=== PATIENT | male | born 1940 | race Caucasian/White ===

== ENCOUNTER → 2020-06-13 10:09 | Outpatient (BNVA) | payer MEDICARE, OTHER, SELFPAY | PROVIDERS: PCP Family Medicine; Visit Provider Internal Medicine Pulmonary Disease | DX: J44.9 Chronic obstructive pulmonary disease, unspecified (principal); J20.9 Acute bronchitis, unspecified; R06.00 Dyspnea, unspecified | CPT/HCPCS: 99212 ==

== ENCOUNTER 2020-08-10 08:52 | Outpatient (REF) | payer MEDICARE, OTHER, SELFPAY ==
[2020-08-10 10:12] LABS: MANUAL DIFF FLAG NO
[2020-08-10 10:20] LABS: Basophils Percent Auto 0.6 % (0-2); Eosinophils Absolute Auto 0.1 X10*3/uL (0.0-0.4); Eosinophils Percent Auto 1.7 % (0-4); Hematocrit 41.1 % (42-52); Hemoglobin 13.6 g/dl (14.0-18.0); Imm Gran Abs Auto 0.02 X10*3/uL (0.00-0.03); Imm Gran Pct Auto 0.3 % (0.0-0.4); Lymphocytes Percent Auto 14.4 % (20-40); Mean Corpuscular HGB Conc 33.1 g/dl (31.0-36.0); Mean Corpuscular Hemoglobin 29.9 pg (27.0-33.0); Mean Corpuscular Volume 90.3 fL (80-98); Mean Platelet Volume 9.5 fL (9.4-12.4); Monocytes Absolute Auto 0.9 X10*3/uL (0.1-1.2); Neutrophils Absolute Auto 5.1 X10*3/uL (2.0-8.3); Platelet Count 271 X10*3/uL (160-400); Red Blood Count 4.55 X10*6/uL (4.60-5.80); Red Cell Distribution Width 12.3 % (11.0-16.0); White Blood Count 7.2 X10*3/uL (4.8-10.8)
[2020-08-10 10:40] LABS: Alanine Aminotransferase 19 U/L (0-40); Anion Gap 10 (12-20); Blood Urea Nitrogen 19 mg/dL (9-16); Carbon Dioxide 30 mmol/L (22-29); Chloride 105 mmol/L (96-108); Estimated Glomerular Filt Rate > 60; Potassium 4.5 mmol/L (3.3-5.1); Sodium 140 mmol/L (135-145)
== END 2020-08-10 08:53 | disposition home or self-care (01) ==
LOC: HO.10HDL 08:52
PROVIDERS: Visit Provider Family Medicine
DX: I10 Essential (primary) hypertension (principal); R06.02 Shortness of breath; Z79.899 Other long term (current) drug therapy
CPT/HCPCS: 36415; 80051; 82550; 82565; 84460; 84520; 85025

== ENCOUNTER → 2020-08-16 10:12 | Outpatient (BNVA) | payer MEDICARE, OTHER, SELFPAY | PROVIDERS: PCP Family Medicine; Visit Provider Internal Medicine Pulmonary Disease | DX: J44.9 Chronic obstructive pulmonary disease, unspecified (principal); R06.00 Dyspnea, unspecified; F17.200 Nicotine dependence, unspecified, uncomplicated; Z71.6 Tobacco abuse counseling | CPT/HCPCS: 99212 ==

== ENCOUNTER → 2020-09-26 10:36 | Outpatient (BNVA) | payer MEDICARE, OTHER, SELFPAY | PROVIDERS: PCP Family Medicine; Visit Provider Internal Medicine Pulmonary Disease | DX: J44.9 Chronic obstructive pulmonary disease, unspecified (principal) | CPT/HCPCS: 99212 ==

== ENCOUNTER 2021-03-20 09:20 | Outpatient (REF) | payer MEDICARE, OTHER, SELFPAY ==
[2021-03-20 10:39] LABS: Alanine Aminotransferase 24 U/L (0-40); Anion Gap 13 (12-20); Blood Urea Nitrogen 15 mg/dL (9-16); Carbon Dioxide 26 mmol/L (22-29); Chloride 104 mmol/L (96-108); Estimated Glomerular Filt Rate > 60; Potassium 4.2 mmol/L (3.3-5.1); Sodium 139 mmol/L (135-145)
== END 2021-03-20 09:21 | disposition home or self-care (01) ==
LOC: HO.LAB 09:20
PROVIDERS: PCP Family Medicine; Visit Provider Family Medicine
DX: I10 Essential (primary) hypertension (principal); E78.00 Pure hypercholesterolemia, unspecified; Z79.899 Other long term (current) drug therapy
CPT/HCPCS: 36415; 80051; 82550; 82565; 84460; 84520

== ENCOUNTER → 2021-04-13 13:35 | Outpatient (BNVA) | payer MEDICARE, OTHER, SELFPAY | PROVIDERS: PCP Family Medicine; Visit Provider Internal Medicine Pulmonary Disease | DX: J44.9 Chronic obstructive pulmonary disease, unspecified (principal); J20.9 Acute bronchitis, unspecified | CPT/HCPCS: 99212 ==

== ENCOUNTER → 2021-08-09 11:34 | Outpatient (BNVA) | payer MEDICARE, OTHER, SELFPAY | PROVIDERS: PCP Family Medicine; Visit Provider Internal Medicine Pulmonary Disease | DX: J44.9 Chronic obstructive pulmonary disease, unspecified (principal); R06.00 Dyspnea, unspecified | CPT/HCPCS: 99212 ==

== ENCOUNTER → 2021-10-05 09:19 | Outpatient (REF) | payer MEDICARE, OTHER, SELFPAY ==
--- NOTE | 2021-10-05 09:22 | CA_ITS ---
Transthoracic Echocardiogram Patient (Last, First, Middle): Peter Grimes K Gender: Male Date of : 1940 Age: 81 Procedure Date: 10/05/2021 Procedure Type: Transthoracic Echocardiogram Location: OP Height: 167.64 cm Weight: 61.24 kg BSA: 1.69 m2 Heart Rate: bpm BP: 145 / 60 mmHg Sub Assembly Team Worker: VH/TO Referring MD: Jasper Hurley MD Manager Clinical: Neo Schulz MD Symptoms: R06.00 - Dyspnea, unspecified Study Quality: Fair ECG Rhythm: Sinus Conclusions: - 1. Low normal LV systolic function with pseudonormal filling pressure with suggestion of increased left ventricular end diastolic pressure 2. Normal cardiac valvular Doppler 3. Moderate pericardial effusion without signs of tamponade Findings Left Ventricle The visually estimated ejection fraction is between 50-55%. Spectral Doppler is indicative of a pseudonormal filling pattern. Elevated left ventricular end diastolic pressure. E/E prime ratio is between 8 and 15 consistent with indeterminate filling pressures. Right Ventricle Normal right ventricular cavity size and systolic function. Atria The left atrium is likely dilated. There is no evidence of interatrial shunt. The right atrium is normal in size. Aortic Valve There is mild calcification of the aortic valve. There is moderate thickening of the aortic valve. There is no aortic valve stenosis. There is no aortic valve regurgitation. Mitral Valve The mitral valve was not well visualized. There is no mitral valve regurgitation. There is no mitral valve stenosis. Pulmonic Valve The pulmonic valve was not well visualized. Tricuspid Valve The tricuspid valve was not well visualized. Tricuspid regurgitation envelope is inadequate for calculation of right ventricular systolic pressure. Normal right atrial pressure. Great Vessels All visible segments of the aorta are normal in size. The pulmonary artery was not well visualized. Venous The inferior vena cava is normal in size and collapses greater than 50% with inspiration. Pericardium/Pleural There is a moderate circumferential pericardial effusion. There are no definitive echocardiographic findings of tamponade physiology. Prior Study Comparison Changes noted compared to prior study dated: 07/17/2018. Moderate pericardial effusion is present Measurements 2D Linear Measurements IVSd: 0.98 0.6-0.9/0.6-1.0 cm LVIDd: 5.25 3.9-5.3/4.2-5.9 cm LVIDd Index: 3.11 2.4-3.2/2.2-3.1 cm/m2 LVIDs: 3.90 2.0-3.6 cm LVPWd: 0.81 0.7-1.1 cm LA Diam: 4.20 2.7-3.8/3.0-4.0 cm LAIDs Index: 2.49 1.5-2.3 cm/m2 LV Mass: 211.30 67-162/88-224 g LV Mass Index: 125.03 43-95/49-115 g/m2 LVOT Diam: 2.50 3.0+(-)1.3 cm 2D Systolic Function EF 4C: 55.10 >55% EF 2C: 52.20 >55% EF BiP: 52.30 >55% Mitral Valve MV Pk E: 1.04 MV PK A: 0.68 MV Decel Time: 207.00 E/A: 1.50 E'Lateral: 5.00 E'Medial: 5.55 E/E' Med: 18.70 E/E' Lat: 20.80 PHT: 61.00 MVA PHT: 3.61 Decel [place]: 5.03 Aortic Valve AoV Pk Efe: 1.22 AoV Mn Efe: 0.86 AoV VTI: 0.32 AoV Pk Grad: 6.00 Aov Mn Grad: 3.00 ABUNDIO Cont.VTI: 2.60 LVOT LVOT Pk Efe: 0.64 LVOT Mn Efe: 0.43 LVOT VTI: 0.17 LVOT Pk Grad: 2.00 LVOT Mn Grad: 1.00 LVOT Diam: 2.50 LVOT Area: 4.91 Diastolic Function MV Pk E: 1.04 MV Pk A: 0.68 E/A: 1.50 E'Medial: 5.55 E/E' Med: 18.70 E' Laterial: 5.00 E/E' Lat: 20.80 Right Ventricle TAPSE (mm): 19.10 TVS' Efe: 8.70 Tricuspid Valve RA Press: 3.00 Great Vessels Aorta Sinus of Valsalva: 3.74 2.0-3.5 cm Ao Asc: 3.10 2.1-3.4 cm Updated in Other Vendor System with Status of Final Neo Schulz MD electronically signed on 10/05/2021 3:13:26 PM with status of Final
== END ==
LOC: HO.CARD 09:19
PROVIDERS: PCP Family Medicine; Visit Provider Internal Medicine Pulmonary Disease
DX: R06.00 Dyspnea, unspecified (principal)
CPT/HCPCS: 93306

== ENCOUNTER → 2021-10-16 10:35 | Outpatient (BNVA) | payer MEDICARE, OTHER, SELFPAY | PROVIDERS: PCP Family Medicine; Visit Provider Internal Medicine Pulmonary Disease | DX: J44.9 Chronic obstructive pulmonary disease, unspecified (principal); R06.00 Dyspnea, unspecified | CPT/HCPCS: 99212 ==

== ENCOUNTER 2021-11-19 08:35 | Outpatient (REF) | payer MEDICARE, OTHER, SELFPAY ==
[2021-11-19 12:02] LABS: Alanine Aminotransferase 24 U/L (0-40); Anion Gap 12 (12-20); Aspartate Amino Transferase 22 U/L (5-37); Blood Urea Nitrogen 14 mg/dL (9-16); Carbon Dioxide 28 mmol/L (22-29); Chloride 103 mmol/L (96-108); Estimated Glomerular Filt Rate > 60; Potassium 4.7 mmol/L (3.3-5.1); Sodium 138 mmol/L (135-145)
== END 2021-11-19 08:36 | disposition home or self-care (01) ==
LOC: HO.HMGCLDS 08:35
PROVIDERS: PCP Family Medicine; Visit Provider Family Medicine
DX: I10 Essential (primary) hypertension (principal); Z79.899 Other long term (current) drug therapy
CPT/HCPCS: 36415; 80051; 82550; 82565; 84450; 84460; 84520

== ENCOUNTER → 2021-12-13 10:30 | Outpatient (BNVA) | payer MEDICARE, OTHER, SELFPAY | PROVIDERS: PCP Family Medicine; Visit Provider Internal Medicine Pulmonary Disease | DX: J44.9 Chronic obstructive pulmonary disease, unspecified (principal); R06.00 Dyspnea, unspecified; Z79.899 Other long term (current) drug therapy | CPT/HCPCS: 99212 ==

== ENCOUNTER 2022-01-10 13:24 | Outpatient (REF) | payer MEDICARE, OTHER, SELFPAY ==
--- NOTE | ~2022-01-10 | XR_ITS ---
EXAMINATION: XR CHEST 2 VIEWS CLINICAL INFORMATION: COPD, chest pain and cough. COMPARISON: Chest radiographs dated 06/26/2018; CTA chest dated 06/05/2018.. TECHNIQUE: Frontal and lateral views of the chest were obtained. FINDINGS: The heart, great vessels, pulmonary vasculature and mediastinum are normal. The lungs show no focal infiltrate, effusion or pneumothorax. A faint nipple shadow just to the anterior aspect of the right sixth rib, without corresponding finding on the lateral view. There is no acute osseous abnormality. There is mild thoracic spondylosis. XR/XR chest 2V IMPRESSION: No active cardiopulmonary disease.
--- NOTE | ~2022-01-10 | XR_ITS ---
EXAMINATION: XR RIBS, LEFT CLINICAL INFORMATION: Left chest pain, cough and COPD. COMPARISON: None TECHNIQUE: 3 views of the left ribs were obtained. FINDINGS: Lungs are clear. No consolidation, pneumothorax, or pleural effusion. The cardiomediastinal silhouette and pulmonary vasculature are normal. Osseous structures are unremarkable. Ribs are intact. No fractures are identified. XR/XR ribs LT 2V IMPRESSION: Unremarkable left rib examination.
== END 2022-01-10 13:25 | disposition home or self-care (01) ==
LOC: HO.XRAY 13:24
PROVIDERS: PCP Family Medicine; Visit Provider Family Medicine
DX: R07.89 Other chest pain (principal); J44.9 Chronic obstructive pulmonary disease, unspecified; R05.9 Cough, unspecified
CPT/HCPCS: 71046; 71100

== ENCOUNTER 2022-01-29 11:02 | Inpatient (IN) | payer MEDICARE, OTHER, SELFPAY ==
[2022-01-29] VITALS (9 sets, daily range): BP systolic 119–144; BP diastolic 51–89; PULSE 81–128; RESP 13–26; TEMP 36.7–37.2; O2SAT 95–97; BMI 21.4
--- NOTE | ~2022-01-29 | XR_ITS ---
EXAMINATION: XR CHEST CLINICAL INFORMATION: COPD exacerbation. COMPARISON: January 10, 2022. TECHNIQUE: Frontal view of the chest was obtained. FINDINGS: No significant abnormality is noted involving the heart, lungs, mediastinum, bony thorax or soft tissues. Mild degenerative changes of the shoulders. XR/XR chest 1V IMPRESSION: Unremarkable examination.
--- NOTE | 2022-01-29 11:13 | ECG_ITS ---
Test Reason : SOB Blood Pressure : / mmHG Vent. Rate : 092 BPM Atrial Rate : 000 BPM P-R Int : 000 ms QRS Dur : 120 ms QT Int : 374 ms P-R-T Axes : 000 -46 081 degrees QTc Int : 462 ms Atrial fibrillation Left axis deviation Incomplete left bundle branch block Abnormal ECG When compared with ECG of 07-JUN-2018 13:55, Atrial fibrillation has replaced Sinus rhythm Incomplete left bundle branch block is now Present Left axis deviation is now Present Referred By: Ambar Carrillo Electronically Signed By:LUIS KUMAR
--- NOTE | 2022-01-29 11:23 | ED.SOB ---
HPI - SOB/Dyspnea General Chief Complaint: Dyspnea Stated Complaint: Chest pain, diff breathing Time Seen by Provider: 01/29/22 11:05 Source: patient Mode of arrival: ambulatory Limitations: no limitations History of Present Illness HPI Narrative: Patient comes to the emergency room complaining of shortness of breath for 3 days. Patient states that he is known to have COPD. Patient uses inhalers at home, but over the last few days, they have not been working. Patient states that he feels a lot of pressure on both sides of the chest, no chest pain. Patient states that if he leans over to tie his shoes, the chest pressure increases. Patient states that he has been coughing more than usual. Patient is not oxygen dependent. Denies fever or chills Related Data Home Medications Medication Instructions Recorded Confirmed albuterol sulfate 90 mcg/actuation 2 puff inhalation QID 06/13/20 04/13/21 aerosol inhaler amlodipine 10 mg tablet 10 mg PO DAILY 06/13/20 01/29/22 apixaban 5 mg tablet (Eliquis) 5 mg PO BID 06/13/20 04/13/21 aspirin 81 mg tablet,delayed 81 mg PO DAILY 06/13/20 04/13/21 release atorvastatin 40 mg tablet 40 mg PO DAILY 06/13/20 01/29/22 clopidogrel 75 mg tablet (Plavix) 75 mg PO DAILY 06/13/20 01/29/22 finasteride 5 mg tablet 5 mg PO DAILY 06/13/20 01/29/22 nitroglycerin 0.4 mg sublingual 0.4 mg sublingual Q5M PRN 06/13/20 04/13/21 tablet quinapril 40 mg tablet 40 mg PO BID 06/13/20 01/29/22 tamsulosin 0.4 mg capsule (Flomax) 0.4 mg PO DAILY 06/13/20 01/29/22 budesonide-formoterol HFA 160 2 puff inhalation BID 01/29/22 01/29/22 mcg-4.5 mcg/actuation aerosol inhaler (Symbicort) isosorbide mononitrate 30 mg 1 tab PO QPM 01/29/22 01/29/22 tablet,extended release 24 hr metoprolol tartrate 50 mg tablet 1 tab PO TID 01/29/22 01/29/22 tramadol 50 mg tablet 1 tab PO Q12H PRN pain 01/29/22 01/29/22 Allergies Allergy/AdvReac Type Severity Reaction Status Date / Time No Known Allergies Allergy Verified 12/13/21 10:31 [No Known Allergies*] Review of Systems Review of Systems: Constitutional : No Weight loss, No Fever, No Chills, No Night Sweats, No Fatigue, No Malaise ENT/Mouth : No Hearing loss, No Ear Pain, No Nasal Congestion, No Sinus Pain, No Hoarseness, No sore throat, No Rhinorrhea, No Swallowing Difficulty Eyes: No Eye Pain, No Swelling, No Redness, No Foreign Body, No Discharge, No Vision Changes Cardiovascular : Complaining of chest pressure, No Chest Pain, no orthopnea, no lower extremity edema, no palpitations Respiratory : Increased cough, dyspnea at rest, worse with exertion Gastrointestinal : No Nausea, No Vomiting, No Diarrhea, No Constipation, No abdominal Pain, No Hematochezia, No Melena Genitourinary : no irregular bleeding, No Dysuria, No Urinary Frequency, No Hematuria, No Urinary Incontinence, No Urgency, No Flank Pain, No Urinary Flow Changes, No Hesitancy Musculoskeletal : No joint pain, No Myalgias, No Joint Swelling Skin : No Skin Lesions, No rash Neuro : No Weakness, No Numbness, No Paresthesias, No Loss of Consciousness, No Dizziness, No Headache Psych : No Anxiety/Panic, No Depression, No SI/HI/AH/VH, No Social Issues, Heme/Lymph: No Bruising, No Bleeding,No Lymphadenopathy Endocrine : No Polyuria, No Polydipsia, No Temperature Intolerance FOR[facility], LAT[facility] Past Medical History Medical History (Updated 01/29/22 @ 14:04 by Ambar Carrillo MD) CHF (congestive heart failure) COPD (chronic obstructive pulmonary disease) Coronary artery disease Pericardial effusion Surgical History (Updated 01/29/22 @ 11:25 by Ambar Carrillo MD) H/O heart artery stent Social History Social History (Updated 06/13/20 @ 10:12 by Myra Adams MA) Alcohol intake: current Patient Tobacco Use Status: Former Tobacco user Use of substances other than those prescribed or required for medical reasons: No Advance Directives: No Advance Directives Information Provided: No Physical Exam Vital Signs: Vital Signs: Last Vital Signs Temp 98.1 F 01/29/22 11:49 Pulse 87 01/29/22 12:51 Resp 20 01/29/22 12:51 BP 123/54 L 01/29/22 12:51 Pulse Ox 95 01/29/22 12:51 O2 Del Method 01/29/22 12:51 BMI result Body Mass Index 21.4 Const: Other: Appearance: Alert. Oriented X3. No acute distress. Eyes: Pupils equal, round and reactive to light. ENT: Pharynx normal. Neck: Normal inspection. Neck supple. No lymph nodes noted. No crepitus CVS: Normal heart rate and rhythm. Pulses normal. Normal S1 and S2 Respiratory: No respiratory distress. Decreased breath sounds bilaterally, minimal wheezing, tachypneic approximately respiratory rate of 30 Abdomen: Soft and nontender. No rigidity. No distention. Skin: Skin warm and dry. Normal skin color. Normal skin turgor. Extremities: No lower extremity edema. No Lacerations. No Rash Neuro: Oriented X 3. No motor deficit. No sensory deficit. Moving all extremities. No slurred speech. CN 2 through 12 grossly intact Psych: calm, cooperative, normal affect Course Course Course Narrative: Patient is receiving an hour long treatment, Solu-Medrol, magnesium, IV antibiotics. All of patient's labs and imaging are pending EKG shows new onset atrial fibrillation. His initial heart rate 110-140. Patient was given 10 mg of IV Cardizem, heart rate improved to 87, blood pressure 123/54. Patient's oxygen saturation drops to 87% with walking, patient becomes short of breath. Patient also has acute kidney injury, creatinine 1.52, previously 1.13. At this time, due to the shortness of breath, we will diurese the patient. No fluid will be given. Patient's troponin is bumped to 36.6, BNP 656 which is more elevated than usual, chest x-ray does not show any acute pulmonary edema. Patient will be admitted. I discussed the patient with Dr. Schulz, recommendations are to start Eliquis, stop aspirin, patient needs diuresis. Patient already received 20 mg of IV Lasix. I discussed the patient with Dr. Stock, patient being admitted MDM - SOB/Dyspnea Lab Data Result diagrams: 01/29/22 12:20 01/29/22 12:20 Labs: Lab Results 08/01/29/22 01/29/22 Range/Units 11:37 11:37 12:20 WBC 10.6 (4.8-10.8) X10*3/uL RBC 4.61 (4.60-5.80) X10*6/uL Hgb 13.6 L (14.0-18.0) g/dl Hct 41.1 L (42.0-52.0) % MCV 89.2 (80.0-98.0) fL MCH 29.5 (27.0-33.0) pg MCHC 33.1 (31.0-36.0) g/dl RDW 12.4 (11.0-16.0) % Plt Count 235 (160-400) X10*3/uL MPV 9.6 (9.4-12.4) fL Immature Gran % (Auto) 0.4 (0.0-0.4) % Neut % (Auto) 74.5 H (45-73) % Lymph % (Auto) 10.6 L (20-40) % [place] % (Auto) 14.3 H (2-11) % Eos % (Auto) 0.0 (0-4) % Baso % (Auto) 0.2 (0-2) % Lymph # (Auto) 1.1 L (1.2-4.9) X10*3/uL [place] # (Auto) 1.5 H (0.1-1.2) X10*3/uL Eos # (Auto) 0.0 (0.0-0.4) X10*3/uL Baso # (Auto) 0.0 (0.0-0.2) X10*3/uL Abs Immat Gran (auto) 0.04 H (0.00-0.03) X10*3/uL Absolute Neuts (auto) 7.9 (2.0-8.3) x10*3/uL Absolute Nucleated RBC 0.000 (0.0-0.012) X10*3/uL Nucleated RBC % (auto) 0.0 (0.0-0.2) /100WBC Smear Tech's Comments VERIFIED PT (10.0-13.1) SEC INR (0.9-1.1) Sodium (135-145) mmol/L Potassium (3.3-5.1) mmol/L Chloride (96-108) mmol/L Carbon Dioxide (22-29) mmol/L Anion Gap (12-20) BUN (9-16) mg/dL Creatinine (0.5-1.4) mg/dL Estim Creat Clear Calc Estimated GFR Random Glucose (60-115) mg/dL Lactic Acid 1.2 (0.5-2.0) mmol/L Calcium (8.4-10.2) mg/dL Total Bilirubin (0.0-1.0) mg/dL Direct Bilirubin (0.0-0.5) mg/dL AST (5-37) U/L ALT (0-40) U/L Alkaline Phosphatase (39-117) U/L Troponin I High Sens (<3.5-35.0) ng/L B-Natriuretic Peptide (<100) pg/mL Total Protein (6.5-8.0) g/dL Albumin (3.5-5.0) g/dL COVID-19 (CLAUDIA) Negative (Negative) COVID-19 Clin Com See Note 01/29/22 01/29/22 01/29/22 Range/Units 12:20 12:20 12:20 WBC (4.8-10.8) X10*3/uL RBC (4.60-5.80) X10*6/uL Hgb (14.0-18.0) g/dl Hct (42.0-52.0) % MCV (80.0-98.0) fL MCH (27.0-33.0) pg MCHC (31.0-36.0) g/dl RDW (11.0-16.0) % Plt Count (160-400) X10*3/uL MPV (9.4-12.4) fL Immature Gran % (Auto) (0.0-0.4) % Neut % (Auto) (45-73) % Lymph % (Auto) (20-40) % [place] % (Auto) (2-11) % Eos % (Auto) (0-4) % Baso % (Auto) (0-2) % Lymph # (Auto) (1.2-4.9) X10*3/uL [place] # (Auto) (0.1-1.2) X10*3/uL Eos # (Auto) (0.0-0.4) X10*3/uL Baso # (Auto) (0.0-0.2) X10*3/uL Abs Immat Gran (auto) (0.00-0.03) X10*3/uL Absolute Neuts (auto) (2.0-8.3) x10*3/uL Absolute Nucleated RBC (0.0-0.012) X10*3/uL Nucleated RBC % (auto) (0.0-0.2) /100WBC Smear Tech's Comments PT 11.9 (10.0-13.1) SEC INR 1.0 (0.9-1.1) Sodium 135 (135-145) mmol/L Potassium 4.2 (3.3-5.1) mmol/L Chloride 97 (96-108) mmol/L Carbon Dioxide 22 (22-29) mmol/L Anion Gap 20 (12-20) BUN 31 H D (9-16) mg/dL Creatinine 1.52 H (0.5-1.4) mg/dL Estim Creat Clear Calc 33.0 Estimated GFR 44 Random Glucose 141 H (60-115) mg/dL Lactic Acid (0.5-2.0) mmol/L Calcium 9.0 (8.4-10.2) mg/dL Total Bilirubin 0.9 (0.0-1.0) mg/dL Direct Bilirubin 0.5 (0.0-0.5) mg/dL AST 26 (5-37) U/L ALT 22 (0-40) U/L Alkaline Phosphatase 83 (39-117) U/L Troponin I High Sens 36.6 H (<3.5-35.0) ng/L B-Natriuretic Peptide 656 H (<100) pg/mL Total Protein 7.5 (6.5-8.0) g/dL Albumin 4.1 (3.5-5.0) g/dL COVID-19 (CLAUDIA) (Negative) COVID-19 Clin Com Critical Care Time Critical Care Time Critical Care Time: Yes Total Critical Care Time: 45 Attestation: I have personally provided critical care time. Time includes review of lab data, radiology results, discussion with consultants, and monitoring for potential decompensation. Intervention performed as documented. Discharge Plan Discharge Clinical Impression: Atrial fibrillation, new onset, Acute kidney injury, Acute dyspnea Patient Disposition: Admitted As Inpatient
[2022-01-29] MEDS: Albuterol Sulfate (0.083%) 2.5 MG/3 ML VIAL.NEB 10 MG INHALE (11:28)
[2022-01-29] MEDS: methylPREDNISolone Sod Succ 125 MG/2 ML VIAL IVPUSH (11:52)
[2022-01-29] MEDS: Magnesium Sulfate/H2O 2 GM/50 ML PIGGYBACK IV (11:54)
[2022-01-29 11:57] LABS: Lactic Acid 1.2 mmol/L (0.5-2.0)
[2022-01-29 12:12] LABS: COVID-19 Test Negative (Negative)
[2022-01-29] MEDS: dilTIAZem HCL 50 MG/10 ML VIAL 10 MG IVPUSH (12:32)
[2022-01-29 12:35] LABS: Basophils Percent Auto 0.2 % (0-2); Hematocrit 41.1 % (42.0-52.0); Hemoglobin 13.6 g/dl (14.0-18.0); Imm Gran Abs Auto 0.04 X10*3/uL (0.00-0.03); Imm Gran Pct Auto 0.4 % (0.0-0.4); Lymphocytes Absolute Auto 1.1 X10*3/uL (1.2-4.9); Lymphocytes Percent Auto 10.6 % (20-40); MANUAL DIFF FLAG SCAN; Mean Corpuscular HGB Conc 33.1 g/dl (31.0-36.0); Mean Corpuscular Hemoglobin 29.5 pg (27.0-33.0); Mean Corpuscular Volume 89.2 fL (80.0-98.0); Mean Platelet Volume 9.6 fL (9.4-12.4); Monocytes Absolute Auto 1.5 X10*3/uL (0.1-1.2); Monocytes Percent Auto 14.3 % (2-11); Neutrophils Absolute Auto 7.9 x10*3/uL (2.0-8.3); Neutrophils Percent Auto 74.5 % (45-73); Platelet Count 235 X10*3/uL (160-400); Red Blood Count 4.61 X10*6/uL (4.60-5.80); Red Cell Distribution Width 12.4 % (11.0-16.0); SCAN SMEAR FLAG 1; White Blood Count 10.6 X10*3/uL (4.8-10.8)
[2022-01-29] MEDS: 0.9 % Sodium Chloride 1,000 ML 999 ML IVCONT (12:36)
[2022-01-29 12:41] LABS: Prothrombin Time 11.9 SEC (10.0-13.1)
[2022-01-29 12:52] LABS: Alanine Aminotransferase 22 U/L (0-40); Albumin Level 4.1 g/dL (3.5-5.0); Alkaline Phosphatase 83 U/L (39-117); Anion Gap 20 (12-20); Aspartate Amino Transferase 26 U/L (5-37); Bilirubin Direct 0.5 mg/dL (0.0-0.5); Bilirubin Total 0.9 mg/dL (0.0-1.0); Blood Urea Nitrogen 31 mg/dL (9-16); Carbon Dioxide 22 mmol/L (22-29); Chloride 97 mmol/L (96-108); Estimated Glomerular Filt Rate 44; Glucose Random 141 mg/dL (60-115); Potassium 4.2 mmol/L (3.3-5.1); Sodium 135 mmol/L (135-145); Total Protein 7.5 g/dL (6.5-8.0)
[2022-01-29 12:53] LABS: SLIDE REVIEW VERIFIED
[2022-01-29 12:58] LABS: B Type Natriuretic Peptide 656 pg/mL (<100); Troponin-I High Sensitivity 36.6 ng/L (<3.5-35.0)
[2022-01-29] MEDS: levoFLOXacin/D5W 500 MG/100 ML PIGGYBACK 100 MG IV (13:23)
--- NOTE | 2022-01-29 13:55 | PC.NURSE ---
THIS PCT AMBULATES PATIENT AND MEASURES SPO2 PER MD VERBAL ORDER. PATIENT'S GAIT REGULAR AND STEADY, MAINTAINING OXYGEN SATURATION OF 94%. ONCE PATIENT TURNED AND SPOKE TO THIS PCT TO RETURN TO BED THEIR SPO2 STEADILY AND QUICKLY DROPPED DOWN TO 88%
[2022-01-29] MEDS: Apixaban 2.5 MG TABLET PO ×2 (14:34→21:30)
[2022-01-29] MEDS: Furosemide 20 MG/2 ML VIAL IVPUSH (14:34)
--- NOTE | 2022-01-29 14:38 | P.HPHOSP_ITS ---
History of Present Illness Date of Service: 01/29/22 Chief Complaint: Shortness of breath An 81 years old male with PMH of CAD post multiple stents, COPD, CHF, BPH who presents to the hospital complaining of dyspnea and palpitation for 3 days. The patient reports that his baseline is poor and he cannot walk much without feeling winded but since Friday he has been failing more shortness of breath, palpitation and weakness associated with chest heaviness. Denies any fever, chills, coughing, abdominal pain, nausea, vomiting, change in bowel habit or urinary symptoms. In the emergency he was found to be in new onset atrial fibrillation with rapid ventricular response. Noticed to have worsened kidney function and evidence of elevated BNP. Admitted for further evaluation and treatment. Review of Systems Review of Systems: No fever, chills but reports generalized weakness Having chest illness and palpitations Reporting dyspnea on exertion No abdominal pain, nausea or vomiting No urinary symptoms No any rash or wounds [facility] Medical History (Updated 01/29/22 @ 14:04 by Ambar Carrillo MD) CHF (congestive heart failure) COPD (chronic obstructive pulmonary disease) Coronary artery disease Pericardial effusion Surgical History (Updated 01/29/22 @ 11:25 by Ambar Carrillo MD) H/O heart artery stent Social History (Updated 06/13/20 @ 10:12 by Myra Adams MA) Alcohol intake: current Patient Tobacco Use Status: Former Tobacco user Use of substances other than those prescribed or required for medical reasons: No Advance Directives: No Advance Directives Information Provided: No Meds Allergies Allergy/AdvReac Type Severity Reaction Status Date / Time No Known Allergies Allergy Verified 12/13/21 10:31 [No Known Allergies*] Active Medications: Current Medications Levofloxacin (Levaquin) 500 mg in 100 mls @ 100 mls/hr IV Q24H MARTINEZ Last Infusion: 01/29/22 14:33 Dose: Infused Pharmacy Consult (Consult Rx Perform Med Rec) 1 each MISCELLANE ONCE PRN PRN Reason: Consult order Home Medications Medication Instructions Recorded Confirmed Last Taken Type amlodipine 10 mg tablet 10 mg PO DAILY 06/13/20 01/29/22 01/29/22 History aspirin 81 mg tablet,delayed 81 mg PO DAILY 06/13/20 01/29/22 01/29/22 History release atorvastatin 40 mg tablet 40 mg PO BEDTIME 06/13/20 01/29/22 01/28/22 History clopidogrel 75 mg tablet (Plavix) 75 mg PO DAILY 06/13/20 01/29/22 01/29/22 History finasteride 5 mg tablet 5 mg PO DAILY 06/13/20 01/29/22 01/29/22 History quinapril 40 mg tablet 40 mg PO BID 06/13/20 01/29/22 01/29/22 History tamsulosin 0.4 mg capsule (Flomax) 0.4 mg PO BEDTIME 06/13/20 01/29/22 01/28/22 History budesonide-formoterol HFA 160 2 puff inhalation BID 01/29/22 01/29/22 01/29/22 History mcg-4.5 mcg/actuation aerosol inhaler (Symbicort) isosorbide mononitrate 30 mg 1 tab PO DAILY@1800 01/29/22 01/29/22 01/28/22 History tablet,extended release 24 hr metoprolol tartrate 50 mg tablet 50 mg PO DAILY 01/29/22 01/29/22 01/29/22 History metoprolol tartrate 50 mg tablet 100 mg PO DAILY@1800 01/29/22 01/29/22 01/28/22 History multivitamin 1 tab PO DAILY 01/29/22 01/29/22 01/29/22 History Physical Exam Vital Signs and Narrative: Vital Signs: Last Vital Signs Temp 98.1 F 01/29/22 11:49 Pulse 93 01/29/22 14:35 Resp 20 01/29/22 14:35 BP 132/89 01/29/22 14:35 Pulse Ox 95 01/29/22 14:35 O2 Del Method 01/29/22 14:35 BMI result Body Mass Index 21.4 Const: Other: Constitutional : Alert, oriented, not in distress Neck : Normal inspection, Supple Cardiovascular : Irregularly irregular, no JVP, no lower extremity edema Respiratory : The decreased bilateral air entry, no crackles, wheezes or rhonchi Gastrointestinal: soft, lax, Normal bowel sounds, Non tender Skin : Warm, Dry Neurological : Alert & oriented x3, No focal deficit , CN 2-12 within normal Results Labs CBC and Chem 7: 01/29/22 12:20 01/29/22 12:20 Labs: Laboratory Results - last 24 hr 01/29/22 01/29/22 01/29/22 11:37 11:37 12:20 MCV 89.2 MCH 29.5 MCHC 33.1 RDW 12.4 Plt Count 235 MPV 9.6 Immature Gran % (Auto) 0.4 Neut % (Auto) 74.5 H Lymph % (Auto) 10.6 L [place] % (Auto) 14.3 H Eos % (Auto) 0.0 Baso % (Auto) 0.2 Lymph # (Auto) 1.1 L [place] # (Auto) 1.5 H Eos # (Auto) 0.0 Baso # (Auto) 0.0 Abs Immat Gran (auto) 0.04 H Absolute Neuts (auto) 7.9 Absolute Nucleated RBC 0.000 Nucleated RBC % (auto) 0.0 Smear Tech's Comments VERIFIED PT INR Anion Gap Estim Creat Clear Calc Estimated GFR Random Glucose Lactic Acid 1.2 Calcium Total Bilirubin Direct Bilirubin AST ALT Alkaline Phosphatase B-Natriuretic Peptide Total Protein Albumin COVID-19 (CLAUDIA) Negative COVID-19 Clin Com See Note 01/29/22 01/29/22 01/29/22 12:20 12:20 12:20 MCV MCH MCHC RDW Plt Count MPV Immature Gran % (Auto) Neut % (Auto) Lymph % (Auto) [place] % (Auto) Eos % (Auto) Baso % (Auto) Lymph # (Auto) [place] # (Auto) Eos # (Auto) Baso # (Auto) Abs Immat Gran (auto) Absolute Neuts (auto) Absolute Nucleated RBC Nucleated RBC % (auto) Smear Tech's Comments PT 11.9 INR 1.0 Anion Gap 20 Estim Creat Clear Calc 33.0 Estimated GFR 44 Random Glucose 141 H Lactic Acid Calcium 9.0 Total Bilirubin 0.9 Direct Bilirubin 0.5 AST 26 ALT 22 Alkaline Phosphatase 83 B-Natriuretic Peptide 656 H Total Protein 7.5 Albumin 4.1 COVID-19 (CLAUDIA) COVID-19 Clin Com Imaging Radiologist's Impressions: Impressions Chest X-Ray 01/29/22 11:21 IMPRESSION: Unremarkable examination. Assessment and Plan (1) Atrial fibrillation, new onset: Status: Acute (2) Acute kidney injury: Status: Acute Plan An 81 years old male with PMH of CAD post multiple stents, COPD, CHF, BPH who presents to the hospital complaining of dyspnea and palpitation for 3 days. New onset atrial fibrillation with RVR Check TSH Received Cardizem dose with fair response continue home dose metoprolol Start renally adjusted Eliquis Echo Get cardiology evaluation the morning Chris I on CKD stage 3 Creatinine worsened to 1.5 Likely secondary to new onset atrial fibrillation Hold nephrotoxic medications Monitor BMP, intake and output History of CHF , Diastolic elevated BNP CXR showing no fluid overload hold on Lasix for now History of CAD Discontinue aspirin, continue Plavix Continue isosorbide, metoprolol Hold quinapril and amlodipine Continue statin BPH continue finasteride DVT PPX Eliquis The patient will need shreya 2 overnight hospital stay for evaluation of new onset atrial fibrillation and treatment of acute kidney injury to prevent possible decompensation Quality Stroke Does the patient have a stroke diagnosis?: No VTE Prior VTE?: No VTE Risk Level:: Medical - moderate - high VTE Device Contraindication: Treatment Not Indicated VTE Drug Contraindication: N/A - Med Ordered
--- NOTE | 2022-01-29 14:45 | PHA.MEDREC ---
Pharmacy Consult ? Medication Reconciliation Pharmacy has completed the medication reconciliation. Patient had list of medications with him. List matched claim history. Sonya PeralesD
[2022-01-29 15:10] LABS: Thyroid Stimulating Hormone 1.05 uIU/mL (0.32-4.0)
[2022-01-29] MEDS: 0.9 % Sodium Chloride Flush 3 ML SYRINGE IVFLUSH (16:48)
[2022-01-29] MEDS: Metoprolol Tartrate 100 MG TABLET PO (17:41)
[2022-01-29] MEDS: Isosorbide Mononitrate 30 MG TAB.ER.24H PO (18:10)
[2022-01-29] MEDS: Tamsulosin HCL 0.4 MG CAPSULE PO (21:30)
[2022-01-29] MEDS: Atorvastatin Calcium 40 MG TABLET PO (21:30)
--- NOTE | 2022-01-29 21:45 | MHC.CM.PN ---
IMM 01/29. HCP on file with PCP, Dr. Sigala. Copy requested. HCP#1/ Betty Grimes ([phone]) & HCP#2/daughter Yaquelin Garcia. Independent. Lives with & daughter. Home has an in-law apartment. No DME/services. Moderna Vax/boosted x1. D/C plan: home without services. Family to transport.
[2022-01-30] VITALS (8 sets, daily range): BP systolic 140–157; BP diastolic 58–67; PULSE 69–87; RESP 15–27; TEMP 36.4–36.6; O2SAT 95–97
[2022-01-30] MEDS: 0.9 % Sodium Chloride Flush 3 ML SYRINGE IVFLUSH ×2 (00:05→07:44)
--- NOTE | 2022-01-30 01:15 | PC.NURSE ---
Patient cough progressing to a wet congested hacking cough. LS dim, congested, rhonchi throughout. Patient has a strong cough but is unable to produce sputum. Oxygen remains 94%RA. Patient denies increase in SOB, Denies CP. Patient sleeping off/on. Hospitalist paged to request nebs vrs cough meds vrs additional lasix. MD Ran Fleming placed order for brenda aguirre.
[2022-01-30] MEDS: Benzonatate 100 MG CAPSULE PO (01:46)
[2022-01-30 04:38] LABS: Hematocrit 34.5 % (42.0-52.0); Hemoglobin 12.3 g/dl (14.0-18.0); Mean Corpuscular HGB Conc 35.7 g/dl (31.0-36.0); Mean Corpuscular Hemoglobin 31.9 pg (27.0-33.0); Mean Corpuscular Volume 89.6 fL (80.0-98.0); Mean Platelet Volume 9.5 fL (9.4-12.4); Platelet Count 215 X10*3/uL (160-400); Red Blood Count 3.85 X10*6/uL (4.60-5.80); Red Cell Distribution Width 12.4 % (11.0-16.0); White Blood Count 11.4 X10*3/uL (4.8-10.8)
[2022-01-30 04:56] LABS: Anion Gap 16 (12-20); Blood Urea Nitrogen 30 mg/dL (9-16); Calcium 8.5 mg/dL (8.4-10.2); Carbon Dioxide 22 mmol/L (22-29); Chloride 100 mmol/L (96-108); Creatinine Clr Calc Pharmacy 53.3; Estimated Glomerular Filt Rate > 60; Glucose Random 162 mg/dL (60-115); Potassium 3.9 mmol/L (3.3-5.1); Sodium 134 mmol/L (135-145)
--- NOTE | 2022-01-30 07:00 | CA_ITS ---
Transthoracic Echocardiogram Patient (Last, First, Middle): Peter Grimes K Gender: Male Date of : 1940 Age: 81 Procedure Date: 01/30/2022 Procedure Type: Transthoracic Echocardiogram Location: ER Height: 167.64 cm Weight: 59.88 kg BSA: 1.68 m2 Heart Rate: 85 bpm BP: 157 / 66 mmHg Customer Support Consultant: MANUEL Referring MD: Saroj Stock MD Piercer: Neo Schulz MD Symptoms: New onset Atrial fibrillation Study Quality: Adequate ECG Rhythm: Sinus Conclusions: - 1. [id number] LV systolic dysfunction with grade 2 diastolic dysfunction 2. Moderate pericardial effusion without any obvious signs of tamponade Findings Left Ventricle Normal left ventricular cavity size. There is normal left ventricular wall thickness. The left ventricular systolic function is mild to moderately decreased. The visually estimated ejection fraction is between 40-45%. Spectral Doppler is indicative of a pseudonormal filling pattern. E/E prime ratio is >15, consistent with elevated filling pressures. Evidence suggests grade II (moderate) diastolic dysfunction. Wall Motion Rest Echo Findings The basal inferior segment is akinetic. Right Ventricle Normal right ventricular cavity size. There is mild to moderately decreased right ventricular systolic function. Pericardium/Pleural There is a moderate pericardial effusion. There are no definitive echocardiographic findings of tamponade physiology. The inferior vena cava is normal in size with preserved respiratory variability. Prior Study Comparison Changes noted compared to prior study dated: 10/05/2021. LV systolic function is depressed Measurements 2D Linear Measurements IVSd: 0.98 0.6-0.9/0.6-1.0 cm LVIDd: 4.75 3.9-5.3/4.2-5.9 cm LVIDd Index: 2.83 2.4-3.2/2.2-3.1 cm/m2 LVIDs: 3.69 2.0-3.6 cm LVPWd: 1.03 0.7-1.1 cm LV Mass: 209.39 67-162/88-224 g LV Mass Index: 124.63 43-95/49-115 g/m2 2D Systolic Function EF 4C: 34.30 >55% EF 2C: 51.80 >55% EF BiP: 42.50 >55% Mitral Valve MV Pk E: 1.15 MV PK A: 0.51 MV Decel Time: 154.00 E/A: 2.30 E'Lateral: 3.77 E'Medial: 4.47 E/E' Med: 25.70 E/E' Lat: 30.50 PHT: 45.00 MVA PHT: 4.89 Decel Fleming: 7.44 Diastolic Function MV Pk E: 1.15 MV Pk A: 0.51 E/A: 2.30 E'Medial: 4.47 E/E' Med: 25.70 E' Laterial: 3.77 E/E' Lat: 30.50 Right Ventricle TAPSE (mm): 12.70 TVS' Efe: 6.60 Tricuspid Valve RA Press: 3.00 Updated in Other Vendor System with Status of Final Neo Schulz MD electronically signed on 01/30/2022 12:46:37 PM with status of Final
[2022-01-30] MEDS: Clopidogrel Bisulfate 75 MG TABLET PO (07:45)
[2022-01-30] MEDS: Apixaban 2.5 MG TABLET PO (07:45)
[2022-01-30] MEDS: Metoprolol Tartrate 50 MG TABLET PO (07:45)
[2022-01-30] MEDS: Finasteride 5 MG TABLET PO (07:58)
[2022-01-30 09:07] LABS: B Type Natriuretic Peptide 247 pg/mL (<100)
[2022-01-30] MEDS: Fluticasone/Vilanterol 200/25 BLST.W.DEV 1 PUFF INHALE (10:12)
--- NOTE | 2022-01-30 10:27 | PM.CNCAR ---
History of Present Illness History of Present Illness Date of Service: 01/30/22 Requesting physician: Saroj Stock Consult reason: atrial fibrillation Chief complaint: Dyspnea, palpitations Narrative: I was consulted to see Peter in cardiology consultation today for new onset atrial fibrillation with rapid ventricular response. Peter is a pleasant 81-year-old male with prior CAD with multiple stents in the past last stent many years ago, do not have the details, severe COPD as per Pulmonary note, hypertension, dual antiplatelet therapy, diastolic heart failure. Patient has no history of prior atrial fibrillation. He stated over the last few years been getting increasingly short of breath walking his dogs however the last 3 days he got acutely more short of breath doing minimal activity around the house. He also at that time noted that his heart rate was very high on his pulse oximeter at home despite not having significant hypoxemia. He therefore came to the emergency room yesterday. Evidence of yesterday was noted to be in atrial fibrillation rapid ventricular response which was controlled with rate control with Cardizem and metoprolol. He was also noted to have acute kidney injury as well as significantly elevated BNP in the 600 range. His BNP usually in the range of 100-200. He had an echocardiogram in September this year which had shown low normal LV systolic function with pseudonormal filling pattern with moderate pericardial effusion. Yesterday along with this acute shortness of breath he also had some chest pressure but says his chest pressure is much different than his anginal discomfort. Review of Systems Constitutional: Constitutional: Reports no additional constitutional complaints Eyes: Eyes: Reports no additional eye complaints Cardiovascular: Cardiovascular: Reports chest pain, Reports rapid heart rate, Denies leg edema, Denies lightheadedness, Denies Loss of Consciousness, Reports dyspnea on exertion and Denies orthopnea Respiratory: Respiratory: Denies cough, Reports dyspnea on exertion and Denies wheezing Gastrointestinal: Gastrointestinal: Reports no additional gastrointestinal complaints Genitourinary: Genitourinary: Reports no additional male genitourinary complaints Musculoskeletal: Musculoskeletal: Reports no additional musculoskeletal complaints Integumentary/Breasts: Skin/Breast: Reports system reviewed and no additional complaints, except as docu Neurologic: Reports system reviewed and no additional complaints, except as documented Psychiatric: Psychiatric: Reports no additional psychiatric complaints Endocrine: Endocrine: Reports no additional endocrine complaints Hematologic/Lymphatic: Hematologic/Lymphatic: Reports no additional hematologic/lymphatic complaints Allergic/Immunologic: Allergic/Immunologic: Reports no additional allergic/immunologic complaints and Denies wheezing [facility] Past Medical History Medical History CHF (congestive heart failure) COPD (chronic obstructive pulmonary disease) Coronary artery disease Pericardial effusion Surgical History Surgical History H/O heart artery stent Social History Social History Alcohol intake: current Patient Tobacco Use Status: Former Tobacco user Use of substances other than those prescribed or required for medical reasons: No Advance Directives: Yes Advance Directives on File: Yes Advance Directives Date on File: 01/30/22 service: No Current occupational status: retired [employer] Allergies Allergy/AdvReac Type Severity Reaction Status Date / Time No Known Allergies Allergy Verified 12/13/21 10:31 [No Known Allergies*] Active Medications: Current Medications Acetaminophen (Acetaminophen 325 Mg Tablet) 650 mg PO Q6H PRN PRN Reason: Pain, Mild (Pain Scale 1-3) Apixaban (Apixaban 2.5 Mg Tablet) 2.5 mg PO BID [facility] Last Admin: 01/30/22 07:45 Dose: 2.5 mg Atorvastatin Calcium (Atorvastatin Calcium 40 Mg Tablet) 40 mg PO BEDTIME [facility] Last Admin: 01/29/22 21:30 Dose: 40 mg Benzonatate (Benzonatate 100 Mg Capsule) 100 mg PO TID PRN PRN Reason: Cough Last Admin: 01/30/22 01:46 Dose: 100 mg Clopidogrel Bisulfate (Clopidogrel Bisulfate 75 Mg Tablet) 75 mg PO DAILY [facility] Last Admin: 01/30/22 07:45 Dose: 75 mg Finasteride (Finasteride 5 Mg Tablet) 5 mg PO DAILY [facility] Last Admin: 01/30/22 07:58 Dose: 5 mg Fluticasone/Vilanterol (Fluticasone/Vilanterol 200/25 Blst.W.Dev) 1 puff INHALE RDAILY [facility] Last Admin: 01/30/22 10:12 Dose: 1 puff Isosorbide Mononitrate (Isosorbide Mononitrate 30 Mg Tab.Er.24h) 30 mg PO DAILY@1800 MARTINEZ; Protocol Last Admin: 01/29/22 18:10 Dose: 30 mg Levalbuterol HCl (Levalbuterol Hcl 1.25 Mg/0.5 Ml Vial.Neb) 1.25 mg INHALE RQ4H WHILE AWAKE [facility] Metoprolol Tartrate (Metoprolol Tartrate 50 Mg Tablet) 50 mg PO DAILY [facility]; Protocol Last Admin: 01/30/22 07:45 Dose: 50 mg Metoprolol Tartrate (Metoprolol Tartrate 100 Mg Tablet) 100 mg PO DAILY@1800 [facility]; Protocol Last Admin: 01/29/22 17:41 Dose: 100 mg Ondansetron HCl (Ondansetron Hcl 4 Mg/2 Ml Vial) 4 mg IVPUSH Q8H PRN PRN Reason: Nausea and Vomiting Pharmacy Consult (Consult Rx Perform Med Rec) 1 each MISCELLANE ONCE PRN PRN Reason: Consult order Prednisone (Prednisone 20 Mg Tablet) 40 mg PO DAILY [facility] Sodium Chloride (0.9 % Sodium Chloride Flush 3 Ml Syringe) 3 ml IVFLUSH QSHIFT [facility] Last Admin: 01/30/22 07:44 Dose: 3 ml Tamsulosin HCl (Tamsulosin Hcl 0.4 Mg Capsule) 0.4 mg PO BEDTIME [facility] Last Admin: 01/29/22 21:30 Dose: 0.4 mg Home Medications Medication Instructions Recorded Confirmed Last Taken Type amlodipine 10 mg tablet 10 mg PO DAILY 06/13/20 01/29/22 01/29/22 History aspirin 81 mg tablet,delayed 81 mg PO DAILY 06/13/20 01/29/22 01/29/22 History release atorvastatin 40 mg tablet 40 mg PO BEDTIME 06/13/20 01/29/22 01/28/22 History clopidogrel 75 mg tablet (Plavix) 75 mg PO DAILY 06/13/20 01/29/22 01/29/22 History finasteride 5 mg tablet 5 mg PO DAILY 06/13/20 01/29/22 01/29/22 History quinapril 40 mg tablet 40 mg PO BID 06/13/20 01/29/22 01/29/22 History tamsulosin 0.4 mg capsule (Flomax) 0.4 mg PO BEDTIME 06/13/20 01/29/22 01/28/22 History budesonide-formoterol HFA 160 2 puff inhalation BID 01/29/22 01/29/22 01/29/22 History mcg-4.5 mcg/actuation aerosol inhaler (Symbicort) isosorbide mononitrate 30 mg 1 tab PO DAILY@1800 01/29/22 01/29/22 01/28/22 History tablet,extended release 24 hr metoprolol tartrate 50 mg tablet 50 mg PO DAILY 01/29/22 01/29/22 01/29/22 History metoprolol tartrate 50 mg tablet 100 mg PO DAILY@1800 01/29/22 01/29/22 01/28/22 History multivitamin 1 tab PO DAILY 01/29/22 01/29/22 01/29/22 History Physical Exam Vital Signs: Vital Signs: Last Vital Signs Temp 97.9 F 01/30/22 07:16 Pulse 77 01/30/22 10:14 Resp 15 01/30/22 10:14 BP 157/66 H 01/30/22 07:49 Pulse Ox 96 01/30/22 07:49 O2 Del Method 01/30/22 07:49 BMI result Body Mass Index 21.4 Const: General: cooperative, comfortable, no acute distress, alert and awake Nutritional Appearance: thin Orientation/consciousness: patient oriented x3 Limitations: no limitations HEENT: Head: Yes normocephalic and Yes atraumatic Neck: Neck: Yes trachea midline, Yes supple and Yes no JVD Chest: Chest palpation & inspection: normal inspection of the chest Resp: Effort & Inspection: normal respiratory effort Auscultation: clear to auscultation bilaterally and diminished lung sounds Cardio: Jugular venous distension: no JVD Palpation: normal PMI Rate: regular rate Rhythm: abnormal rhythm irregularly irregular Heart sounds: S1 normal heart sound present, S2 normal heart sound present, no click, no gallops, no murmurs and no rubs GI: Auscultation: normal bowel sounds Skin: General skin exam: no rashes or lesions noted and ecchymosis Neuro: General: patient oriented x3 and no focal motor deficits Extrem: General: Yes no clubbing, cyanosis or edema Psych: Appearance: grossly normal Objective Labs and Meds Result diagrams: 01/30/22 04:33 01/30/22 04:33 Lab results: Laboratory Results - last 24 hr 01/29/22 01/29/22 01/29/22 11:37 11:37 12:20 WBC 10.6 RBC 4.61 Hgb 13.6 L Hct 41.1 L MCV 89.2 MCH 29.5 MCHC 33.1 RDW 12.4 Plt Count 235 MPV 9.6 Immature Gran % (Auto) 0.4 Neut % (Auto) 74.5 H Lymph % (Auto) 10.6 L [place] % (Auto) 14.3 H Eos % (Auto) 0.0 Baso % (Auto) 0.2 Lymph # (Auto) 1.1 L [place] # (Auto) 1.5 H Eos # (Auto) 0.0 Baso # (Auto) 0.0 Abs Immat Gran (auto) 0.04 H Absolute Neuts (auto) 7.9 Absolute Nucleated RBC 0.000 Nucleated RBC % (auto) 0.0 Smear Tech's Comments VERIFIED PT INR Sodium Potassium Chloride Carbon Dioxide Anion Gap BUN Creatinine Estim Creat Clear Calc Estimated GFR Random Glucose Lactic Acid 1.2 Calcium Total Bilirubin Direct Bilirubin AST ALT Alkaline Phosphatase Troponin I High Sens B-Natriuretic Peptide Total Protein Albumin TSH COVID-19 (CLAUDIA) Negative COVID-19 Clin Com See Note 01/29/22 01/29/22 01/29/22 12:20 12:20 12:20 WBC RBC Hgb Hct MCV MCH MCHC RDW Plt Count MPV Immature Gran % (Auto) Neut % (Auto) Lymph % (Auto) [place] % (Auto) Eos % (Auto) Baso % (Auto) Lymph # (Auto) [place] # (Auto) Eos # (Auto) Baso # (Auto) Abs Immat Gran (auto) Absolute Neuts (auto) Absolute Nucleated RBC Nucleated RBC % (auto) Smear Tech's Comments PT 11.9 INR 1.0 Sodium 135 Potassium 4.2 Chloride 97 Carbon Dioxide 22 Anion Gap 20 BUN 31 H D Creatinine 1.52 H Estim Creat Clear Calc 33.0 Estimated GFR 44 Random Glucose 141 H Lactic Acid Calcium 9.0 Total Bilirubin 0.9 Direct Bilirubin 0.5 AST 26 ALT 22 Alkaline Phosphatase 83 Troponin I High Sens 36.6 H B-Natriuretic Peptide 656 H Total Protein 7.5 Albumin 4.1 TSH 1.05 COVID-19 (CLAUDIA) COVID-19 Clin Com 01/30/22 01/30/22 01/30/22 04:33 04:33 04:33 WBC 11.4 H RBC 3.85 L Hgb 12.3 L Hct 34.5 L MCV 89.6 MCH 31.9 MCHC 35.7 RDW 12.4 Plt Count 215 MPV 9.5 Immature Gran % (Auto) Neut % (Auto) Lymph % (Auto) [place] % (Auto) Eos % (Auto) Baso % (Auto) Lymph # (Auto) [place] # (Auto) Eos # (Auto) Baso # (Auto) Abs Immat Gran (auto) Absolute Neuts (auto) Absolute Nucleated RBC 0.000 Nucleated RBC % (auto) 0.0 Smear Tech's Comments PT INR Sodium 134 L Potassium 3.9 Chloride 100 Carbon Dioxide 22 Anion Gap 16 BUN 30 H Creatinine 0.94 Estim Creat Clear Calc 53.3 Estimated GFR > 60 Random Glucose 162 H Lactic Acid Calcium 8.5 Total Bilirubin Direct Bilirubin AST ALT Alkaline Phosphatase Troponin I High Sens B-Natriuretic Peptide 247 H Total Protein Albumin TSH COVID-19 (CLAUDIA) COVID-19 Clin Com Imaging Radiologist's impression: Impressions Chest X-Ray 01/29/22 11:21 IMPRESSION: Unremarkable examination. Assessment and Plan (1) Atrial fibrillation, new onset: Status: Acute Patient presents to the hospital with new onset atrial fibrillation rapid ventricular response with symptoms of worsening shortness of breath as well as chest pressure along with by chemical findings of acute kidney injury and further elevated BNP without overt signs of significant heart failure. With rate control his hemodynamic parameters including kidney functions and BNP have improved. Will continue rate control strategy for now. Would change metoprolol to 100 mg b.i.d. for better rate control. If he remains continuously significantly symptomatic with exertional shortness of breath due to loss of AV synchrony may require rhythm control approach as outpatient. Patient has a sound engineer as an outpatient. He can pursue follow-up with him. Will require Holter monitor as an outpatient. This likely that he would not tolerate persistent atrial fibrillation given his underlying diastolic dysfunction. He is currently not in overt heart failure and would restart his p.o. Lasix at a lower dose. Also resume his quinapril at a lower dose of 20 mg daily. His goal blood pressure less than 130/84 at outpatient. Advised to monitor blood pressure at home. Given his prior history of diffuse coronary artery disease requiring multiple stents in the past will continue his Plavix therapy for now and will be addressed by his primary sound engineer as outpatient. Continue high-intensity statin therapy. Patient currently appears clinically well and can be discharged from the hospital with a follow-up with his primary care physician 7-10 days as well as is sound engineer 7-10 days to further discuss his management plan. Thank you for allowing me to partake in his care Plan d/w Dr. Stock Procedures Date of Service Date of Service: 01/30/22
[2022-01-30] MEDS: predniSONE 20 MG TABLET 40 MG PO (11:25)
--- NOTE | 2022-01-30 12:29 | PM.DS ---
DS: Providers Provider Date of Service: 01/30/22 Date of admission: 01/29/22 14:35 Primary care physician: Saul Sigala MD Consults: 01/29/22 14:34 Consult to Cardiology Routine Consulting Provider: Neo Schulz Reason for consultation: New onset atrial fib for eval an rec DS: Diagnosis Discharge Diagnosis (1) Atrial fibrillation, new onset: Status: Acute (2) Acute dyspnea: Status: Acute (3) Acute kidney injury: Status: Acute DS: Summary Hospital Course Hospital Course: Admission note HPI An 81 years old male with PMH of CAD post multiple stents, COPD, CHF, BPH who presents to the hospital complaining of dyspnea and palpitation for 3 days.? The patient reports that his baseline is poor and he cannot walk much without feeling winded but since Friday he has been failing more shortness of breath, palpitation and weakness associated with chest heaviness.? Denies any fever, chills, coughing, abdominal pain, nausea, vomiting, change in bowel habit or urinary symptoms.? In the emergency he was found to be in new onset atrial fibrillation with rapid ventricular response.? Noticed to have worsened kidney function and evidence of elevated BNP.? Admitted for further evaluation and treatment. Hospital course The patient was admitted for evaluation of dyspnea as a result of new onset atrial fibrillation with rapid ventricular response. Started on IV Cardizem with fair response as his home medication of metoprolol was restarted with good response as the heart rate went down to 70s but remained in the atrial fibrillation. TSH was normal. Chest x-ray did not show any evidence of edema. Started on Eliquis as a blood thinner. Evaluated by Cardiology team who recommended increasing metoprolol to 100 mg twice daily and cut down his quinapril to 20 mg daily only. Aspirin was discontinued as the patient will be on both Plavix and Eliquis. Noted to have worsened kidney function with creatinine of 1.5 that improved the next morning back to baseline of 0.9. BNP elevated with no clinical heart failure. Cardiology recommended outpatient follow-up with both PCP and Cardiology after discharge as the patient might need rhythm change if he cannot tolerate being in atrial fibrillation but will need to be on full anticoagulation for a month or so. Discontinue aspirin, resume Plavix Decrease quinapril to 20 mg daily only Increase metoprolol to 100 mg twice Daily Start Eliquis 5 mg twice Daily To follow-up with your primary care physician within a week and your lay midwife within 7-10 days. Time Spent with Patient Time attestation: Total time spent providing and/or coordinating discharge services: Discharge coordination time: Greater than 30 minutes Quality: Safe Use of Opioids Does Pt have an Active Cancer Diagnosis on the Problem List?: No Quality: Stroke Does the patient have a stroke diagnosis?: No Physical Exam Vital Signs: Vital Signs: Last Vital Signs Temp 97.5 F 01/30/22 11:17 Pulse 69 01/30/22 11:17 Resp 24 H 01/30/22 11:17 BP 156/61 H 01/30/22 11:17 Pulse Ox 97 01/30/22 11:17 O2 Del Method 01/30/22 11:17 BMI result Body Mass Index 21.4 Const: Other: Constitutional : Alert, oriented, not in distress Neck : Normal inspection, Supple Cardiovascular : Irregularly irregular, no JVP, no lower extremity edema Respiratory : The decreased bilateral air entry, no crackles, wheezes or rhonchi Gastrointestinal: soft, lax, Normal bowel sounds, Non tender Skin : Warm, Dry Neurological : Alert & oriented x3, No focal deficit , CN 2-12 within normal DS: Data Data Completed and Pending Labs on day of discharge: Laboratory Results - last 24 hr 01/29/22 01/29/22 01/29/22 12:20 12:20 12:20 WBC 10.6 RBC 4.61 Hgb 13.6 L Hct 41.1 L MCV 89.2 MCH 29.5 MCHC 33.1 RDW 12.4 Plt Count 235 MPV 9.6 Immature Gran % (Auto) 0.4 Neut % (Auto) 74.5 H Lymph % (Auto) 10.6 L [place] % (Auto) 14.3 H Eos % (Auto) 0.0 Baso % (Auto) 0.2 Lymph # (Auto) 1.1 L [place] # (Auto) 1.5 H Eos # (Auto) 0.0 Baso # (Auto) 0.0 Abs Immat Gran (auto) 0.04 H Absolute Neuts (auto) 7.9 Absolute Nucleated RBC 0.000 Nucleated RBC % (auto) 0.0 Smear Tech's Comments VERIFIED PT 11.9 INR 1.0 Sodium 135 Potassium 4.2 Chloride 97 Carbon Dioxide 22 Anion Gap 20 BUN 31 H D Creatinine 1.52 H Estim Creat Clear Calc 33.0 Estimated GFR 44 Random Glucose 141 H Calcium 9.0 Total Bilirubin 0.9 Direct Bilirubin 0.5 AST 26 ALT 22 Alkaline Phosphatase 83 Troponin I High Sens B-Natriuretic Peptide Total Protein 7.5 Albumin 4.1 TSH 1.05 01/29/22 01/30/22 01/30/22 12:20 04:33 04:33 WBC 11.4 H RBC 3.85 L Hgb 12.3 L Hct 34.5 L MCV 89.6 MCH 31.9 MCHC 35.7 RDW 12.4 Plt Count 215 MPV 9.5 Immature Gran % (Auto) Neut % (Auto) Lymph % (Auto) [place] % (Auto) Eos % (Auto) Baso % (Auto) Lymph # (Auto) [place] # (Auto) Eos # (Auto) Baso # (Auto) Abs Immat Gran (auto) Absolute Neuts (auto) Absolute Nucleated RBC 0.000 Nucleated RBC % (auto) 0.0 Smear Tech's Comments PT INR Sodium 134 L Potassium 3.9 Chloride 100 Carbon Dioxide 22 Anion Gap 16 BUN 30 H Creatinine 0.94 Estim Creat Clear Calc 53.3 Estimated GFR > 60 Random Glucose 162 H Calcium 8.5 Total Bilirubin Direct Bilirubin AST ALT Alkaline Phosphatase Troponin I High Sens 36.6 H B-Natriuretic Peptide 656 H Total Protein Albumin TSH 01/30/22 04:33 WBC RBC Hgb Hct MCV MCH MCHC RDW Plt Count MPV Immature Gran % (Auto) Neut % (Auto) Lymph % (Auto) [place] % (Auto) Eos % (Auto) Baso % (Auto) Lymph # (Auto) [place] # (Auto) Eos # (Auto) Baso # (Auto) Abs Immat Gran (auto) Absolute Neuts (auto) Absolute Nucleated RBC Nucleated RBC % (auto) Smear Tech's Comments PT INR Sodium Potassium Chloride Carbon Dioxide Anion Gap BUN Creatinine Estim Creat Clear Calc Estimated GFR Random Glucose Calcium Total Bilirubin Direct Bilirubin AST ALT Alkaline Phosphatase Troponin I High Sens B-Natriuretic Peptide 247 H Total Protein Albumin TSH Imaging Chest x-ray: Radiologist's impression: ITS Impressions Chest X-Ray 01/29/22 11:21 IMPRESSION: Unremarkable examination. Discharge Plan Discharge Patient Disposition: Home, Self-Care Discharge Diagnosis: New onset atrial fibrillation Referrals: Saul Sigala MD [Primary Care Provider] - 1 Week Discharge Medications: New prednisone 20 mg Tablet 40 mg PO DAILY 3 Days Qty: 6 0RF Eliquis 5 mg tablet 5 mg PO BID Qty: 60 0RF Continued isosorbide mononitrate 30 mg tablet extended release 24 hr 1 tab PO DAILY@1800 budesonide-formoterol [Symbicort] 160-4.5 mcg/actuation HFA aerosol inhaler 2 puff INHALATION BID multivitamin Tablet 1 tab PO DAILY amlodipine 10 mg tablet 10 mg PO DAILY atorvastatin 40 mg tablet 40 mg PO BEDTIME clopidogrel [Plavix] 75 mg tablet 75 mg PO DAILY finasteride 5 mg tablet 5 mg PO DAILY tamsulosin [Flomax] 0.4 mg capsule 0.4 mg PO BEDTIME Changed metoprolol tartrate 50 mg tablet 100 mg PO BID Qty: 120 0RF quinapril 40 mg tablet 20 mg PO DAILY Qty: 30 0RF Discontinued metoprolol tartrate 50 mg tablet 50 mg PO DAILY aspirin 81 mg tablet,delayed release (DR/EC) 81 mg PO DAILY Discharge Orders: Discharge Order (Routine); Ordered 01/30/22 Ordered By: Saroj Stock Diet: Low salt diet Activity on Discharge: As tolerated Stand Alone Forms: Patient Portal Discharge page Care Plan Goals: Read below Health Concerns: Read below Plan of Treatment: Read below Assessment: You were admitted to the hospital for evaluation of difficulty breathing. Found to have a new onset irregular heart rhythm called atrial fibrillation with evidence of mild worsening kidney function. Treated with IV an oral rate control medication with good response as your heart rate became more controlled but remained in the irregular rhythm. Evaluated by lay midwife who recommended increasing her metoprolol does and to follow-up as outpatient. Discontinue aspirin, resume Plavix Decrease quinapril to 20 mg daily only Increase metoprolol to 100 mg twice Daily Start Eliquis 5 mg twice Daily To follow-up with your primary care physician within a week and your lay midwife within 7-10 days.
--- NOTE | 2022-01-30 12:37 | MHC.CM.PN ---
pt dcd home no skilled services ordered by
== END 2022-01-30 13:18 | disposition home or self-care (01) | DRG 309 ==
LOC: HO.ED 14:04 → HO.EDOVER 14:52
PROVIDERS: Admitting Provider Student in an Organized Health Care Education/Training Program; Emergency Provider Emergency Medicine; PCP Family Medicine; Visit Provider Student in an Organized Health Care Education/Training Program
DX: I48.91 Unspecified atrial fibrillation (principal); I50.32 Chronic diastolic (congestive) heart failure; N17.9 Acute kidney failure, unspecified; N18.30 Chronic kidney disease, stage 3 unspecified; I25.10 Atherosclerotic heart disease of native coronary artery without angina pectoris; N40.0 Benign prostatic hyperplasia without lower urinary tract symptoms; Z20.822 Contact with and (suspected) exposure to COVID-19; Z79.01 Long term (current) use of anticoagulants; Z79.02 Long term (current) use of antithrombotics/antiplatelets; Z79.52 Long term (current) use of systemic steroids; Z79.899 Other long term (current) drug therapy
CPT/HCPCS: 36415; 71045; 80048; 80076; 83605; 83880; 84443; 84484; 85025; 85027; 85610; 87040; 87635; 93005; 93308; 94640; 99285; J1940; J1956; J2930; J3475

== ENCOUNTER → 2022-03-13 11:34 | Outpatient (BNVA) | payer MEDICARE, OTHER, SELFPAY | PROVIDERS: PCP Family Medicine; Visit Provider Internal Medicine Pulmonary Disease | DX: J44.9 Chronic obstructive pulmonary disease, unspecified (principal); R06.00 Dyspnea, unspecified | CPT/HCPCS: 99212 ==

== ENCOUNTER → 2022-04-12 09:28 | Outpatient (BNVA) | payer MEDICARE, OTHER, SELFPAY | PROVIDERS: PCP Family Medicine; Visit Provider Internal Medicine Pulmonary Disease | DX: J44.9 Chronic obstructive pulmonary disease, unspecified (principal) | CPT/HCPCS: 99212 ==

== ENCOUNTER 2022-07-17 11:06 | Outpatient (REF) | payer MEDICARE, OTHER, SELFPAY ==
[2022-07-17 14:05] LABS: MANUAL DIFF FLAG NO
[2022-07-17 14:16] LABS: Basophils Absolute Auto 0.1 X10*3/uL (0.0-0.2); Basophils Percent Auto 0.5 % (0-2); Eosinophils Percent Auto 0.4 % (0-4); Hematocrit 44.3 % (42.0-52.0); Hemoglobin 14.4 g/dl (14.0-18.0); Imm Gran Abs Auto 0.05 X10*3/uL (0.00-0.03); Imm Gran Pct Auto 0.5 % (0.0-0.4); Lymphocytes Percent Auto 10.1 % (20-40); Mean Corpuscular HGB Conc 32.5 g/dl (31.0-36.0); Mean Corpuscular Hemoglobin 30.5 pg (27.0-33.0); Mean Corpuscular Volume 93.9 fL (80.0-98.0); Mean Platelet Volume 10.3 fL (9.4-12.4); Monocytes Absolute Auto 0.7 X10*3/uL (0.1-1.2); Neutrophils Absolute Auto 8.1 x10*3/uL (2.0-8.3); Neutrophils Percent Auto 81.5 % (45-73); Platelet Count 229 X10*3/uL (160-400); Red Blood Count 4.72 X10*6/uL (4.60-5.80); Red Cell Distribution Width 12.9 % (11.0-16.0); White Blood Count 9.9 X10*3/uL (4.8-10.8)
[2022-07-17 14:29] LABS: Alanine Aminotransferase 26 U/L (0-40); Albumin Level 4.3 g/dL (3.5-5.0); Alkaline Phosphatase 51 U/L (39-117); Anion Gap 14 (12-20); Aspartate Amino Transferase 26 U/L (5-37); Bilirubin Total 0.7 mg/dL (0.0-1.0); Blood Urea Nitrogen 18 mg/dL (9-16); Calcium 9.6 mg/dL (8.4-10.2); Carbon Dioxide 28 mmol/L (22-29); Chloride 105 mmol/L (96-108); Estimated Glomerular Filt Rate > 60; Glucose Random 86 mg/dL (60-115); Potassium 5.4 mmol/L (3.3-5.1); Sodium 142 mmol/L (135-145); Total Protein 7.2 g/dL (6.5-8.0)
== END 2022-07-17 11:07 | disposition home or self-care (01) ==
LOC: HO.HMGCLDS 11:06
PROVIDERS: Visit Provider Family Medicine
DX: I10 Essential (primary) hypertension (principal); R06.02 Shortness of breath; D64.9 Anemia, unspecified
CPT/HCPCS: 36415; 80053; 85025

== ENCOUNTER → 2022-08-27 09:26 | Outpatient (BNVA) | payer MEDICARE, OTHER, SELFPAY | PROVIDERS: PCP Family Medicine; Visit Provider Internal Medicine Pulmonary Disease | DX: J44.9 Chronic obstructive pulmonary disease, unspecified (principal); J47.9 Bronchiectasis, uncomplicated; R06.00 Dyspnea, unspecified | CPT/HCPCS: 94640; 96372; 99212; J2930 ==

== ENCOUNTER → 2022-11-12 12:32 | Outpatient (REF) | payer MEDICARE, OTHER, SELFPAY ==
--- NOTE | 2022-11-12 12:36 | CA_ITS ---
Transthoracic Echocardiogram Patient (Last, First, Middle): Peter Grimes K Gender: Male Date of : 1940 Age: 82 Procedure Date: 11/12/2022 Procedure Type: Transthoracic Echocardiogram Location: OP Height: 170.18 cm Weight: 61.24 kg BSA: 1.71 m2 Heart Rate: bpm Compensation Programs Manager: JING Referring MD: Saul Sigala MD External Relations Director: Neo Schulz MD Symptoms: SHORTNESS OF BREATH Study Quality: Adequate ECG Rhythm: Sinus Conclusions: - Large pericardial effusion with tamponade physiology. Patient referred to emergency room Findings Pericardium/Pleural There is a large circumferential pericardial effusion. There are echocardiographic findings consistent with tamponade physiology. There is excessive respiratory variation of the mitral valve and tricuspid valve Doppler velocities. Prior Study Comparison Significant changes compared to prior study dated: 01/30/2022. Large effusion with tamponade physiology is present Measurements Tricuspid Valve RA Press: 8.00 Updated in Other Vendor System with Status of Final Neo Schulz MD electronically signed on 11/12/2022 1:33:21 PM with status of Final
== END ==
LOC: HO.CARD 12:32
PROVIDERS: PCP Family Medicine; Visit Provider Family Medicine
DX: R06.02 Shortness of breath (principal); R60.9 Edema, unspecified; I25.10 Atherosclerotic heart disease of native coronary artery without angina pectoris
CPT/HCPCS: 93308

== ENCOUNTER 2022-11-12 13:37 | Inpatient (IN) | payer MEDICARE, OTHER, SELFPAY ==
[2022-11-12] VITALS (13 sets, daily range): BP systolic 130–152; BP diastolic 66–83; PULSE 69–95; RESP 15–30; TEMP 36.4–36.7; O2SAT 92–98; BMI 22.6; BMI 22.0; BMI 22.4
--- NOTE | ~2022-11-12 | US_ITS ---
CLINICAL INDICATION: Pain in feet. History of atrial fibrillation and bilateral bypass grafts. FINDINGS: Real-time duplex on the examination of the lower extremity arterial systems was performed bilaterally from the levels of the common femoral arteries to the ankles. Right lower extremity peak systolic velocities (cm/s): [place] vessels: Common femoral artery: 102 Profunda femoral artery: 63 Proximal superficial femoral artery: 44 Mid superficial femoral artery: No flow visualized Distal superficial femoral artery: No flow visualized Popliteal artery: 79 Posterior tibial artery: 73 Peroneal artery: 54 Right femoral-popliteal synthetic bypass graft: Inflow artery: 130 Proximal anastomosis: 132 Proximal bypass graft: 29 Mid bypass graft: 31 Distal bypass graft: 32 Distal anastomosis: Outflow artery: 61 Grayscale and color Doppler imaging of the right lower extremity demonstrates monophasic flow throughout. Left lower extremity peak systolic velocities (cm/s): [place] vessels: Common femoral artery: 117 Profunda femoral artery: 69 Proximal superficial femoral artery: 25 Mid superficial femoral artery: No flow visualized Distal superficial femoral artery: No flow visualized Popliteal artery: 68 Posterior tibial artery: 111 Peroneal artery: 68 Left femoral-popliteal synthetic bypass graft: Inflow artery: 101 Proximal anastomosis: 68 Proximal bypass graft: 33 Mid bypass graft: 36 Distal bypass graft: 52 Distal anastomosis: 33 Outflow artery: 70 Grayscale and color Doppler imaging of the left lower extremity demonstrates monophasic flow throughout. US/US arterial duplex LE BI IMPRESSION: Findings suggesting occlusion of [place] superficial femoral arteries, bilaterally. Status post bilateral femoral-popliteal synthetic bypass graft placement. No evidence of occlusion of the bypass grafts or of the remaining [place] lower extremity arteries. Bilateral lower extremity monophasic flow suggesting aortobiiliac disease.
--- NOTE | ~2022-11-12 | XR_ITS ---
EXAMINATION: XR CHEST CLINICAL INFORMATION: Exacerbation of COPD COMPARISON: 01/29/2022 TECHNIQUE: Frontal view of the chest was obtained. FINDINGS: No significant abnormality is noted involving the heart, lungs, mediastinum, bony thorax or soft tissues. XR/XR chest 1V IMPRESSION: Unremarkable examination.
--- NOTE | ~2022-11-12 | XR_ITS ---
EXAMINATION: XR CHEST CLINICAL INFORMATION: Cough, shortness of breath COMPARISON: 11/15/22 TECHNIQUE: Upright frontal portable view of the chest was obtained. FINDINGS: Multiple devices overlie the patient. Lordotic projection. Rotation toward the right. No definite change in cardiac size. No hilar mass. There is no edema. There are large lung volumes. There is some pleural and/or parenchymal density in the right lower chest medially similar to previous. The mediastinum may be somewhat shifted to the right similar to previous. No pneumothorax XR/XR chest 1V IMPRESSION: Large lung volumes. There may be some unchanged minor opacity in the middle lobe. No edema or new focal pneumonia.
--- NOTE | 2022-11-12 13:46 | PC.NURSE ---
DR. MENENDEZ IS AT BEDSIDE EXPLAINING PLAN OF CARE TO BOTH THE PT AND HIS . PT OS PURSED LIP BREATHING SINCE ARRIVAL. PT IS A/O X 4. MAGUE LOWER EXT 4+ PITTING EDEMA. PT HAS MAGUE HEPLOCK # 18 TO L AC.
--- NOTE | 2022-11-12 14:06 | PC.NURSE ---
ANESTHESIOLOGIST AT BEDSIDE, PT AWARE OF PLAN OF CARE.
--- NOTE | 2022-11-12 14:08 | P.CONCA_ITS ---
History of Present Illness History of Present Illness Date of Service: 11/12/22 Requesting physician: Ambar Carrillo Consult reason: other (Cardiac tamponade) Chief complaint: sob Narrative: I got involved in patient's care as he came in for a stat outpatient echocardiogram due to worsening sudden shortness of breath this morning. However he says over the last 5-6 week he has been getting progressively more short of breath including yesterday and was been having leg edema. He came in for echocardiogram which then showed large pericardial effusion which is worse compared to echocardiogram from December last year with tamponade physiology with respiratory variation in mitral and tricuspid inflow as well as IVC plethora. He was immediately referred to emergency room from the echo lab. I saw him at bedside. He is having difficulty in breathing. He also has noticed to have leg edema. He has prior history of moderate pericardial effusion, coronary artery disease multiple stenting, as per the patient about 11 stents, last many years ago, paroxysmal atrial fibrillation, COPD not on home oxygen. He has [id number] LV systolic dysfunction by last echocardiogram with no overt history of heart failure in the past currently not on any diuretic regimen. He is on oral anticoagulation Eliquis, last dose was this morning. He denies any palpitations. Does have difficulty breathing when he lays down. No lightheadedness or syncope. No chest pain syndrome. Review of Systems Constitutional: Constitutional: Denies chills and Denies fever(s) Eyes: Eyes: Reports no additional eye complaints Cardiovascular: Cardiovascular: Denies chest pain, Reports leg edema, Denies lightheadedness, Denies Loss of Consciousness, Denies palpitations, Reports dyspnea, Reports dyspnea on exertion and Reports orthopnea Respiratory: Respiratory: Reports dyspnea, Reports dyspnea on exertion and Denies wheezing Gastrointestinal: Gastrointestinal: Reports no additional gastrointestinal complaints Musculoskeletal: Musculoskeletal: Reports no additional musculoskeletal complaints Psychiatric: Psychiatric: Reports no additional psychiatric complaints Endocrine: Endocrine: Denies palpitations Allergic/Immunologic: Allergic/Immunologic: Denies wheezing PMFSH Past Medical History Medical History Atrial fibrillation, new onset CHF (congestive heart failure) COPD (chronic obstructive pulmonary disease) Coronary artery disease Pericardial effusion Surgical History Surgical History H/O heart artery stent Social History Social History Alcohol intake: never Patient Tobacco Use Status: Former Tobacco user Smoked in Last 30 Days: No Use of substances other than those prescribed or required for medical reasons: No Advance Directives: Yes Advance Directives on File: Yes Advance Directives Date on File: 01/30/22 service: No Current occupational status: retired Meds Allergies Allergy/AdvReac Type Severity Reaction Status Date / Time No Known Allergies Allergy Verified 08/27/22 09:35 [No Known Allergies*] Home Medications Medication Instructions Recorded Confirmed Last Taken Type amlodipine 10 mg tablet 10 mg PO DAILY 06/13/20 01/29/22 01/29/22 History atorvastatin 40 mg tablet 40 mg PO BEDTIME 06/13/20 01/29/22 01/28/22 History clopidogrel 75 mg tablet (Plavix) 75 mg PO DAILY 06/13/20 01/29/22 01/29/22 History finasteride 5 mg tablet 5 mg PO DAILY 06/13/20 01/29/22 01/29/22 History tamsulosin 0.4 mg capsule (Flomax) 0.4 mg PO BEDTIME 06/13/20 01/29/22 01/28/22 History isosorbide mononitrate 30 mg 1 tab PO DAILY@1800 01/29/22 01/29/22 01/28/22 History tablet,extended release 24 hr multivitamin 1 tab PO DAILY 01/29/22 01/29/22 01/29/22 History Physical Exam Vital Signs: Vital Signs: Last Vital Signs Temp 98.0 F 11/12/22 13:42 Pulse 80 11/12/22 13:51 Resp 15 11/12/22 13:51 BP 138/83 11/12/22 13:51 Pulse Ox 94 11/12/22 13:42 O2 Del Method Nasal Cannula 11/12/22 13:51 O2 Flow Rate 2 11/12/22 13:51 BMI result Body Mass Index 22.0 Const: General: cooperative, alert, awake and in distress severe and respiratory Nutritional Appearance: thin Orientation/consciousness: patient oriented x3 HEENT: Head: Yes normocephalic and Yes atraumatic Neck: Neck: Yes trachea midline, Yes supple and Yes JVD Resp: Effort & Inspection: respiratory distress Auscultation: no rales, breath sounds absent on th left (Base) and diminished lung sounds on the left (Posterior) Cardio: Jugular venous distension: JVD Rate: regular rate Rhythm: abnormal rhythm with ectopic beats Heart sounds: S1 normal heart sound present, S2 normal heart sound present, no click, no gallops and no murmurs GI: Auscultation: normal bowel sounds Skin: General skin exam: no rashes or lesions noted and ecchymosis Neuro: General: patient oriented x3 and no focal motor deficits Extrem: General: No clubbing, No cyanosis and Yes edema Objective Labs and Meds Lab results: Conclusions: - Large pericardial effusion with tamponade physiology.? Patient referred to emergency room ? ? ? Assessment and Plan (1) Cardiac tamponade: Status: Acute Patient presents outpatient for echocardiogram for progressive symptoms suggestive of right heart failure noted to have large pericardial effusion with tamponade physiology. Discussed with patient bedside the nature of his condition and nature of increasing pericardial effusion that needs to be tapped to relieve intracardial pressure and improved cardiac function. This was discussed with both patient and patient's were bedside. Discussed the case with Dr. Garcia who understands and has agreed to take the patient to the operating room. The only complication right now is his respiratory status and known prior history of COPD and bronchiectasis that makes his anesthesia difficult. He also has on Eliquis which increases his bleeding risk. Discuss with clinical navigation officer and plan to give him Kcentra 2500 units to reduce risk of bleeding, understanding that this is not a direct reversal agent for Eliquis. This was discussed with patient and patient's family and they understand agree and understand the nature of emergent surgery required. Overall prognosis is guarded. Cause of pericardial effusion is unknown. Will send pericardial fluid for analysis along with if possible a sample of pericardium to evaluate for pathology. Greater than 45 minutes was spent in managing his complex care. Time Spent With Patient Time: Total time managing care of this patient today ____ minutes. Procedures Date of Service Date of Service: 11/12/22
[2022-11-12 14:09] LABS: MANUAL DIFF FLAG NO
--- NOTE | 2022-11-12 14:14 | ED_ITS ---
HPI - General Adult General Chief complaint: Dyspnea Stated complaint: sob Source: patient Mode of arrival: wheelchair Limitations: no limitations History of Present Illness HPI narrative: Patient comes emergency room via wheelchair from the cardiology/echocardiogram lab. Patient has history of mild pericardial effusion. However, this time it was visualized on the echocardiogram that is large and with tamponade physiology. Patient denies chest pain, but he is complaining of significant shortness of breath. Patient has noticed that over the last couple of days he has had difficulty ambulating due to the shortness of breath. Patient is on Eliquis, took a dose this morning. Related Data Home Medications Medication Instructions Recorded Confirmed amlodipine 10 mg tablet 10 mg PO DAILY 06/13/20 01/29/22 atorvastatin 40 mg tablet 40 mg PO BEDTIME 06/13/20 01/29/22 clopidogrel 75 mg tablet (Plavix) 75 mg PO DAILY 06/13/20 01/29/22 finasteride 5 mg tablet 5 mg PO DAILY 06/13/20 01/29/22 tamsulosin 0.4 mg capsule (Flomax) 0.4 mg PO BEDTIME 06/13/20 01/29/22 isosorbide mononitrate 30 mg 1 tab PO DAILY@1800 01/29/22 01/29/22 tablet,extended release 24 hr multivitamin 1 tab PO DAILY 01/29/22 01/29/22 Previous Rx's Medication Instructions Recorded apixaban 5 mg tablet (Eliquis) 5 mg PO BID #60 tabs 01/30/22 metoprolol tartrate 50 mg tablet 100 mg PO BID #120 tabs 01/30/22 quinapril 40 mg tablet 20 mg PO DAILY #30 tabs 01/30/22 Symbicort 160 mcg-4.5 2 puff PO BID #10.2 ea 06/04/22 mcg/actuation HFA aerosol inhaler (budesonide-formoterol) albuterol sulfate 2.5 mg/3 mL 2.5 mg (3 mL) inhalation Q4-6H PRN 08/27/22 (0.083 %) solution for nebulization shortness of breath or wheezing 30 days #270 mL levofloxacin 750 mg tablet 750 mg PO DAILY #7 tabs 08/27/22 prednisone 5 mg tablet 5 mg PO DAILY #30 tabs 09/25/22 Allergies Allergy/AdvReac Type Severity Reaction Status Date / Time No Known Allergies Allergy Verified 08/27/22 09:35 [No Known Allergies*] Review of Systems Review of Systems: Constitutional : No Weight loss, No Fever, No Chills, No Night Sweats, complaining fatigue ENT/Mouth : No Hearing loss, No Ear Pain, No Nasal Congestion, No Sinus Pain, No Hoarseness, No sore throat, No Rhinorrhea, No Swallowing Difficulty Eyes: No Eye Pain, No Swelling, No Redness, No Foreign Body, No Discharge, No Vision Changes Cardiovascular : No Chest Pain, complaining of dyspnea, dyspnea with exertion, orthopnea, lower extremity edema worsening Respiratory : No Cough, No Sputum, No Wheezing, No Smoke Exposure, No Dyspnea Gastrointestinal : No Nausea, No Vomiting, No Diarrhea, No Constipation, No abdominal Pain, No Hematochezia, No Melena Genitourinary : no irregular bleeding, No Dysuria, No Urinary Frequency, No Hematuria, No Urinary Incontinence, No Urgency, No Flank Pain, No Urinary Flow Changes, No Hesitancy Musculoskeletal : No joint pain, No Myalgias, No Joint Swelling Skin : No Skin Lesions, No rash Neuro : No Weakness, No Numbness, No Paresthesias, No Loss of Consciousness, No Dizziness, No Headache Psych : No Anxiety/Panic, No Depression, No SI/HI/AH/VH, No Social Issues, Heme/Lymph: No Bruising, No Bleeding,No Lymphadenopathy Endocrine : No Polyuria, No Polydipsia, No Temperature Intolerance [facility] Past Medical History Medical History Atrial fibrillation, new onset CHF (congestive heart failure) COPD (chronic obstructive pulmonary disease) Coronary artery disease Pericardial effusion Surgical History H/O heart artery stent Social History Social History Alcohol intake: never Patient Tobacco Use Status: Former Tobacco user Smoked in Last 30 Days: No Use of substances other than those prescribed or required for medical reasons: No Advance Directives: Yes Advance Directives on File: Yes Advance Directives Date on File: 01/30/22 service: No Current occupational status: retired Physical Exam ED Vital Signs: Vital Signs - 24 hr 11/12/22 13:42 11/12/22 13:51 11/12/22 14:16 Temperature 98.0 F Pulse Rate 80 80 79 Respiratory Rate 17 15 20 Blood Pressure 144/80 H 138/83 145/77 H Pulse Oximetry 94 98 Oxygen Delivery Method Room Air Nasal Cannula Aerosol Mask Oxygen Flow Rate 2 2 BMI result Body Mass Index 22.0 Const Other: Appearance: Alert. Oriented X3. No acute distress. Eyes: Pupils equal, round and reactive to light. ENT: Pharynx normal. Neck: Normal inspection. Neck supple. No lymph nodes noted. No crepitus CVS: Distant muffled heart sounds Respiratory: Patient is in moderate respiratory distress, mildly tachypneic. Abdomen: Soft and nontender. No rigidity. No distention. Skin: Skin warm and dry. Normal skin color. Normal skin turgor. Extremities: +2 pitting edema bilaterally Neuro: Oriented X 3. No motor deficit. No sensory deficit. Moving all extremities. No slurred speech. CN 2 through 12 grossly intact Psych: calm, cooperative, normal affect Medications Administered Discontinued Medications Generic Name Dose Route Start Last Admin Trade Name Freq PRN Reason Stop Dose Admin Prothrombin Complex Concent ( 100 mls @ 480 mls/hr 11/12/22 13:56 11/12/22 14:19 Human) 2,500 unit/ IV IV 11/12/22 14:05 480 mls/hr Miscellaneous Supplies .Q13M ONE Administration Medical Decision Making Medical Decision Making [facility] Narrative: -Dr. Schulz from cardiology, Dr. Garcia from thoracic surgery, and anesthesiology all aware and at bedside -pt getting Kcentra to help reverse eliquis, we do not have Pradaxa -he will be going emergently to the operating room for a pericardial window. -patient understands the severity of his condition, also his , consents to surgery. Admission/Observation Consideration of admission/observation: Escalation of care including admission/observation considered Consult Healthcare Provider Management of the patient was discussed with: Hospitalist and Senior Technical Business Analyst Lab Data MDM Lab Attestation statement: I reviewed the patient's lab results. 11/12/22 13:35 11/12/22 13:35 Labs: Lab Results 11/12/22 11/12/22 11/12/22 Range/Units 13:35 13:35 14:17 WBC 14.2 H (4.8-10.8) X10*3/uL RBC 3.94 L (4.60-5.80) X10*6/uL Hgb 11.7 L (14.0-18.0) g/dl Hct 36.7 L (42.0-52.0) % MCV 93.1 (80.0-98.0) fL MCH 29.7 (27.0-33.0) pg MCHC 31.9 (31.0-36.0) g/dl RDW 12.7 (11.0-16.0) % Plt Count 567 H D (160-400) X10*3/uL MPV 9.2 L (9.4-12.4) fL Immature Gran % (Auto) 1.1 H (0.0-0.4) % Neut % (Auto) 88.9 H (45-73) % Lymph % (Auto) 3.6 L (20-40) % [place] % (Auto) 6.1 (2-11) % Eos % (Auto) 0.1 (0-4) % Baso % (Auto) 0.2 (0-2) % Lymph # (Auto) 0.5 L (1.2-4.9) X10*3/uL [place] # (Auto) 0.9 (0.1-1.2) X10*3/uL Eos # (Auto) 0.0 (0.0-0.4) X10*3/uL Baso # (Auto) 0.0 (0.0-0.2) X10*3/uL Abs Immat Gran (auto) 0.15 H (0.00-0.03) X10*3/uL Absolute Neuts (auto) 12.6 H (2.0-8.3) x10*3/uL Absolute Nucleated RBC 0.000 (0.0-0.012) X10*3/uL Nucleated RBC % (auto) 0.0 (0.0-0.2) /100WBC PT 17.9 H (10.0-13.1) SEC INR 1.5 H (0.9-1.1) VBG pH 7.34 (7.32-7.43) VBG pCO2 54 mmHg VBG pO2 41 mmHg VBG HCO3 29 H (22-26) mmol/L VBG O2 Saturation 59.0 % VBG Base Excess 3.2 mmol/L Critical Care Time Critical Care Time Critical Care Time: Yes Total Critical Care Time: 60 Attestation: I have personally provided critical care time. Time includes review of lab data, radiology results, discussion with consultants, and monitoring for potential decompensation. Intervention performed as documented. Discharge Plan Discharge Clinical Impression: Acute pericardial effusion, Cardiac tamponade Patient Disposition: Admitted As Inpatient
--- NOTE | 2022-11-12 14:16 | PC.NURSE ---
lungs - diminished all lobes.
[2022-11-12 14:19] LABS: Basophils Percent Auto 0.2 % (0-2); Eosinophils Percent Auto 0.1 % (0-4); Hematocrit 36.7 % (42.0-52.0); Hemoglobin 11.7 g/dl (14.0-18.0); Imm Gran Abs Auto 0.15 X10*3/uL (0.00-0.03); Imm Gran Pct Auto 1.1 % (0.0-0.4); Lymphocytes Absolute Auto 0.5 X10*3/uL (1.2-4.9); Lymphocytes Percent Auto 3.6 % (20-40); Mean Corpuscular HGB Conc 31.9 g/dl (31.0-36.0); Mean Corpuscular Hemoglobin 29.7 pg (27.0-33.0); Mean Corpuscular Volume 93.1 fL (80.0-98.0); Mean Platelet Volume 9.2 fL (9.4-12.4); Monocytes Absolute Auto 0.9 X10*3/uL (0.1-1.2); Monocytes Percent Auto 6.1 % (2-11); Neutrophils Absolute Auto 12.6 x10*3/uL (2.0-8.3); Neutrophils Percent Auto 88.9 % (45-73); Platelet Count 567 X10*3/uL (160-400); Red Blood Count 3.94 X10*6/uL (4.60-5.80); Red Cell Distribution Width 12.7 % (11.0-16.0); White Blood Count 14.2 X10*3/uL (4.8-10.8)
[2022-11-12] MEDS: Hum Prothrombin Cplx(PCC)4Fact 2,500 UNIT in Container,Empty 0 ML 480 UNIT IV (14:19)
[2022-11-12 14:21] LABS: INTERNATIONAL NORM RATIO 1.5 (0.9-1.1); Prothrombin Time 17.9 SEC (10.0-13.1)
[2022-11-12 14:21] LABS: Venous Blood Gas Refer to POC result
[2022-11-12 14:24] LABS: VBG Base Excess 3.2 mmol/L; VBG HCO3 29 mmol/L (22-26); VBG pCO2 54 mmHg; VBG pH 7.34 (7.32-7.43); VBG pO2 41 mmHg
--- NOTE | 2022-11-12 14:30 | PC.NURSE ---
PT WAS BROUGHT TO OR BY DR. ANN. PT/ AWARE OF PLAN OF CARE.
--- NOTE | 2022-11-12 14:33 | HO.ANESPROP2 ---
HPI - Anesthesia Eval Consult details Narrative: 82yo male patient with cardiac tamponade for pericardial window emergently comorbidities include , severe COPD, CAD, pulmonary hypertension . NPO 6 hrs PMFSH Active Problems Active Problems: All Active Problems (Updated 11/12/22 @ 14:29 by Ambar Carrillo MD) Acute pericardial effusion (Acute) Cardiac tamponade (Acute) Bronchiectasis (Acute) Coronary artery disease (Acute) COPD (chronic obstructive pulmonary disease) (Acute) Dyspnea on exertion (Acute) Acute bronchitis (Acute) Severe chronic obstructive pulmonary disease (Acute) Afib - Diagnosed 01/21. On eliquis. Reversed in ER with Devorah Past Medical History Medical History Atrial fibrillation, new onset CHF (congestive heart failure) COPD (chronic obstructive pulmonary disease) Coronary artery disease Pericardial effusion Family History Family history of problems with anesthesia: Unobtainable Surgical History Surgical History H/O heart artery stent History of Problems with Anesthesia: No Social History Social History Alcohol intake: never Patient Tobacco Use Status: Former Tobacco user Smoked in Last 30 Days: No Use of substances other than those prescribed or required for medical reasons: No Advance Directives: Yes Advance Directives on File: Yes Advance Directives Date on File: 01/30/22 service: No Current occupational status: retired Meds Allergies Allergy/AdvReac Type Severity Reaction Status Date / Time No Known Allergies Allergy Verified 11/12/22 15:09 Home Medications Medication Instructions Recorded Confirmed Last Taken Type amlodipine 10 mg tablet 10 mg PO DAILY 06/13/20 01/29/22 01/29/22 History atorvastatin 40 mg tablet 40 mg PO BEDTIME 06/13/20 01/29/22 01/28/22 History clopidogrel 75 mg tablet (Plavix) 75 mg PO DAILY 06/13/20 01/29/22 01/29/22 History finasteride 5 mg tablet 5 mg PO DAILY 06/13/20 01/29/22 01/29/22 History tamsulosin 0.4 mg capsule (Flomax) 0.4 mg PO BEDTIME 06/13/20 01/29/22 01/28/22 History isosorbide mononitrate 30 mg 1 tab PO DAILY@1800 01/29/22 01/29/22 01/28/22 History tablet,extended release 24 hr multivitamin 1 tab PO DAILY 01/29/22 01/29/22 01/29/22 History Exam Exam Date and Time: November 12, 2022 1433 Height,Weight and Vital Signs: Height 5 ft 6 in Weight 61.8 kg Last Vital Signs Temp 98.0 F 11/12/22 13:42 Pulse 79 11/12/22 14:16 Resp 20 11/12/22 14:16 BP 145/77 H 11/12/22 14:16 Pulse Ox 98 11/12/22 14:16 O2 Del Method Aerosol Mask 11/12/22 14:16 O2 Flow Rate 2 11/12/22 14:16 Pertinent Lab Results Pertinent Lab Results: Laboratory Tests 11/12/22 11/12/22 11/12/22 13:35 13:35 14:17 WBC 14.2 H RBC 3.94 L Hgb 11.7 L Hct 36.7 L MCV 93.1 MCH 29.7 MCHC 31.9 RDW 12.7 Plt Count 567 H D MPV 9.2 L Immature Gran % (Auto) 1.1 H Neut % (Auto) 88.9 H Lymph % (Auto) 3.6 L [place] % (Auto) 6.1 Eos % (Auto) 0.1 Baso % (Auto) 0.2 Lymph # (Auto) 0.5 L [place] # (Auto) 0.9 Eos # (Auto) 0.0 Baso # (Auto) 0.0 Abs Immat Gran (auto) 0.15 H Absolute Neuts (auto) 12.6 H Absolute Nucleated RBC 0.000 Nucleated RBC % (auto) 0.0 PT 17.9 H INR 1.5 H VBG pH 7.34 VBG pCO2 54 VBG pO2 41 VBG HCO3 29 H VBG O2 Saturation 59.0 VBG Base Excess 3.2 Airway Mallampati Class: II TM Dist: >3cm Neck ROM: Full Heart: irregularly irregular Lungs: cta Other: severe distress respiratory, on nasal canula sitting upright , cannot lay down due to resp distress, accessory muscles of resp active. Assessment and Plan Assessment Anesthesia Assessment: Anesthesia Plan Discussed and Chart Reviewed Final Anesthetic Review Family History of Problems with Anesthesia: Unobtainable History of Problems with Anesthesia: No NPO: No ASA Class: IV and Emergency Final Preanesthetic Review: No Changes in Pt Med Stat, Meds/Allgs Chart Reviewed, Consent Obtained/Reviewed and Anes Risks/Benef Reviewed Patient Risk: High Procedure Risk: High Anesthetic Plan Anesthetic Plan: MAC: Disposition: Inp. Admit - ICU
[2022-11-12 14:34] LABS: Alanine Aminotransferase 30 U/L (0-40); Albumin Level 3.7 g/dL (3.5-5.0); Alkaline Phosphatase 96 U/L (39-117); Anion Gap 16 (12-20); Aspartate Amino Transferase 28 U/L (5-37); Bilirubin Direct 0.2 mg/dL (0.0-0.5); Bilirubin Total 0.5 mg/dL (0.0-1.0); Blood Urea Nitrogen 33 mg/dL (9-16); Calcium 9.9 mg/dL (8.4-10.2); Carbon Dioxide 24 mmol/L (22-29); Chloride 104 mmol/L (96-108); Creatinine Clr Calc Pharmacy 44.4; Estimated Glomerular Filt Rate > 60; Glucose Random 122 mg/dL (60-115); Magnesium 2.5 mg/dL (1.6-2.6); Potassium 4.6 mmol/L (3.3-5.1); Sodium 139 mmol/L (135-145); Total Protein 8.3 g/dL (6.5-8.0)
--- NOTE | 2022-11-12 14:36 | PC.NURSE ---
RN TO RN REPORT GIVEN TO MELODY (PACU).
[2022-11-12 14:37] LABS: B Type Natriuretic Peptide 362 pg/mL (<100)
[2022-11-12 14:39] LABS: Troponin-I High Sensitivity 25.5 ng/L (<3.5-35.0)
--- NOTE | 2022-11-12 15:42 | HO.THORCONS ---
History of Present Illness Consult details Consult date: 11/12/22 Narrative: Urgent thoracic surgical consult for pericardial effusion/pericardial tamponade. Patient was evaluated in the emergency department with hemodynamic instability and was emergently taken to the operating room for definitive procedure. By report, patient has by a cardiac echo done earlier today a massive pericardial effusion with hemodynamics consistent with tamponade. Patient was sent emergently to the emergency room for definitive evaluation and care Very briefly, patient's chart was reviewed and patient evaluated. Patient is on Eliquis anticoagulant and Kcentra reversal agent is being administered. [facility] Past Medical History Medical History Atrial fibrillation, new onset CHF (congestive heart failure) COPD (chronic obstructive pulmonary disease) Coronary artery disease Pericardial effusion Surgical History Surgical History H/O heart artery stent Social History Social History Smoked in Last 30 Days: No Use of substances other than those prescribed or required for medical reasons: No Advance Directives: Yes Advance Directives on File: Yes Meds Allergies Allergy/AdvReac Type Severity Reaction Status Date / Time No Known Allergies Allergy Verified 11/12/22 15:09 Home Medications Medication Instructions Recorded Confirmed Last Taken Type amlodipine 10 mg tablet 10 mg PO DAILY 06/13/20 01/29/22 01/29/22 History atorvastatin 40 mg tablet 40 mg PO BEDTIME 06/13/20 01/29/22 01/28/22 History clopidogrel 75 mg tablet (Plavix) 75 mg PO DAILY 06/13/20 01/29/22 01/29/22 History finasteride 5 mg tablet 5 mg PO DAILY 06/13/20 01/29/22 01/29/22 History tamsulosin 0.4 mg capsule (Flomax) 0.4 mg PO BEDTIME 06/13/20 01/29/22 01/28/22 History isosorbide mononitrate 30 mg 1 tab PO DAILY@1800 01/29/22 01/29/22 01/28/22 History tablet,extended release 24 hr multivitamin 1 tab PO DAILY 01/29/22 01/29/22 01/29/22 History Physical Exam Vital Signs: Vital Signs: Last Vital Signs Temp 98.0 F 06/13/23 13:42 Pulse 79 11/12/22 14:16 Resp 20 11/12/22 14:16 BP 145/77 H 11/12/22 14:16 Pulse Ox 98 11/12/22 14:16 O2 Del Method Aerosol Mask 11/12/22 14:16 O2 Flow Rate 2 11/12/22 14:16 BMI result Body Mass Index 22.0 Results Labs 11/12/22 13:35 11/12/22 13:35 Labs: Abnormal lab results 11/12/22 11/12/22 11/12/22 Range/Units 13:35 13:35 13:35 WBC 14.2 H (4.8-10.8) X10*3/uL RBC 3.94 L (4.60-5.80) X10*6/uL Hgb 11.7 L (14.0-18.0) g/dl Hct 36.7 L (42.0-52.0) % Plt Count 567 H D (160-400) X10*3/uL MPV 9.2 L (9.4-12.4) fL Immature Gran % (Auto) 1.1 H (0.0-0.4) % Neut % (Auto) 88.9 H (45-73) % Lymph % (Auto) 3.6 L (20-40) % Lymph # (Auto) 0.5 L (1.2-4.9) X10*3/uL Abs Immat Gran (auto) 0.15 H (0.00-0.03) X10*3/uL Absolute Neuts (auto) 12.6 H (2.0-8.3) x10*3/uL PT 17.9 H (10.0-13.1) SEC INR 1.5 H (0.9-1.1) VBG HCO3 (22-26) mmol/L BUN 33 H (9-16) mg/dL Random Glucose 122 H (60-115) mg/dL B-Natriuretic Peptide (<100) pg/mL Total Protein 8.3 H (6.5-8.0) g/dL 11/12/22 11/12/22 Range/Units 13:35 14:17 WBC (4.8-10.8) X10*3/uL RBC (4.60-5.80) X10*6/uL Hgb (14.0-18.0) g/dl Hct (42.0-52.0) % Plt Count (160-400) X10*3/uL MPV (9.4-12.4) fL Immature Gran % (Auto) (0.0-0.4) % Neut % (Auto) (45-73) % Lymph % (Auto) (20-40) % Lymph # (Auto) (1.2-4.9) X10*3/uL Abs Immat Gran (auto) (0.00-0.03) X10*3/uL Absolute Neuts (auto) (2.0-8.3) x10*3/uL PT (10.0-13.1) SEC INR (0.9-1.1) VBG HCO3 29 H (22-26) mmol/L BUN (9-16) mg/dL Random Glucose (60-115) mg/dL B-Natriuretic Peptide 362 H (<100) pg/mL Total Protein (6.5-8.0) g/dL Short CBC 11/12/22 Range/Units 13:35 WBC 14.2 H (4.8-10.8) X10*3/uL Hgb 11.7 L (14.0-18.0) g/dl Hct 36.7 L (42.0-52.0) % Plt Count 567 H D (160-400) X10*3/uL BMP 11/12/22 13:35 Sodium 139 Potassium 4.6 Chloride 104 Carbon Dioxide 24 BUN 33 H Creatinine 1.14 Calcium 9.9 Liver Function 11/12/22 Range/Units 13:35 Total Bilirubin 0.5 (0.0-1.0) mg/dL Direct Bilirubin 0.2 (0.0-0.5) mg/dL AST 28 (5-37) U/L ALT 30 (0-40) U/L Alkaline Phosphatase 96 (39-117) U/L Albumin 3.7 (3.5-5.0) g/dL All other labs normal. Assessment and Plan (1) Cardiac tamponade: Status: Acute (2) Acute pericardial effusion: Status: Acute Plan Risks, benefits and alternatives of subxiphoid pericardial window were reviewed with the patient and his was also present which included but not limited to bleeding, infection, recurrence, numbness, pain, scarring and the patient wishes to proceed. Patient is now urgently being taken the operating room for definitive procedure. All questions were answered. Time Spent With Patient Time: Total time managing care of this patient today ____ minutes. Procedures Date of Service Date of Service: 11/12/22
--- NOTE | 2022-11-12 16:00 | PM.CCHP ---
History of Present Illness Date of Service: 11/12/22 Chief Complaint: shortness of breath, cardiac tamponade 82-year-old gentleman with underlying history of CAD, chronic systolic and diastolic heart failure, AFib on anticoagulation, followed by Dr. Najera, also severe COPD intolerant of LABA secondary to BPH, with underlying known chronic pericardial effusion has been experiencing dyspnea for last 4-6 weeks that has been slowly progressing associated with orthopnea, worsening lower extremity edema, and paroxysmal nocturnal dyspnea. 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 day prior to current admission patient was evaluated by his primary care physician and referred to echocardiogram and then to ER for further evaluation of his dyspnea including echocardiogram. During ER evaluation on 11/12/2022 patient was noted to have large pericardial effusion with possible tamponade physiology and patient underwent pericardial window procedure in OR under monitored anesthesia care with drainage of approximately 900 cc of pericardial fluid. Patient transferred to intensive care unit postop for further evaluation and management. Review of Systems Constitutional: Constitutional: Denies daytime sleepiness, Denies excessive sweating, Denies fatigue, Denies fever(s), Denies lethargy, Denies malaise, Denies night sweats, Denies snoring and Denies weight loss Eyes: Eyes: Denies blurry vision and Denies itchy eyes ENT: Denies nasal congestion, Denies post nasal drip, Denies sinus pain, Denies sinus pressure and Denies other ( Thrush) Cardiovascular: Cardiovascular: Denies chest pain, Reports pedal edema, Denies dyspnea, Reports dyspnea on exertion, Reports orthopnea and Reports paroxysmal nocturnal dyspnea Respiratory: Respiratory: Denies cough, Denies hemoptysis, Denies excessive phlegm production, Denies dyspnea, Reports dyspnea on exertion, Denies snoring and Denies wheezing Gastrointestinal: Gastrointestinal: Denies abdominal pain and Denies heartburn Musculoskeletal: Musculoskeletal: Denies myalgias, Denies arthralgias and Denies joint swelling Integumentary/Breasts: Skin/Breast: Denies rash Neurologic: Denies memory loss and Denies seizure-like activity Psychiatric: Psychiatric: Denies abnormal sleep pattern, Denies anxiety and Denies memory loss Endocrine: Endocrine: Denies excessive sweating, Denies fatigue and Denies heat intolerance Hematologic/Lymphatic: Hematologic/Lymphatic: Denies easy bruising Allergic/Immunologic: Allergic/Immunologic: Denies itchy eyes, Denies seasonal rhinorrhea and Denies wheezing [facility] Past Medical History Medical History (Updated 11/12/22 @ 16:19 by Jasper Hurley MD) Atrial fibrillation, new onset CHF (congestive heart failure) COPD (chronic obstructive pulmonary disease) Coronary artery disease Pericardial effusion Surgical History Surgical History H/O heart artery stent Social History Social History Alcohol intake: never Patient Tobacco Use Status: Former Tobacco user Smoked in Last 30 Days: No Use of substances other than those prescribed or required for medical reasons: No Advance Directives: Yes Advance Directives on File: Yes Advance Directives Date on File: 01/30/22 service: No Current occupational status: retired [employer] Allergies Allergy/AdvReac Type Severity Reaction Status Date / Time No Known Allergies Allergy Verified 11/12/22 15:09 Active Medications: Current Medications Fentanyl (Fentanyl Citrate/Pf 100 Mcg/2 Ml Vial) 50 mcg IVPUSH Q2H PRN; Protocol PRN Reason: Pain, Moderate(Pain Scale 4-6) Furosemide 200 mg/ Sodium (Chloride) 100 mls @ 2.5 mls/hr IVCONT .Q24H MARTINEZ Home Medications Medication Instructions Recorded Confirmed Last Taken Type amlodipine 10 mg tablet 10 mg PO DAILY 06/13/20 01/29/22 01/29/22 History atorvastatin 40 mg tablet 40 mg PO BEDTIME 06/13/20 01/29/22 01/28/22 History clopidogrel 75 mg tablet (Plavix) 75 mg PO DAILY 06/13/20 01/29/22 01/29/22 History finasteride 5 mg tablet 5 mg PO DAILY 06/13/20 01/29/22 01/29/22 History tamsulosin 0.4 mg capsule (Flomax) 0.4 mg PO BEDTIME 06/13/20 01/29/22 01/28/22 History isosorbide mononitrate 30 mg 1 tab PO DAILY@1800 01/29/22 01/29/22 01/28/22 History tablet,extended release 24 hr multivitamin 1 tab PO DAILY 01/29/22 01/29/22 01/29/22 History Physical Exam Vital Signs: Vital Signs: Last Vital Signs Temp 98.0 F 11/12/22 13:42 Pulse 79 11/12/22 14:16 Resp 20 11/12/22 14:16 BP 145/77 H 11/12/22 14:16 Pulse Ox 98 11/12/22 14:16 O2 Del Method Aerosol Mask 11/12/22 14:16 O2 Flow Rate 2 11/12/22 14:16 BMI result Body Mass Index 22.0 Const: General: no acute distress and alert Nutritional Appearance: not obese Orientation/consciousness: Other orientation findings ( oriented) HEENT: Head: Yes atraumatic Mouth: no other ( thrush) Throat: No postnasal drainage Eyes: General: appearance normal, both eyes and all related structures Sclerae: sclerae normal EOM: EOMs intact bilaterally Neck: Neck: Yes supple Lymphatic: no lymphadenopathy noted Chest: Other: Upper chest/neck veins engorged Resp: Effort & Inspection: normal respiratory effort and no use of accessory muscles Auscultation: crackles ( bilateral) Cardio: Rate: regular rate Rhythm: regular rhythm Heart sounds: no gallops, no murmurs and no rubs GI: Palpation (GI): Soft to palpation and Other GI palpation findings present ( nontender) Skin: General skin exam: other ( warm) Rashes: no rashes Extrem: General: No clubbing, No cyanosis and Yes edema ( 2+ bilateral) Results Labs 11/12/22 13:35 11/12/22 13:35 Labs: Laboratory Results - last 24 hr 11/12/22 11/12/22 11/12/22 13:35 13:35 13:35 MCV 93.1 MCH 29.7 MCHC 31.9 RDW 12.7 Plt Count 567 H D MPV 9.2 L Immature Gran % (Auto) 1.1 H Neut % (Auto) 88.9 H Lymph % (Auto) 3.6 L [place] % (Auto) 6.1 Eos % (Auto) 0.1 Baso % (Auto) 0.2 Lymph # (Auto) 0.5 L [place] # (Auto) 0.9 Eos # (Auto) 0.0 Baso # (Auto) 0.0 Abs Immat Gran (auto) 0.15 H Absolute Neuts (auto) 12.6 H Absolute Nucleated RBC 0.000 Nucleated RBC % (auto) 0.0 PT 17.9 H INR 1.5 H VBG pH VBG pCO2 VBG pO2 VBG HCO3 VBG O2 Saturation VBG Base Excess Anion Gap 16 Estim Creat Clear Calc 44.4 Estimated GFR > 60 Random Glucose 122 H Calcium 9.9 Magnesium 2.5 Total Bilirubin 0.5 Direct Bilirubin 0.2 AST 28 ALT 30 Alkaline Phosphatase 96 Troponin I High Sens B-Natriuretic Peptide Total Protein 8.3 H Albumin 3.7 Blood Type Antibody Screen 11/12/22 11/12/22 11/12/22 13:35 13:35 14:09 MCV MCH MCHC RDW Plt Count MPV Immature Gran % (Auto) Neut % (Auto) Lymph % (Auto) [place] % (Auto) Eos % (Auto) Baso % (Auto) Lymph # (Auto) [place] # (Auto) Eos # (Auto) Baso # (Auto) Abs Immat Gran (auto) Absolute Neuts (auto) Absolute Nucleated RBC Nucleated RBC % (auto) PT INR VBG pH VBG pCO2 VBG pO2 VBG HCO3 VBG O2 Saturation VBG Base Excess Anion Gap Estim Creat Clear Calc Estimated GFR Random Glucose Calcium Magnesium Total Bilirubin Direct Bilirubin AST ALT Alkaline Phosphatase Troponin I High Sens 25.5 B-Natriuretic Peptide 362 H Total Protein Albumin Blood Type A Positive Antibody Screen NEGATIVE 11/12/22 14:17 MCV MCH MCHC RDW Plt Count MPV Immature Gran % (Auto) Neut % (Auto) Lymph % (Auto) [place] % (Auto) Eos % (Auto) Baso % (Auto) Lymph # (Auto) [place] # (Auto) Eos # (Auto) Baso # (Auto) Abs Immat Gran (auto) Absolute Neuts (auto) Absolute Nucleated RBC Nucleated RBC % (auto) PT INR VBG pH 7.34 VBG pCO2 54 VBG pO2 41 VBG HCO3 29 H VBG O2 Saturation 59.0 VBG Base Excess 3.2 Anion Gap Estim Creat Clear Calc Estimated GFR Random Glucose Calcium Magnesium Total Bilirubin Direct Bilirubin AST ALT Alkaline Phosphatase Troponin I High Sens B-Natriuretic Peptide Total Protein Albumin Blood Type Antibody Screen Assessment and Plan (1) Chronic combined systolic and diastolic congestive heart failure: Status: Acute (2) Pericardial effusion: Status: Acute (3) Severe chronic obstructive pulmonary disease: Status: Acute (4) Bronchiectasis: Status: Acute (5) Cardiac tamponade: Status: Acute (6) Afib: Status: Acute Plan Assessment: 82-year-old gentleman with underlying chronic systolic and diastolic congestive heart failure, AFib, severe COPD presented Plan: Neuro: No acute issues. Cardiac: subacute on chronic pericardial effusion with development of physiology status post pericardial window with drainage of 900 cc of pericardial fluid and drain placement. Thoracic surgery and cardiology service care appreciated. Underlying chronic systolic and diastolic congestive heart failure and AFib rate anticoagulation inhaled postprocedure. Will so an acute on chronic heart failure, started on diuresis. Pulmonary: No acute issues. Underlying chronic severe COPD and bronchiectasis. Renal: No acute issues. Endo: No acute issues. GI: No acute issues. ID: No acute issues Heme/Onc: No acute issues. Psych: No acute issues. Miscellaneous: No acute issues. Prophylaxis: Pneumatic compression Diet: regular Critical care time spent: 45 minutes Time Spent With Patient Time: Total time managing care of this patient today ____ minutes.
--- NOTE | 2022-11-12 16:02 | P.OP_ITS ---
Operative Note Operative Note Date of Service: 11/12/22 Narrative: Preoperative diagnosis: [] Pericardial tamponade Postop diagnosis: [] Same Procedure [] subxiphoid pericardial window Surgeon: [] Jose [employer] Support Workers: [] Type of Anesthesia: [] MAC Indication for surgery: [] Intraoperative findings demonstrated approximately 1 L of bloody pericardial effusion evacuated. Specimen was sent for cultures and cytology. Biopsy of pericardium from window was also obtained and sent to pathology for permanent specimen taken.The patient's hemodynamic status immediately improved status post pericardial tamponade drainage. Findings: [] Patient was brought emergently to the operating room, placed on operative table in supine position, after adequate level of MAC anesthesia was induced the patient appropriately position, the abdomen and chest were prepped and draped in usual sterile fashion. Infiltration with 1% lidocaine/0.5% Marcaine was performed at the incision site in the upper abdomen and just to the left of the xiphoid and carried down through skin, subcutaneous tissue, and linea alba. Extraperitoneal dissection was undertaken with diaphragmatic central tendon identified. Fibers were split and the pericardium was identified. Longitudinal incision was made the pericardium where drainage of approximately 1 L of bloody fluid was obtained. Fluid was sent for cultures and cytology. Next pericardial window was fashioned to approximately 3 finger breaths circu mferentially using Bovie. Specimen of this was sent to pathology. Wound was irrigated, secured hemostasis. Visual and Digital evaluation of the pericardium demonstrated no obvious studding. Through a separate stab wound incision in left upper abdomen, Merrill catheter drain was entered into the in The wound and positioned into the pericardium. This was secured the skin using 2-0 nylon suture. Wound was again irrigated and secured hemostasis. The wound Was closed the following manner; fascia was closed using running looped 0 PDS suture. Next, interrupted inverted deep dermal 3-0 Vicryl sutures followed by running subcuticular 4-0 Vicryl suture were placed. Steri-Strips and sterile dressings were applied. Sponge, needle, instrument counts reported correct. Patient tolerated procedure well and emerged from anesthesia stable condition. EBL minimal.
[2022-11-12] MEDS: Furosemide 200 MG in 0.9 % Sodium Chloride 80 ML IVCONT (16:24)
[2022-11-12] MEDS: fentaNYL citrate/PF 100 MCG/2 ML VIAL 50 MCG IVPUSH ×3 (16:34→22:57)
[2022-11-12 18:11] LABS: MANUAL DIFF FLAG NO
[2022-11-12 18:13] LABS: Basophils Percent Auto 0.2 % (0-2); Hemoglobin 11.3 g/dl (14.0-18.0); Imm Gran Abs Auto 0.16 X10*3/uL (0.00-0.03); Lymphocytes Absolute Auto 0.4 X10*3/uL (1.2-4.9); Lymphocytes Percent Auto 2.5 % (20-40); Mean Corpuscular HGB Conc 32.3 g/dl (31.0-36.0); Mean Corpuscular Hemoglobin 29.4 pg (27.0-33.0); Mean Corpuscular Volume 90.9 fL (80.0-98.0); Mean Platelet Volume 8.6 fL (9.4-12.4); Monocytes Absolute Auto 1.1 X10*3/uL (0.1-1.2); Monocytes Percent Auto 6.3 % (2-11); Neutrophils Absolute Auto 15.1 x10*3/uL (2.0-8.3); Platelet Count 522 X10*3/uL (160-400); Red Blood Count 3.85 X10*6/uL (4.60-5.80); Red Cell Distribution Width 12.8 % (11.0-16.0); White Blood Count 16.8 X10*3/uL (4.8-10.8)
[2022-11-12 18:31] LABS: Anion Gap 15 (12-20); Blood Urea Nitrogen 31 mg/dL (9-16); Calcium 9.4 mg/dL (8.4-10.2); Carbon Dioxide 23 mmol/L (22-29); Chloride 104 mmol/L (96-108); Creatinine Clr Calc Pharmacy 50.1; Estimated Glomerular Filt Rate > 60; Glucose Random 128 mg/dL (60-115); Potassium 4.3 mmol/L (3.3-5.1); Sodium 138 mmol/L (135-145)
[2022-11-13] VITALS (16 sets, daily range): BP systolic 119–165; BP diastolic 60–97; PULSE 83–135; RESP 17–35; TEMP 36.4–37; O2SAT 97–99; BMI 22.2
--- NOTE | 2022-11-13 | ECG_ITS ---
Test Reason : tachy Blood Pressure : / mmHG Vent. Rate : 132 BPM Atrial Rate : 000 BPM P-R Int : 000 ms QRS Dur : 106 ms QT Int : 320 ms P-R-T Axes : 000 -57 103 degrees QTc Int : 474 ms Supraventricular tachycardia / Atrial tachycardia with 2:1 A-V conduction Left axis deviation Nonspecific ST and T wave abnormality Abnormal ECG When compared with ECG of 29-JAN-2022 11:18, Atrial tachycardia has replaced Atrial fibrillation Incomplete left bundle branch block is no longer Present Referred By: Ramírez Fuchs Electronically Signed By:AIDEN MENENDEZ MD
[2022-11-13] MEDS: fentaNYL citrate/PF 100 MCG/2 ML VIAL 50 MCG IVPUSH ×2 (02:49→08:55)
[2022-11-13] MEDS: ceFAZolin Sodium/Dextrose,Iso 2 GM/50 ML PIGGYBACK IV (04:42)
[2022-11-13 05:11] LABS: VBG Base Excess 9.6 mmol/L; VBG HCO3 36 mmol/L (22-26); VBG pCO2 60 mmHg; VBG pH 7.39 (7.32-7.43); VBG pO2 46 mmHg
[2022-11-13 05:35] LABS: Basophils Percent Auto 0.2 % (0-2); Eosinophils Percent Auto 0.1 % (0-4); Hematocrit 33.4 % (42.0-52.0); Imm Gran Abs Auto 0.18 X10*3/uL (0.00-0.03); Imm Gran Pct Auto 0.9 % (0.0-0.4); Lymphocytes Absolute Auto 0.3 X10*3/uL (1.2-4.9); Lymphocytes Percent Auto 1.5 % (20-40); MANUAL DIFF FLAG SCAN; Mean Corpuscular HGB Conc 32.9 g/dl (31.0-36.0); Mean Corpuscular Hemoglobin 29.3 pg (27.0-33.0); Mean Corpuscular Volume 89.1 fL (80.0-98.0); Mean Platelet Volume 8.8 fL (9.4-12.4); Monocytes Absolute Auto 1.1 X10*3/uL (0.1-1.2); Monocytes Percent Auto 5.7 % (2-11); Neutrophils Percent Auto 91.6 % (45-73); Platelet Count 546 X10*3/uL (160-400); Red Blood Count 3.75 X10*6/uL (4.60-5.80); Red Cell Distribution Width 12.6 % (11.0-16.0); SCAN SMEAR FLAG 1; White Blood Count 19.6 X10*3/uL (4.8-10.8)
[2022-11-13 05:50] LABS: Anion Gap 17 (12-20); Blood Urea Nitrogen 27 mg/dL (9-16); Calcium 9.2 mg/dL (8.4-10.2); Carbon Dioxide 26 mmol/L (22-29); Chloride 98 mmol/L (96-108); Creatinine Clr Calc Pharmacy 41.9; Estimated Glomerular Filt Rate 56; Glucose Random 151 mg/dL (60-115); Magnesium 1.9 mg/dL (1.6-2.6); Phosphorus 4.2 mg/dL (2.7-4.5); Potassium 3.3 mmol/L (3.3-5.1); SLIDE REVIEW VERIFIED; Sodium 138 mmol/L (135-145)
--- NOTE | 2022-11-13 06:30 | PC.NURSE ---
CARE ASSUMED 23;15..AWAKE..ALERT..ORIENTED X3...BP STABLE..NSR 1ST-DEGREE AV-BLOCK..ISOLATED PVC...PERICARDIAL DRAIN TO GRAVITY...40ml OUTPUT BLOODY DRAINAGE X8 HOURS...LASIX DRIP 5 MG/HR...[place] EXTERNAK CATHETER IN PLACE WITH SMALL AMOUNT OUTPUT...VOIDED 50-70 ML PER VOID...C/O LOWER ABDOMINAL/BLADDER PAIN...BLADDER SCANNED 850-940ml...ICU PA UPDATED...THIS GIFT MANAGER UNABLE TO INSERT #16/14/OR #12 GUTIÉRREZ CATHETER...ICU PA ATTEMPTED COUDET CATHETER INSERTION W/O SUCCESS...UROLOGY CONSULT..DR OTT ARRIVED ON UNIT... UNABLE TO PLACE GUTIÉRREZ CATHETER...UTILIZED CYSTOSCOPE AND INSERTED #16 COUDET CATHETER VIA GUIDE WIRE...750ml BLOODY URINE OBTAINED ON INSERTION...DRAINED ADDITIONAL 825ml BLOODY URINE...GUTIÉRREZ INTERMITTANTLY CLOTS REQUIRING HAND IRRIGATION...UROLOGIST PRESENT AND AWARE..PATIENT REPORTS RELIEF OF ABDOMINAL/BLADDER PAIN POST-INSERTION
--- NOTE | 2022-11-13 06:32 | HO.POSTANES ---
Post Anesthesia Evaluation Post Anesthesia Evaluation Date of Service: 11/13/22 Vital Signs: Vital Signs Temp Pulse Resp BP Pulse Ox O2 Del Method O2 Flow Rate 11/13/22 05:57 96 21 H 144/76 H 98 Nasal Cannula 3 11/13/22 04:55 91 21 H 151/81 H 98 Nasal Cannula 3 11/13/22 04:00 83 24 H 133/62 99 Nasal Cannula 3 11/13/22 03:00 97.9 F 106 H 22 H 144/80 H 98 Nasal Cannula 3 11/13/22 02:00 103 H 35 H 158/71 H 97 Nasal Cannula 3 11/13/22 01:00 98 28 H 146/86 H 98 Nasal Cannula 3 11/13/22 00:42 97.8 F 90 28 H 136/79 99 Nasal Cannula 3 11/13/22 01:00 97 28 H 146/86 H 98 Nasal Cannula 3 11/13/22 00:00 100 23 H 135/97 H 98 Nasal Cannula 3 11/12/22 23:00 93 25 H 152/81 H 93 Room Air 11/12/22 22:57 22 H 11/12/22 20:08 20 11/12/22 22:00 94 25 H 147/72 H 94 Room Air 11/12/22 21:01 95 30 H 141/70 H 92 Room Air 11/12/22 20:00 97.6 F 85 25 H 144/69 H 93 Room Air 11/12/22 19:00 83 25 H 130/72 94 Room Air Anesthesia: Monitored Mental Status: Awake Pain Control: Satisfactory (pain from palacio) Nausea/Vomiting: None Hydration: Adequate Anesthesia-Related Issues: No Anes. Related Issues
--- NOTE | 2022-11-13 07:00 | CA_ITS ---
Transthoracic Echocardiogram Limited Patient (Last, First, Middle): Peter Grimes K Gender: Male Date of : 1940 Age: 82 Procedure Date: 11/13/2022 Procedure Type: Transthoracic Echocardiogram Limited Location: [facility] [place] Height: 167.64 cm Weight: 62.14 kg BSA: 1.70 m2 Heart Rate: bpm BP: 119 / 78 mmHg Academic Physician: Referring MD: Yumi Culver NP Cnc Grinder: Neo Schulz MD Symptoms: pericardial effusion Study Quality: Technically Difficult ECG Rhythm: Sinus Conclusions: - Significantly reduced size of the pericardial effusion to trivial pericardial effusion Findings Left Ventricle The left ventricle was not well visualized. Pericardium/Pleural There is a trivial circumferential pericardial effusion. Prior Study Comparison Changes noted compared to prior study dated: 11/12/2022. Pericardial effusion has significantly improved. Measurements 2D Linear Measurements IVSd: 1.34 0.6-0.9/0.6-1.0 cm LVIDd: 4.28 3.9-5.3/4.2-5.9 cm LVIDd Index: 2.52 2.4-3.2/2.2-3.1 cm/m2 LVIDs: 3.17 2.0-3.6 cm LVPWd: 1.34 0.7-1.1 cm LV Mass: 269.10 67-162/88-224 g LV Mass Index: 158.29 43-95/49-115 g/m2 Updated in Other Vendor System with Status of Final Neo Schulz MD electronically signed on 11/13/2022 3:38:43 PM with status of Final
[2022-11-13 07:20] LABS: Venous Blood Gas Refer to POC result
--- NOTE | 2022-11-13 07:52 | PM.UROCN ---
History of Present Illness Consult details Consult date: 11/13/22 Narrative: 82 year old patient admitted for percardial tamponade s/p percardinal window. Called to ICU to place palacio Bladder scan 969 mL Pt needs lasix drip. Attempted to place 16 fr palacio with resistance met. On report, multiply tries by nursing and also ICU PA attempted to place a coude with success. Consent obtained, Ancef 2 gm IV provided for prophylaxis, Cystoscopy with guide wire followed by catheter placement, Findings: some trauma to proximal bulbous urethra. Review of Systems Review of Systems: 10 point ROS negative other than stated in HPI [facility] Past Medical History Medical History (Updated 11/15/22 @ 11:25 by Benita Galloway MD) Atrial fibrillation, new onset CHF (congestive heart failure) COPD (chronic obstructive pulmonary disease) Coronary artery disease Pericardial effusion Surgical History Surgical History H/O heart artery stent Social History Social History Household Members: Spouse Housing: House Alcohol intake: never Patient Tobacco Use Status: Former Tobacco user Advance Directives Date on File: 01/30/22 service: No Current occupational status: retired Meds Allergies Allergy/AdvReac Type Severity Reaction Status Date / Time No Known Allergies Allergy Verified 11/12/22 15:09 Active Medications: Current Medications Fentanyl (Fentanyl Citrate/Pf 100 Mcg/2 Ml Vial) 50 mcg IVPUSH Q2H PRN; Protocol PRN Reason: Pain, Moderate(Pain Scale 4-6) Last Admin: 11/13/22 02:49 Dose: 50 mcg Furosemide 200 mg/ Sodium (Chloride) 100 mls @ 2.5 mls/hr IVCONT .Q24H MARTINEZ Last Admin: 11/12/22 16:24 Dose: 5 mg/hr, 2.5 mls/hr Home Medications Medication Instructions Recorded Confirmed Last Taken Type amlodipine 10 mg tablet 10 mg PO DAILY 06/13/20 11/13/22 11/12/22 History atorvastatin 40 mg tablet 40 mg PO BEDTIME 06/13/20 11/13/22 11/12/22 History finasteride 5 mg tablet 5 mg PO DAILY 06/13/20 11/13/22 11/12/22 History tamsulosin 0.4 mg capsule (Flomax) 0.4 mg PO BEDTIME 06/13/20 11/13/22 11/12/22 History isosorbide mononitrate 30 mg 1 tab PO DAILY@1800 01/29/22 11/13/22 11/12/22 History tablet,extended release 24 hr multivitamin 1 tab PO DAILY 01/29/22 11/13/22 11/12/22 History budesonide-formoterol HFA 160 2 puff inhalation BID 11/13/22 11/13/22 11/12/22 History mcg-4.5 mcg/actuation aerosol inhaler (Symbicort) Physical Exam Vital Signs: Vital Signs: Last Vital Signs Temp 97.6 F 11/13/22 07:00 Pulse 105 H 11/13/22 07:00 Resp 26 H 11/13/22 07:00 BP 123/78 11/13/22 07:00 Pulse Ox 99 11/13/22 07:00 O2 Del Method Nasal Cannula 11/13/22 07:00 O2 Flow Rate 3 11/13/22 07:00 BMI result Body Mass Index 22.2 Const: General: cooperative, alert, awake and in distress mild and respiratory Orientation/consciousness: patient oriented x3 HEENT: Head: Yes normocephalic and Yes atraumatic Neck: Neck: Yes trachea midline, Yes supple and Yes JVD Resp: Effort & Inspection: respiratory distress Auscultation: no rales, breath sounds absent on th left (Base) and diminished lung sounds on the left (Posterior) Cardio: Rate: regular rate : Other: bladder distended Skin: General skin exam: no rashes or lesions noted Neuro: General: patient oriented x3 and no focal motor deficits Extrem: General: Yes edema Results Labs 11/13/22 05:07 11/13/22 05:07 Labs: Abnormal lab results 11/12/22 11/12/22 11/12/22 Range/Units 13:35 13:35 13:35 WBC 14.2 H (4.8-10.8) X10*3/uL RBC 3.94 L (4.60-5.80) X10*6/uL Hgb 11.7 L (14.0-18.0) g/dl Hct 36.7 L (42.0-52.0) % Plt Count 567 H D (160-400) X10*3/uL MPV 9.2 L (9.4-12.4) fL Immature Gran % (Auto) 1.1 H (0.0-0.4) % Neut % (Auto) 88.9 H (45-73) % Lymph % (Auto) 3.6 L (20-40) % Lymph # (Auto) 0.5 L (1.2-4.9) X10*3/uL Abs Immat Gran (auto) 0.15 H (0.00-0.03) X10*3/uL Absolute Neuts (auto) 12.6 H (2.0-8.3) x10*3/uL PT 17.9 H (10.0-13.1) SEC INR 1.5 H (0.9-1.1) VBG HCO3 (22-26) mmol/L BUN 33 H (9-16) mg/dL Random Glucose 122 H (60-115) mg/dL B-Natriuretic Peptide (<100) pg/mL Total Protein 8.3 H (6.5-8.0) g/dL 11/12/22 11/12/22 11/12/22 Range/Units 13:35 14:17 18:04 WBC 16.8 H (4.8-10.8) X10*3/uL RBC 3.85 L (4.60-5.80) X10*6/uL Hgb 11.3 L (14.0-18.0) g/dl Hct 35.0 L (42.0-52.0) % Plt Count 522 H (160-400) X10*3/uL MPV 8.6 L (9.4-12.4) fL Immature Gran % (Auto) 1.0 H (0.0-0.4) % Neut % (Auto) 90.0 H (45-73) % Lymph % (Auto) 2.5 L (20-40) % Lymph # (Auto) 0.4 L (1.2-4.9) X10*3/uL Abs Immat Gran (auto) 0.16 H (0.00-0.03) X10*3/uL Absolute Neuts (auto) 15.1 H (2.0-8.3) x10*3/uL PT (10.0-13.1) SEC INR (0.9-1.1) VBG HCO3 29 H (22-26) mmol/L BUN (9-16) mg/dL Random Glucose (60-115) mg/dL B-Natriuretic Peptide 362 H (<100) pg/mL Total Protein (6.5-8.0) g/dL 11/12/22 11/13/22 11/13/22 Range/Units 18:04 05:02 05:07 WBC 19.6 H (4.8-10.8) X10*3/uL RBC 3.75 L (4.60-5.80) X10*6/uL Hgb 11.0 L (14.0-18.0) g/dl Hct 33.4 L (42.0-52.0) % Plt Count 546 H (160-400) X10*3/uL MPV 8.8 L (9.4-12.4) fL Immature Gran % (Auto) 0.9 H (0.0-0.4) % Neut % (Auto) 91.6 H (45-73) % Lymph % (Auto) 1.5 L (20-40) % Lymph # (Auto) 0.3 L (1.2-4.9) X10*3/uL Abs Immat Gran (auto) 0.18 H (0.00-0.03) X10*3/uL Absolute Neuts (auto) 18.0 H (2.0-8.3) x10*3/uL PT (10.0-13.1) SEC INR (0.9-1.1) VBG HCO3 36 H (22-26) mmol/L BUN 31 H (9-16) mg/dL Random Glucose 128 H (60-115) mg/dL B-Natriuretic Peptide (<100) pg/mL Total Protein (6.5-8.0) g/dL 11/13/22 Range/Units 05:07 WBC (4.8-10.8) X10*3/uL RBC (4.60-5.80) X10*6/uL Hgb (14.0-18.0) g/dl Hct (42.0-52.0) % Plt Count (160-400) X10*3/uL MPV (9.4-12.4) fL Immature Gran % (Auto) (0.0-0.4) % Neut % (Auto) (45-73) % Lymph % (Auto) (20-40) % Lymph # (Auto) (1.2-4.9) X10*3/uL Abs Immat Gran (auto) (0.00-0.03) X10*3/uL Absolute Neuts (auto) (2.0-8.3) x10*3/uL PT (10.0-13.1) SEC INR (0.9-1.1) VBG HCO3 (22-26) mmol/L BUN 27 H (9-16) mg/dL Random Glucose 151 H (60-115) mg/dL B-Natriuretic Peptide (<100) pg/mL Total Protein (6.5-8.0) g/dL Short CBC 11/12/22 11/12/22 11/13/22 Range/Units 13:35 18:04 05:07 WBC 14.2 H 16.8 H 19.6 H (4.8-10.8) X10*3/uL Hgb 11.7 L 11.3 L 11.0 L (14.0-18.0) g/dl Hct 36.7 L 35.0 L 33.4 L (42.0-52.0) % Plt Count 567 H D 522 H 546 H (160-400) X10*3/uL BMP 11/12/22 11/12/22 11/13/22 13:35 18:04 05:07 Sodium 139 138 138 Potassium 4.6 4.3 3.3 D Chloride 104 104 98 Carbon Dioxide 24 23 26 BUN 33 H 31 H 27 H Creatinine 1.14 1.03 1.23 Calcium 9.9 9.4 9.2 Liver Function 11/12/22 Range/Units 13:35 Total Bilirubin 0.5 (0.0-1.0) mg/dL Direct Bilirubin 0.2 (0.0-0.5) mg/dL AST 28 (5-37) U/L ALT 30 (0-40) U/L Alkaline Phosphatase 96 (39-117) U/L Albumin 3.7 (3.5-5.0) g/dL Assessment and Plan (1) Urinary retention: Status: Acute (2) Cardiac tamponade: Status: Acute Time Spent With Patient Time: Total time managing care of this patient today ____ minutes. Procedures Date of Service Date of Service: 11/15/22 Catheter Insertion (Urinary) Date of insertion: 11/13/22 Time of insertion: 03:30 Reason for placing: Acute urinary retention Bladder scan/ultrasound used before catheterization: Yes Estimated amount of urine (mLs): 969 Topical anesthesia used: Yes Catheter type/location: 2-way Urethral Size ([place]): 16 Catheter balloon size (mL): 10 Catheter balloon amount: 10 Results: retried with different size/type catheter and consulted Comment: Cystoscopy necessary for placement of catheter
[2022-11-13] MEDS: Potassium Chloride Packet 20 MEQ PACKET 60 MEQ PO ×2 (08:16→12:26)
[2022-11-13] MEDS: Amiodarone HCL 200 MG TABLET PO (08:16)
--- NOTE | 2022-11-13 09:32 | PM.PNTS ---
Subjective Subjective Date of Service: 11/13/22 Interval history: Patient looks much better for from initial evaluation yesterday. Minimal incisional discomfort. Physical Exam Vital Signs: Vital Signs: Last Vital Signs Temp 97.6 F 11/13/22 07:00 Pulse 114 H 11/13/22 08:00 Resp 28 H 11/13/22 08:00 BP 128/65 11/13/22 08:00 Pulse Ox 99 11/13/22 08:00 O2 Del Method Nasal Cannula 11/13/22 08:00 O2 Flow Rate 3 11/13/22 08:00 BMI result Body Mass Index 22.2 Chest: Other: Dressing clean dry and intact. Minimal serosanguineous output from pericardial tube. Procedures Date of Service Date of Service: 11/13/22 Progress Note: A&P Assessment and plan (1) Cardiac tamponade: Status: Acute (2) Acute pericardial effusion: Status: Acute Plan Continue current plan. Incentive spirometry, out of bed, follow I's and O's, and plan on Removing pericardial drain another day or 2 if output remains low. Time Spent With Patient Time: Total time managing care of this patient today ____ minutes. Quality Stroke Does the patient have a stroke diagnosis?: No VTE Prior VTE?: No VTE Risk Level:: Medical - moderate - high VTE Device Contraindication: N/A - Device Ordered VTE Drug Contraindication: Treatment Not Indicated
--- NOTE | 2022-11-13 09:38 | PC.NURSE ---
Addendum entered by Jaqueline Enriquez RN 11/13/22 09:59: Patient called this RN back into room stating its blocked off again and pointing to his lexie care. Dr Jensen notified - do not irrigate at this time per Dr Jensen, plan to see him this AM. Patient updated on transfer and plan. Original Note: Assumed care at 0700 - Patient called this RN into room around 7:30. Patient reports worsening bladder pain . This RN hand irrigated x4 with large clot removal along with 380cc hematuria - patient reports relief in pain. Continued on lasix gtt. Patient called this RN back in room around 8:45 for increase in pain. Medicated with PRN Fentanyl and only 30cc bloody urine output noted in palacio. Patient hand irrigated x3 with large clot removal and 100cc hematuria. Increased resistance during irrigation. Patient reports relief in pain after irrigation. Binder Fixer and Urologist notified - no new orders at this time. Awaiting transfer to [facility]. Nursing management notified and aware of patients current status.
--- NOTE | 2022-11-13 09:47 | MHC.CM.PN ---
IMM DELIVERED PT LIVES WITH [facility] IN A SECOND FLOOR APT, DAUGHTER ON FIRST FLOOR. INDEPENDENT AT BASELINE. NO PREVIOUS SERVICES. +HCP ON FILE +COVID VAX X4 (MODERNA) PCP DR. SEQUEIRA DP: HOME, MAY NEED HOME SERVICES ON DC. PT HAS NO PREFERENCE TO AN AGENCY, REFERRAL SENT TO [facility]. [facility] WILL TRANSPORT HOME. CM WILL CONTINUE TO FOLLOW FOR DC NEEDS/PLAN.
--- NOTE | 2022-11-13 10:08 | PHA.MEDREC ---
Pharmacy Consult ? Medication Reconciliation Pharmacy has completed the medication reconciliation. Spoke to patient at bedside, stated that he hadn't started the furosemide that was filled recently at the pharmacy.
--- NOTE | 2022-11-13 10:29 | PM.CCPN ---
Subjective Subjective Date of Service: 11/13/22 Interval History: 82-year-old gentleman with underlying history of CAD, chronic systolic and diastolic heart failure, AFib on anticoagulation, followed by Dr. Najera, also severe COPD intolerant of LABA secondary to BPH, with underlying known chronic pericardial effusion has been experiencing dyspnea for last 4-6 weeks that has been slowly progressing associated with orthopnea, worsening lower extremity edema, and paroxysmal nocturnal dyspnea. 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 day prior to current admission patient was evaluated by his primary care physician and referred to echocardiogram and then to ER for further evaluation of his dyspnea including echocardiogram. During ER evaluation on 11/12/2022 patient was noted to have large pericardial effusion with possible tamponade physiology and patient underwent pericardial window procedure in OR under monitored anesthesia care with drainage of approximately 900 cc of pericardial fluid. Patient transferred to intensive care unit postop for further evaluation and management. Overnight diuresed 3 L with improvement in dyspnea and edema. , with development of urinary retention requiring Merrill placement by Urology service with development of hematuria. Critical Care Time (minutes): 0 Physical Exam Vital Signs: Vital Signs: Last Vital Signs Temp 97.6 F 11/13/22 07:00 Pulse 114 H 11/13/22 08:00 Resp 28 H 11/13/22 08:00 BP 128/65 11/13/22 08:00 Pulse Ox 99 11/13/22 08:00 O2 Del Method Nasal Cannula 11/13/22 08:00 O2 Flow Rate 3 11/13/22 08:00 BMI result Body Mass Index 22.2 Const: General: no acute distress, alert and awake Eyes: Sclerae: sclerae normal EOM: EOMs intact bilaterally Neck: Neck: Yes no lymphadenopathy, Yes trachea midline and Yes supple Chest: Other: Pericardial drain with sanguinous output. Resp: Effort & Inspection: normal respiratory effort and no respiratory distress Auscultation: crackles ( Mild bilateral) Cardio: Rate: tachycardic Rhythm: abnormal rhythm irregularly irregular Heart sounds: no gallops, no murmurs and no rubs GI: Palpation (GI): Soft to palpation and Other GI palpation findings present ( Nontender) Auscultation: normal bowel sounds Extrem: General: No clubbing, No cyanosis and Yes edema ( 2+ bilateral) Objective Data Labs 11/13/22 05:07 11/13/22 05:07 Labs: Laboratory Results - last 24 hr 11/12/22 11/12/22 11/12/22 13:35 13:35 13:35 WBC 14.2 H RBC 3.94 L Hgb 11.7 L Hct 36.7 L MCV 93.1 MCH 29.7 MCHC 31.9 RDW 12.7 Plt Count 567 H D MPV 9.2 L Immature Gran % (Auto) 1.1 H Neut % (Auto) 88.9 H Lymph % (Auto) 3.6 L [place] % (Auto) 6.1 Eos % (Auto) 0.1 Baso % (Auto) 0.2 Lymph # (Auto) 0.5 L [place] # (Auto) 0.9 Eos # (Auto) 0.0 Baso # (Auto) 0.0 Abs Immat Gran (auto) 0.15 H Absolute Neuts (auto) 12.6 H Absolute Nucleated RBC 0.000 Nucleated RBC % (auto) 0.0 Smear Tech's Comments PT 17.9 H INR 1.5 H APTT VBG pH VBG pCO2 VBG pO2 VBG HCO3 VBG O2 Saturation VBG Base Excess Sodium 139 Potassium 4.6 Chloride 104 Carbon Dioxide 24 Anion Gap 16 BUN 33 H Creatinine 1.14 Estim Creat Clear Calc 44.4 Estimated GFR > 60 Random Glucose 122 H Calcium 9.9 Phosphorus Magnesium 2.5 Total Bilirubin 0.5 Direct Bilirubin 0.2 AST 28 ALT 30 Alkaline Phosphatase 96 Troponin I High Sens B-Natriuretic Peptide Total Protein 8.3 H Albumin 3.7 Blood Type Antibody Screen 11/12/22 11/12/22 11/12/22 13:35 13:35 14:09 WBC RBC Hgb Hct MCV MCH MCHC RDW Plt Count MPV Immature Gran % (Auto) Neut % (Auto) Lymph % (Auto) [place] % (Auto) Eos % (Auto) Baso % (Auto) Lymph # (Auto) [place] # (Auto) Eos # (Auto) Baso # (Auto) Abs Immat Gran (auto) Absolute Neuts (auto) Absolute Nucleated RBC Nucleated RBC % (auto) Smear Tech's Comments PT INR APTT VBG pH VBG pCO2 VBG pO2 VBG HCO3 VBG O2 Saturation VBG Base Excess Sodium Potassium Chloride Carbon Dioxide Anion Gap BUN Creatinine Estim Creat Clear Calc Estimated GFR Random Glucose Calcium Phosphorus Magnesium Total Bilirubin Direct Bilirubin AST ALT Alkaline Phosphatase Troponin I High Sens 25.5 B-Natriuretic Peptide 362 H Total Protein Albumin Blood Type A Positive Antibody Screen NEGATIVE 11/12/22 11/12/22 11/12/22 14:17 18:03 18:04 WBC 16.8 H RBC 3.85 L Hgb 11.3 L Hct 35.0 L MCV 90.9 MCH 29.4 MCHC 32.3 RDW 12.8 Plt Count 522 H MPV 8.6 L Immature Gran % (Auto) 1.0 H Neut % (Auto) 90.0 H Lymph % (Auto) 2.5 L [place] % (Auto) 6.3 Eos % (Auto) 0.0 Baso % (Auto) 0.2 Lymph # (Auto) 0.4 L [place] # (Auto) 1.1 Eos # (Auto) 0.0 Baso # (Auto) 0.0 Abs Immat Gran (auto) 0.16 H Absolute Neuts (auto) 15.1 H Absolute Nucleated RBC 0.000 Nucleated RBC % (auto) 0.0 Smear Tech's Comments PT INR APTT 35.0 VBG pH 7.34 VBG pCO2 54 VBG pO2 41 VBG HCO3 29 H VBG O2 Saturation 59.0 VBG Base Excess 3.2 Sodium Potassium Chloride Carbon Dioxide Anion Gap BUN Creatinine Estim Creat Clear Calc Estimated GFR Random Glucose Calcium Phosphorus Magnesium Total Bilirubin Direct Bilirubin AST ALT Alkaline Phosphatase Troponin I High Sens B-Natriuretic Peptide Total Protein Albumin Blood Type Antibody Screen 11/12/22 11/13/22 11/13/22 18:04 05:02 05:07 WBC 19.6 H RBC 3.75 L Hgb 11.0 L Hct 33.4 L MCV 89.1 MCH 29.3 MCHC 32.9 RDW 12.6 Plt Count 546 H MPV 8.8 L Immature Gran % (Auto) 0.9 H Neut % (Auto) 91.6 H Lymph % (Auto) 1.5 L [place] % (Auto) 5.7 Eos % (Auto) 0.1 Baso % (Auto) 0.2 Lymph # (Auto) 0.3 L [place] # (Auto) 1.1 Eos # (Auto) 0.0 Baso # (Auto) 0.0 Abs Immat Gran (auto) 0.18 H Absolute Neuts (auto) 18.0 H Absolute Nucleated RBC 0.000 Nucleated RBC % (auto) 0.0 Smear Tech's Comments VERIFIED PT INR APTT VBG pH 7.39 VBG pCO2 60 VBG pO2 46 VBG HCO3 36 H VBG O2 Saturation 72.0 VBG Base Excess 9.6 Sodium 138 Potassium 4.3 Chloride 104 Carbon Dioxide 23 Anion Gap 15 BUN 31 H Creatinine 1.03 Estim Creat Clear Calc 50.1 Estimated GFR > 60 Random Glucose 128 H Calcium 9.4 Phosphorus Magnesium Total Bilirubin Direct Bilirubin AST ALT Alkaline Phosphatase Troponin I High Sens B-Natriuretic Peptide Total Protein Albumin Blood Type Antibody Screen 11/13/22 05:07 WBC RBC Hgb Hct MCV MCH MCHC RDW Plt Count MPV Immature Gran % (Auto) Neut % (Auto) Lymph % (Auto) [place] % (Auto) Eos % (Auto) Baso % (Auto) Lymph # (Auto) [place] # (Auto) Eos # (Auto) Baso # (Auto) Abs Immat Gran (auto) Absolute Neuts (auto) Absolute Nucleated RBC Nucleated RBC % (auto) Smear Tech's Comments PT INR APTT VBG pH VBG pCO2 VBG pO2 VBG HCO3 VBG O2 Saturation VBG Base Excess Sodium 138 Potassium 3.3 D Chloride 98 Carbon Dioxide 26 Anion Gap 17 BUN 27 H Creatinine 1.23 Estim Creat Clear Calc 41.9 Estimated GFR 56 Random Glucose 151 H Calcium 9.2 Phosphorus 4.2 Magnesium 1.9 Total Bilirubin Direct Bilirubin AST ALT Alkaline Phosphatase Troponin I High Sens B-Natriuretic Peptide Total Protein Albumin Blood Type Antibody Screen Progress Note: A&P Assessment and plan (1) Afib: Status: Acute (2) Pericardial effusion: Status: Acute (3) Chronic combined systolic and diastolic congestive heart failure: Status: Acute (4) Severe chronic obstructive pulmonary disease: Status: Acute (5) BPH (benign prostatic hyperplasia): Status: Acute (6) Hematuria: Status: Acute (7) Coronary artery disease: Status: Acute (8) Bronchiectasis: Status: Acute Plan Assessment: 82-year-old gentleman with underlying chronic systolic and diastolic congestive heart failure, AFib, severe COPD presented Plan: Neuro: No acute issues. Cardiac: subacute on chronic pericardial effusion with development of tamponade physiology status post pericardial window with drainage of 900 cc of pericardial fluid and drain placement. Thoracic surgery and cardiology service care appreciated. Underlying acute on chronic systolic and diastolic congestive heart failure and AFib rate anticoagulation held postprocedure. Acute on chronic heart failure, improved with diuresis. Pulmonary: No acute issues. Underlying chronic severe COPD and bronchiectasis. Renal: urinary retention with underlying BPH Merrill catheter placed by Urology with development of hematuria. Urology service care appreciated. Continue to monitor renal indices and urine output Endo: No acute issues. GI: No acute issues. ID: No acute issues Heme/Onc: No acute issues. Psych: No acute issues. Miscellaneous: No acute issues. Prophylaxis: Pneumatic compression Diet: regular At this time patient is stable for transfer to telemetry [facility], transfer discussed with Yumi Blackwell Stroke Does the patient have a stroke diagnosis?: No VTE Prior VTE?: No VTE Risk Level:: Medical - moderate - high VTE Device Contraindication: N/A - Device Ordered VTE Drug Contraindication: Treatment Not Indicated
--- NOTE | 2022-11-13 10:45 | PM.EVENT ---
Event Note Date of Service: 11/13/22 Event Note: ICU transfer discussed with Dr. Hurley. Worsening sob for 5-6 weeks with leg edema. Went to cardio office for this and echo showed tamponade Tamp[place]ade Pericardial effusion> 1 liter drained, pericardial drain (to be removed by Dr. Garcia in next day or two) seems likely has had chronic effusion, repeat echo friday, cardiology following HFrEF>lasix drip Hematuria>traumatic palacio hx of bronchiectasis HTN>stable hold BP meds for now BPH>flomax normocytic anemia>monitor in light of hematuria PAFIB>on eliquis at home. Amiodarone Time Spent With Patient Time: Total time managing care of this patient today ____ minutes.
[2022-11-13] MEDS: Empagliflozin 10 MG TABLET PO (12:29)
--- NOTE | 2022-11-13 13:25 | P.PNCA_ITS ---
Subjective Subjective Date of Service: 11/13/22 Principal diagnosis: Congestive heart failure, pericardial effusion Interval history: Patient post pericardial window where he removed 1 L of hemorrhagic fluid with improvement in his symptoms. However has been diuresed overnight with the drip and has diuresed about 3 L. Patient continues to remain short of breath but says he is much improved. Overnight had issues with urinary retention and subsequent catheter placement was difficult with hematuria. Currently awaiting Urology for placement of catheter and possible starting of CBI. He has Eliquis is been under hold. The pericardial window surgery was without significant blood loss but he has developed hematuria for now. Also edema rising fluid in the pericardium, etiology unclear. I do not see any pericardial cytology and/or chemistries ordered. Review of Systems Constitutional: Reports no additional constitutional complaints Cardiovascular: Denies chest pain, Reports leg edema (Improving), Denies palpitations and Reports dyspnea Respiratory: Reports dyspnea Gastrointestinal: Reports no additional gastrointestinal complaints Genitourinary: Reports hematuria, Reports difficulty urinating and Reports dysuria Musculoskeletal: Reports no additional musculoskeletal complaints Endocrine: Denies palpitations Physical Exam Vital Signs: Last Vital Signs Temp 97.7 F 11/13/22 11:28 Pulse 115 H 11/13/22 11:28 Resp 20 11/13/22 11:28 BP 119/78 11/13/22 11:28 Pulse Ox 97 11/13/22 11:28 O2 Del Method Nasal Cannula 11/13/22 11:28 O2 Flow Rate 4 11/13/22 11:28 BMI result Body Mass Index 22.2 Const General: cooperative, alert, awake and in distress mild and respiratory Nutritional Appearance: thin Orientation/consciousness: patient oriented x3 HEENT Head: Yes normocephalic and Yes atraumatic Neck Neck: Yes trachea midline, Yes supple and Yes JVD Resp Effort & Inspection: respiratory distress Auscultation: no rales, breath sounds absent on th left (Base) and diminished lung sounds on the left (Posterior) Cardio Jugular venous distension: JVD Rate: regular rate Rhythm: abnormal rhythm with ectopic beats Heart sounds: S1 normal heart sound present, S2 normal heart sound present, no click, no gallops and no murmurs GI Auscultation: normal bowel sounds Skin General skin exam: no rashes or lesions noted and ecchymosis Neuro General: patient oriented x3 and no focal motor deficits Extrem General: No clubbing, No cyanosis and Yes edema Objective Labs and Meds 11/13/22 05:07 11/13/22 05:07 Lab results: Laboratory Results - last 24 hr 11/12/22 11/12/22 11/12/22 13:35 13:35 13:35 WBC 14.2 H RBC 3.94 L Hgb 11.7 L Hct 36.7 L MCV 93.1 MCH 29.7 MCHC 31.9 RDW 12.7 Plt Count 567 H D MPV 9.2 L Immature Gran % (Auto) 1.1 H Neut % (Auto) 88.9 H Lymph % (Auto) 3.6 L [place] % (Auto) 6.1 Eos % (Auto) 0.1 Baso % (Auto) 0.2 Lymph # (Auto) 0.5 L [place] # (Auto) 0.9 Eos # (Auto) 0.0 Baso # (Auto) 0.0 Abs Immat Gran (auto) 0.15 H Absolute Neuts (auto) 12.6 H Absolute Nucleated RBC 0.000 Nucleated RBC % (auto) 0.0 Smear Tech's Comments PT 17.9 H INR 1.5 H APTT VBG pH VBG pCO2 VBG pO2 VBG HCO3 VBG O2 Saturation VBG Base Excess Sodium 139 Potassium 4.6 Chloride 104 Carbon Dioxide 24 Anion Gap 16 BUN 33 H Creatinine 1.14 Estim Creat Clear Calc 44.4 Estimated GFR > 60 Random Glucose 122 H Calcium 9.9 Phosphorus Magnesium 2.5 Total Bilirubin 0.5 Direct Bilirubin 0.2 AST 28 ALT 30 Alkaline Phosphatase 96 Troponin I High Sens B-Natriuretic Peptide Total Protein 8.3 H Albumin 3.7 Blood Type Antibody Screen 11/12/22 11/12/22 11/12/22 13:35 13:35 14:09 WBC RBC Hgb Hct MCV MCH MCHC RDW Plt Count MPV Immature Gran % (Auto) Neut % (Auto) Lymph % (Auto) [place] % (Auto) Eos % (Auto) Baso % (Auto) Lymph # (Auto) [place] # (Auto) Eos # (Auto) Baso # (Auto) Abs Immat Gran (auto) Absolute Neuts (auto) Absolute Nucleated RBC Nucleated RBC % (auto) Smear Tech's Comments PT INR APTT VBG pH VBG pCO2 VBG pO2 VBG HCO3 VBG O2 Saturation VBG Base Excess Sodium Potassium Chloride Carbon Dioxide Anion Gap BUN Creatinine Estim Creat Clear Calc Estimated GFR Random Glucose Calcium Phosphorus Magnesium Total Bilirubin Direct Bilirubin AST ALT Alkaline Phosphatase Troponin I High Sens 25.5 B-Natriuretic Peptide 362 H Total Protein Albumin Blood Type A Positive Antibody Screen NEGATIVE 11/12/22 11/12/22 11/12/22 14:17 18:03 18:04 WBC 16.8 H RBC 3.85 L Hgb 11.3 L Hct 35.0 L MCV 90.9 MCH 29.4 MCHC 32.3 RDW 12.8 Plt Count 522 H MPV 8.6 L Immature Gran % (Auto) 1.0 H Neut % (Auto) 90.0 H Lymph % (Auto) 2.5 L [place] % (Auto) 6.3 Eos % (Auto) 0.0 Baso % (Auto) 0.2 Lymph # (Auto) 0.4 L [place] # (Auto) 1.1 Eos # (Auto) 0.0 Baso # (Auto) 0.0 Abs Immat Gran (auto) 0.16 H Absolute Neuts (auto) 15.1 H Absolute Nucleated RBC 0.000 Nucleated RBC % (auto) 0.0 Smear Tech's Comments PT INR APTT 35.0 VBG pH 7.34 VBG pCO2 54 VBG pO2 41 VBG HCO3 29 H VBG O2 Saturation 59.0 VBG Base Excess 3.2 Sodium Potassium Chloride Carbon Dioxide Anion Gap BUN Creatinine Estim Creat Clear Calc Estimated GFR Random Glucose Calcium Phosphorus Magnesium Total Bilirubin Direct Bilirubin AST ALT Alkaline Phosphatase Troponin I High Sens B-Natriuretic Peptide Total Protein Albumin Blood Type Antibody Screen 11/12/22 11/13/22 11/13/22 18:04 05:02 05:07 WBC 19.6 H RBC 3.75 L Hgb 11.0 L Hct 33.4 L MCV 89.1 MCH 29.3 MCHC 32.9 RDW 12.6 Plt Count 546 H MPV 8.8 L Immature Gran % (Auto) 0.9 H Neut % (Auto) 91.6 H Lymph % (Auto) 1.5 L [place] % (Auto) 5.7 Eos % (Auto) 0.1 Baso % (Auto) 0.2 Lymph # (Auto) 0.3 L [place] # (Auto) 1.1 Eos # (Auto) 0.0 Baso # (Auto) 0.0 Abs Immat Gran (auto) 0.18 H Absolute Neuts (auto) 18.0 H Absolute Nucleated RBC 0.000 Nucleated RBC % (auto) 0.0 Smear Tech's Comments VERIFIED PT INR APTT VBG pH 7.39 VBG pCO2 60 VBG pO2 46 VBG HCO3 36 H VBG O2 Saturation 72.0 VBG Base Excess 9.6 Sodium 138 Potassium 4.3 Chloride 104 Carbon Dioxide 23 Anion Gap 15 BUN 31 H Creatinine 1.03 Estim Creat Clear Calc 50.1 Estimated GFR > 60 Random Glucose 128 H Calcium 9.4 Phosphorus Magnesium Total Bilirubin Direct Bilirubin AST ALT Alkaline Phosphatase Troponin I High Sens B-Natriuretic Peptide Total Protein Albumin Blood Type Antibody Screen 11/13/22 05:07 WBC RBC Hgb Hct MCV MCH MCHC RDW Plt Count MPV Immature Gran % (Auto) Neut % (Auto) Lymph % (Auto) [place] % (Auto) Eos % (Auto) Baso % (Auto) Lymph # (Auto) [place] # (Auto) Eos # (Auto) Baso # (Auto) Abs Immat Gran (auto) Absolute Neuts (auto) Absolute Nucleated RBC Nucleated RBC % (auto) Smear Tech's Comments PT INR APTT VBG pH VBG pCO2 VBG pO2 VBG HCO3 VBG O2 Saturation VBG Base Excess Sodium 138 Potassium 3.3 D Chloride 98 Carbon Dioxide 26 Anion Gap 17 BUN 27 H Creatinine 1.23 Estim Creat Clear Calc 41.9 Estimated GFR 56 Random Glucose 151 H Calcium 9.2 Phosphorus 4.2 Magnesium 1.9 Total Bilirubin Direct Bilirubin AST ALT Alkaline Phosphatase Troponin I High Sens B-Natriuretic Peptide Total Protein Albumin Blood Type Antibody Screen Progress Note: A&P Assessment and plan (1) Cardiac tamponade: Status: Acute Assessment and Plan: Patient with cardiac tamponade with large pericardial effusion draining about 1 L of the meralgia fluid. He argues unclear. Will send pericardial fluid for cytology as well as AFB as well as chemistry studies. Could be related to Eliquis therapy. Malignancy needs to be ruled out. Being followed by thoracic surgery. Repeat limited echocardiogram today. Once there is no significant pericardial fluid the drain would be removed. Patient already has a pericardial window. Await pericardial tissue sample pathology. Would hold off on Eliquis therapy at this point time and may consider Watchman device as outpatient. (2) Chronic combined systolic and diastolic congestive heart failure: Status: Acute Assessment and Plan: Heart failure and with persistent fluid overload and shortness of breath. In addition his shortness of breath this contributed by his underlying chronic obstructive pulmonary disease and bronchiectasis. Advise incentive spirometry. Continue IV diuresis. He is currently having issues with urinary retention this is being followed by Urology. Continue diuretic drip and add Jardiance 10 mg to his regimen. Strict intake and output chart needs to be pursued. Will continue to follow with you Time Spent With Patient Time: Total time managing care of this patient today ____ minutes. Progress Note: Quality Stroke Does the patient have a stroke diagnosis?: No Procedures Date of Service Date of Service: 11/13/22
[2022-11-13] MEDS: Morphine Sulfate 2 MG/ML CARTRIDGE IVPUSH (14:09)
[2022-11-13 14:58] LABS: Anion Gap 20 (12-20); Blood Urea Nitrogen 27 mg/dL (9-16); Calcium 9.4 mg/dL (8.4-10.2); Carbon Dioxide 24 mmol/L (22-29); Chloride 101 mmol/L (96-108); Creatinine Clr Calc Pharmacy 42.6; Estimated Glomerular Filt Rate 58; Glucose Random 154 mg/dL (60-115); Sodium 139 mmol/L (135-145)
[2022-11-13 15:15] LABS: Potassium 5.8 mmol/L (3.3-5.1)
[2022-11-13] MEDS: oxyCODONE HCl Immed Release 5 MG TABLET PO ×2 (15:32→23:26)
--- NOTE | 2022-11-13 18:39 | PC.NURSE ---
continuous bladder irrigation started at 1500. Patient tolerating well. will continue to monitor output.
[2022-11-13] MEDS: Metoprolol Tartrate 5 MG/5 ML VIAL IVPUSH (20:23)
[2022-11-14] VITALS (9 sets, daily range): BP systolic 133–166; BP diastolic 64–79; PULSE 91–125; RESP 16–20; TEMP 36.1–37; O2SAT 93–99; BMI 19.5
--- NOTE | 2022-11-14 02:21 | PC.NURSE ---
Pt tachy, HR sustaining 130s. BP 141/69, RR24, HR 135, 99% 3L. dyspneic at rest. MD notified and EKG done revealing SVT. MD ordered IV lopressor, med given. HR came down to 113.
--- NOTE | 2022-11-14 05:45 | PC.NURSE ---
Addendum entered by Krystyna Begum RN 11/14/22 06:19: . Pts HR much improved HR now 91 and BP now 139/68 s/p IV lopressor. Original Note: Danna Grimes, Pt HR climbing back up to 125-130s MD shreya notified and ordered 5 mg of IV lopressor.
[2022-11-14] MEDS: Metoprolol Tartrate 5 MG/5 ML VIAL IVPUSH (06:01)
[2022-11-14 06:24] LABS: Venous Blood Gas Refer to POC result
[2022-11-14 06:26] LABS: VBG Base Excess 9.9 mmol/L; VBG HCO3 36 mmol/L (22-26); VBG pCO2 56 mmHg; VBG pH 7.41 (7.32-7.43); VBG pO2 35 mmHg
[2022-11-14 06:39] LABS: Basophils Percent Auto 0.2 % (0-2); Eosinophils Percent Auto 0.1 % (0-4); Hematocrit 29.2 % (42.0-52.0); Hemoglobin 9.3 g/dl (14.0-18.0); Imm Gran Abs Auto 0.15 X10*3/uL (0.00-0.03); Imm Gran Pct Auto 0.8 % (0.0-0.4); Lymphocytes Absolute Auto 0.9 X10*3/uL (1.2-4.9); Lymphocytes Percent Auto 4.3 % (20-40); MANUAL DIFF FLAG SCAN; Mean Corpuscular HGB Conc 31.8 g/dl (31.0-36.0); Mean Corpuscular Hemoglobin 29.1 pg (27.0-33.0); Mean Corpuscular Volume 91.3 fL (80.0-98.0); Mean Platelet Volume 9.1 fL (9.4-12.4); Monocytes Absolute Auto 1.6 X10*3/uL (0.1-1.2); Monocytes Percent Auto 8.2 % (2-11); Neutrophils Absolute Auto 17.2 x10*3/uL (2.0-8.3); Neutrophils Percent Auto 86.4 % (45-73); Platelet Count 521 X10*3/uL (160-400); Red Cell Distribution Width 12.8 % (11.0-16.0); SCAN SMEAR FLAG 1; White Blood Count 19.9 X10*3/uL (4.8-10.8)
[2022-11-14 07:05] LABS: Anion Gap 15 (12-20); Blood Urea Nitrogen 34 mg/dL (9-16); Calcium 9.4 mg/dL (8.4-10.2); Carbon Dioxide 28 mmol/L (22-29); Chloride 100 mmol/L (96-108); Creatinine Clr Calc Pharmacy 44.1; Estimated Glomerular Filt Rate > 60; Glucose Random 107 mg/dL (60-115); Phosphorus 4.3 mg/dL (2.7-4.5); Potassium 4.9 mmol/L (3.3-5.1); Sodium 138 mmol/L (135-145)
[2022-11-14 07:10] LABS: SLIDE REVIEW VERIFIED
--- NOTE | 2022-11-14 07:30 | ECG_ITS ---
Test Reason : rhythm Blood Pressure : / mmHG Vent. Rate : 121 BPM Atrial Rate : 000 BPM P-R Int : 000 ms QRS Dur : 102 ms QT Int : 324 ms P-R-T Axes : 000 -51 115 degrees QTc Int : 460 ms Atrial tachycardia with 2:1 A-V conduction Left axis deviation Nonspecific ST and T wave abnormality Abnormal ECG When compared with ECG of 13-NOV-2022 19:58, No significant changes seen Referred By: Caridad Marino Electronically Signed By:AIDEN MENENDEZ MD
--- NOTE | 2022-11-14 08:01 | PM.PNTS ---
Subjective Subjective Date of Service: 11/14/22 Interval history: minimal incisional discomfort. Approximately 40 cc output from pericardial drain. Physical Exam Vital Signs: Vital Signs: Last Vital Signs Temp 97.0 F 11/14/22 07:07 Pulse 125 H 11/14/22 07:07 Resp 16 11/14/22 07:07 BP 133/79 11/14/22 07:07 Pulse Ox 99 11/14/22 07:07 O2 Del Method Nasal Cannula 11/14/22 07:07 O2 Flow Rate 3 11/14/22 07:07 BMI result Body Mass Index 19.5 Chest: Other: Wound clean dry and intact. Procedures Date of Service Date of Service: 11/14/22 Progress Note: A&P Assessment and plan (1) Cardiac tamponade: Status: Acute (2) Acute pericardial effusion: Status: Acute Plan Tentative plan is to remove pericardial drain tomorrow if output remains low. Time Spent With Patient Time: Total time managing care of this patient today ____ minutes. Quality Stroke Does the patient have a stroke diagnosis?: No VTE Prior VTE?: No VTE Risk Level:: Medical - moderate - high VTE Device Contraindication: N/A - Device Ordered VTE Drug Contraindication: Treatment Not Indicated
[2022-11-14] MEDS: Empagliflozin 10 MG TABLET PO (08:21)
[2022-11-14] MEDS: Amiodarone HCL 200 MG TABLET PO (08:21)
--- NOTE | 2022-11-14 10:18 | MHC.CM.PN ---
Per ROUNDS discussion, Patient is not yet medically cleared for dc (Pericardial Drain, Tachy, Hematuria); Patient may benefit from a PT eval to assist with disposition. CM will follow.
--- NOTE | 2022-11-14 10:21 | PM.PNCARD ---
Subjective Subjective Date of Service: 11/14/22 Principal diagnosis: Congestive heart failure, pericardial effusion Interval history: Patient breathing a lot better. However overnight has persistent tachycardia which appears to be atrial tachycardia with 2 is to 1 conduction. Patient has no symptoms related to it. Has diuresed despite being off Lasix overnight. Has had total negative balance of 5.5 L. Minimal hemo ratty fluid noted in the pericardial drain. He echocardiogram yesterday shows trivial pericardial effusion. Pathologies pending. Patient denies any lightheadedness, syncope. Continues to have significant hematuria and currently on CBI Review of Systems Constitutional: Reports no additional constitutional complaints Cardiovascular: Denies chest pain, Reports rapid heart rate, Denies leg edema, Denies lightheadedness, Denies Loss of Consciousness, Denies palpitations and Reports dyspnea (Much improved) Respiratory: Reports dyspnea (Much improved) Gastrointestinal: Reports no additional gastrointestinal complaints Reports system reviewed and no additional complaints, except as documented Endocrine: Denies palpitations Physical Exam Vital Signs: Last Vital Signs Temp 97.0 F 11/14/22 07:07 Pulse 125 H 11/14/22 07:07 Resp 16 11/14/22 07:07 BP 133/79 11/14/22 07:07 Pulse Ox 99 11/14/22 07:07 O2 Del Method Nasal Cannula 11/14/22 07:07 O2 Flow Rate 3 11/14/22 07:07 BMI result Body Mass Index 19.5 Const General: cooperative, no acute distress, alert and awake Nutritional Appearance: thin Orientation/consciousness: patient oriented x3 HEENT Head: Yes normocephalic and Yes atraumatic Neck Neck: Yes trachea midline, Yes supple and Yes no JVD Resp Effort & Inspection: respiratory distress Auscultation: no rales, breath sounds absent on th left (Base) and diminished lung sounds on the left (Posterior) Cardio Jugular venous distension: no JVD Rate: tachycardic Heart sounds: S1 normal heart sound present, S2 normal heart sound present, no click, no gallops and no murmurs GI Auscultation: normal bowel sounds Skin General skin exam: no rashes or lesions noted and ecchymosis Neuro General: patient oriented x3 and no focal motor deficits Extrem General: No clubbing, No cyanosis and Yes edema Objective Labs and Meds 11/14/22 06:17 11/14/22 06:17 Lab results: Laboratory Results - last 24 hr 11/13/22 11/14/22 11/14/22 14:21 06:17 06:17 WBC 19.9 H RBC 3.20 L Hgb 9.3 L Hct 29.2 L MCV 91.3 MCH 29.1 MCHC 31.8 RDW 12.8 Plt Count 521 H MPV 9.1 L Immature Gran % (Auto) 0.8 H Neut % (Auto) 86.4 H Lymph % (Auto) 4.3 L [place] % (Auto) 8.2 Eos % (Auto) 0.1 Baso % (Auto) 0.2 Lymph # (Auto) 0.9 L [place] # (Auto) 1.6 H Eos # (Auto) 0.0 Baso # (Auto) 0.0 Abs Immat Gran (auto) 0.15 H Absolute Neuts (auto) 17.2 H Absolute Nucleated RBC 0.000 Nucleated RBC % (auto) 0.0 Smear Tech's Comments VERIFIED VBG pH VBG pCO2 VBG pO2 VBG HCO3 VBG O2 Saturation VBG Base Excess Sodium 139 138 Potassium 5.8 H D 4.9 Chloride 101 100 Carbon Dioxide 24 28 Anion Gap 20 15 BUN 27 H 34 H Creatinine 1.20 1.02 Estim Creat Clear Calc 42.6 44.1 Estimated GFR 58 > 60 Random Glucose 154 H 107 Calcium 9.4 9.4 Phosphorus 4.3 Magnesium 2.0 11/14/22 06:18 WBC RBC Hgb Hct MCV MCH MCHC RDW Plt Count MPV Immature Gran % (Auto) Neut % (Auto) Lymph % (Auto) [place] % (Auto) Eos % (Auto) Baso % (Auto) Lymph # (Auto) [place] # (Auto) Eos # (Auto) Baso # (Auto) Abs Immat Gran (auto) Absolute Neuts (auto) Absolute Nucleated RBC Nucleated RBC % (auto) Smear Tech's Comments VBG pH 7.41 VBG pCO2 56 VBG pO2 35 VBG HCO3 36 H VBG O2 Saturation 51.0 VBG Base Excess 9.9 Sodium Potassium Chloride Carbon Dioxide Anion Gap BUN Creatinine Estim Creat Clear Calc Estimated GFR Random Glucose Calcium Phosphorus Magnesium Progress Note: A&P Assessment and plan (1) Cardiac tamponade: Status: Acute Assessment and Plan: Patient cardiac tamponade status post pericardial drainage and pericardial window. Pathology and cytology pending. Given his atrial arrhythmia have discussed with thoracic surgery to remove the pericardial drain. Will follow-up echocardiogram, limited tomorrow. Unlikely to have recurrent pericardial tamponade given that he has a pericardial window. (2) Decompensated heart failure: Status: Acute Assessment and Plan: Decompensated congestive heart failure has improved significantly. Breathing is significantly improved. Switch to Lasix 20 mg IV b.i.d.. Add Jardiance 10 mg to his regimen. Add metoprolol for rate control as well as neurohormonal modulation. If blood pressure remains adequate will add renin angiotensin antagonist tomorrow. Continue monitor in strict intake and output chart. Trend BNP tomorrow. Check electrolytes and replace as needed. Out of bed to chair and ambulate as tolerated. (3) Atrial tachycardia: Status: Acute Assessment and Plan: Persistent atrial tachycardia with prior history of paroxysmal atrial fibrillation. Could be related to his underlying cardiovascular condition and/or irritation from the pericardial drain. Discussed with thoracic surgery to remove the drain. Will do rate control with metoprolol and add digoxin for rate control. Would avoid using amiodarone to convert him. He has prior history of atrial fibrillation currently cannot be anticoagulated due to pericardial hemorrhagic fluid as well as persistent hematuria. Urology is following. Will pursue rate control approach at this point in time. Will continue to follow with you Time Spent With Patient Time: Total time managing care of this patient today ____ minutes. Progress Note: Quality Stroke Does the patient have a stroke diagnosis?: No Procedures Date of Service Date of Service: 11/14/22
[2022-11-14] MEDS: Morphine Sulfate 2 MG/ML CARTRIDGE IVPUSH (11:00)
[2022-11-14] MEDS: Digoxin 0.5 MG/2 ML AMPUL 0.25 MG IVPUSH ×3 (11:01→22:32)
[2022-11-14] MEDS: Furosemide 20 MG/2 ML VIAL IVPUSH ×2 (11:01→20:28)
--- NOTE | 2022-11-14 11:01 | HO.PM.IMPN ---
Subjective Subjective Date of Service: 11/14/22 Interval History: Seen and examined this morning Follow-up for CHF, pericardial effusion reports breathing is improving, has some pain at incision site, otherwise denies chest pain Review of Systems Review of Systems: Yes all other systems are reviewed and are negative Constitutional Constitutional: Denies chills and Denies fever(s) ENT Ears, Nose, Mouth, and Throat: Denies dizziness Cardiovascular Cardiovascular: Denies chest pain, Reports palpitations and Reports dyspnea Respiratory Respiratory: Denies cough and Reports dyspnea Gastrointestinal Gastrointestinal: Denies abdominal pain Neurologic Neurologic: Denies dizziness Endocrine Endocrine: Reports palpitations Physical Exam Vital Signs: Vital Signs: Last Vital Signs Temp 97.0 F 11/14/22 07:07 Pulse 125 H 11/14/22 07:07 Resp 16 11/14/22 07:07 BP 133/79 11/14/22 07:07 Pulse Ox 99 11/14/22 07:07 O2 Del Method Nasal Cannula 11/14/22 07:07 O2 Flow Rate 3 11/14/22 07:07 BMI result Body Mass Index 19.5 Const: General: cooperative, alert and awake Nutritional Appearance: thin HEENT: Head: Yes normocephalic and Yes atraumatic Neck: Neck: Yes no JVD Resp: Other: dim left side Effort & Inspection: able to speak in complete sentences, no respiratory distress and no use of accessory muscles Cardio: Other: pericardial drain with scant bloody output; dressing clean and dry, no staining Rate: tachycardic GI: Palpation (GI): Soft to palpation and nontender : Other: palacio in place/CBI with hematuria Neuro: General: CN's II-XI intact bilaterally Extrem: Other: 2+ b/l leg edema Objective Data Active Medications Digoxin (Digoxin 0.5 Mg/2 Ml Ampul) 0.25 mg IVPUSH Q6H [facility] Stop: 11/14/22 22:31 Empagliflozin (Empagliflozin 10 Mg Tablet) 10 mg PO DAILY [facility] Last Admin: 11/14/22 08:21 Dose: 10 mg Documented By: JEYSON Furosemide (Furosemide 20 Mg/2 Ml Vial) 20 mg IVPUSH BID@0900,1800 [facility]; Protocol Metoprolol Tartrate (Metoprolol Tartrate 12.5 Mg Halftab) 12.5 mg PO Q6H [facility]; Protocol Morphine Sulfate (Morphine Sulfate 2 Mg/Ml Cartridge) 2 mg IVPUSH Q4H PRN; Protocol PRN Reason: Pain, Mild (Pain Scale 1-3) Last Admin: 11/13/22 14:09 Dose: 2 mg Documented By: NILAY Oxycodone HCl (Oxycodone Hcl Immed Release 5 Mg Tablet) 5 mg PO Q4H PRN PRN Reason: Pain, Mild (Pain Scale 1-3) Last Admin: 11/13/22 23:26 Dose: 5 mg Documented By: GILSON Pharmacy Consult (Consult Rx Perform Med Rec) 1 each MISCELLANE ONCE PRN PRN Reason: Consult order Labs 11/14/22 06:17 11/14/22 06:17 Labs: Laboratory Results - last 24 hr 11/13/22 11/14/22 11/14/22 14:21 06:17 06:17 MCV 91.3 MCH 29.1 MCHC 31.8 RDW 12.8 Plt Count 521 H MPV 9.1 L Immature Gran % (Auto) 0.8 H Neut % (Auto) 86.4 H Lymph % (Auto) 4.3 L [place] % (Auto) 8.2 Eos % (Auto) 0.1 Baso % (Auto) 0.2 Lymph # (Auto) 0.9 L [place] # (Auto) 1.6 H Eos # (Auto) 0.0 Baso # (Auto) 0.0 Abs Immat Gran (auto) 0.15 H Absolute Neuts (auto) 17.2 H Absolute Nucleated RBC 0.000 Nucleated RBC % (auto) 0.0 Smear Tech's Comments VERIFIED VBG pH VBG pCO2 VBG pO2 VBG HCO3 VBG O2 Saturation VBG Base Excess Anion Gap 20 15 Estim Creat Clear Calc 42.6 44.1 Estimated GFR 58 > 60 Random Glucose 154 H 107 Calcium 9.4 9.4 Phosphorus 4.3 Magnesium 2.0 11/14/22 06:18 MCV MCH MCHC RDW Plt Count MPV Immature Gran % (Auto) Neut % (Auto) Lymph % (Auto) [place] % (Auto) Eos % (Auto) Baso % (Auto) Lymph # (Auto) [place] # (Auto) Eos # (Auto) Baso # (Auto) Abs Immat Gran (auto) Absolute Neuts (auto) Absolute Nucleated RBC Nucleated RBC % (auto) Smear Tech's Comments VBG pH 7.41 VBG pCO2 56 VBG pO2 35 VBG HCO3 36 H VBG O2 Saturation 51.0 VBG Base Excess 9.9 Anion Gap Estim Creat Clear Calc Estimated GFR Random Glucose Calcium Phosphorus Magnesium Microbiology Microbiology Results: Microbiology 11/12/22 15:01 Gram Stain - Final Pericardial Fluid Routine Culture - Preliminary No growth to date. Anaerobic Culture - Preliminary No growth to date. Assessment and Plan (1) Atrial tachycardia: Status: Acute (2) Decompensated heart failure: Status: Acute (3) Hematuria: Status: Acute (4) Afib: Status: Acute (5) Pericardial effusion: Status: Acute Plan This is an 82 year old male with history of CAD, chronic combined systolic and diastolic heart failure, atrial fibrillation on anticoagulation, severe COPD, BPH, chronic pericardial effusion with progressive lower extremity edema and dyspnea admitted to the ICU after echo revealed large pericardial effusion increased from previous with concern for tamponade physiology and underwent pericardial window with drainage of 900cc of pericardial fluid. He was downgraded from the ICU on 11/13. subacute on chronic pericardial effusion s/p pericardial window for tamponade with drainage of 900cc of pericardial fluid and pericardial drain placement - Dr. Garcia 11/12 (received kcentra prior to procedure) cytology pending, culture negative to date. no cell count sent limited echo from 11/13 showing significantly reduced size of pericardial effusion to trivial repeat limited echo in am given atrial tachycardia cardiology rec removal for pericardial drain today if possible. will start metoprolol, digoxin for better HR control cardiology, thoracic surgery following acute on chronic HF, combined systolic and diastolic initially on Lasix drip, will change to IV push cardiology following started on jardiance, BB follow Is&Os acute respiratory failure with hypoxia secondary to acute CHF wean supplemental oxygen as needed BPH with urinary retention s/p palacio placed by urology on 11/13 continue flomax, finasteride Hematuria s/p palacio placement by urology continue CBI hold AC follow CBC normocytic anemia, acute on chronic component of acute blood loss secondary to hematuria above transfusion threshold at this time follow CBC Paroxysmal atrial fibrillation HR elevated, currently atrial tachycardia anticoagulation on hold for hematuria- consideration for Watchman device as outpatient stop amiodoarone start metoprolol, digoxin per cardiology rec cardiology following hyperkalemia resolved COPD on symbicort at baseline, will convert to formulary equivalent continue chronic prednisone HTN on amlodipine at baseline, on hold for now CAD on BB, statin hold imdur cardiology following dvt ppx - mechanical devices due to hematuria code status - full code attending - dr. Mae dispo: TBD patient requires ongoing inpatient hospitalization for management of decompensated CHF, pericardial effusion, atrial tachycardia/uncontrolled heart rate Time Spent With Patient Time: Total time managing care of this patient today ____ minutes. Quality Stroke Does the patient have a stroke diagnosis?: No VTE Prior VTE?: No VTE Risk Level:: Medical - moderate - high VTE Device Contraindication: N/A - Device Ordered VTE Drug Contraindication: Treatment Not Indicated
[2022-11-14] MEDS: Metoprolol Tartrate 12.5 MG HALFTAB PO ×3 (11:02→20:27)
[2022-11-14 11:16] LABS: BF Shift QC OK YES
--- NOTE | 2022-11-14 14:44 | PM.UROPN ---
Subjective Subjective Date of Service: 11/13/22 Interval history: Patient reviewed 18 [place] Merrill catheter in place Marked hematuria Catheter had been placed with large residual Bleeding had started last night Attempt made at irrigation Merrill catheter removed New [address] [place] catheter placed - required wire Significant clot felt to be within bladder Twenty-four [place] hematuria catheter with multiple eye holes obtained Meatus dilated Catheter placed Bladder irrigated for approximately 15 minutes to remove clots Three way started Physical Exam Vital Signs: Vital Signs: Last Vital Signs Temp 97.8 F 11/14/22 11:27 Pulse 124 H 11/14/22 11:27 Resp 16 11/14/22 11:27 BP 161/77 H 11/14/22 11:27 Pulse Ox 99 11/14/22 11:27 O2 Del Method Nasal Cannula 11/14/22 11:27 O2 Flow Rate 3 11/14/22 11:27 BMI result Body Mass Index 19.5 Const: General: cooperative, healthy appearing, comfortable and no acute distress Orientation/consciousness: patient oriented x3 HEENT: Face and sinus: Yes normal facial exam Mouth: moist mucous membranes Neck: Neck: Yes normal visual inspection, Yes full ROM and Yes trachea midline Chest: Chest palpation & inspection: normal inspection of the chest Resp: Effort & Inspection: normal respiratory effort, able to speak in complete sentences and no respiratory distress GI: Inspection: Yes normal to inspection Back/Spine/Pelvis: Cervical Spine: normal cervical lordosis Thoracic/Lumbar Spine: thoracic and lumbar spine normal to inspection Skin: General skin exam: no rashes or lesions noted Neuro: General: patient oriented x3, gait normal, tone normal and moves all extremities Extrem: General: Yes normal to inspection and Yes capillary refill normal Urology Results Labs 11/14/22 06:17 11/14/22 06:17 Labs: Laboratory Results - last 24 hr 11/12/22 11/13/22 11/14/22 15:01 14:21 06:17 WBC 19.9 H RBC 3.20 L Hgb 9.3 L Hct 29.2 L MCV 91.3 MCH 29.1 MCHC 31.8 RDW 12.8 Plt Count 521 H MPV 9.1 L Immature Gran % (Auto) 0.8 H Neut % (Auto) 86.4 H Lymph % (Auto) 4.3 L [place] % (Auto) 8.2 Eos % (Auto) 0.1 Baso % (Auto) 0.2 Lymph # (Auto) 0.9 L [place] # (Auto) 1.6 H Eos # (Auto) 0.0 Baso # (Auto) 0.0 Abs Immat Gran (auto) 0.15 H Absolute Neuts (auto) 17.2 H Absolute Nucleated RBC 0.000 Nucleated RBC % (auto) 0.0 Smear Tech's Comments VERIFIED VBG pH VBG pCO2 VBG pO2 VBG HCO3 VBG O2 Saturation VBG Base Excess Sodium 139 Potassium 5.8 H D Chloride 101 Carbon Dioxide 24 Anion Gap 20 BUN 27 H Creatinine 1.20 Estim Creat Clear Calc 42.6 Estimated GFR 58 Random Glucose 154 H Calcium 9.4 Phosphorus Magnesium Pericard WBC TNP Pericard RBC TNP Pericard Neutrophils TNP Pericard Lymphocytes TNP Pericard Monocytes TNP Pericard Eosinophils TNP Pericard Basophils TNP Pericard Other Cells TNP 11/14/22 11/14/22 06:17 06:18 WBC RBC Hgb Hct MCV MCH MCHC RDW Plt Count MPV Immature Gran % (Auto) Neut % (Auto) Lymph % (Auto) [place] % (Auto) Eos % (Auto) Baso % (Auto) Lymph # (Auto) [place] # (Auto) Eos # (Auto) Baso # (Auto) Abs Immat Gran (auto) Absolute Neuts (auto) Absolute Nucleated RBC Nucleated RBC % (auto) Smear Tech's Comments VBG pH 7.41 VBG pCO2 56 VBG pO2 35 VBG HCO3 36 H VBG O2 Saturation 51.0 VBG Base Excess 9.9 Sodium 138 Potassium 4.9 Chloride 100 Carbon Dioxide 28 Anion Gap 15 BUN 34 H Creatinine 1.02 Estim Creat Clear Calc 44.1 Estimated GFR > 60 Random Glucose 107 Calcium 9.4 Phosphorus 4.3 Magnesium 2.0 Pericard WBC Pericard RBC Pericard Neutrophils Pericard Lymphocytes Pericard Monocytes Pericard Eosinophils Pericard Basophils Pericard Other Cells Urology Procedures Catheter Insertion (Urinary) Replacement of catheter present on admission: No Reason for placing: Urinary obstruction (Hematuria) Patient has the following: other Antiseptic solution prep: Povidone-Iodine Topical anesthesia used: Yes Catheter type/location: 3-way Urethral Size ([place]): 24 Procedure performed: with complications Complications: Hematuria present. Significant irrigation performed. Additional comments: Multiple catheters used, 1st catheter removed, 2nd catheter placed, 3rd catheter placed CPT 42970 irrrigation, [id number] difficult catheter placement Progress Note: A&P Time Spent With Patient Time: Total time managing care of this patient today ____ minutes. Progress Note: Quality Stroke Does the patient have a stroke diagnosis?: No
--- NOTE | 2022-11-14 17:52 | MHC.SL.SWA ---
Speech Pathologist Impression: Risk of Aspiration Due to: Medically Fragile Dysphasia Diet Status: Liquid Consistency and Strategies for Safe Swallow: Liquid Intake Recommendation: Thin Liquid Intake Strategies: Small Sips Solid Food Consistency: Dietary Recommendations: Regular Additional Modifications to Solid Foods: Avoid crunchy and difficult to chew solids. Alternate sips of liquid with bites of food. Chew food well before swallowing. Oral Medication Intake: Whole with Liquid Please contact the pharmacy regarding appropriate crushable or liquid drug formulations that are available whenever modified delivery is recommended. Compensatory Strategies and Precautions to be Taken for Safe Swallow: Sitting Upright (90 deg) Small Bites and Sips Alternate Liquids/Solids Supervision While Eating and Drinking for Safe Swallow: None Needed Foods to Avoid: Crunchy and difficult to chew solids. Swallowing Recommended Treatments: Recommendation for Speech: NA:Typical Evaluation Comment: Patient presents with most aspects of swallow WFL. Patient has limited dentition, but is electing to choose softer foods from regular diet, and knows to avoid both crunchy textures and difficult to chew solids. Patient's primary c/o with swallowing is a periodic globus sensation at level of lower esophagus which is chronic in nature. Patient manages these moments by taking small sips of liquid until the sensation passes. Recommend patient continue on current diet of REGULAR with THIN LIQUIDS, pills whole with liquid. Patient may benefit from MBS study with GI as outpatient to further evaluate esophageal motility/function. Recommend D/C speech at this time, please re-consult if other concerns arise. , RD and RN notified of recommendations by secure text. Frequency/Duration: Date Range for Service Req: Timeline to reassess: Saw Handle Assembler Clinican/Clinical Fellow: No Supervisory Statement: I have reviewed and agree with the student/clinical fellow's documentation: N/A Speech Language Pathologist: Drea Torres M.A., CCC-CORPORATE RECEPTIONIST
[2022-11-14 18:49] LABS: Hematocrit 29.5 % (42.0-52.0); Hemoglobin 9.5 g/dl (14.0-18.0)
[2022-11-14] MEDS: Tamsulosin HCL 0.4 MG CAPSULE PO (20:27)
[2022-11-14] MEDS: Docusate Sodium 100 MG CAPSULE PO (20:27)
[2022-11-14] MEDS: Atorvastatin Calcium 40 MG TABLET PO (20:27)
[2022-11-14] MEDS: oxyCODONE HCl Immed Release 5 MG TABLET PO (20:35)
[2022-11-15] VITALS (9 sets, daily range): BP systolic 106–151; BP diastolic 58–70; PULSE 61–116; RESP 17–20; TEMP 35.9–36.6; O2SAT 90–97
[2022-11-15] MEDS: Morphine Sulfate 2 MG/ML CARTRIDGE IVPUSH ×3 (02:01→20:38)
[2022-11-15] MEDS: Metoprolol Tartrate 12.5 MG HALFTAB PO ×2 (02:07→08:38)
--- NOTE | 2022-11-15 02:39 | PC.NURSE ---
pt's bottom pink and slowly blanchable. He endorses pain to the coccyx. He is repositioned off the site and coccyx allevyn applied. Heels floated. Pt educated on pressure sore prevention and encouraged to ring for assist anytime he needs assist between nursing rounds. Morphine for 4/10 pain primarily to L pericardial drain site. He is resting now with no s/s distress. will ctm+t...
[2022-11-15 06:29] LABS: Hematocrit 28.8 % (42.0-52.0); Hemoglobin 9.3 g/dl (14.0-18.0); Mean Corpuscular HGB Conc 32.3 g/dl (31.0-36.0); Mean Corpuscular Hemoglobin 29.6 pg (27.0-33.0); Mean Corpuscular Volume 91.7 fL (80.0-98.0); Mean Platelet Volume 9.1 fL (9.4-12.4); Platelet Count 480 X10*3/uL (160-400); Red Blood Count 3.14 X10*6/uL (4.60-5.80); Red Cell Distribution Width 12.9 % (11.0-16.0); White Blood Count 17.4 X10*3/uL (4.8-10.8)
[2022-11-15 06:33] LABS: B Type Natriuretic Peptide 609 pg/mL (<100)
[2022-11-15 06:39] LABS: Anion Gap 18 (12-20); Blood Urea Nitrogen 40 mg/dL (9-16); Calcium 9.6 mg/dL (8.4-10.2); Carbon Dioxide 27 mmol/L (22-29); Chloride 96 mmol/L (96-108); Creatinine Clr Calc Pharmacy 46.8; Estimated Glomerular Filt Rate > 60; Glucose Random 102 mg/dL (60-115); Magnesium 2.2 mg/dL (1.6-2.6); Sodium 137 mmol/L (135-145)
--- NOTE | 2022-11-15 07:00 | CA_ITS ---
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 Trivial pericardial effusion 2. Reduced LV systolic function with LVEF of 30-40% Findings Left Ventricle LV systolic function appears reduced although poor study to assess accurately, LV ejection fraction 30-40% Pericardium/Pleural There is a trivial pericardial effusion. Measurements 2D Linear Measurements IVSd: 1.32 0.6-0.9/0.6-1.0 cm LVIDd: 4.91 3.9-5.3/4.2-5.9 cm LVIDd Index: 3.03 2.4-3.2/2.2-3.1 cm/m2 LVIDs: 4.06 2.0-3.6 cm LVPWd: 1.34 0.7-1.1 cm LV Mass: 328.04 67-162/88-224 g LV Mass Index: 202.50 43-95/49-115 g/m2 Updated in Other Vendor System with Status of Final Neo Schulz MD electronically signed on 11/15/2022 4:03:40 PM with status of Final
[2022-11-15] MEDS: Furosemide 20 MG/2 ML VIAL IVPUSH (08:38)
[2022-11-15] MEDS: Finasteride 5 MG TABLET PO (08:38)
[2022-11-15] MEDS: predniSONE 5 MG TABLET PO (08:38)
[2022-11-15] MEDS: Empagliflozin 10 MG TABLET PO (08:38)
--- NOTE | 2022-11-15 11:44 | P.PNIM_ITS ---
Subjective Subjective Date of Service: 11/15/22 Interval History: seen and examined this morning follow up for CHF, pericardial effusion, tachycardia no overnight events denies shortness of breath or chest pain, having some pain at incision site and can't find comfortable position to sit in Review of Systems Review of Systems: Yes all other systems are reviewed and are negative Constitutional Constitutional: Denies chills and Denies fever(s) ENT Ears, Nose, Mouth, and Throat: Denies dizziness Cardiovascular Cardiovascular: Denies chest pain, Denies palpitations and Denies dyspnea Respiratory Respiratory: Denies cough and Denies dyspnea Gastrointestinal Gastrointestinal: Denies abdominal pain, Denies nausea and Denies vomiting Neurologic Neurologic: Denies dizziness Endocrine Endocrine: Denies palpitations Physical Exam Vital Signs: Vital Signs: Last Vital Signs Temp 97.7 F 11/15/22 07:19 Pulse 96 11/15/22 07:19 Resp 20 11/15/22 07:19 BP 151/67 H 11/15/22 07:19 Pulse Ox 95 11/15/22 07:19 O2 Del Method Nasal Cannula 11/15/22 07:19 O2 Flow Rate 3 11/15/22 07:19 BMI result Body Mass Index 19.5 Const: General: alert and awake Nutritional Appearance: thin Orientation/consciousness: patient oriented x3 HEENT: Head: Yes normocephalic and Yes atraumatic Neck: Neck: Yes no JVD Resp: Other: dim left side; frequent pursed lip breathing Effort & Inspection: able to speak in complete sentences, no respiratory distress and no use of accessory muscles Cardio: Other: pericardial drain was removed; dressing to anterior chest wall clean and dry, no staining Rate: tachycardic GI: Inspection: No distended Palpation (GI): Soft to palpation and nontender : Other: palacio in place/CBI with hematuria Neuro: General: patient oriented x3 and CN's II-XI intact bilaterally Extrem: Other: 2+ b/l leg edema Objective Data Active Medications Atorvastatin Calcium (Atorvastatin Calcium 40 Mg Tablet) 40 mg PO BEDTIME [facility] Last Admin: 11/14/22 20:27 Dose: 40 mg Documented By: MADAN Digoxin (Digoxin 0.125 Mg Tablet) 0.125 mg PO DAILY [facility] Docusate Sodium (Docusate Sodium 100 Mg Capsule) 100 mg PO BEDTIME [facility] Last Admin: 11/14/22 20:27 Dose: 100 mg Documented By: MADAN Empagliflozin (Empagliflozin 10 Mg Tablet) 10 mg PO DAILY [facility] Last Admin: 11/15/22 08:38 Dose: 10 mg Documented By: WILLIAM Finasteride (Finasteride 5 Mg Tablet) 5 mg PO DAILY [facility] Last Admin: 11/15/22 08:38 Dose: 5 mg Documented By: WILLIAM Fluticasone/Vilanterol (Fluticasone/Vilanterol 200/25 Blst.W.Dev) 1 puff INHALE RDAILY [facility] Last Admin: 11/15/22 07:59 Dose: Not Given Documented By: DANITZA Non-Admin Reason: med unavail pharmacy called Furosemide (Furosemide 20 Mg/2 Ml Vial) 20 mg IVPUSH BID@0900,1800 [facility]; Protocol Last Admin: 11/15/22 08:38 Dose: 20 mg Documented By: WILLIAM Metoprolol Tartrate (Metoprolol Tartrate 25 Mg Tablet) 25 mg PO Q6H [facility]; Protocol Morphine Sulfate (Morphine Sulfate 2 Mg/Ml Cartridge) 2 mg IVPUSH Q4H PRN; Protocol PRN Reason: Pain, Mild (Pain Scale 1-3) Last Admin: 11/15/22 10:57 Dose: 2 mg Documented By: GSISEL Oxycodone HCl (Oxycodone Hcl Immed Release 5 Mg Tablet) 5 mg PO Q4H PRN PRN Reason: Pain, Mild (Pain Scale 1-3) Last Admin: 11/14/22 20:35 Dose: 5 mg Documented By: MADAN Pharmacy Consult (Consult Rx Perform Med Rec) 1 each MISCELLANE ONCE PRN PRN Reason: Consult order Polyethylene Glycol (Polyethylene Glycol 3350 17 Gm Powd.Pack) 17 gm PO DAILY PRN PRN Reason: Constipation Prednisone (Prednisone 5 Mg Tablet) 5 mg PO DAILY [facility] Last Admin: 11/15/22 08:38 Dose: 5 mg Documented By: WILLIAM Tamsulosin HCl (Tamsulosin Hcl 0.4 Mg Capsule) 0.4 mg PO BEDTIME [facility] Last Admin: 11/14/22 20:27 Dose: 0.4 mg Documented By: MADAN Labs 11/15/22 05:58 11/15/22 05:58 Labs: Laboratory Results - last 24 hr 11/15/22 11/15/22 11/15/22 05:58 05:58 05:58 MCV 91.7 MCH 29.6 MCHC 32.3 RDW 12.9 Plt Count 480 H MPV 9.1 L Absolute Nucleated RBC 0.000 Nucleated RBC % (auto) 0.0 Anion Gap 18 Estim Creat Clear Calc 46.8 Estimated GFR > 60 Random Glucose 102 Calcium 9.6 Magnesium 2.2 B-Natriuretic Peptide 609 H Microbiology Microbiology Results: Microbiology 11/12/22 15:01 Gram Stain - Final Pericardial Fluid Routine Culture - Final No growth after 2 days Anaerobic Culture - Preliminary No growth to date. Assessment and Plan (1) Atrial tachycardia: Status: Acute (2) Decompensated heart failure: Status: Acute (3) Hematuria: Status: Acute (4) Urinary retention: Status: Acute Plan This is an 82 year old male with history of CAD, chronic combined systolic and diastolic heart failure, atrial fibrillation on anticoagulation, severe COPD, BPH, chronic pericardial effusion with progressive lower extremity edema and dyspnea admitted to the ICU after echo revealed large pericardial effusion increased from previous with concern for tamponade physiology and underwent pericardial window with drainage of 900cc of pericardial fluid. He was downgraded from the ICU on 11/13. subacute on chronic pericardial effusion s/p pericardial window for tamponade with drainage of 900cc of pericardial fluid and pericardial drain placement - Dr. Garcia 11/12 (received kcentra prior to procedure) culture negative to date, pathology with benign pericardial tissue; no cell cou nt sent limited echo from 11/13 showing significantly reduced size of pericardial effusion to trivial - repeat limited echo today pericardial drain removed 11/14 started metoprolol, digoxin for better HR control cardiology, thoracic surgery following acute on chronic HF, combined systolic and diastolic initially on Lasix drip, will change to IV push, continue IV bid lasix started on jardiance, BB follow Is&Os cardiology following Paroxysmal atrial fibrillation HR elevated, currently atrial tachycardia anticoagulation on hold for hematuria- consideration for Watchman device as outpatient stop amiodoarone start metoprolol, digoxin per cardiology rec - increase dose of metoprolol cardiology following acute respiratory failure with hypoxia secondary to acute CHF wean supplemental oxygen as needed BPH with urinary retention s/p palacio placed by urology on 11/13 continue flomax, finasteride Hematuria s/p palacio placement by urology continue CBI, seems to be clearing a little hold AC follow trending down but still above transfusion threshold normocytic anemia, acute on chronic component of acute blood loss secondary to hematuria above transfusion threshold at this time follow CBC hyperkalemia resolved COPD on symbicort at baseline, will convert to formulary equivalent continue chronic prednisone HTN on amlodipine at baseline, on hold for now CAD on BB, statin hold imdur cardiology following dvt ppx - mechanical devices due to hematuria code status - full code attending - dr. Mae dispo: TBD patient requires ongoing inpatient hospitalization for management of decompensated CHF, pericardial effusion, atrial tachycardia/uncontrolled heart rate Time Spent With Patient Time: Total time managing care of this patient today ____ minutes. Quality Stroke Does the patient have a stroke diagnosis?: No VTE Prior VTE?: No VTE Risk Level:: Medical - moderate - high VTE Device Contraindication: N/A - Device Ordered VTE Drug Contraindication: Treatment Not Indicated
[2022-11-15] MEDS: Digoxin 0.125 MG TABLET PO (11:49)
--- NOTE | 2022-11-15 13:24 | P.CDIM_ITS ---
PROVIDER RESPONSE TEXT: To clarify, the appropriate diagnosis supported by the clinical indicators: Underweight QUERY TEXT: PHYSICIAN'S DOCUMENTATION REQUEST Date of Query: 11/15/2022 09:38 AM EDT Patient Name: Peter Grimes Admit Date: 11/12/2022 Dear Caridad Marino, A review of the medical record indicates additional documentation may be needed. Please review below and update the documentation accordingly. Clinical Indicators: Height: ( ) 5'6 Weight: ( ) 54.9 kg BMI: ( ) 19.5 If possible, please provide an associated diagnosis related to the abnormal BMI, such as: Underweight Weight loss Cachexia Anorexia BMI is not significant Other (explain)Clinically unable to determine (explain)Thank you, Lauren Childers RN Use of terms such as suspected, likely, concern for, or probable (associated with a specific diagnosi s that is being evaluated, monitored, or treated as if it exists) are acceptable and can be coded in the inpatient se tting, when documented at the time of discharge. Please use your independent medical judgment in providing your response. THIS QUERY IS PART OF THE PERMANENT MEDICAL RECORD
[2022-11-15] MEDS: oxyCODONE HCl Immed Release 5 MG TABLET PO (13:25)
[2022-11-15] MEDS: Metoprolol Tartrate 25 MG TABLET PO ×2 (13:25→20:25)
--- NOTE | 2022-11-15 13:50 | P.PNCA_ITS ---
Subjective Subjective Date of Service: 11/15/22 Principal diagnosis: Congestive heart failure, pericardial effusion Interval history: Patient developed increased shortness of breath overnight. Is complaining of pain at the sacral area and also burning in his mild related to potassium therapy. He is very unhappy. However he is noted to be in atrial fibrillation with rapid ventricular response. He also is very short of breath. He still has hematuria. Review of Systems Constitutional: Reports fatigue Eyes: Reports no additional eye complaints Cardiovascular: Denies chest pain, Reports leg edema and Reports dyspnea Respiratory: Reports no additional respiratory complaints and Reports dyspnea Reports system reviewed and no additional complaints, except as documented Endocrine: Reports fatigue Physical Exam Vital Signs: Last Vital Signs Temp 97.7 F 11/15/22 07:19 Pulse 116 H 11/15/22 11:46 Resp 20 11/15/22 11:46 BP 116/62 11/15/22 11:46 Pulse Ox 90 L 11/15/22 11:46 O2 Del Method Nasal Cannula 11/15/22 11:46 O2 Flow Rate 3 11/15/22 11:46 BMI result Body Mass Index 19.5 Const General: cooperative, comfortable, alert, awake and in distress mild Nutritional Appearance: thin Orientation/consciousness: patient oriented x3 Neck Neck: Yes trachea midline, Yes supple and Yes no JVD Resp Effort & Inspection: respiratory distress Auscultation: diminished lung sounds Cardio Jugular venous distension: JVD Rate: tachycardic Rhythm: abnormal rhythm irregularly irregular Heart sounds: S1 normal heart sound present, S2 normal heart sound present, no click, no gallops, no murmurs and no rubs GI Auscultation: normal bowel sounds Skin General skin exam: ecchymosis Neuro General: patient oriented x3 and no focal motor deficits Objective Labs and Meds 11/15/22 05:58 11/15/22 05:58 Lab results: Laboratory Results - last 24 hr 11/14/22 11/15/22 11/15/22 18:41 05:58 05:58 WBC RBC Hgb 9.5 L Hct 29.5 L MCV MCH MCHC RDW Plt Count MPV Absolute Nucleated RBC Nucleated RBC % (auto) Sodium 137 Potassium 4.0 Chloride 96 Carbon Dioxide 27 Anion Gap 18 BUN 40 H Creatinine 0.96 Estim Creat Clear Calc 46.8 Estimated GFR > 60 Random Glucose 102 Calcium 9.6 Magnesium 2.2 B-Natriuretic Peptide 609 H 11/15/22 05:58 WBC 17.4 H RBC 3.14 L Hgb 9.3 L Hct 28.8 L MCV 91.7 MCH 29.6 MCHC 32.3 RDW 12.9 Plt Count 480 H MPV 9.1 L Absolute Nucleated RBC 0.000 Nucleated RBC % (auto) 0.0 Sodium Potassium Chloride Carbon Dioxide Anion Gap BUN Creatinine Estim Creat Clear Calc Estimated GFR Random Glucose Calcium Magnesium B-Natriuretic Peptide Imaging Radiologist's impression: Impressions Chest X-Ray 11/15/22 11:40 IMPRESSION: Unremarkable examination. Progress Note: A&P Assessment and plan (1) Decompensated heart failure: Status: Acute Assessment and Plan: Decompensated congestive heart failure with increased work of breathing. Will repeat echocardiogram to make sure there is no reaccumulation of pericardial effusion. I doubt this. Continue IV diuresis intensify diuretic regimen. Continue Jardiance. Better rate control is needed. Strict intake and output chart needs to be pursued. Consider to transfuse packed RBC due to drop in hematocrit to improve it closer to back to baseline. Continue and increase metoprolol therapy for better rate control and add digoxin. Also add Entresto to his regimen for neurohormonal modulation. (2) Atrial fibrillation with rapid ventricular response: Status: Acute Assessment and Plan: Atrial fibrillation rapid ventricular response which has been difficult control. Transfuse as about to reduce anemia related stimulation. Also increase metoprolol and add digoxin to his regimen. Cannot use oral anticoagulation due to his continued bleeding in the urinary tract which is being pursued by Quentin cevallos. Will continue to follow with you Time Spent With Patient Time: Total time managing care of this patient today ____ minutes. Progress Note: Quality Stroke Does the patient have a stroke diagnosis?: No Procedures Date of Service Date of Service: 11/15/22
--- NOTE | 2022-11-15 14:43 | MHC.CM.PN ---
PER MD ROUNDS, PT WILL LIKELY REMAIN THROUGH THE WEEKEND DCP PENDING PT EVAL
[2022-11-15] MEDS: Furosemide 20 MG/2 ML VIAL 40 MG IVPUSH (18:13)
[2022-11-15] MEDS: Acetaminophen 325 MG TABLET 650 MG PO (18:39)
--- NOTE | 2022-11-15 20:14 | PC.NURSE ---
Pt. wrist band had different MM number from blood bank number, even though it was working for meds, another band was obtained.
[2022-11-15] MEDS: Sacubitril/Valsartan 24/26 1 TAB TABLET PO (20:25)
[2022-11-15] MEDS: Tamsulosin HCL 0.4 MG CAPSULE PO (20:25)
[2022-11-15] MEDS: Docusate Sodium 100 MG CAPSULE PO (20:25)
[2022-11-15] MEDS: Atorvastatin Calcium 40 MG TABLET PO (20:25)
[2022-11-15] MEDS: Mag&Al/Sim/Diphenhyd/Lidocaine 10 ML ORAL.SUSP PO (20:42)
[2022-11-16] MEDS: Metoprolol Tartrate 25 MG TABLET PO ×4 (02:22→20:08)
[2022-11-16 03:08] VITALS: BP 111/56; PULSE 80; RESP 18; TEMP 36.3; O2SAT 93
[2022-11-16 06:00] VITALS: BMI 18.7
--- NOTE | 2022-11-16 06:14 | PC.NURSE ---
Patient alert and oriented x 4, pt received 1 unit of RBC , tolerated well, no adverse reaction. Pt has a palacio with CBI , c/o ABD discomfort, Palacio irrigated, large amount of clots noted. No further complaints reported after irrigation , Palacio draining punch color urine.
[2022-11-16 06:21] LABS: Hematocrit 30.5 % (42.0-52.0); Hemoglobin 10.2 g/dl (14.0-18.0); Mean Corpuscular HGB Conc 33.4 g/dl (31.0-36.0); Mean Corpuscular Hemoglobin 29.6 pg (27.0-33.0); Mean Corpuscular Volume 88.4 fL (80.0-98.0); Mean Platelet Volume 9.2 fL (9.4-12.4); NRBC Pct Auto 0.1 /100WBC (0.0-0.2); Platelet Count 448 X10*3/uL (160-400); Red Blood Count 3.45 X10*6/uL (4.60-5.80); Red Cell Distribution Width 13.5 % (11.0-16.0); White Blood Count 15.7 X10*3/uL (4.8-10.8)
[2022-11-16 06:34] LABS: Anion Gap 16 (12-20); Blood Urea Nitrogen 45 mg/dL (9-16); Carbon Dioxide 29 mmol/L (22-29); Chloride 95 mmol/L (96-108); Creatinine Clr Calc Pharmacy 41.7; Estimated Glomerular Filt Rate > 60; Glucose Random 100 mg/dL (60-115); Potassium 3.9 mmol/L (3.3-5.1); Sodium 136 mmol/L (135-145)
[2022-11-16 07:03] VITALS: BP 111/58; PULSE 82; RESP 20; TEMP 36.1; O2SAT 96
[2022-11-16] MEDS: Empagliflozin 10 MG TABLET PO (09:02)
[2022-11-16] MEDS: Finasteride 5 MG TABLET PO (09:02)
[2022-11-16] MEDS: Sacubitril/Valsartan 24/26 1 TAB TABLET PO ×2 (09:02→20:08)
[2022-11-16] MEDS: Digoxin 0.125 MG TABLET PO (09:02)
[2022-11-16] MEDS: predniSONE 5 MG TABLET PO (09:03)
[2022-11-16] MEDS: Furosemide 20 MG/2 ML VIAL 40 MG IVPUSH ×2 (09:03→19:18)
[2022-11-16 11:07] VITALS: BP 123/60; PULSE 80; RESP 20; TEMP 36.2; O2SAT 94
--- NOTE | 2022-11-16 11:20 | PM.PNCARD ---
Subjective Subjective Date of Service: 11/16/22 Principal diagnosis: Congestive heart failure, pericardial effusion Interval history: Peter is breathing a lot better than yesterday. He continues to have discomfort in his sacral area as well as continues to have significant hematuria. His heart rate is better controlled on current medications. He has diuresed better although intake and output chart appears suboptimal. Repeat echo only showed trivial pericardial effusion Review of Systems Constitutional: Reports weakness Eyes: Reports no additional eye complaints Cardiovascular: Reports dyspnea (Improved) and Reports other (Fast heart rate has improved) Respiratory: Reports dyspnea (Improved) Reports weakness Physical Exam Vital Signs: Last Vital Signs Temp 97.2 F 11/16/22 11:07 Pulse 80 11/16/22 11:07 Resp 20 11/16/22 11:07 BP 123/60 11/16/22 11:07 Pulse Ox 94 11/16/22 11:07 O2 Del Method Nasal Cannula 11/16/22 11:07 O2 Flow Rate 3 11/16/22 11:07 BMI result Body Mass Index 18.7 Const General: cooperative, comfortable, alert and awake Nutritional Appearance: thin Orientation/consciousness: patient oriented x3 Neck Neck: Yes trachea midline, Yes supple and Yes no JVD Resp Effort & Inspection: respiratory distress Auscultation: diminished lung sounds Cardio Jugular venous distension: JVD Rate: regular rate Rhythm: abnormal rhythm irregularly irregular Heart sounds: S1 normal heart sound present, S2 normal heart sound present, no click, no gallops, no murmurs and no rubs GI Auscultation: normal bowel sounds Skin General skin exam: ecchymosis Neuro General: patient oriented x3 and no focal motor deficits Objective Labs and Meds 11/16/22 05:48 11/16/22 05:48 Lab results: Laboratory Results - last 24 hr 11/15/22 11/16/22 11/16/22 14:29 05:48 05:48 WBC 15.7 H RBC 3.45 L Hgb 10.2 L Hct 30.5 L MCV 88.4 MCH 29.6 MCHC 33.4 RDW 13.5 Plt Count 448 H MPV 9.2 L Absolute Nucleated RBC 0.020 H Nucleated RBC % (auto) 0.1 Sodium 136 Potassium 3.9 Chloride 95 L Carbon Dioxide 29 Anion Gap 16 BUN 45 H Creatinine 1.03 Estim Creat Clear Calc 41.7 Estimated GFR > 60 Random Glucose 100 Calcium 9.0 D Blood Type A Positive Antibody Screen NEGATIVE Crossmatch See Detail Imaging Radiologist's impression: Impressions Chest X-Ray 11/15/22 11:40 IMPRESSION: Unremarkable examination. Progress Note: A&P Assessment and plan (1) Decompensated heart failure: Status: Acute Assessment and Plan: Decompensated heart failure which has improved with better rate control and diuresis. Continue 1 more day of increase diuresis. If remains stable can switch to oral diuretic therapy tomorrow. Continue Jardiance, Entresto and metoprolol therapy and better rate control at this point time. Out of bed to chair. Incentive spirometry and supportive care and consider physical therapy consultation. (2) Pericardial effusion: Status: Acute Assessment and Plan: Pericardial effusion status post pericardial window, with pericardial sample suggesting inflammatory change which are chronic and some fibrosis. There is no clear other etiology identified. Waiting for cytology results. (3) Atrial fibrillation with rapid ventricular response: Status: Acute Assessment and Plan: Atrial fibrillation rapid ventricular response with better rate control with digoxin and increase metoprolol therapy. Continue the same. Cannot use oral anticoagulation therapy given his hemorrhagic pericardial effusion as well as continued hematuria. Once his hematuria resolves will need to consider referral for co Watchman device in the long run to reduce his risk of stroke. Will continue to follow with him. Time Spent With Patient Time: Total time managing care of this patient today ____ minutes. Progress Note: Quality Stroke Does the patient have a stroke diagnosis?: No Procedures Date of Service Date of Service: 11/16/22
--- NOTE | 2022-11-16 13:01 | HO.PM.IMPN ---
Subjective Subjective Date of Service: 11/16/22 Interval History: seen and examined this morning follow up for pericardial effusion, CHF, hematuria Continues to have hematuria Breathing improved. No chest pain, no palpitations Review of Systems Review of Systems: Yes all other systems are reviewed and are negative Constitutional Constitutional: Denies chills and Denies fever(s) ENT Ears, Nose, Mouth, and Throat: Denies dizziness Cardiovascular Cardiovascular: Denies chest pain, Denies palpitations and Denies dyspnea Respiratory Respiratory: Denies cough and Denies dyspnea Gastrointestinal Gastrointestinal: Denies abdominal pain, Denies nausea and Denies vomiting Neurologic Neurologic: Denies dizziness Endocrine Endocrine: Denies palpitations Physical Exam Vital Signs: Vital Signs: Last Vital Signs Temp 97.2 F 11/16/22 11:07 Pulse 80 11/16/22 11:07 Resp 20 11/16/22 11:07 BP 123/60 11/16/22 11:07 Pulse Ox 94 11/16/22 11:07 O2 Del Method Nasal Cannula 11/16/22 11:07 O2 Flow Rate 3 11/16/22 11:07 BMI result Body Mass Index 18.7 Const: General: cooperative, no acute distress, alert and awake Nutritional Appearance: thin Orientation/consciousness: patient oriented x3 HEENT: Head: Yes normocephalic and Yes atraumatic Eyes: Pupils: Equal, round and reactive pupils present Neck: Neck: Yes no JVD Resp: Effort & Inspection: normal respiratory effort, able to speak in complete sentences, no respiratory distress and no use of accessory muscles Auscultation: no crackles and no wheezes Cardio: Other: pericardial drain was removed; dressing to anterior chest wall clean and dry, no staining Rate: regular rate Heart sounds: S1 normal heart sound present and S2 normal heart sound present GI: Inspection: No distended Palpation (GI): Soft to palpation and nontender : Other: palacio in place/CBI with hematuria Neuro: General: patient oriented x3, moves all extremities and CN's II-XI intact bilaterally Cranial nerves: Yes Equal, round and reactive pupils present Extrem: Other: improving leg edema Objective Data Active Medications Acetaminophen (Acetaminophen 325 Mg Tablet) 650 mg PO Q6H PRN PRN Reason: Pain, Mild (Pain Scale 1-3) Last Admin: 11/15/22 18:39 Dose: 650 mg Documented By: GISSEL Atorvastatin Calcium (Atorvastatin Calcium 40 Mg Tablet) 40 mg PO BEDTIME [facility] Last Admin: 11/15/22 20:25 Dose: 40 mg Documented By: ANDERSON Digoxin (Digoxin 0.125 Mg Tablet) 0.125 mg PO DAILY [facility] Last Admin: 11/16/22 09:02 Dose: 0.125 mg Documented By: IWONA Docusate Sodium (Docusate Sodium 100 Mg Capsule) 100 mg PO BEDTIME [facility] Last Admin: 11/15/22 20:25 Dose: 100 mg Documented By: ANDERSON Empagliflozin (Empagliflozin 10 Mg Tablet) 10 mg PO DAILY [facility] Last Admin: 11/16/22 09:02 Dose: 10 mg Documented By: IWONA Finasteride (Finasteride 5 Mg Tablet) 5 mg PO DAILY [facility] Last Admin: 11/16/22 09:02 Dose: 5 mg Documented By: IWONA Fluticasone/Vilanterol (Fluticasone/Vilanterol 200/25 Blst.W.Dev) 1 puff INHALE RDAILY [facility] Last Admin: 11/16/22 07:46 Dose: Not Given Documented By: DANITZA Non-Admin Reason: Med Not Available Furosemide (Furosemide 20 Mg/2 Ml Vial) 40 mg IVPUSH BID@0900,1800 [facility]; Protocol Last Admin: 11/16/22 09:03 Dose: 40 mg Documented By: IWONA Lidocaine/Diphenhydr/Alum/Mg/Simeth (Mag&Al/Sim/Diphenhyd/Lidocaine 10 Ml Oral.Susp) 10 ml PO Q6H PRN; Protocol PRN Reason: mouth pain Metoprolol Tartrate (Metoprolol Tartrate 25 Mg Tablet) 25 mg PO Q6H [facility]; Protocol Last Admin: 11/16/22 09:02 Dose: 25 mg Documented By: IWONA Morphine Sulfate (Morphine Sulfate 2 Mg/Ml Cartridge) 2 mg IVPUSH Q4H PRN; Protocol PRN Reason: Pain, Severe (Pain Scale 7-10) Oxycodone HCl (Oxycodone Hcl Immed Release 5 Mg Tablet) 5 mg PO Q4H PRN PRN Reason: Pain, Mild (Pain Scale 1-3) Last Admin: 11/15/22 13:25 Dose: 5 mg Documented By: HO.MOHAMER Pharmacy Consult (Consult Rx Perform Med Rec) 1 each MISCELLANE ONCE PRN PRN Reason: Consult order Polyethylene Glycol (Polyethylene Glycol 3350 17 Gm Powd.Pack) 17 gm PO DAILY PRN PRN Reason: Constipation Prednisone (Prednisone 5 Mg Tablet) 5 mg PO DAILY [facility] Last Admin: 11/16/22 09:03 Dose: 5 mg Documented By: IWONA Sacubitril/Valsartan (Sacubitril/Valsartan 1 Tab Tablet) 1 tab PO BID [facility]; Protocol Last Admin: 11/16/22 09:02 Dose: 1 tab Documented By: IWONA Tamsulosin HCl (Tamsulosin Hcl 0.4 Mg Capsule) 0.4 mg PO BEDTIME [facility] Last Admin: 11/15/22 20:25 Dose: 0.4 mg Documented By: ANDERSON Labs 11/16/22 05:48 11/16/22 05:48 Labs: Laboratory Results - last 24 hr 11/15/22 11/16/22 11/16/22 14:29 05:48 05:48 MCV 88.4 MCH 29.6 MCHC 33.4 RDW 13.5 Plt Count 448 H MPV 9.2 L Absolute Nucleated RBC 0.020 H Nucleated RBC % (auto) 0.1 Anion Gap 16 Estim Creat Clear Calc 41.7 Estimated GFR > 60 Random Glucose 100 Calcium 9.0 D Blood Type A Positive Antibody Screen NEGATIVE Crossmatch See Detail Assessment and Plan (1) Atrial fibrillation with rapid ventricular response: Status: Acute (2) Decompensated heart failure: Status: Acute (3) Hematuria: Status: Acute (4) Pericardial effusion: Status: Acute Plan This is an 82 year old male with history of CAD, chronic combined systolic and diastolic heart failure, atrial fibrillation on anticoagulation, severe COPD, BPH, chronic pericardial effusion with progressive lower extremity edema and dyspnea admitted to the ICU after echo revealed large pericardial effusion increased from previous with concern for tamponade physiology and underwent pericardial window with drainage of 900cc of pericardial fluid. He was downgraded from the ICU on 11/13. subacute on chronic pericardial effusion s/p pericardial window for tamponade with drainage of 900cc of pericardial fluid and pericardial drain placement - Dr. Garcia 11/12 (received kcentra prior to procedure) culture negative to date, pathology with benign pericardial tissue; no cell count sent limited echo 11/13, 11/15 showing significantly reduced size of pericardial effusion to trivial pericardial drain removed 11/14 continue metoprolol, digoxin for better HR control cardiology following acute on chronic HF, combined systolic and diastolic initially on Lasix drip, will change to IV push, increased IV lasix 11/15 started on jardiance, entresto, BB follow Is&Os cardiology following Paroxysmal atrial fibrillation HR improving anticoagulation on hold for hematuria/ hemorrhagic pericardial effusion- consideration for Watchman device as outpatient stop amiodoarone due to risk for conversion as patient can't be anticoagulated continue metoprolol, digoxin cardiology following acute respiratory failure with hypoxia secondary to acute CHF wean supplemental oxygen as needed BPH with urinary retention s/p palacio placed by urology on 11/13 continue flomax, finasteride Hematuria continues to have hematuria s/p palacio placement by urology continue CBI hold AC follow trending down but still above transfusion threshold normocytic anemia, acute on chronic component of acute blood loss secondary to hematuria H/H trending down, received 1U rbc 11/15 due to underlying CAD, COPD follow CBC hyperkalemia resolved COPD on symbicort at baseline, will convert to formulary equivalent continue chronic prednisone HTN on amlodipine at baseline, on hold for now CAD on BB, statin hold imdur cardiology following gi Ppx - omeprazole dvt ppx - mechanical devices due to hematuria code status - full code attending - dr. Mae dispo: TBD, PT eval pending patient requires ongoing inpatient hospitalization for management of decompensated CHF, pericardial effusion, atrial tachycardia/uncontrolled heart rate, hematuria Time Spent With Patient Time: Total time managing care of this patient today ____ minutes. Quality Stroke Does the patient have a stroke diagnosis?: No VTE Prior VTE?: No VTE Risk Level:: Medical - moderate - high VTE Device Contraindication: N/A - Device Ordered VTE Drug Contraindication: Treatment Not Indicated
[2022-11-16] MEDS: oxyCODONE HCl Immed Release 5 MG TABLET PO ×2 (14:01→20:08)
[2022-11-16 14:59] VITALS: BP 118/58; PULSE 84; RESP 20; TEMP 36.2; O2SAT 95
[2022-11-16 15:49] LABS: Hematocrit 31.5 % (42.0-52.0); Hemoglobin 10.5 g/dl (14.0-18.0)
[2022-11-16 19:01] VITALS: BP 107/54; PULSE 78; RESP 20; TEMP 36.7; O2SAT 98
[2022-11-16] MEDS: Tamsulosin HCL 0.4 MG CAPSULE PO (20:07)
[2022-11-16] MEDS: Docusate Sodium 100 MG CAPSULE PO (20:07)
[2022-11-16] MEDS: Atorvastatin Calcium 40 MG TABLET PO (20:08)
[2022-11-16 23:50] VITALS: BP 103/58; PULSE 84; RESP 20; TEMP 36.2; O2SAT 94
[2022-11-17] MEDS: oxyCODONE HCl Immed Release 5 MG TABLET PO ×5 (00:41→23:16)
[2022-11-17 03:46] VITALS: BP 104/53; PULSE 92; RESP 20; TEMP 36.2; O2SAT 95
[2022-11-17] MEDS: Omeprazole 20 MG CAPSULE.DR PO (05:31)
[2022-11-17 05:35] VITALS: BMI 17.4
[2022-11-17 06:51] LABS: Hematocrit 34.1 % (42.0-52.0); Hemoglobin 11.2 g/dl (14.0-18.0); Mean Corpuscular HGB Conc 32.8 g/dl (31.0-36.0); Mean Corpuscular Hemoglobin 29.1 pg (27.0-33.0); Mean Corpuscular Volume 88.6 fL (80.0-98.0); Mean Platelet Volume 9.1 fL (9.4-12.4); Platelet Count 514 X10*3/uL (160-400); Red Blood Count 3.85 X10*6/uL (4.60-5.80); Red Cell Distribution Width 13.5 % (11.0-16.0); White Blood Count 15.5 X10*3/uL (4.8-10.8)
[2022-11-17 06:58] LABS: Anion Gap 14 (12-20); Blood Urea Nitrogen 43 mg/dL (9-16); Calcium 8.9 mg/dL (8.4-10.2); Carbon Dioxide 32 mmol/L (22-29); Chloride 93 mmol/L (96-108); Creatinine Clr Calc Pharmacy 37.8; Estimated Glomerular Filt Rate > 60; Glucose Random 108 mg/dL (60-115); Potassium 3.2 mmol/L (3.3-5.1); Sodium 136 mmol/L (135-145)
[2022-11-17 07:08] LABS: B Type Natriuretic Peptide 822 pg/mL (<100)
[2022-11-17 08:00] VITALS: BP 117/63; PULSE 98; RESP 20; TEMP 36.1; O2SAT 96
[2022-11-17 08:10] LABS: Magnesium 2.3 mg/dL (1.6-2.6)
[2022-11-17] MEDS: Metoprolol Tartrate 25 MG TABLET PO (08:13)
[2022-11-17] MEDS: predniSONE 5 MG TABLET PO (08:13)
[2022-11-17] MEDS: Digoxin 0.125 MG TABLET PO (08:13)
[2022-11-17] MEDS: Finasteride 5 MG TABLET PO (08:14)
[2022-11-17] MEDS: Sacubitril/Valsartan 24/26 1 TAB TABLET PO ×2 (08:14→23:15)
[2022-11-17] MEDS: Empagliflozin 10 MG TABLET PO (08:14)
[2022-11-17] MEDS: Potassium Chloride ER 20 MEQ TAB.ER.PRT 40 MEQ PO ×2 (08:14→23:14)
[2022-11-17] MEDS: Mag&Al/Sim/Diphenhyd/Lidocaine 10 ML ORAL.SUSP PO (09:55)
[2022-11-17 11:03] VITALS: BP 92/52; PULSE 85; RESP 16; TEMP 36; O2SAT 91
--- NOTE | 2022-11-17 12:21 | PM.PNCARD ---
Subjective Subjective Date of Service: 11/17/22 Principal diagnosis: Congestive heart failure, pericardial effusion Interval history: He says shortness of breath is stable. Atrial fibrillation remains controlled. Still having issues with hematuria. Review of Systems Constitutional: Reports no additional constitutional complaints Cardiovascular: Denies lightheadedness, Denies Loss of Consciousness, Denies palpitations and Reports dyspnea on exertion Respiratory: Reports no additional respiratory complaints and Reports dyspnea on exertion Genitourinary: Reports no additional male genitourinary complaints Musculoskeletal: Reports no additional musculoskeletal complaints Reports system reviewed and no additional complaints, except as documented Endocrine: Denies palpitations Physical Exam Vital Signs: Last Vital Signs Temp 96.8 F 11/17/22 11:03 Pulse 85 11/17/22 11:03 Resp 16 11/17/22 11:03 BP 92/52 L 11/17/22 11:03 Pulse Ox 91 L 11/17/22 11:03 O2 Del Method Nasal Cannula 11/17/22 11:03 O2 Flow Rate 3 11/17/22 11:03 BMI result Body Mass Index 17.4 Const General: cooperative, comfortable, alert and awake Nutritional Appearance: thin Orientation/consciousness: patient oriented x3 Neck Neck: Yes trachea midline, Yes supple and Yes no JVD Resp Effort & Inspection: respiratory distress Auscultation: diminished lung sounds Cardio Jugular venous distension: JVD Rate: regular rate Rhythm: abnormal rhythm irregularly irregular Heart sounds: S1 normal heart sound present, S2 normal heart sound present, no click, no gallops, no murmurs and no rubs GI Auscultation: normal bowel sounds Skin General skin exam: ecchymosis Neuro General: patient oriented x3 and no focal motor deficits Objective Labs and Meds 11/17/22 06:04 11/17/22 06:04 Lab results: Laboratory Results - last 24 hr 11/16/22 11/17/22 11/17/22 15:38 06:04 06:04 WBC 15.5 H RBC 3.85 L Hgb 10.5 L 11.2 L Hct 31.5 L 34.1 L MCV 88.6 MCH 29.1 MCHC 32.8 RDW 13.5 Plt Count 514 H MPV 9.1 L Absolute Nucleated RBC 0.000 Nucleated RBC % (auto) 0.0 Sodium Potassium Chloride Carbon Dioxide Anion Gap BUN Creatinine Estim Creat Clear Calc Estimated GFR Random Glucose Calcium Magnesium B-Natriuretic Peptide 822 H 11/17/22 06:04 WBC RBC Hgb Hct MCV MCH MCHC RDW Plt Count MPV Absolute Nucleated RBC Nucleated RBC % (auto) Sodium 136 Potassium 3.2 L Chloride 93 L Carbon Dioxide 32 H Anion Gap 14 BUN 43 H Creatinine 1.06 Estim Creat Clear Calc 37.8 Estimated GFR > 60 Random Glucose 108 Calcium 8.9 Magnesium 2.3 B-Natriuretic Peptide Progress Note: A&P Assessment and plan (1) Decompensated heart failure: Status: Acute Assessment and Plan: Decompensated systolic heart failure. Much improved with diuresis. Can switch to p.o. Lasix. Continue neurohormonal modulation with Jardiance, metoprolol as well as Entresto therapy. Continue to monitor for signs and symptoms of heart failure. Continue to maintain hematocrit over 30. Continue rate control for atrial fibrillation. He has had no recurrent pericardial effusions at this point time. He has had further reductions LV systolic function may require ischemic workup once his other medical issues have resolved. Hold off on any anticoagulation or antiplatelet given his persistent and significant hematuria. (2) Atrial fibrillation with rapid ventricular response: Status: Acute Assessment and Plan: Atrial fibrillation with controlled ventricular response. Continue metoprolol and digoxin for rate control. Cannot pursue rhythm control approach given his inability to take oral anticoagulant therapy. Continue treat for hematuria and hold anticoagulation. High risk for stroke was discussed. Will sign of the case at this point time. Thank you for allowing me to partake in his care Time Spent With Patient Time: Total time managing care of this patient today ____ minutes. Progress Note: Quality Stroke Does the patient have a stroke diagnosis?: No Procedures Date of Service Date of Service: 11/17/22
--- NOTE | 2022-11-17 14:14 | P.PNIM_ITS ---
Subjective Subjective Date of Service: 11/17/22 Interval History: seen and examined this morning follow up for CHF, pericardial effusion, hematuria no overnight events no sob, chest pain this am frustrated with ongoing heamturia Review of Systems Review of Systems: Yes all other systems are reviewed and are negative Constitutional Constitutional: Denies chills and Denies fever(s) ENT Ears, Nose, Mouth, and Throat: Denies dizziness Cardiovascular Cardiovascular: Denies chest pain, Denies palpitations and Denies dyspnea Respiratory Respiratory: Denies cough and Denies dyspnea Gastrointestinal Gastrointestinal: Denies abdominal pain, Denies nausea and Denies vomiting Neurologic Neurologic: Denies dizziness Endocrine Endocrine: Denies palpitations Physical Exam Vital Signs: Vital Signs: Last Vital Signs Temp 96.8 F 11/17/22 11:03 Pulse 85 11/17/22 11:03 Resp 16 11/17/22 11:03 BP 92/52 L 11/17/22 11:03 Pulse Ox 91 L 11/17/22 11:03 O2 Del Method Nasal Cannula 11/17/22 11:03 O2 Flow Rate 3 11/17/22 11:03 BMI result Body Mass Index 17.4 Const: General: cooperative, no acute distress, alert and awake Nutritional Appearance: thin Orientation/consciousness: patient oriented x3 HEENT: Head: Yes normocephalic and Yes atraumatic Eyes: Pupils: Equal, round and reactive pupils present Neck: Neck: Yes no JVD Resp: Other: dim left side; frequent pursed lip breathing Effort & Inspection: normal respiratory effort, able to speak in complete sentences, no respiratory distress and no use of accessory muscles Auscultation: no crackles and no wheezes Cardio: Other: pericardial drain was removed; dressing to anterior chest wall clean and dry, no staining Rate: regular rate and tachycardic Heart sounds: S1 normal heart sound present and S2 normal heart sound present GI: Inspection: No distended Palpation (GI): Soft to palpation and nonten leesa : Other: plaacio in place/CBI with pink tinged urine Neuro: General: patient oriented x3, moves all extremities and CN's II-XI intact bilaterally Cranial nerves: Yes Equal, round and reactive pupils present Extrem: Other: no leg edema Objective Data Active Medications Acetaminophen (Acetaminophen 325 Mg Tablet) 650 mg PO Q6H PRN PRN Reason: Pain, Mild (Pain Scale 1-3) Last Admin: 11/15/22 18:39 Dose: 650 mg Documented By: GISSEL Atorvastatin Calcium (Atorvastatin Calcium 40 Mg Tablet) 40 mg PO BEDTIME [facility] Last Admin: 11/16/22 20:08 Dose: 40 mg Documented By: DAVID Digoxin (Digoxin 0.125 Mg Tablet) 0.125 mg PO DAILY [facility] Last Admin: 11/17/22 08:13 Dose: 0.125 mg Documented By: IWONA Docusate Sodium (Docusate Sodium 100 Mg Capsule) 100 mg PO BEDTIME [facility] Last Admin: 11/16/22 20:07 Dose: 100 mg Documented By: DAVID Empagliflozin (Empagliflozin 10 Mg Tablet) 10 mg PO DAILY [facility] Last Admin: 11/17/22 08:14 Dose: 10 mg Documented By: IWONA Finasteride (Finasteride 5 Mg Tablet) 5 mg PO DAILY [facility] Last Admin: 11/17/22 08:14 Dose: 5 mg Documented By: IWONA Fluticasone/Vilanterol (Fluticasone/Vilanterol 200/25 Blst.W.Dev) 1 puff INHALE RDAILY [facility] Last Admin: 11/17/22 07:34 Dose: Not Given Documented By: DANITZA Non-Admin Reason: med unavail pharmacy called Furosemide (Furosemide 40 Mg Tablet) 40 mg PO BID@0900,1800 [facility]; Protocol Lidocaine/Diphenhydr/Alum/Mg/Simeth (Mag&Al/Sim/Diphenhyd/Lidocaine 10 Ml Oral.Susp) 10 ml PO Q6H PRN; Protocol PRN Reason: mouth pain Last Admin: 11/17/22 09:55 Dose: 10 ml Documented By: IWONA Metoprolol Tartrate (Metoprolol Tartrate 50 Mg Tablet) 50 mg PO BID [facility]; Protocol Morphine Sulfate (Morphine Sulfate 2 Mg/Ml Cartridge) 2 mg IVPUSH Q4H PRN; Protocol PRN Reason: Pain, Severe (Pain Scale 7-10) Omeprazole (Omeprazole 20 Mg Capsule.Dr) 20 mg PO DAILY@0630 [facility] Last Admin: 11/17/22 05:31 Dose: 20 mg Documented By: DAVID Oxycodone HCl (Oxycodone Hcl Immed Release 5 Mg Tablet) 5 mg PO Q4H PRN PRN Reason: Pain, Mild (Pain Scale 1-3) Last Admin: 11/17/22 09:55 Dose: 5 mg Documented By: IWONA Pharmacy Consult (Consult Rx Perform Med Rec) 1 each MISCELLANE ONCE PRN PRN Reason: Consult order Polyethylene Glycol (Polyethylene Glycol 3350 17 Gm Powd.Pack) 17 gm PO DAILY PRN PRN Reason: Constipation Potassium Chloride (Potassium Chloride Er 20 Meq Tab.Er.Prt) 40 meq PO BID [facility] Stop: 11/17/22 21:01 Last Admin: 11/17/22 08:14 Dose: 40 meq Documented By: IWONA Prednisone (Prednisone 5 Mg Tablet) 5 mg PO DAILY [facility] Last Admin: 11/17/22 08:13 Dose: 5 mg Documented By: IWONA Sacubitril/Valsartan (Sacubitril/Valsartan 1 Tab Tablet) 1 tab PO BID [facility]; Protocol Last Admin: 11/17/22 08:14 Dose: 1 tab Documented By: IWONA Tamsulosin HCl (Tamsulosin Hcl 0.4 Mg Capsule) 0.4 mg PO BEDTIME [facility] Last Admin: 11/16/22 20:07 Dose: 0.4 mg Documented By: DAVID Labs 11/17/22 06:04 11/17/22 06:04 Labs: Laboratory Results - last 24 hr 11/17/22 11/17/22 11/17/22 06:04 06:04 06:04 MCV 88.6 MCH 29.1 MCHC 32.8 RDW 13.5 Plt Count 514 H MPV 9.1 L Absolute Nucleated RBC 0.000 Nucleated RBC % (auto) 0.0 Anion Gap 14 Estim Creat Clear Calc 37.8 Estimated GFR > 60 Random Glucose 108 Calcium 8.9 Magnesium 2.3 B-Natriuretic Peptide 822 H Microbiology Microbiology Results: Microbiology 11/12/22 15:01 Gram Stain - Final Pericardial Fluid Routine Culture - Final No growth after 2 days Anaerobic Culture - Preliminary No growth to date. Assessment and Plan (1) Atrial fibrillation with rapid ventricular response: Status: Acute (2) Atrial tachycardia: Status: Acute (3) Decompensated heart failure: Status: Acute (4) Hematuria: Status: Acute (5) Pericardial effusion: Status: Acute Plan This is an 82 year old male with history of CAD, chronic combined systolic and diastolic heart failure, atrial fibrillation on anticoagulation, severe COPD, BPH, chronic pericardial effusion with progressive lower extremity edema and dyspnea admitted to the ICU after echo revealed large pericardial effusion increased from previous with concern for tamponade physiology and underwent pericardial window with drainage of 900cc of pericardial fluid. He was downgraded from the ICU on 11/13. subacute on chronic pericardial effusion s/p pericardial window for tamponade with drainage of 900cc of pericardial fluid and pericardial drain placement - Dr. Garcia 11/12 (received kcentra prior to procedure) culture negative to date, pathology with benign pericardial tissue; no cell count sent. cytology pending limited echo 11/13, 11/15 showing significantly reduced size of pericardial effusion to trivial pericardial drain removed 11/14 acute on chronic HF, combined systolic and diastolic initially on Lasix drip, and IV push lasix, will transition to po starting in am started on jardiance, entresto, BB during this admission due to decrease in LV systolic function consider outpatient ischemic workup once other medical issues have resolved hold off on any anticoagulation or anti-platelet given persistent hematuria cardiology following Paroxysmal atrial fibrillation HR improving anticoagulation on hold for hematuria/ hemorrhagic pericardial effusion- consideration for Watchman device as outpatient stop amiodoarone due to risk for conversion as patient can't be anticoagulated continue metoprolol, digoxin cardiology following acute respiratory failure with hypoxia secondary to acute CHF wean supplemental oxygen as tolerated BPH with urinary retention s/p palacio placed by urology on 11/13 continue flomax, finasteride discussed with urology - no intervention required at this time transfuse prn Hematuria appears to be improving today s/p palacio placement by urology continue CBI hold AC H/H stable normocytic anemia, acute on chronic component of acute blood loss secondary to hematuria received 1U rbc 11/15 due to underlying CAD, COPD H/H stable follow CBC hyperkalemia k 3.2 - replace and follow COPD on symbicort at baseline, will convert to formulary equivalent continue chronic prednisone not on oxygen at baseline HTN on amlodipine at baseline, on hold for now CAD on BB, statin hold imdur cardiology following moderate protein calorie malnutrition BMI 17.4 loss of muscle mass and subcutaneous fat stage 1 to coccyx continue frequent position changes gi Ppx - omeprazole dvt ppx - mechanical devices due to hematuria code status - full code attending - dr. Rivero dispo: TBD, PT eval pending - likely will require rehab. may need home o2 eval prior to discharge patient requires ongoing inpatient hospitalization for management of hematuria Time Spent With Patient Time: Total time managing care of this patient today ____ minutes. Quality Stroke Does the patient have a stroke diagnosis?: No VTE Prior VTE?: No VTE Risk Level:: Medical - moderate - high VTE Device Contraindication: N/A - Device Ordered VTE Drug Contraindication: Treatment Not Indicated
[2022-11-17 15:51] VITALS: BP 120/64; PULSE 88; RESP 18; TEMP 36.7; O2SAT 96
[2022-11-17 18:47] VITALS: BP 115/55; PULSE 101; RESP 18; TEMP 36.7; O2SAT 98
[2022-11-17 23:12] VITALS: BP 141/63; PULSE 104; RESP 20; TEMP 36.7; O2SAT 99
[2022-11-17] MEDS: Atorvastatin Calcium 40 MG TABLET PO (23:14)
[2022-11-17] MEDS: Tamsulosin HCL 0.4 MG CAPSULE PO (23:14)
[2022-11-17] MEDS: Metoprolol Tartrate 50 MG TABLET PO (23:15)
[2022-11-17] MEDS: Docusate Sodium 100 MG CAPSULE PO (23:16)
[2022-11-18 04:00] VITALS: BP 98/54; PULSE 75; RESP 18; TEMP 36.4; O2SAT 97
[2022-11-18 06:00] VITALS: BMI 19.7
[2022-11-18] MEDS: Omeprazole 20 MG CAPSULE.DR PO (07:01)
[2022-11-18 07:05] VITALS: BP 113/58; PULSE 85; RESP 20; TEMP 36.2; O2SAT 96
--- NOTE | 2022-11-18 09:11 | P.PNIM_ITS ---
Subjective Subjective Date of Service: 11/18/22 Interval History: No sob, continues on 3L supplemental O2. Continues on CBI, pink lemonade drainage, no clots. No complaints at this time Review of Systems Review of Systems: Yes all other systems are reviewed and are negative Physical Exam Vital Signs: Vital Signs: Last Vital Signs Temp 97.1 F 11/18/22 07:05 Pulse 85 11/18/22 07:05 Resp 20 11/18/22 07:05 BP 113/58 L 11/18/22 07:05 Pulse Ox 96 11/18/22 07:05 O2 Del Method Nasal Cannula 11/18/22 07:05 O2 Flow Rate 3 11/18/22 07:05 BMI result Body Mass Index 19.7 Constitutional - Awake and Alert, No apparent distress Eyes - PERRLA, EOMI Cardiovascular - S1S2, RRR, No edema Respiratory - Normal lung expansion, Normal respiratory effort, No respiratory distress, CTA bilaterally Gastrointestinal - NT / ND; +BS; No rebound or guarding - CBI in place with pink lemonade output, no clots Extremities - no calf tenderness bilaterally, no swelling Skin - Warm/Dry Neurological - Alert & oriented x3 Psychological - Appropriate affect Objective Data Active Medications Acetaminophen (Acetaminophen 325 Mg Tablet) 650 mg PO Q6H PRN PRN Reason: Pain, Mild (Pain Scale 1-3) Last Admin: 11/15/22 18:39 Dose: 650 mg Documented By: GISSEL Atorvastatin Calcium (Atorvastatin Calcium 40 Mg Tablet) 40 mg PO BEDTIME [facility] Last Admin: 11/17/22 23:14 Dose: 40 mg Documented By: CARO Digoxin (Digoxin 0.125 Mg Tablet) 0.125 mg PO DAILY [facility] Last Admin: 11/17/22 08:13 Dose: 0.125 mg Documented By: IWONA Docusate Sodium (Docusate Sodium 100 Mg Capsule) 100 mg PO BEDTIME [facility] Last Admin: 11/17/22 23:16 Dose: 100 mg Documented By: CARO Empagliflozin (Empagliflozin 10 Mg Tablet) 10 mg PO DAILY [facility] Last Admin: 11/17/22 08:14 Dose: 10 mg Documented By: IWONA Finasteride (Finasteride 5 Mg Tablet) 5 mg PO DAILY [facility] Last Admin: 11/17/22 08:14 Dose: 5 mg Documented By: IWONA Fluticasone/Vilanterol (Fluticasone/Vilanterol 200/25 Blst.W.Dev) 1 puff INHALE RDAILY [facility] Last Admin: 11/18/22 07:54 Dose: Not Given Documented By: DANITZA Non-Admin Reason: Med Not Available Furosemide (Furosemide 40 Mg Tablet) 40 mg PO BID@0900,1800 [facility]; Protocol Lidocaine/Diphenhydr/Alum/Mg/Simeth (Mag&Al/Sim/Diphenhyd/Lidocaine 10 Ml Oral.Susp) 10 ml PO Q6H PRN; Protocol PRN Reason: mouth pain Last Admin: 11/17/22 09:55 Dose: 10 ml Documented By: IWONA Metoprolol Tartrate (Metoprolol Tartrate 50 Mg Tablet) 50 mg PO BID [facility]; Protocol Last Admin: 11/17/22 23:15 Dose: 50 mg Documented By: CARO Morphine Sulfate (Morphine Sulfate 2 Mg/Ml Cartridge) 2 mg IVPUSH Q4H PRN; Protocol PRN Reason: Pain, Severe (Pain Scale 7-10) Omeprazole (Omeprazole 20 Mg Capsule.Dr) 20 mg PO DAILY@0630 [facility] Last Admin: 11/18/22 07:01 Dose: 20 mg Documented By: CARO Oxycodone HCl (Oxycodone Hcl Immed Release 5 Mg Tablet) 5 mg PO Q4H PRN PRN Reason: Pain, Mild (Pain Scale 1-3) Last Admin: 11/17/22 23:16 Dose: 5 mg Documented By: CARO Pharmacy Consult (Consult Rx Perform Med Rec) 1 each MISCELLANE ONCE PRN PRN Reason: Consult order Polyethylene Glycol (Polyethylene Glycol 3350 17 Gm Powd.Pack) 17 gm PO DAILY PRN PRN Reason: Constipation Prednisone (Prednisone 5 Mg Tablet) 5 mg PO DAILY [facility] Last Admin: 11/17/22 08:13 Dose: 5 mg Documented By: IWONA Sacubitril/Valsartan (Sacubitril/Valsartan 1 Tab Tablet) 1 tab PO BID [facility]; Protocol Last Admin: 11/17/22 23:15 Dose: 1 tab Documented By: CARO Tamsulosin HCl (Tamsulosin Hcl 0.4 Mg Capsule) 0.4 mg PO BEDTIME [facility] Last Admin: 11/17/22 23:14 Dose: 0.4 mg Documented By: CARO Labs 11/17/22 06:04 11/17/22 06:04 Microbiology Microbiology Results: Microbiology 11/12/22 15:01 Gram Stain - Final Pericardial Fluid Routine Culture - Final No growth after 2 days Anaerobic Culture - Final NO GROWTH AFTER 5 DAYS Assessment and Plan (1) Atrial fibrillation with rapid ventricular response: Status: Acute (2) Atrial tachycardia: Status: Acute (3) Decompensated heart failure: Status: Acute (4) Hematuria: Status: Acute (5) Pericardial effusion: Status: Acute Plan This is an 82 year old male with history of CAD, chronic combined systolic and diastolic heart failure, atrial fibrillation on anticoagulation, severe COPD, BPH, chronic pericardial effusion with progressive lower extremity edema and dyspnea admitted to the ICU after echo revealed large pericardial effusion increased from previous with concern for tamponade physiology and underwent pericardial window with drainage of 900cc of pericardial fluid. He was downgraded from the ICU on 11/13. subacute on chronic pericardial effusion s/p pericardial window for tamponade with drainage of 900cc of pericardial fluid and pericardial drain placement - Dr. Garcia 11/12 (received kcentra prior to procedure) culture negative to date, pathology with benign pericardial tissue; no cell count sent. cytology pending limited echo 11/13, 11/15 showing significantly reduced size of pericardial effusion to trivial pericardial drain removed 11/14 acute on chronic HF, combined systolic and diastolic initially on Lasix drip, and IV push lasix. Continue PO lasix started on chris kennedy BB during this admission due to decrease in LV systolic function consider outpatient ischemic workup once other medical issues have resolved hold off on any anticoagulation or anti-platelet given persistent hematuria cardiology following Paroxysmal atrial fibrillation HR now controlled anticoagulation on hold for hematuria/ hemorrhagic pericardial effusion- consideration for Watchman device as outpatient stop amiodoarone due to risk for conversion as patient can't be anticoagulated continue metoprolol, digoxin cardiology following acute respiratory failure with hypoxia secondary to acute CHF Home O2 eval ordered BPH with urinary retention s/p palacio placed by urology on 11/13 continue flomax, finasteride discussed with urology - no intervention required at this time transfuse prn Hematuria appears to be improving today s/p palacio placement by urology continue CBI, consider clamp and dc tomorrow, discuss with urology hold AC H/H stable normocytic anemia, acute on chronic component of acute blood loss secondary to hematuria received 1U rbc 11/15 due to underlying CAD, COPD H/H stable follow CBC hyperkalemia k 3.2 - replace and follow COPD on symbicort at baseline, will convert to formulary equivalent continue chronic prednisone not on oxygen at baseline HTN- bps soft on amlodipine at baseline, on hold for now reduce metoprolol to 25mg BID, continue entresto CAD on BB, statin hold imdur cardiology following moderate protein calorie malnutrition BMI 17.4 loss of muscle mass and subcutaneous fat stage 1 to coccyx continue frequent position changes gi Ppx - omeprazole dvt ppx - mechanical devices due to hematuria code status - full code attending - dr. dudley dispo: PT recommending STR, pending placement following home O2 eval and discontinuation of CBI likely tomorrow patient requires ongoing inpatient hospitalization for management of hematuria Time Spent With Patient Time: Total time managing care of this patient today ____ minutes. Quality Stroke Does the patient have a stroke diagnosis?: No VTE Prior VTE?: No VTE Risk Level:: Medical - moderate - high VTE Device Contraindication: N/A - Device Ordered VTE Drug Contraindication: Treatment Not Indicated
[2022-11-18] MEDS: Empagliflozin 10 MG TABLET PO (09:37)
[2022-11-18] MEDS: Sacubitril/Valsartan 24/26 1 TAB TABLET PO ×2 (09:37→21:05)
[2022-11-18] MEDS: predniSONE 5 MG TABLET PO (09:37)
[2022-11-18] MEDS: Digoxin 0.125 MG TABLET PO (09:38)
[2022-11-18] MEDS: Finasteride 5 MG TABLET PO (09:38)
[2022-11-18] MEDS: Furosemide 40 MG TABLET PO ×2 (09:38→17:58)
[2022-11-18] MEDS: Metoprolol Tartrate 50 MG TABLET PO (09:38)
[2022-11-18 11:11] VITALS: BP 102/59; PULSE 72; RESP 20; TEMP 36.3; O2SAT 93
[2022-11-18 15:33] VITALS: BP 103/57; PULSE 79; RESP 16; TEMP 36.4; O2SAT 97
--- NOTE | 2022-11-18 18:50 | PC.NURSE ---
Patient c/o pressure in lower abdomen in am, CBI draining well, bladder scan only showed 161ml, reassessed patient in one hour and at that time patient was not experiencing pressure
[2022-11-18 19:36] VITALS: BP 122/59; PULSE 83; RESP 18; TEMP 36.8; O2SAT 97
[2022-11-18] MEDS: Metoprolol Tartrate 25 MG TABLET PO (21:05)
[2022-11-18] MEDS: Docusate Sodium 100 MG CAPSULE PO (21:05)
[2022-11-18] MEDS: Atorvastatin Calcium 40 MG TABLET PO (21:05)
[2022-11-18] MEDS: Tamsulosin HCL 0.4 MG CAPSULE PO (21:05)
[2022-11-18] MEDS: oxyCODONE HCl Immed Release 5 MG TABLET PO (21:06)
[2022-11-18 23:18] VITALS: BP 99/53; PULSE 77; RESP 16; TEMP 36.2; O2SAT 93
[2022-11-19] VITALS (7 sets, daily range): BP systolic 96–116; BP diastolic 52–56; PULSE 72–94; RESP 16–20; TEMP 36.2–36.4; O2SAT 92–99; BMI 19.7
[2022-11-19 06:15] LABS: Basophils Percent Auto 0.1 % (0-2); Eosinophils Absolute Auto 0.1 X10*3/uL (0.0-0.4); Eosinophils Percent Auto 0.4 % (0-4); Hematocrit 33.6 % (42.0-52.0); Hemoglobin 10.8 g/dl (14.0-18.0); Imm Gran Abs Auto 0.21 X10*3/uL (0.00-0.03); Imm Gran Pct Auto 1.1 % (0.0-0.4); Lymphocytes Absolute Auto 0.6 X10*3/uL (1.2-4.9); Lymphocytes Percent Auto 3.1 % (20-40); MANUAL DIFF FLAG SCAN; Mean Corpuscular HGB Conc 32.1 g/dl (31.0-36.0); Mean Corpuscular Hemoglobin 29.3 pg (27.0-33.0); Mean Corpuscular Volume 91.3 fL (80.0-98.0); Mean Platelet Volume 9.5 fL (9.4-12.4); Monocytes Absolute Auto 1.7 X10*3/uL (0.1-1.2); Monocytes Percent Auto 8.8 % (2-11); Neutrophils Absolute Auto 16.7 x10*3/uL (2.0-8.3); Neutrophils Percent Auto 86.5 % (45-73); Platelet Count 478 X10*3/uL (160-400); Red Blood Count 3.68 X10*6/uL (4.60-5.80); Red Cell Distribution Width 14.1 % (11.0-16.0); SCAN SMEAR FLAG 1; White Blood Count 19.3 X10*3/uL (4.8-10.8)
[2022-11-19 06:29] LABS: Anion Gap 16 (12-20); Blood Urea Nitrogen 36 mg/dL (9-16); Calcium 8.8 mg/dL (8.4-10.2); Carbon Dioxide 27 mmol/L (22-29); Chloride 97 mmol/L (96-108); Creatinine Clr Calc Pharmacy 39.4; Estimated Glomerular Filt Rate > 60; Glucose Random 99 mg/dL (60-115); Potassium 4.5 mmol/L (3.3-5.1); Sodium 135 mmol/L (135-145)
[2022-11-19] MEDS: Omeprazole 20 MG CAPSULE.DR PO (06:41)
[2022-11-19] MEDS: oxyCODONE HCl Immed Release 5 MG TABLET PO ×2 (06:46→23:22)
[2022-11-19 07:05] LABS: SLIDE REVIEW VERIFIED
[2022-11-19] MEDS: Empagliflozin 10 MG TABLET PO (09:02)
[2022-11-19] MEDS: Digoxin 0.125 MG TABLET PO (09:02)
[2022-11-19] MEDS: Sacubitril/Valsartan 24/26 1 TAB TABLET PO (09:02)
[2022-11-19] MEDS: Metoprolol Tartrate 25 MG TABLET PO ×2 (09:02→20:34)
[2022-11-19] MEDS: predniSONE 5 MG TABLET PO (09:02)
[2022-11-19] MEDS: Furosemide 40 MG TABLET PO ×2 (09:02→18:21)
[2022-11-19] MEDS: Finasteride 5 MG TABLET PO (09:03)
--- NOTE | 2022-11-19 10:13 | MHC.CM.PN ---
Per ROUNDS discussion, Patient is not yet medically cleared for dc (Clamping CBI today); PT is recommending STR and Patient has SNF bed offers; CM will follow.
--- NOTE | 2022-11-19 10:33 | PC.NURSE ---
Per provider's order CBI clamped at 10:30 -
--- NOTE | 2022-11-19 11:22 | HO.PM.IMPN ---
Subjective Subjective Date of Service: 11/19/22 Interval History: No sob, continues on 3L supplemental O2. Chronic cough. No cp. Continues on CBI, pink lemonade drainage, no clots. No complaints at this time Review of Systems Review of Systems: Yes all other systems are reviewed and are negative Physical Exam Vital Signs: Vital Signs: Last Vital Signs Temp 97.6 F 11/19/22 11:13 Pulse 72 11/19/22 11:13 Resp 20 11/19/22 11:13 BP 101/53 L 11/19/22 11:13 Pulse Ox 92 11/19/22 11:13 O2 Del Method Nasal Cannula 11/19/22 11:13 O2 Flow Rate 3 11/19/22 11:13 BMI result Body Mass Index 19.7 Constitutional - Awake and Alert, No apparent distress Eyes - PERRLA, EOMI Cardiovascular - S1S2, RRR, No edema Respiratory - Normal lung expansion, Normal respiratory effort, No respiratory distress on 3 L supplemental O2, scattered expiratory wheezes Gastrointestinal - NT / ND; +BS; No rebound or guarding Extremities - no calf tenderness bilaterally, no swelling Skin - Warm/Dry Neurological - Alert & oriented x3 Psychological - Appropriate affect Objective Data Active Medications Acetaminophen (Acetaminophen 325 Mg Tablet) 650 mg PO Q6H PRN PRN Reason: Pain, Mild (Pain Scale 1-3) Last Admin: 11/15/22 18:39 Dose: 650 mg Documented By: GISSEL Atorvastatin Calcium (Atorvastatin Calcium 40 Mg Tablet) 40 mg PO BEDTIME [facility] Last Admin: 11/18/22 21:05 Dose: 40 mg Documented By: CARO Digoxin (Digoxin 0.125 Mg Tablet) 0.125 mg PO DAILY [facility] Last Admin: 11/19/22 09:02 Dose: 0.125 mg Documented By: WILLIAM Docusate Sodium (Docusate Sodium 100 Mg Capsule) 100 mg PO BEDTIME [facility] Last Admin: 11/18/22 21:05 Dose: 100 mg Documented By: CARO Empagliflozin (Empagliflozin 10 Mg Tablet) 10 mg PO DAILY [facility] Last Admin: 11/19/22 09:02 Dose: 10 mg Documented By: WILLIAM Finasteride (Finasteride 5 Mg Tablet) 5 mg PO DAILY [facility] Last Admin: 11/19/22 09:03 Dose: 5 mg Documented By: WILLIAM Fluticasone/Vilanterol (Fluticasone/Vilanterol 200/25 Blst.W.Dev) 1 puff INHALE RDAILY [facility] Last Admin: 11/19/22 09:04 Dose: Not Given Documented By: WILLIAM Non-Admin Reason: Patient Refused Furosemide (Furosemide 40 Mg Tablet) 40 mg PO BID@0900,1800 [facility]; Protocol Last Admin: 11/19/22 09:02 Dose: 40 mg Documented By: WILLIAM Lidocaine/Diphenhydr/Alum/Mg/Simeth (Mag&Al/Sim/Diphenhyd/Lidocaine 10 Ml Oral.Susp) 10 ml PO Q6H PRN; Protocol PRN Reason: mouth pain Last Admin: 11/17/22 09:55 Dose: 10 ml Documented By: IWONA Metoprolol Tartrate (Metoprolol Tartrate 25 Mg Tablet) 25 mg PO BID [facility]; Protocol Last Admin: 11/19/22 09:02 Dose: 25 mg Documented By: WILLIAM Morphine Sulfate (Morphine Sulfate 2 Mg/Ml Cartridge) 2 mg IVPUSH Q4H PRN; Protocol PRN Reason: Pain, Severe (Pain Scale 7-10) Omeprazole (Omeprazole 20 Mg Capsule.Dr) 20 mg PO DAILY@0630 [facility] Last Admin: 11/19/22 06:41 Dose: 20 mg Documented By: CARO Oxycodone HCl (Oxycodone Hcl Immed Release 5 Mg Tablet) 5 mg PO Q4H PRN PRN Reason: Pain, Mild (Pain Scale 1-3) Last Admin: 11/19/22 06:46 Dose: 5 mg Documented By: CARO Pharmacy Consult (Consult Rx Perform Med Rec) 1 each MISCELLANE ONCE PRN PRN Reason: Consult order Polyethylene Glycol (Polyethylene Glycol 3350 17 Gm Powd.Pack) 17 gm PO DAILY PRN PRN Reason: Constipation Prednisone (Prednisone 5 Mg Tablet) 5 mg PO DAILY [facility] Last Admin: 11/19/22 09:02 Dose: 5 mg Documented By: WILLIAM Sacubitril/Valsartan (Sacubitril/Valsartan 1 Tab Tablet) 1 tab PO BID [facility]; Protocol Last Admin: 11/19/22 09:02 Dose: 1 tab Documented By: WILLIAM Tamsulosin HCl (Tamsulosin Hcl 0.4 Mg Capsule) 0.4 mg PO BEDTIME [facility] Last Admin: 11/18/22 21:05 Dose: 0.4 mg Documented By: CARO Labs 11/19/22 05:38 11/19/22 05:38 Labs: Laboratory Results - last 24 hr 11/19/22 11/19/22 05:38 05:38 MCV 91.3 MCH 29.3 MCHC 32.1 RDW 14.1 Plt Count 478 H MPV 9.5 Immature Gran % (Auto) 1.1 H Neut % (Auto) 86.5 H Lymph % (Auto) 3.1 L Richardson % (Auto) 8.8 Eos % (Auto) 0.4 Baso % (Auto) 0.1 Lymph # (Auto) 0.6 L Richardson # (Auto) 1.7 H Eos # (Auto) 0.1 Baso # (Auto) 0.0 Abs Immat Gran (auto) 0.21 H Absolute Neuts (auto) 16.7 H Absolute Nucleated RBC 0.000 Nucleated RBC % (auto) 0.0 Smear Tech's Comments VERIFIED Anion Gap 16 Estim Creat Clear Calc 39.4 Estimated GFR > 60 Random Glucose 99 Calcium 8.8 Microbiology Microbiology Results: Microbiology 11/12/22 15:01 Gram Stain - Final Pericardial Fluid Routine Culture - Final No growth after 2 days Anaerobic Culture - Final NO GROWTH AFTER 5 DAYS Assessment and Plan (1) Atrial fibrillation with rapid ventricular response: Status: Acute (2) Atrial tachycardia: Status: Acute (3) Decompensated heart failure: Status: Acute (4) Hematuria: Status: Acute (5) Pericardial effusion: Status: Acute Plan This is an 82 year old male with history of CAD, chronic combined systolic and diastolic heart failure, atrial fibrillation on anticoagulation, severe COPD, BPH, chronic pericardial effusion with progressive lower extremity edema and dyspnea admitted to the ICU after echo revealed large pericardial effusion increased from previous with concern for tamponade physiology and underwent pericardial window with drainage of 900cc of pericardial fluid. He was downgraded from the ICU on 11/13. subacute on chronic pericardial effusion s/p pericardial window for tamponade with drainage of 900cc of pericardial fluid and pericardial drain placement - Dr. Garcia 11/12 (received kcentra prior to procedure) culture negative to date, pathology with benign pericardial tissue; no cell count sent. cytology pending limited echo 11/13, 11/15 showing significantly reduced size of pericardial effusion to trivial pericardial drain removed 11/14 acute on chronic HF, combined systolic and diastolic initially on Lasix drip, and IV push lasix. Continue PO lasix started on jardiance, entresto, BB during this admission. Not tolerating entresto with low bp's. Per cards, stop entresto and readdress outpt due to decrease in LV systolic function consider outpatient ischemic workup once other medical issues have resolved hold off on any anticoagulation or anti-platelet given persistent hematuria cardiology following Paroxysmal atrial fibrillation HR now controlled anticoagulation on hold for hematuria/ hemorrhagic pericardial effusion- consideration for Watchman device as outpatient stop amiodoarone due to risk for conversion as patient can't be anticoagulated continue metoprolol, digoxin cardiology following acute respiratory failure with hypoxia secondary to acute CHF Home O2 eval ordered BPH with urinary retention s/p palacio placed by urology on 11/13 continue flomax, finasteride discussed with urology - no intervention required at this time transfuse prn Hematuria appears to be improving today s/p palacio placement by urology Clamp CBI per urology. Reassess for clots in several hours and dc per urology hold AC H/H stable normocytic anemia, acute on chronic component of acute blood loss secondary to hematuria received 1U rbc 11/15 due to underlying CAD, COPD H/H stable follow CBC hyperkalemia k 3.2 - replace and follow COPD on symbicort at baseline, will convert to formulary equivalent continue chronic prednisone not on oxygen at baseline Leukocytosis related to steroid use. Repeat CXR negative HTN- bps soft on amlodipine at baseline, on hold for now, resume as able reduce metoprolol to 25mg BID. Stop entresto per cardiology- to be reassessed outpt CAD on BB, statin hold imdur cardiology following moderate protein calorie malnutrition BMI 17.4 loss of muscle mass and subcutaneous fat stage 1 to coccyx continue frequent position changes gi Ppx - omeprazole dvt ppx - mechanical devices due to hematuria code status - full code attending - dr. noel dispo: PT recommending STR, pending placement following home O2 eval and discontinuation of CBI, hopefully dc to [facility] on home O2 tomorrow patient requires ongoing inpatient hospitalization for management of hematuria Time Spent With Patient Time: Total time managing care of this patient today ____ minutes. Quality Stroke Does the patient have a stroke diagnosis?: No VTE Prior VTE?: No VTE Risk Level:: Medical - moderate - high VTE Device Contraindication: N/A - Device Ordered VTE Drug Contraindication: Treatment Not Indicated
--- NOTE | 2022-11-19 11:25 | P.CDIM_ITS ---
PROVIDER RESPONSE TEXT: To clarify, the appropriate diagnosis supported by the clinical indicators: Pressure (decubitus) ulcer QUERY TEXT: PHYSICIAN'S DOCUMENTATION REQUEST Date of Query: 11/19/2022 07:01 AM EDT Patient Name: Peter Grimes Admit Date: 11/12/2022 Dear Jaqueline Black, A review of the medical record indicates additional documentation may be needed. Please review below and update the documentation accordingly. Clinical Indicators: Per Hospitalist Progress Note 11/18/22: stage 1 to coccyx continue frequent position changes Based on the above, could you please provide further information regarding the type ulcer/wound: Pressure (decubitus) ulcer Traumatic wound Other (explain)Clinically unable to determine (explain)Thank you, Lauren Childers RN Use of terms such as suspected, likely, concern for, or probable (associated with a specific diagnosi s that is being evaluated, monitored, or treated as if it exists) are acceptable and can be coded in the inpatient se tting, when documented at the time of discharge. Please use your independent medical judgment in providing your response. THIS QUERY IS PART OF THE PERMANENT MEDICAL RECORD
[2022-11-19] MEDS: Morphine Sulfate 2 MG/ML CARTRIDGE IVPUSH ×2 (15:07→20:35)
--- NOTE | 2022-11-19 15:24 | ECG_ITS ---
Test Reason : nsvt Blood Pressure : / mmHG Vent. Rate : 081 BPM Atrial Rate : 081 BPM P-R Int : 190 ms QRS Dur : 106 ms QT Int : 372 ms P-R-T Axes : 045 -56 099 degrees QTc Int : 432 ms Normal sinus rhythm Left axis deviation Low voltage QRS Nonspecific T wave abnormality Abnormal ECG When compared with ECG of 14-NOV-2022 07:34, Rhythm change Referred By: Jaqueline Black Electronically Signed By:ILDEFONSO SERRANO
--- NOTE | 2022-11-19 15:30 | MHC.CM.PN ---
CM met with Patient at bedside and with his permission, spoke with his /Betty @ [phone] regarding PT's recommendation for STR. Both Patient and his want Patient to return home and have [facility], who has accepted Patient. Patient does have 4 SNF offers if anything changes. CM will follow.
[2022-11-19 17:24] LABS: Anion Gap 15 (12-20); Blood Urea Nitrogen 37 mg/dL (9-16); Calcium 8.8 mg/dL (8.4-10.2); Carbon Dioxide 27 mmol/L (22-29); Chloride 96 mmol/L (96-108); Creatinine Clr Calc Pharmacy 39.8; Estimated Glomerular Filt Rate > 60; Glucose Random 109 mg/dL (60-115); Magnesium 2.4 mg/dL (1.6-2.6); Potassium 4.2 mmol/L (3.3-5.1); Sodium 134 mmol/L (135-145)
--- NOTE | 2022-11-19 18:34 | PC.NURSE ---
CBI unclamped at 1400 dark red urine 250ml drained while CBI was clamped.
[2022-11-19] MEDS: Docusate Sodium 100 MG CAPSULE PO (20:34)
[2022-11-19] MEDS: Atorvastatin Calcium 40 MG TABLET PO (20:35)
[2022-11-19] MEDS: Tamsulosin HCL 0.4 MG CAPSULE PO (20:35)
[2022-11-19] MEDS: Acetaminophen 325 MG TABLET 650 MG PO (23:21)
[2022-11-20 03:35] VITALS: BP 93/52; PULSE 75; RESP 20; TEMP 36.8; O2SAT 99
[2022-11-20 07:02] VITALS: BP 90/51; PULSE 81; RESP 18; TEMP 36.3; O2SAT 95
[2022-11-20 07:52] LABS: MANUAL DIFF FLAG NO
[2022-11-20 08:06] LABS: Basophils Percent Auto 0.3 % (0-2); Eosinophils Absolute Auto 0.2 X10*3/uL (0.0-0.4); Eosinophils Percent Auto 1.3 % (0-4); Hematocrit 34.6 % (42.0-52.0); Hemoglobin 11.2 g/dl (14.0-18.0); Imm Gran Abs Auto 0.24 X10*3/uL (0.00-0.03); Imm Gran Pct Auto 1.7 % (0.0-0.4); Lymphocytes Absolute Auto 0.8 X10*3/uL (1.2-4.9); Lymphocytes Percent Auto 5.4 % (20-40); Mean Corpuscular HGB Conc 32.4 g/dl (31.0-36.0); Mean Corpuscular Hemoglobin 29.3 pg (27.0-33.0); Mean Corpuscular Volume 90.6 fL (80.0-98.0); Mean Platelet Volume 9.6 fL (9.4-12.4); Monocytes Absolute Auto 1.4 X10*3/uL (0.1-1.2); Monocytes Percent Auto 9.6 % (2-11); Neutrophils Absolute Auto 11.7 x10*3/uL (2.0-8.3); Neutrophils Percent Auto 81.7 % (45-73); Platelet Count 441 X10*3/uL (160-400); Red Blood Count 3.82 X10*6/uL (4.60-5.80); Red Cell Distribution Width 14.1 % (11.0-16.0); White Blood Count 14.3 X10*3/uL (4.8-10.8)
[2022-11-20 08:10] LABS: Anion Gap 15 (12-20); Blood Urea Nitrogen 34 mg/dL (9-16); Calcium 8.8 mg/dL (8.4-10.2); Carbon Dioxide 27 mmol/L (22-29); Chloride 97 mmol/L (96-108); Creatinine Clr Calc Pharmacy 39.4; Estimated Glomerular Filt Rate > 60; Glucose Random 99 mg/dL (60-115); Potassium 4.2 mmol/L (3.3-5.1); Sodium 135 mmol/L (135-145)
[2022-11-20] MEDS: predniSONE 5 MG TABLET PO (09:04)
[2022-11-20] MEDS: Metoprolol Tartrate 25 MG TABLET PO ×2 (09:04→21:51)
[2022-11-20] MEDS: Omeprazole 20 MG CAPSULE.DR PO (09:04)
[2022-11-20] MEDS: Digoxin 0.125 MG TABLET PO (09:05)
[2022-11-20] MEDS: Furosemide 20 MG TABLET PO ×2 (09:05→18:03)
[2022-11-20] MEDS: Empagliflozin 10 MG TABLET PO (09:05)
[2022-11-20] MEDS: Finasteride 5 MG TABLET PO (09:06)
[2022-11-20 11:03] VITALS: BP 104/54; PULSE 76; RESP 20; TEMP 36.3; O2SAT 96
--- NOTE | 2022-11-20 12:03 | HO.PM.IMPN ---
Subjective Subjective Date of Service: 11/20/22 Interval History: No sob, continues on 3L supplemental O2. Chronic cough. No cp. Continues on CBI, pink lemonade drainage, no clots but had bright red urine last night once cbi clamped. No complaints at this time Review of Systems Review of Systems: Yes all other systems are reviewed and are negative Physical Exam Vital Signs: Vital Signs: Last Vital Signs Temp 97.3 F 11/20/22 11:03 Pulse 76 11/20/22 11:03 Resp 20 11/20/22 11:03 BP 104/54 L 11/20/22 11:03 Pulse Ox 96 11/20/22 11:03 O2 Del Method Nasal Cannula 11/20/22 11:03 O2 Flow Rate 3 11/20/22 11:03 BMI result Body Mass Index 19.7 Constitutional - Awake and Alert, No apparent distress Eyes - PERRLA, EOMI Cardiovascular - S1S2, RRR, No edema Respiratory - Normal lung expansion, Normal respiratory effort, No respiratory distress, expiratory wheezes - [address] on CBI with pink lemonade colored output Extremities - no calf tenderness bilaterally, no swelling Skin - Warm/Dry Neurological - Alert & oriented x3 Psychological - Appropriate affect Objective Data Active Medications Acetaminophen (Acetaminophen 325 Mg Tablet) 650 mg PO Q6H PRN PRN Reason: Pain, Mild (Pain Scale 1-3) Last Admin: 11/19/22 23:21 Dose: 650 mg Documented By: MELISSA Atorvastatin Calcium (Atorvastatin Calcium 40 Mg Tablet) 40 mg PO BEDTIME [facility] Last Admin: 11/19/22 20:35 Dose: 40 mg Documented By: MELISSA Digoxin (Digoxin 0.125 Mg Tablet) 0.125 mg PO DAILY [facility] Last Admin: 11/20/22 09:05 Dose: 0.125 mg Documented By: JEYSON Docusate Sodium (Docusate Sodium 100 Mg Capsule) 100 mg PO BEDTIME [facility] Last Admin: 11/19/22 20:34 Dose: 100 mg Documented By: MELISSA Empagliflozin (Empagliflozin 10 Mg Tablet) 10 mg PO DAILY [facility] Last Admin: 11/20/22 09:05 Dose: 10 mg Documented By: JEYSON Finasteride (Finasteride 5 Mg Tablet) 5 mg PO DAILY [facility] Last Admin: 11/20/22 09:06 Dose: 5 mg Documented By: JEYSON Fluticasone/Vilanterol (Fluticasone/Vilanterol 200/25 Blst.W.Dev) 1 puff INHALE RDAILY [facility] Last Admin: 11/20/22 07:47 Dose: Not Given Documented By: WINSOME Non-Admin Reason: Patient Refused Furosemide (Furosemide 20 Mg Tablet) 20 mg PO BID@0900,1800 [facility]; Protocol Last Admin: 11/20/22 09:05 Dose: 20 mg Documented By: JEYSON Lidocaine/Diphenhydr/Alum/Mg/Simeth (Mag&Al/Sim/Diphenhyd/Lidocaine 10 Ml Oral.Susp) 10 ml PO Q6H PRN; Protocol PRN Reason: mouth pain Last Admin: 11/17/22 09:55 Dose: 10 ml Documented By: IWONA Metoprolol Tartrate (Metoprolol Tartrate 25 Mg Tablet) 25 mg PO BID [facility]; Protocol Last Admin: 11/20/22 09:04 Dose: 25 mg Documented By: JEYSON Morphine Sulfate (Morphine Sulfate 2 Mg/Ml Cartridge) 2 mg IVPUSH Q4H PRN; Protocol PRN Reason: Pain, Severe (Pain Scale 7-10) Last Admin: 11/19/22 20:35 Dose: 2 mg Documented By: MELISSA Omeprazole (Omeprazole 20 Mg Capsule.Dr) 20 mg PO DAILY@0630 [facility] Last Admin: 11/20/22 09:04 Dose: 20 mg Documented By: JEYSON Oxycodone HCl (Oxycodone Hcl Immed Release 5 Mg Tablet) 5 mg PO Q4H PRN PRN Reason: Pain, Mild (Pain Scale 1-3) Last Admin: 11/19/22 23:22 Dose: 5 mg Documented By: MELISSA Pharmacy Consult (Consult Rx Perform Med Rec) 1 each MISCELLANE ONCE PRN PRN Reason: Consult order Polyethylene Glycol (Polyethylene Glycol 3350 17 Gm Powd.Pack) 17 gm PO DAILY PRN PRN Reason: Constipation Prednisone (Prednisone 5 Mg Tablet) 5 mg PO DAILY [facility] Last Admin: 11/20/22 09:04 Dose: 5 mg Documented By: JEYSON Tamsulosin HCl (Tamsulosin Hcl 0.4 Mg Capsule) 0.4 mg PO BEDTIME [facility] Last Admin: 11/19/22 20:35 Dose: 0.4 mg Documented By: MELISSA Labs 11/20/22 07:35 11/20/22 07:35 Labs: Laboratory Results - last 24 hr 11/19/22 11/20/22 11/20/22 15:31 07:35 07:35 MCV 90.6 MCH 29.3 MCHC 32.4 RDW 14.1 Plt Count 441 H MPV 9.6 Immature Gran % (Auto) 1.7 H Neut % (Auto) 81.7 H Lymph % (Auto) 5.4 L Pope % (Auto) 9.6 Eos % (Auto) 1.3 Baso % (Auto) 0.3 Lymph # (Auto) 0.8 L Pope # (Auto) 1.4 H Eos # (Auto) 0.2 Baso # (Auto) 0.0 Abs Immat Gran (auto) 0.24 H Absolute Neuts (auto) 11.7 H Absolute Nucleated RBC 0.000 Nucleated RBC % (auto) 0.0 Anion Gap 15 15 Estim Creat Clear Calc 39.8 39.4 Estimated GFR > 60 > 60 Random Glucose 109 99 Calcium 8.8 8.8 Magnesium 2.4 Assessment and Plan (1) Atrial fibrillation with rapid ventricular response: Status: Acute (2) Atrial tachycardia: Status: Acute (3) Decompensated heart failure: Status: Acute (4) Hematuria: Status: Acute (5) Pericardial effusion: Status: Acute Plan This is an 82 year old male with history of CAD, chronic combined systolic and diastolic heart failure, atrial fibrillation on anticoagulation, severe COPD, BPH, chronic pericardial effusion with progressive lower extremity edema and dyspnea admitted to the ICU after echo revealed large pericardial effusion increased from previous with concern for tamponade physiology and underwent pericardial window with drainage of 900cc of pericardial fluid. He was downgraded from the ICU on 11/13. Stable from cardiac standpoint, but continue with hematuria. CBI clamped yesterday with 250ml red urine, CBI resumed. BPs remain soft subacute on chronic pericardial effusion s/p pericardial window for tamponade with drainage of 900cc of pericardial fluid and pericardial drain placement - Dr. Garcia 11/12 (received kcentra prior to procedure) culture negative to date, pathology with benign pericardial tissue; no cell count sent. cytology pending limited echo 11/13, 11/15 showing significantly reduced size of pericardial effusion to trivial pericardial drain removed 11/14 acute on chronic HF, combined systolic and diastolic initially on Lasix drip, and IV push lasix. Continue PO lasix- dose decreased to 20mg BID PO due to soft BPs started on jardiance, entresto, BB during this admission. Not tolerating entresto with low bp's. Per cards, stop entresto and readdress outpt due to decrease in LV systolic function consider outpatient ischemic workup once other medical issues have resolved hold off on any anticoagulation or anti-platelet given persistent hematuria cardiology outpt Paroxysmal atrial fibrillation HR now controlled anticoagulation on hold for hematuria/ hemorrhagic pericardial effusion- consideration for Watchman device as outpatient stop amiodoarone due to risk for conversion as patient can't be anticoagulated continue metoprolol, digoxin cardiology outpt acute respiratory failure with hypoxia secondary to acute CHF No home O2 eval needed, dc to STR BPH with urinary retention s/p palacio placed by urology on 11/13 continue flomax, finasteride discussed with urology - no intervention required at this time transfuse prn Hematuria s/p palacio placement by urology CBI clamped yesterday with 250ml red urine outpt. CBI resumed Discussed with urology who will start tranexemic acid and reassess hold AC H/H stable normocytic anemia, acute on chronic component of acute blood loss secondary to hematuria received 1U rbc 11/15 due to underlying CAD, COPD H/H stable follow CBC hyperkalemia repleted, resolved follow lytes COPD on symbicort at baseline, will convert to formulary equivalent continue chronic prednisone not on oxygen at baseline Leukocytosis related to steroid use. Repeat CXR negative HTN- bps soft on amlodipine at baseline, on hold for now, resume as able reduce metoprolol to 25mg BID, lasix reduced to 20mg BID. Stop entresto per cardiology- to be reassessed outpt CAD on BB, statin hold imdur cardiology follow up outpt moderate protein calorie malnutrition BMI 17.4 loss of muscle mass and subcutaneous fat stage 1 to coccyx continue frequent position changes gi Ppx - omeprazole dvt ppx - mechanical devices due to hematuria code status - full code attending - dr. noel dispo: PT recommending STR, pending placement. Stable from cardiac standpoint, but hematuria persists. Had planned for dc but hematuria recurred after CBI clamped, and now again on CBI patient requires ongoing inpatient hospitalization for management of hematuria Time Spent With Patient Time: Total time managing care of this patient today ____ minutes. Quality Stroke Does the patient have a stroke diagnosis?: No VTE Prior VTE?: No VTE Risk Level:: Medical - moderate - high VTE Device Contraindication: N/A - Device Ordered VTE Drug Contraindication: Treatment Not Indicated
--- NOTE | 2022-11-20 14:07 | MHC.CM.PN ---
EMR REVIEWED AND PER MD ROUNDS, PT IS NOT MEDICALLY CLEARED FOR DC ( CBI, HEMATURIA) CM SPOKE WITH PT WHO IS DECLINING STR AND IS IN AGREEMENT. PT/ PREFER HOME WITH [facility]. [facility] UPDATED. CM WILL CONTINUE TO FOLLOW FOR ANY CHANGE IN DC NEEDS/PLAN
[2022-11-20 14:11] VITALS: PULSE 101; O2SAT 86
[2022-11-20 15:15] VITALS: BP 92/53; PULSE 90; RESP 18; TEMP 36.3; O2SAT 95
[2022-11-20] MEDS: Morphine Sulfate 2 MG/ML CARTRIDGE IVPUSH (18:08)
[2022-11-20 19:13] VITALS: BP 103/57; PULSE 88; RESP 18; TEMP 36.2; O2SAT 98
[2022-11-20] MEDS: Docusate Sodium 100 MG CAPSULE PO (21:51)
[2022-11-20] MEDS: Atorvastatin Calcium 40 MG TABLET PO (21:51)
[2022-11-20] MEDS: Tamsulosin HCL 0.4 MG CAPSULE PO (21:51)
[2022-11-20] MEDS: oxyCODONE HCl Immed Release 5 MG TABLET PO (22:02)
[2022-11-21] VITALS (7 sets, daily range): BP systolic 103–129; BP diastolic 55–66; PULSE 73–106; RESP 15–20; TEMP 36–36.4; O2SAT 96–100
[2022-11-21 05:37] LABS: MANUAL DIFF FLAG NO
[2022-11-21 05:42] LABS: Basophils Percent Auto 0.2 % (0-2); Eosinophils Absolute Auto 0.2 X10*3/uL (0.0-0.4); Eosinophils Percent Auto 1.8 % (0-4); Hematocrit 33.7 % (42.0-52.0); Hemoglobin 10.8 g/dl (14.0-18.0); Imm Gran Abs Auto 0.18 X10*3/uL (0.00-0.03); Imm Gran Pct Auto 1.5 % (0.0-0.4); Lymphocytes Absolute Auto 0.9 X10*3/uL (1.2-4.9); Mean Corpuscular Hemoglobin 28.5 pg (27.0-33.0); Mean Corpuscular Volume 88.9 fL (80.0-98.0); Mean Platelet Volume 9.1 fL (9.4-12.4); Monocytes Absolute Auto 1.2 X10*3/uL (0.1-1.2); Neutrophils Absolute Auto 9.7 x10*3/uL (2.0-8.3); Neutrophils Percent Auto 79.5 % (45-73); Platelet Count 439 X10*3/uL (160-400); Red Blood Count 3.79 X10*6/uL (4.60-5.80); Red Cell Distribution Width 13.7 % (11.0-16.0); White Blood Count 12.2 X10*3/uL (4.8-10.8)
[2022-11-21 05:56] LABS: Anion Gap 13 (12-20); Blood Urea Nitrogen 29 mg/dL (9-16); Calcium 9.1 mg/dL (8.4-10.2); Carbon Dioxide 30 mmol/L (22-29); Chloride 94 mmol/L (96-108); Estimated Glomerular Filt Rate > 60; Glucose Random 101 mg/dL (60-115); Potassium 4.4 mmol/L (3.3-5.1); Sodium 133 mmol/L (135-145)
[2022-11-21] MEDS: Furosemide 20 MG TABLET PO ×2 (08:22→17:13)
[2022-11-21] MEDS: Digoxin 0.125 MG TABLET PO (08:22)
[2022-11-21] MEDS: Empagliflozin 10 MG TABLET PO (08:22)
[2022-11-21] MEDS: Metoprolol Tartrate 25 MG TABLET PO ×2 (08:22→21:53)
[2022-11-21] MEDS: Finasteride 5 MG TABLET PO (08:22)
[2022-11-21] MEDS: predniSONE 5 MG TABLET PO (08:22)
--- NOTE | 2022-11-21 09:36 | P.PNIM_ITS ---
Subjective Subjective Date of Service: 11/21/22 Interval History: seen and examined this morning follow up for multiple issues, hematuria still active no overnight events woke up feeling well this am, still with some persistent hematuria, but improving requires increase in o2 needs with ambulation but denies any sob Review of Systems Review of Systems: Yes all other systems are reviewed and are negative Constitutional Constitutional: Denies chills and Denies fever(s) ENT Ears, Nose, Mouth, and Throat: Denies dizziness Cardiovascular Cardiovascular: Denies chest pain, Denies palpitations and Denies dyspnea Respiratory Respiratory: Denies cough and Denies dyspnea Gastrointestinal Gastrointestinal: Denies abdominal pain, Denies nausea and Denies vomiting Neurologic Neurologic: Denies dizziness Endocrine Endocrine: Denies palpitations Physical Exam Vital Signs: Vital Signs: Last Vital Signs Temp 97.6 F 11/21/22 06:58 Pulse 80 11/21/22 06:58 Resp 20 11/21/22 06:58 BP 116/58 L 11/21/22 06:58 Pulse Ox 98 11/21/22 06:58 O2 Del Method Nasal Cannula 11/21/22 06:58 O2 Flow Rate 3 11/21/22 06:58 BMI result Body Mass Index 19.7 Const: General: cooperative, comfortable, alert and awake Nutritional Appearance: thin Orientation/consciousness: patient oriented x3 Chest: Other: c/d/i dressing left anterior chest wall Resp: Other: diminished breath sounds Effort & Inspection: normal respiratory effort, able to speak in complete sentences, no respiratory distress and no use of accessory muscles Cardio: Rate: regular rate Heart sounds: S1 normal heart sound present and S2 normal heart sound present GI: Inspection: No distended Palpation (GI): Soft to palpation and nontender : Other: [address] light pink tinged palacio output Neuro: General: patient oriented x3, moves all extremities and CN's II-XI intact bilaterally Extrem: General: Yes no pedal edema Objective Data Active Medications Acetaminophen (Acetaminophen 325 Mg Tablet) 650 mg PO Q6H PRN PRN Reason: Pain, Mild (Pain Scale 1-3) Last Admin: 11/19/22 23:21 Dose: 650 mg Documented By: MELISSA Atorvastatin Calcium (Atorvastatin Calcium 40 Mg Tablet) 40 mg PO BEDTIME [facility] Last Admin: 11/20/22 21:51 Dose: 40 mg Documented By: ANDERSON Digoxin (Digoxin 0.125 Mg Tablet) 0.125 mg PO DAILY [facility] Last Admin: 11/21/22 08:22 Dose: 0.125 mg Documented By: FERNANDEZ Docusate Sodium (Docusate Sodium 100 Mg Capsule) 100 mg PO BEDTIME [facility] Last Admin: 11/20/22 21:51 Dose: 100 mg Documented By: ANDERSON Empagliflozin (Empagliflozin 10 Mg Tablet) 10 mg PO DAILY [facility] Last Admin: 11/21/22 08:22 Dose: 10 mg Documented By: FERNANDEZ Finasteride (Finasteride 5 Mg Tablet) 5 mg PO DAILY [facility] Last Admin: 11/21/22 08:22 Dose: 5 mg Documented By: FERNANDEZ Fluticasone/Vilanterol (Fluticasone/Vilanterol 200/25 Blst.W.Dev) 1 puff INHALE RDAILY [facility] Last Admin: 11/21/22 07:59 Dose: Not Given Documented By: WINSOME Non-Admin Reason: Patient Refused Furosemide (Furosemide 20 Mg Tablet) 20 mg PO BID@0900,1800 [facility]; Protocol Last Admin: 11/21/22 08:22 Dose: 20 mg Documented By: FERNANDEZ Lidocaine/Diphenhydr/Alum/Mg/Simeth (Mag&Al/Sim/Diphenhyd/Lidocaine 10 Ml O ral.Susp) 10 ml PO Q6H PRN; Protocol PRN Reason: mouth pain Last Admin: 11/17/22 09:55 Dose: 10 ml Documented By: IWONA Metoprolol Tartrate (Metoprolol Tartrate 25 Mg Tablet) 25 mg PO BID [facility]; Protocol Last Admin: 11/21/22 08:22 Dose: 25 mg Documented By: FERNANDEZ Omeprazole (Omeprazole 20 Mg Capsule.Dr) 20 mg PO DAILY@0630 [facility] Last Admin: 11/20/22 09:04 Dose: 20 mg Documented By: JEYSON Oxycodone HCl (Oxycodone Hcl Immed Release 5 Mg Tablet) 5 mg PO Q4H PRN PRN Reason: Pain, Mild (Pain Scale 1-3) Last Admin: 11/20/22 22:02 Dose: 5 mg Documented By: ANDERSON Pharmacy Consult (Consult Rx Perform Med Rec) 1 each MISCELLANE ONCE PRN PRN Reason: Consult order Polyethylene Glycol (Polyethylene Glycol 3350 17 Gm Powd.Pack) 17 gm PO DAILY PRN PRN Reason: Constipation Prednisone (Prednisone 5 Mg Tablet) 5 mg PO DAILY [facility] Last Admin: 11/21/22 08:22 Dose: 5 mg Documented By: FERNANDEZ Tamsulosin HCl (Tamsulosin Hcl 0.4 Mg Capsule) 0.4 mg PO BEDTIME [facility] Last Admin: 11/20/22 21:51 Dose: 0.4 mg Documented By: ANDERSON Labs 11/21/22 05:33 11/21/22 05:33 Labs: Laboratory Results - last 24 hr 11/21/22 11/21/22 05:33 05:33 MCV 88.9 MCH 28.5 MCHC 32.0 RDW 13.7 Plt Count 439 H MPV 9.1 L Immature Gran % (Auto) 1.5 H Neut % (Auto) 79.5 H Lymph % (Auto) 7.0 L Burt % (Auto) 10.0 Eos % (Auto) 1.8 Baso % (Auto) 0.2 Lymph # (Auto) 0.9 L Burt # (Auto) 1.2 Eos # (Auto) 0.2 Baso # (Auto) 0.0 Abs Immat Gran (auto) 0.18 H Absolute Neuts (auto) 9.7 H Absolute Nucleated RBC 0.000 Nucleated RBC % (auto) 0.0 Anion Gap 13 Estim Creat Clear Calc 44.0 Estimated GFR > 60 Random Glucose 101 Calcium 9.1 Microbiology Microbiology Results: Microbiology 11/12/22 15:01 Direct Acid Fast Bacilli Smear - Final Pericardial Fluid Assessment and Plan (1) Hematuria: Status: Acute Plan This is an 82 year old male with history of CAD, chronic combined systolic and diastolic heart failure, atrial fibrillation on anticoagulation, severe COPD, BPH, chronic pericardial effusion with progressive lower extremity edema and dyspnea admitted to the ICU after echo revealed large pericardial effusion increased from previous with concern for tamponade physiology and underwent pericardial window with drainage of 900cc of pericardial fluid. He was downgraded from the ICU on 11/13. Stable from cardiac standpoint, but continue with hematuria. CBI clamped yesterday with 250ml red urine, CBI resumed. BPs remain soft subacute on chronic pericardial effusion s/p pericardial window for tamponade with drainage of 900cc of pericardial fluid and pericardial drain placement - Dr. Garcia 11/12 (received kcentra prior to procedure) culture negative to date, pathology with benign pericardial tissue; no cell count sent. cytology with no malignancy identified limited echo 11/13, 11/15 showing significantly reduced size of pericardial effusion to trivial pericardial drain removed 11/14 acute on chronic HF, combined systolic and diastolic initially on Lasix drip, and IV push lasix. Continue PO lasix- dose decreased to 20mg BID PO due to soft BPs started on jardiance, entresto, BB during this admission. Not tolerating entresto with low bp's. Per cards, stop entresto and readdress outpt due to decrease in LV systolic function consider outpatient ischemic workup once other medical issues have resolved hold off on any anticoagulation or anti-platelet given persistent hematuria/hemorrhagic pericardial effusion cardiology outpt Paroxysmal atrial fibrillation HR now controlled anticoagulation on hold for hematuria/ hemorrhagic pericardial effusion- consideration for Watchman device as outpatient stop amiodoarone due to risk for conversion as patient can't be anticoagulated continue metoprolol, digoxin cardiology outpt acute respiratory failure with hypoxia secondary to acute CHF wean o2 as tolerated BPH with urinary retention s/p palacio placed by urology on 11/13 continue flomax, finasteride Hematuria s/p palacio placement by urology CBI clamped yesterday with 250ml red urine outpt. CBI resumed Discussed with urology who will start tranexemic acid and reassess avoid AC H/H stable normocytic anemia, acute on chronic component of acute blood loss secondary to hematuria received 1U rbc 11/15 due to underlying CAD, COPD. goal to keep Hct around 30 H/H stable follow CBC hyperkalemia repleted, resolved follow lytes COPD on symbicort at baseline, will convert to formulary equivalent continue chronic prednisone not on oxygen at baseline Leukocytosis related to steroid use. Repeat CXR negative HTN- bps soft on amlodipine at baseline, on hold for now, resume as able reduce metoprolol to 25mg BID, lasix reduced to 20mg BID. Stop entresto per cardiology- to be reassessed outpt CAD on BB, statin hold imdur cardiology follow up outpt moderate protein calorie malnutrition BMI 17.4 loss of muscle mass and subcutaneous fat stage 1 to coccyx continue frequent position changes gi Ppx - omeprazole dvt ppx - mechanical devices due to hematuria code status - full code attending - dr. noel dispo: PT recommending STR, pending placement. Stable from cardiac standpoint, but hematuria persists. Had planned for dc but hematuria recurred after CBI clamped, and now again on CBI patient requires ongoing inpatient hospitalization for management of hematuria Time Spent With Patient Time: Total time managing care of this patient today ____ minutes. Quality Stroke Does the patient have a stroke diagnosis?: No VTE Prior VTE?: No VTE Risk Level:: Medical - moderate - high VTE Device Contraindication: N/A - Device Ordered VTE Drug Contraindication: Treatment Not Indicated
[2022-11-21] MEDS: oxyCODONE HCl Immed Release 5 MG TABLET PO (19:35)
[2022-11-21] MEDS: Docusate Sodium 100 MG CAPSULE PO (21:53)
[2022-11-21] MEDS: Atorvastatin Calcium 40 MG TABLET PO (21:53)
[2022-11-21] MEDS: Tamsulosin HCL 0.4 MG CAPSULE PO (21:53)
[2022-11-22] VITALS (7 sets, daily range): BP systolic 95–120; BP diastolic 53–58; PULSE 76–99; RESP 14–20; TEMP 36.1–36.7; O2SAT 96–100; BMI 20.1
[2022-11-22] MEDS: Omeprazole 20 MG CAPSULE.DR PO (05:39)
[2022-11-22 08:33] LABS: MANUAL DIFF FLAG NO
[2022-11-22 08:39] LABS: Basophils Percent Auto 0.2 % (0-2); Eosinophils Absolute Auto 0.1 X10*3/uL (0.0-0.4); Eosinophils Percent Auto 0.9 % (0-4); Hematocrit 33.8 % (42.0-52.0); Imm Gran Abs Auto 0.26 X10*3/uL (0.00-0.03); Imm Gran Pct Auto 1.9 % (0.0-0.4); Lymphocytes Absolute Auto 0.6 X10*3/uL (1.2-4.9); Lymphocytes Percent Auto 4.5 % (20-40); Mean Corpuscular HGB Conc 32.5 g/dl (31.0-36.0); Mean Corpuscular Hemoglobin 28.7 pg (27.0-33.0); Mean Corpuscular Volume 88.3 fL (80.0-98.0); Mean Platelet Volume 9.6 fL (9.4-12.4); Monocytes Absolute Auto 1.4 X10*3/uL (0.1-1.2); Monocytes Percent Auto 10.6 % (2-11); Neutrophils Absolute Auto 11.2 x10*3/uL (2.0-8.3); Neutrophils Percent Auto 81.9 % (45-73); Platelet Count 374 X10*3/uL (160-400); Red Blood Count 3.83 X10*6/uL (4.60-5.80); Red Cell Distribution Width 13.7 % (11.0-16.0); White Blood Count 13.6 X10*3/uL (4.8-10.8)
[2022-11-22 09:15] LABS: Anion Gap 14 (12-20); Blood Urea Nitrogen 26 mg/dL (9-16); Carbon Dioxide 28 mmol/L (22-29); Chloride 95 mmol/L (96-108); Creatinine Clr Calc Pharmacy 47.2; Estimated Glomerular Filt Rate > 60; Glucose Random 96 mg/dL (60-115); Sodium 133 mmol/L (135-145)
[2022-11-22] MEDS: Fluticasone/Vilanterol 200/25 BLST.W.DEV 1 PUFF INHALE (09:36)
[2022-11-22] MEDS: Finasteride 5 MG TABLET PO (09:40)
[2022-11-22] MEDS: Digoxin 0.125 MG TABLET PO (09:40)
[2022-11-22] MEDS: Empagliflozin 10 MG TABLET PO (09:40)
[2022-11-22] MEDS: Metoprolol Tartrate 25 MG TABLET PO ×2 (09:40→21:07)
[2022-11-22] MEDS: predniSONE 5 MG TABLET PO (09:40)
[2022-11-22] MEDS: Furosemide 20 MG TABLET PO ×2 (09:40→18:02)
--- NOTE | 2022-11-22 10:21 | MHC.CM.PN ---
Per ROUNDS discussion, Patient is still having Hematuria and is not yet medically cleared for dc. PT is recommending STR and Patient and his want him to return home with [facility]. CM will follow.
--- NOTE | 2022-11-22 11:51 | P.PNIM_ITS ---
Subjective Subjective Date of Service: 11/22/22 Interval History: patient seen and examined this morning. He is very frustrated With his medical situation. States that he is feeling uncomfortable from being in bed for so many days. His frustrated with the hematuria and does not understand why he still has bloody urine output. I sat with the patient and explained to him extensively about the current medical planning and thought process. Patient continues to have hematuria in the back. Denies any chest pain, reports no shortness of breath, denies any abdominal pain nausea or vomiting, no diarrhea constipation. complaining pain in his feet bilaterally, and reports that he has hard time moving his feet bilaterally. States that he has been out of bed into chair frequently. Review of Systems All other review systems negative otherwise Physical Exam Vital Signs: Vital Signs: Last Vital Signs Temp 97.0 F 11/22/22 07:31 Pulse 99 11/22/22 09:56 Resp 16 11/22/22 09:38 BP 119/58 L 11/22/22 07:31 Pulse Ox 98 11/22/22 07:31 O2 Del Method Nasal Cannula 11/22/22 07:31 O2 Flow Rate 3 11/22/22 07:31 BMI result Body Mass Index 20.1 Const: Other: awake alert oriented x3 Resp: Other: clear to auscultation bilaterally Cardio: Other: irregular rhythm, normal rate GI: Other: abdomen is soft, nontender : Other: Palacio catheter in place, CBI, with bloody urine in Palacio catheter back Extrem: Other: Toes are warm, tender, there is generalize discoloration of toes bilaterally Objective Data Active Medications Acetaminophen (Acetaminophen 325 Mg Tablet) 650 mg PO Q6H PRN PRN Reason: Pain, Mild (Pain Scale 1-3) Last Admin: 11/19/22 23:21 Dose: 650 mg Documented By: MELISSA Atorvastatin Calcium (Atorvastatin Calcium 40 Mg Tablet) 40 mg PO BEDTIME [facility] Last Admin: 11/21/22 21:53 Dose: 40 mg Documented By: MELISSA Digoxin (Digoxin 0.125 Mg Tablet) 0.125 mg PO DAILY [facility] Last Admin: 11/22/22 09:40 Dose: 0.125 mg Documented By: NILAY Docusate Sodium (Docusate Sodium 100 Mg Capsule) 100 mg PO BEDTIME [facility] Last Admin: 11/21/22 21:53 Dose: 100 mg Documented By: EMLISSA Empagliflozin (Empagliflozin 10 Mg Tablet) 10 mg PO DAILY [facility] Last Admin: 11/22/22 09:40 Dose: 10 mg Documented By: NILAY Finasteride (Finasteride 5 Mg Tablet) 5 mg PO DAILY [facility] Last Admin: 11/22/22 09:40 Dose: 5 mg Documented By: NILAY Fluticasone/Vilanterol (Fluticasone/Vilanterol 200/25 Blst.W.Dev) 1 puff INHALE RDAILY [facility] Last Admin: 11/22/22 09:36 Dose: 1 puff Documented By: KAMAR Furosemide (Furosemide 20 Mg Tablet) 20 mg PO BID@0900,1800 [facility]; Protocol Last Admin: 11/22/22 09:40 Dose: 20 mg Documented By: NILAY Lidocaine/Diphenhydr/Alum/Mg/Simeth (Mag&Al/Sim/Diphenhyd/Lidocaine 10 Ml Oral.Susp) 10 ml PO Q6H PRN; Protocol PRN Reason: mouth pain Last Admin: 11/17/22 09:55 Dose: 10 ml Documented By: IWONA Metoprolol Tartrate (Metoprolol Tartrate 25 Mg Tablet) 25 mg PO BID [facility]; Protocol Last Admin: 11/22/22 09:40 Dose: 25 mg Documented By: NILAY Omeprazole (Omeprazole 20 Mg Capsule.Dr) 20 mg PO DAILY@0630 [facility] Last Admin: 11/22/22 05:39 Dose: 20 mg Documented By: MELISSA Oxycodone HCl (Oxycodone Hcl Immed Release 5 Mg Tablet) 5 mg PO Q4H PRN PRN Reason: Pain, Mild (Pain Scale 1-3) Last Admin: 11/21/22 19:35 Dose: 5 mg Documented By: MELISSA Pharmacy Consult (Consult Rx Perform Med Rec) 1 each MISCELLANE ONCE PRN PRN Reason: Consult order Polyethylene Glycol (Polyethylene Glycol 3350 17 Gm Powd.Pack) 17 gm PO DAILY PRN PRN Reason: Constipation Prednisone (Prednisone 5 Mg Tablet) 5 mg PO DAILY [facility] Last Admin: 11/22/22 09:40 Dose: 5 mg Documented By: NILAY Tamsulosin HCl (Tamsulosin Hcl 0.4 Mg Capsule) 0.4 mg PO BEDTIME [facility] Last Admin: 11/21/22 21:53 Dose: 0.4 mg Documented By: MELISSA Labs 11/22/22 08:15 11/22/22 08:15 Labs: Laboratory Results - last 24 hr 11/22/22 11/22/22 08:15 08:15 MCV 88.3 MCH 28.7 MCHC 32.5 RDW 13.7 Plt Count 374 MPV 9.6 Immature Gran % (Auto) 1.9 H Neut % (Auto) 81.9 H Lymph % (Auto) 4.5 L Noble % (Auto) 10.6 Eos % (Auto) 0.9 Baso % (Auto) 0.2 Lymph # (Auto) 0.6 L Noble # (Auto) 1.4 H Eos # (Auto) 0.1 Baso # (Auto) 0.0 Abs Immat Gran (auto) 0.26 H Absolute Neuts (auto) 11.2 H Absolute Nucleated RBC 0.000 Nucleated RBC % (auto) 0.0 Anion Gap 14 Estim Creat Clear Calc 47.2 Estimated GFR > 60 Random Glucose 96 Calcium 9.0 Assessment and Plan (1) Pericardial effusion: Status: Acute (2) Cardiac tamponade: Status: Acute (3) Atrial fibrillation with rapid ventricular response: Status: Acute (4) Hematuria: Status: Acute Plan This is an 82 year old male with history of CAD, chronic combined systolic and diastolic heart failure, atrial fibrillation on anticoagulation, severe COPD, BPH, chronic pericardial effusion with progressive lower extremity edema and dyspnea admitted to the ICU after echo revealed large pericardial effusion incr eased from previous with concern for tamponade physiology and underwent pericardial window with drainage of 900cc of pericardial fluid. He was downgraded from the ICU on 11/13. Stable from cardiac standpoint, but continue with hematuria. CBI clamped yesterday with 250ml red urine, CBI resumed. BPs re main soft # Hematuria - unclear etiology - s/p palacio placement by urology - CBI was clamped on 11/20, but had 250ml red urine outpt. CBI resumed - Pt was started on tranexemic acid but continues to have hematuria- will continue to discuss with urology - avoid AC - follow cbc # subacute on chronic pericardial effusion - s/p pericardial window for tamponade with drainage of 900cc of pericardial fluid and pericardial drain placement - Dr. Garcia 11/12 (received kcentra prior to procedure) - culture negative,pathology with benign pericardial tissue; no cell count sent. cytology with no malignancy identified - limited echo 11/13, 11/15 showing significantly reduced size of pericardial effusion to trivial - pericardial drain removed 11/14 # acute on chronic HF, combined systolic and diastolic - resolved. tx with iv lasix drip now on po lasix - Continue PO lasix- dose decreased to 20mg BID PO due to soft BPs - started on jardiance, entresto, BB during this admission. - Not tolerating entresto with low bp's. Per cards, stop entresto and readdress outpt - due to decrease in LV systolic function consider outpatient ischemic workup once other medical issues have resolved - hold off on any anticoagulation or anti-platelet given persistent hematuria/hemorrhagic pericardial effusion - follow cardiology outpt # Paroxysmal atrial fibrillation - Rate controlled - anticoagulation on hold for hematuria/ hemorrhagic pericardial effusion- consideration for Watchman device as outpatient - stop amiodoarone due to risk for conversion as patient can't be anticoagulated - continue metoprolol, digoxin - cardiology outpt # acute respiratory failure with hypoxia - improving, denies SOB - secondary to acute CHF and pericardial effusion - wean o2 as tolerated # BPH with urinary retention - s/p palacio placed by urology on 11/13 - continue flomax, finasteride # normocytic anemia, acute on chronic - component of acute blood loss secondary to hematuria - received 1U rbc 11/15 due to underlying CAD, COPD. goal to keep Hct around 30 - H/H stable - follow CBC #COPD - not in axacerabation - on symbicort at baseline, will convert to formulary equivalent - continue chronic prednisone - not on oxygen at baseline # Leukocytosis - 2/2 steroids - follow cbc # HTN- bps soft - amlodipine on hold, continue to hold for now - reduce metoprolol to 25mg BID, lasix reduced to 20mg BID. - Stop entresto per cardiology- to be reassessed outpt # CAD - on BB, statin - hold imdur due to hypotension cardiology follow up outpt # moderate protein calorie malnutrition BMI 17.4 loss of muscle mass and subcutaneous fat # stage 1 to coccyx continue frequent position changes gi Ppx - omeprazole dvt ppx - mechanical devices due to hematuria code status - full code dispo: PT recommending STR, pending placement. Stable from cardiac standpoint, but hematuria persists. Had planned for dc but hematuria recurred after CBI clamped, and now again on CBI patient requires ongoing inpatient hospitalization for management of hematuria Time Spent With Patient Time: Total time managing care of this patient today ____ minutes. Quality Stroke Does the patient have a stroke diagnosis?: No VTE Prior VTE?: No VTE Risk Level:: Medical - moderate - high VTE Device Contraindication: N/A - Device Ordered VTE Drug Contraindication: Treatment Not Indicated
[2022-11-22] MEDS: Lactated Ringers 500 ML 999 ML IV (15:49)
--- NOTE | 2022-11-22 18:43 | PC.NURSE ---
CBI discontinued per Dr. Jensen.
[2022-11-22] MEDS: Tamsulosin HCL 0.4 MG CAPSULE PO (21:06)
[2022-11-22] MEDS: Docusate Sodium 100 MG CAPSULE PO (21:07)
[2022-11-22] MEDS: Atorvastatin Calcium 40 MG TABLET PO (21:07)
[2022-11-22] MEDS: Acetaminophen 325 MG TABLET 650 MG PO (21:07)
[2022-11-23] VITALS (8 sets, daily range): BP systolic 90–128; BP diastolic 50–62; PULSE 73–88; RESP 17–20; TEMP 36.2–36.6; O2SAT 93–100
[2022-11-23] MEDS: Omeprazole 20 MG CAPSULE.DR PO (05:39)
[2022-11-23] MEDS: Fluticasone/Vilanterol 200/25 BLST.W.DEV 1 PUFF INHALE (07:38)
[2022-11-23] MEDS: Empagliflozin 10 MG TABLET PO (09:34)
[2022-11-23] MEDS: Metoprolol Tartrate 25 MG TABLET PO ×2 (09:34→20:33)
[2022-11-23] MEDS: Finasteride 5 MG TABLET PO (09:34)
[2022-11-23] MEDS: predniSONE 5 MG TABLET PO (09:34)
[2022-11-23] MEDS: Digoxin 0.125 MG TABLET PO (09:34)
[2022-11-23] MEDS: Furosemide 20 MG TABLET PO ×2 (09:34→18:06)
--- NOTE | 2022-11-23 10:26 | P.PNIM_ITS ---
Subjective Subjective Date of Service: 11/23/22 Interval History: Patient seen and examined at bedside. He is happier today. CBI was discontinued yesterday by urology. Denies any chest pain, no shortness of breath, no abdominal pain nausea or vomiting, no diarrhea constipation. No uri nary symptoms at this time. 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 Neuro: Other: Oriented x3 Extrem: Other: No pedal edema Objective Data Active Medications Acetaminophen (Acetaminophen 325 Mg Tablet) 650 mg PO Q6H PRN PRN Reason: Pain, Mild (Pain Scale 1-3) Last Admin: 11/22/22 21:07 Dose: 650 mg Documented By: DAWN Atorvastatin Calcium (Atorvastatin Calcium 40 Mg Tablet) 40 mg PO BEDTIME PENDING SALE TO [facility] Last Admin: 11/22/22 21:07 Dose: 40 mg Documented By: DAWN Digoxin (Digoxin 0.125 Mg Tablet) 0.125 mg PO DAILY PENDING SALE TO [facility] Last Admin: 11/23/22 09:34 Dose: 0.125 mg Documented By: NILAY Docusate Sodium (Docusate Sodium 100 Mg Capsule) 100 mg PO BEDTIME PENDING SALE TO [facility] Last Admin: 11/22/22 21:07 Dose: 100 mg Documented By: DAWN Empagliflozin (Empagliflozin 10 Mg Tablet) 10 mg PO DAILY PENDING SALE TO [facility] Last Admin: 11/23/22 09:34 Dose: 10 mg Documented By: NILAY Finasteride (Finasteride 5 Mg Tablet) 5 mg PO DAILY PENDING SALE TO [facility] Last Admin: 11/23/22 09:34 Dose: 5 mg Documented By: NILAY Fluticasone/Vilanterol (Fluticasone/Vilanterol 200/25 Blst.W.Dev) 1 puff INHALE RDAILY PENDING SALE TO [facility] Last Admin: 11/23/22 07:38 Dose: 1 puff Documented By: WINSOME Furosemide (Furosemide 20 Mg Tablet) 20 mg PO BID@0900,1800 PENDING SALE TO [facility]; Protocol Last Admin: 11/23/22 09:34 Dose: 20 mg Documented By: NILAY Lidocaine/Diphenhydr/Alum/Mg/Simeth (Mag&Al/Sim/Diphenhyd/Lidocaine 10 Ml Oral.Susp) 10 ml PO Q6H PRN; Protocol PRN Reason: mouth pain Last Admin: 11/17/22 09:55 Dose: 10 ml Documented By: IWONA Metoprolol Tartrate (Metoprolol Tartrate 25 Mg Tablet) 25 mg PO BID PENDING SALE TO [facility]; Protocol Last Admin: 11/23/22 09:34 Dose: 25 mg Documented By: NILAY Omeprazole (Omeprazole 20 Mg Capsule.Dr) 20 mg PO DAILY@0630 PENDING SALE TO [facility] Last Admin: 11/23/22 05:39 Dose: 20 mg Documented By: DAWN Pharmacy Consult (Consult Rx Perform Med Rec) 1 each MISCELLANE ONCE PRN PRN Reason: Consult order Polyethylene Glycol (Polyethylene Glycol 3350 17 Gm Powd.Pack) 17 gm PO DAILY PRN PRN Reason: Constipation Prednisone (Prednisone 5 Mg Tablet) 5 mg PO DAILY PENDING SALE TO [facility] Last Admin: 11/23/22 09:34 Dose: 5 mg Documented By: NILAY Tamsulosin HCl (Tamsulosin Hcl 0.4 Mg Capsule) 0.4 mg PO BEDTIME PENDING SALE TO [facility] Last Admin: 11/22/22 21:06 Dose: 0.4 mg Documented By: DAWN Labs 11/22/22 08:15 11/22/22 08:15 Assessment and Plan (1) Atrial fibrillation with rapid ventricular response: Status: Acute (2) Urinary retention: Status: Acute (3) Atrial tachycardia: Status: Acute (4) Decompensated heart failure: Status: Acute (5) Hematuria: Status: Acute (6) Afib: Status: Acute Plan This is an 82 year old male with history of CAD, chronic combined systolic and diastolic heart failure, atrial fibrillation on anticoagulation, severe COPD, BPH, chronic pericardial effusion with progressive lower extremity edema and dyspnea admitted to the ICU after echo revealed large pericardial effusion increased from previous with concern for tamponade physiology and underwent pericardial window with drainage of 900cc of pericardial fluid. He was downgraded from the ICU on 11/13. Stable from cardiac standpoint, but developed hematuria. Patient was treated with CBI, CBI was discontinued on 11/22 # Hematuria - s/p palacio placement by urology and CBI - CBI was discontinued on 11/22 - Pt was started on tranexemic acid - plan for discontinuation of Palacio catheter today - hold anticoagulation - stable hemoglobin - follow cbc # subacute on chronic pericardial effusion - s/p pericardial window for tamponade with drainage of 900cc of pericardial fluid and pericardial drain placement - Dr. Garcia 11/12 (received kcentra prior to procedure) - culture negative,pathology with benign pericardial tissue; no cell count sent. cytology with no malignancy identified - limited echo 11/15 showing significantly reduced size of pericardial effusion to trivial - pericardial drain removed 11/14 # acute on chronic HF, combined systolic and diastolic - resolved. tx with iv lasix drip now on po lasix - Continue PO lasix- dose decreased to 20mg BID PO due to soft BPs - started on jardiance, entresto, BB during this admission. - Not tolerating entresto with low bp's. Per cards, stop entresto and readdress outpt - due to decrease in LV systolic function consider outpatient ischemic workup once other medical issues have resolved - hold off on any anticoagulation or anti-platelet given persistent hematuria/hemorrhagic pericardial effusion - follow cardiology outpt # Paroxysmal atrial fibrillation - Rate controlled - anticoagulation on hold for hematuria/ hemorrhagic pericardial effusion- consideration for Watchman device as outpatient - stop amiodoarone due to risk for conversion as patient can't be anticoagulated - continue metoprolol, digoxin - cardiology outpt # acute respiratory failure with hypoxia - improving, denies SOB - secondary to acute CHF and pericardial effusion - wean o2 as tolerated # BPH with urinary retention - s/p palacio placed by urology on 11/13 - continue flomax, finasteride # normocytic anemia, acute on chronic - component of acute blood loss secondary to hematuria - received 1U rbc 11/15 due to underlying CAD, COPD. goal to keep Hct around 30 - H/H stable - follow CBC #COPD - not in axacerabation - on symbicort at baseline, will convert to formulary equivalent - continue chronic prednisone - not on oxygen at baseline # Leukocytosis - 2/2 steroids - follow cbc # HTN- bps soft - amlodipine on hold - reduce metoprolol to 25mg BID, lasix reduced to 20mg BID. - Stop entresto per cardiology- to be reassessed outpt - bp check q4h # CAD - on BB, statin - hold imdur due to hypotension cardiology follow up outpt # moderate protein calorie malnutrition BMI 17.4 loss of muscle mass and subcutaneous fat # stage 1 to coccyx continue frequent position changes gi Ppx - omeprazole dvt ppx - mechanical devices due to hematuria code status - full code dispo: PT recommending STR, pending placement. Stable from cardiac standpoint, but has hematuria. Still being evaluated by Urology for the hematuria, if able to remove Palacio catheter with no further breathe, will plan for discharge patient requires ongoing inpatient hospitalization for management of hematuria Time Spent With Patient Time: Total time managing care of this patient today ____ minutes. Quality Stroke Does the patient have a stroke diagnosis?: No VTE Prior VTE?: No VTE Risk Level:: Medical - moderate - high VTE Device Contraindication: N/A - Device Ordered VTE Drug Contraindication: Treatment Not Indicated
--- NOTE | 2022-11-23 18:06 | PC.NURSE ---
[address] way palacio cath removed at 16:00. Pt tolerated well. Due to void by 22:00.
--- NOTE | 2022-11-23 18:44 | PC.NURSE ---
patient voided 33 mL of shreya urine.
[2022-11-23] MEDS: Docusate Sodium 100 MG CAPSULE PO (20:33)
[2022-11-23] MEDS: Tamsulosin HCL 0.4 MG CAPSULE PO (20:33)
[2022-11-23] MEDS: Atorvastatin Calcium 40 MG TABLET PO (20:33)
[2022-11-24 03:18] VITALS: BP 134/61; PULSE 71; RESP 16; TEMP 36.3; O2SAT 97
[2022-11-24 06:00] VITALS: BMI 19.7
[2022-11-24] MEDS: Omeprazole 20 MG CAPSULE.DR PO (06:26)
[2022-11-24 07:09] VITALS: BP 123/60; PULSE 77; RESP 20; TEMP 36.2; O2SAT 97
[2022-11-24] MEDS: Fluticasone/Vilanterol 200/25 BLST.W.DEV 1 PUFF INHALE (08:20)
[2022-11-24 08:21] VITALS: PULSE 77; RESP 20; O2SAT 97
[2022-11-24] MEDS: Digoxin 0.125 MG TABLET PO (08:45)
[2022-11-24] MEDS: Metoprolol Tartrate 25 MG TABLET PO (08:45)
[2022-11-24] MEDS: Finasteride 5 MG TABLET PO (08:46)
[2022-11-24] MEDS: Empagliflozin 10 MG TABLET PO (08:46)
[2022-11-24] MEDS: predniSONE 5 MG TABLET PO (08:46)
[2022-11-24] MEDS: Furosemide 20 MG TABLET PO (08:46)
--- NOTE | 2022-11-24 10:50 | P.DS_ITS ---
DS: Providers Provider Date of Service: 11/24/22 Date of admission: 11/12/22 15:31 Primary care physician: Saul Sigala MD Consults: 11/13/22 02:01 Consult to Urology Stat Consulting Provider: Benita Galloway Reason for consultation: urinary retention Has provider been notified: Yes DS: Diagnosis Discharge Diagnosis (1) Atrial fibrillation with rapid ventricular response: Status: Acute (2) Urinary retention: Status: Acute (3) Atrial tachycardia: Status: Acute (4) Decompensated heart failure: Status: Acute (5) Hematuria: Status: Acute (6) Afib: Status: Acute (7) BPH (benign prostatic hyperplasia): Status: Acute (8) Acute pericardial effusion: Status: Acute (9) Cardiac tamponade: Status: Acute DS: Summary Hospital Course Hospital Course: The patient had prolonged hospital stay, for full details please return to EMR. Admission note HPI ?82-year-old gentleman with underlying history of CAD, chronic systolic and diastolic heart failure, AFib on anticoagulation, followed by Dr. Najera,? also severe COPD intolerant of LABA secondary to BPH, with underlying known chronic pericardial effusion has been experiencing dyspnea for last 4-6 weeks? that has been slowly progressing associated with orthopnea, worsening lower extremity edema, and paroxysmal nocturnal dyspnea.? 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 day prior to current admission patient was evaluated by his primary care physician and referred to echocardiogram and then to ER for further evaluation of his dyspnea including echocardiogram.? During ER evaluation on 11/12/2022 patient was noted to have large pericardial effusion with possible tamponade physiology and patient underwent pericardial window procedure in OR under monitored anesthesia care with drainage of approximately 900 cc of pericardial fluid.? Patient transferred to intensive care unit postop for further evaluation and management. Hospital course The patient presented with SOB with progressive lower extremity edema and dyspnea admitted to the ICU after echo revealed large pericardial effusion increased from previous with concern for tamponade physiology and underwent pericardial window with drainage of 900cc of pericardial fluid. He was downgraded from the ICU on 11/13 but developed hematuria upon placing palacio for urine retention.? Patient was treated with CBI, CBI was discontinued on 11/22 with clear urine. # Hematuria s/p palacio placement by urology and CBI. CBI was discontinued on 11/22. Held anticoagulation during that time. to restart upon discharge home. # subacute on chronic pericardial effusion s/p pericardial window for tamponade with drainage of 900cc of pericardial fluid and pericardial drain placement by Dr. Garcia 11/12. culture negative,pathology with benign pericardial tissue; no cell count sent. cytology with no malignancy identified. limited echo 11/15 showing significantly reduced size of pericardial effusion. pericardial drain removed 11/14. # acute respiratory failure with hypoxia 2/2 acute on chronic HF, combined systolic and diastolic Treated with iv lasix drip that was then changed to po lasix. started on jardiance, Metoprolol. Could not tolerate Entresto. due to decrease in LV systolic function will need outpatient ischemic workup. To follow cardiology outpatient. # Paroxysmal atrial fibrillation Rate controlled. anticoagulation on hold for hematuria/ hemorrhagic pericardial effusion with consideration for Watchman device as outpatient. Amiodoarone was stopped due to risk for conversion as patient can't be anticoagulated. To continue metoprolol, digoxin. To hold off on any anticoagulation or anti-platelet given persistent hematuria/hemorrhagic pericardial effusion until he follows with cardiology for further recommendations. # BPH with urinary retention s/p palacio placed by urology on 11/13 complicated by hematuria. removed on 11/22 with passing urine normally with no hematuria. continue flomax, finasteride. # normocytic anemia, acute on chronic component of acute blood loss secondary to hematuria. received 1U rbc 11/15 due to underlying CAD, COPD. H/H stable. # moderate protein calorie malnutrition BMI 17.4. loss of muscle mass and subcutaneous fat. supplement added to his diet inpatient. Discharge plan Get VNA services at home Discontinue Amlodipine and Metoprolol 100 mg Start Digoxin, Metoprolol 25 mg bid for rate control Start LAsix and Jardiance to help with fluid control Restart Eliquis after 24 hours if no blood in urine, in case of blood urine do not start and check with you PCP Monitor your BP and weight at home, report any changes to PCP\ Time Spent with Patient Time attestation: Total time managing care of this patient today ____ minutes. Discharge coordination time: Greater than 30 minutes Quality: Safe Use of Opioids Does Pt have an Active Cancer Diagnosis on the Problem List?: No Quality: Stroke Does the patient have a stroke diagnosis?: No Physical Exam Vital Signs: Vital Signs: Last Vital Signs Temp 97.2 F 11/24/22 07:09 Pulse 77 11/24/22 08:21 Resp 20 11/24/22 08:21 BP 123/60 11/24/22 07:09 Pulse Ox 97 11/24/22 07:09 O2 Del Method Room Air 11/24/22 07:09 O2 Flow Rate 3 11/23/22 23:33 BMI result Body Mass Index 19.7 Const: Other: Constitutional : Awake, interactive, not in distress Neck : Normal inspection, Supple Cardiovascular : irregular irregular , no JVP, no lower extremity edema Respiratory : fair bilateral air entry, no crackles, wheezes or rhonchi Gastrointestinal: soft, lax, Normal bowel sounds, Non tender Skin : Warm, Dry Neurological : Alert & oriented x3, No focal deficit DS: Data Data Completed and Pending Completed studies during hospitalization [Text1]: Pending at discharge 11/12/22 15:02 Cytology [PTH] Routine 11/12/22 15:09 Surgical [PTH] Routine Imaging Chest x-ray: Radiologist's impression: ITS Impressions Chest X-Ray 11/15/22 11:40 IMPRESSION: Unremarkable examination. Chest X-Ray 11/19/22 07:52 IMPRESSION: Large lung volumes. There may be some unchanged minor opacity in the middle lobe. No edema or new focal pneumonia. 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 Status post bilateral femoral-popliteal synthetic bypass graft placement. No evidence of occlusion of the bypass grafts or of the remaining [place] lower extremity arteries. Bilateral lower extremity monophasic flow suggesting aortobiiliac disease. Discharge Plan Discharge Anticipated Discharge Date/Time: 11/24/22 10:30 Patient Disposition: Home Health Service Discharge Diagnosis: Acute cardiac tamponade Referrals: Saul Sigala MD [Primary Care Provider] - 1 Week Brooks Garcia MD [Physician] - 1 Week Discharge Medications: New omeprazole 20 mg Capsule,Delayed Release(Dr/Ec) 20 mg PO DAILY@0630 Qty: 30 0RF digoxin 125 mcg (0.125 mg) Tablet 0.125 mg PO DAILY Qty: 30 0RF furosemide 20 mg Tablet 20 mg PO BID@0900,1800 Qty: 60 0RF Protocol: Hold for SBP< HOLD for SBP < : 90 metoprolol tartrate 25 mg Tablet 25 mg PO BID Qty: 60 0RF Protocol: Hold for SBP/HR < HOLD for SBP < : 90 HOLD for HR < : 60 Jardiance 10 mg Tablet 10 mg PO DAILY Qty: 30 0RF Continued prednisone 5 mg tablet 5 mg PO DAILY Qty: 30 6RF isosorbide mononitrate 30 mg tablet extended release 24 hr 1 tab PO DAILY@1800 multivitamin Tablet 1 tab PO DAILY budesonide-formoterol [Symbicort] 160-4.5 mcg/actuation HFA aerosol inhaler 2 puff INHALATION BID atorvastatin 40 mg tablet 40 mg PO BEDTIME finasteride 5 mg tablet 5 mg PO DAILY tamsulosin [Flomax] 0.4 mg capsule 0.4 mg PO BEDTIME albuterol sulfate 2.5 mg /3 mL (0.083 %) solution for nebulization 2.5 mg inhalation Q4-6H PRN (Reason: shortness of breath or wheezing) 30 Days Qty: 270 6RF Held Eliquis 5 mg tablet 5 mg PO BID Qty: 60 0RF Hold Instructions: 4-6 weeks, follow with cardiology as outpatient. Discontinued metoprolol tartrate 50 mg tablet 100 mg PO BID Qty: 120 0RF amlodipine 10 mg tablet 10 mg PO DAILY Discharge Orders: Discharge Order (Routine); Ordered 11/24/22 Ordered By: Saroj Stock Diet: Low salt diet Activity on Discharge: No heavy lifting Stand Alone Forms: Patient Portal Discharge page Care Plan Goals: Read below Health Concerns: Read below Plan of Treatment: Read below Assessment: You were admitted for treatment of worsening shortness f breath and edema with associated large fluid collection around the heart requrining drainage of 900 cc of fluids in ICU along with treatment with IV lasix with good response over the course of hospital stay as you were weaned down to room air. You developed blood in urine which was treated by urologist with continuous irrigation and holding blood thinners. resolved. Discontinue Amlodipine and Metoprolol 100 mg Start Digoxin, Metoprolol 25 mg bid for rate control Start LAsix and Jardiance to help with fluid control Restart Eliquis after 4-6 weeks if no blood in urine, To follow with cardiology before restarting it again. Monitor your BP and weight at home, report any changes to PCP\billboard poster
--- NOTE | 2022-11-24 11:09 | P.F2F_ITS ---
Service Date Service Date: 11/24/22 Encounter Date of encounter: 11/24/22 Reasons for Services Signs and symptoms assessed: New heart failure Malnutrition Reason for chcf: medication management and teach disease management Reason for physical therapy: home safety and mobility and therapeutic exercises Homebound: Leaving the home is medically contraindicated at this time without the asist of a device and/or another person due th the listed conditions above and below. Reason homebound: unsteady gait / fall risk Certification: Based on the above findings, I certify that this patient is confined to the home and needs intermittent chcf care, physical therapy and/or speech therapy, or continues to need occupational therapy. The patient is under my care, and I have initiated the establishment of the plan of care. The patient will be followed by a physician who will periodically review the plan of care. Time Spent With Patient Time: Total time managing care of this patient today ____ minutes.
[2022-11-24 11:20] VITALS: BP 115/56; PULSE 74; RESP 20; TEMP 36.1; O2SAT 97
--- NOTE | 2022-11-24 11:25 | MHC.CM.PN ---
Addendum entered by Dolores Martinez 11/24/22 11:38: IMM DELIVERED Original Note: DP: PT HAS BEEN MEDICALLY CLEARED FOR DC HOME WITH NEW [facility] SERVICES. RN AWARE. AT BEDSIDE AND AWARE. BLS TRANSPORT BOOKED FOR 12: 30 PM [facility]IA [facility].
== END 2022-11-24 12:25 | disposition home health service (06) | DRG 270 ==
LOC: HO.ED 14:29 → HO.SSS 14:39 → HO.ICU 15:57 → HO.IMC 11-13 09:39
PROVIDERS: Internal Medicine; Nurse Practitioner Acute Care; Physician Assistant; Physician Assistant Medical; Surgery; Admitting Provider Internal Medicine Pulmonary Disease; Emergency Provider Emergency Medicine; PCP Family Medicine; Visit Provider Student in an Organized Health Care Education/Training Program
PROC: 0W9D0ZZ Drainage of Pericardial Cavity, Open Approach (ICD-10-PCS; principal; 2022-11-12 14:00)
DX: I30.9 Acute pericarditis, unspecified (principal); I50.43 Acute on chronic combined systolic (congestive) and diastolic (congestive) heart failure; J96.01 Acute respiratory failure with hypoxia; D62 Acute posthemorrhagic anemia; I47.1 Supraventricular tachycardia; Z68.1 Body mass index [BMI] 19.9 or less, adult; E44.0 Moderate protein-calorie malnutrition; I31.4 Cardiac tamponade; I48.0 Paroxysmal atrial fibrillation; N40.1 Benign prostatic hyperplasia with lower urinary tract symptoms; R33.8 Other retention of urine; I11.0 Hypertensive heart disease with heart failure; E87.5 Hyperkalemia; T38.0X5A Adverse effect of glucocorticoids and synthetic analogues, initial encounter; D72.829 Elevated white blood cell count, unspecified; I25.10 Atherosclerotic heart disease of native coronary artery without angina pectoris; L89.151 Pressure ulcer of sacral region, stage 1; J47.9 Bronchiectasis, uncomplicated; Z87.891 Personal history of nicotine dependence; Z79.01 Long term (current) use of anticoagulants; Z79.52 Long term (current) use of systemic steroids; Z79.899 Other long term (current) drug therapy
CPT/HCPCS: 36415; 71045; 80048; 80076; 82803; 83735; 83880; 84100; 84484; 85014; 85018; 85025; 85027; 85610; 85730; 86850; 86900; 86901; 86923; 87070; 87073; 87116; 87205; 87206; 88112; 88305; 89051; 92610; 93005; 93308; 93925; 94640; 97116; 97140; 97162; 97530; 99284; C1758; J0131; J0690; J1160; J1940; J2250; J2270; J2405; J2795; J3010; J7168; P9016

== ENCOUNTER → 2022-12-04 12:58 | Outpatient (BNVA) | payer MEDICARE, OTHER, SELFPAY | PROVIDERS: PCP Family Medicine; Visit Provider Surgery ==

== ENCOUNTER 2022-12-17 11:35 | Outpatient (REF) | payer MEDICARE, OTHER, SELFPAY ==
[2022-12-17 13:31] LABS: MANUAL DIFF FLAG NO
[2022-12-17 13:59] LABS: Basophils Percent Auto 0.5 % (0-2); Eosinophils Percent Auto 0.5 % (0-4); Hematocrit 38.8 % (42.0-52.0); Hemoglobin 11.8 g/dl (14.0-18.0); Imm Gran Abs Auto 0.09 X10*3/uL (0.00-0.03); Lymphocytes Absolute Auto 0.8 X10*3/uL (1.2-4.9); Lymphocytes Percent Auto 9.6 % (20-40); Mean Corpuscular HGB Conc 30.4 g/dl (31.0-36.0); Mean Corpuscular Hemoglobin 27.9 pg (27.0-33.0); Mean Corpuscular Volume 91.7 fL (80.0-98.0); Mean Platelet Volume 10.1 fL (9.4-12.4); Monocytes Absolute Auto 0.6 X10*3/uL (0.1-1.2); Monocytes Percent Auto 6.6 % (2-11); Neutrophils Absolute Auto 7.2 x10*3/uL (2.0-8.3); Neutrophils Percent Auto 81.8 % (45-73); Platelet Count 375 X10*3/uL (160-400); Red Blood Count 4.23 X10*6/uL (4.60-5.80); White Blood Count 8.7 X10*3/uL (4.8-10.8)
[2022-12-17 14:35] LABS: Anion Gap 13 (12-20); Blood Urea Nitrogen 18 mg/dL (9-16); Carbon Dioxide 29 mmol/L (22-29); Chloride 102 mmol/L (96-108); Estimated Glomerular Filt Rate > 60; Potassium 4.4 mmol/L (3.3-5.1); Sodium 140 mmol/L (135-145)
== END 2022-12-17 11:36 | disposition home or self-care (01) ==
LOC: HO.HMGCLDS 11:35
PROVIDERS: PCP Family Medicine; Visit Provider Family Medicine
DX: I10 Essential (primary) hypertension (principal); D64.9 Anemia, unspecified; I50.9 Heart failure, unspecified; Z79.899 Other long term (current) drug therapy
CPT/HCPCS: 36415; 80051; 80162; 82565; 84520; 85025

== ENCOUNTER → 2023-01-07 07:39 | Outpatient (REF) | payer MEDICARE, OTHER, SELFPAY ==
--- NOTE | 2023-01-07 07:42 | CA_ITS ---
Transthoracic Echocardiogram Patient (Last, First, Middle): Peter Grimes K Gender: Male Date of : 1940 Age: 82 Procedure Date: 01/07/2023 Procedure Type: Transthoracic Echocardiogram Location: OP Height: 167.64 cm Weight: 57.61 kg BSA: 1.65 m2 Heart Rate: bpm BP: 170 / 70 mmHg Wheel Buffer: TO Referring MD: Neo Schulz MD Symptoms: I31.39 - Other pericardial effusion (noninflammatory) Study Quality: Fair ECG Rhythm: Sinus Conclusions: - There is a trivial pericardial effusion. No evidence of constrictive pericarditis. - The left ventricular systolic function is severely decreased. The visually estimated ejection fraction is between 20-25%. Findings Left Ventricle The left ventricular systolic function is severely decreased. The visually estimated ejection fraction is between 20-25%. Evidence suggests grade II (moderate) diastolic dysfunction. Venous The inferior vena cava is normal in size and collapses greater than 50% with inspiration. Pericardium/Pleural There is a trivial pericardial effusion. No evidence of constrictive pericarditis. Prior Study Comparison Changes noted compared to prior study dated: 11/15/2022. LVEF probably even lower. Measurements Mitral Valve E'Lateral: 4.46 E'Medial: 4.57 Diastolic Function E'Medial: 4.57 E' Laterial: 4.46 Updated in Other Vendor System with Status of Final Rip Chin MD electronically signed on 01/07/2023 12:53:59 PM with status of Final
== END ==
LOC: HO.CARD 07:39
PROVIDERS: Visit Provider Internal Medicine Cardiovascular Disease
DX: I31.39 Other pericardial effusion (noninflammatory) (principal); I31.4 Cardiac tamponade
CPT/HCPCS: 93308

== ENCOUNTER → 2023-01-07 07:42 | Outpatient (BNV) | payer MEDICARE, OTHER, SELFPAY | PROVIDERS: Visit Provider Internal Medicine | DX: I31.39 Other pericardial effusion (noninflammatory) (principal) | CPT/HCPCS: 93308 ==

== ENCOUNTER 2023-01-21 09:25 | Outpatient (AMB) | payer MEDICARE, OTHER, SELFPAY ==
[2023-01-21 09:28] VITALS: BP 160/70; PULSE 82; BMI 21.3
--- NOTE | 2023-01-21 09:28 | A.OFFVIS_ITS ---
Intake Vital Signs 01/21/23 09:28 Height 5 ft 6 in Weight 132 lb 4.438 oz BMI 21.3 BP 160/70 H Blood Pressure Location Lt brachial Position Sitting Pulse 82 Pulse Source Pulse Oximeter Intake Visit Reasons: hospital follow up 2 weeks after testing per NS Intake Note: hospital ff/u 2 weeks after testing Location Worker Required: No Allergies No Known Allergies Allergy (Verified 01/21/23 09:33) Medication List - Last Reconciled 01/21/23 by CRISTINO Lorenzana albuterol sulfate 2.5 mg (3 mL) inhalation Q4-6H PRN 30 days apixaban (Eliquis) 5 mg PO BID atorvastatin 40 mg PO BEDTIME budesonide-formoterol 160-4.5 mcg/actuation (Symbicort) 2 puffs inhalation BID digoxin 0.125 mg PO DAILY empagliflozin (Jardiance) 10 mg PO DAILY finasteride 5 mg PO DAILY furosemide 20 mg See Protocol PO BID@0900,1800 furosemide 40 mg PO DAILY isosorbide mononitrate ER 1 tab PO DAILY@1800 metoprolol tartrate 25 mg See Protocol PO BID multivitamin 1 tab PO DAILY omeprazole 20 mg PO DAILY@0630 prednisone 5 mg PO DAILY sacubitril-valsartan 24-26 mg (Entresto) 1 tab PO BID tamsulosin (Flomax) 0.4 mg PO BEDTIME HPI hospital follow up 2 weeks after testing per NS HPI Details Peter is an 82-year-old male with past medical history of hypertension, hyperlipidemia, coronary artery disease with multiple coronary artery stents, systolic and diastolic heart failure, chronic atrial fibrillation, reports of chronic pericardial effusion who was recently admitted to [facility] with increasing shortness of breath and edema. He was found to have a large pericardial effusion with possible tamponade physiology. He underwent emergent drainage for 900 cc of bloody pericardial fluid. His Eliquis was stopped. During his admission he was also treated for hematuria, respiratory failure, heart failure. He was started on Jardiance, Lasix. Entresto was tried however blood pressure was low. He was continued on metoprolol. Outpatient limited echocardiogram was done and he now presents for follow-up. Today he reports that he has been feeling generally well since his hospital discharge. His primary concern was the hematuria he was having any tells me this is finally resolved. He says his breathing is back to his baseline normal. He denies any PND, orthopnea, coughing, edema. He has been monitoring weight and he has gained approximately 5 lb since his hospital discharge based on home scale. He tells me he is eating good. No chest discomfort at rest or with activity. No palpitations, dizziness, presyncope, syncope. Taking all meds as directed. Does light normal ADLs at home which he says he tolerates well. He describes having 11 coronary stents and shows me the stent data cards for proof. He remains off anticoagulation. No neurological changes reported. [facility] Medical History (Updated 01/21/23 @ 11:12 by Olivia Jaffe NP-C) Acute pericardial effusion Afib Atrial fibrillation, new onset BPH (benign prostatic hyperplasia) Bronchiectasis Cardiac tamponade CHF (congestive heart failure) Chronic combined systolic and diastolic congestive heart failure COPD (chronic obstructive pulmonary disease) Coronary artery disease Decompensated heart failure Pericardial effusion Severe chronic obstructive pulmonary disease Urinary retention Surgical History H/O heart artery stent Pericardial effusion with cardiac tamponade Social History Household Members: Spouse Housing: House Alcohol intake: current Alcohol intake frequency: a few times a week Patient Tobacco Use Status: Former Tobacco user Advance Directives Date on File: 01/30/22 service: No Current occupational status: retired Review of Systems Const All systems reviewed & are unremarkable except as noted in HPI and below ENT Denies dizziness Card Denies chest pain, Denies chest pain at rest, Denies chest pain with activity, Denies rapid heart rate, Denies pedal edema, Denies edema, Denies leg edema, Denies lightheadedness, Denies palpitations, Denies dyspnea, Denies dyspnea on exertion and Denies orthopnea Resp Denies cough, Denies dyspnea and Denies dyspnea on exertion GI Denies hematochezia and Denies change in stool character Musc Denies abnormal gait, Reports limited range of motion, Reports muscle cramps, Denies muscle weakness, Denies numbness, Denies radiating pain into limb, Denies stiffness and Denies tingling Neuro Denies abnormal gait, Denies dizziness, Denies numbness and Denies tingling Endo Denies palpitations Physical Exam Vital Signs: Last Vital Signs Pulse 82 01/21/23 09:28 BP 160/70 H 01/21/23 09:28 BMI result Body Mass Index 21.3 Const General: cooperative, healthy appearing, comfortable and no acute distress Orientation/consciousness: patient oriented x3 Neck Neck: Yes normal visual inspection Resp Effort & Inspection: normal respiratory effort Auscultation: clear to auscultation bilaterally, no crackles, no rales, no rhonchi and no wheezes Cardio Jugular venous distension: no JVD Rate: regular rate Rhythm: regular rhythm Heart sounds: S1 normal heart sound present, S2 normal heart sound present, no m urmurs and no rubs Neuro General: patient oriented x3 Extrem General: Yes normal to inspection Psych Appearance: grossly normal Mental Status: mental status grossly normal Speech and movement: Normal speech and movement present Assessment & Plan Assessment & Plan (1) Pericardial effusion with cardiac tamponade: Code(s): I31.39 - Other pericardial effusion (noninflammatory); I31.4 - Cardiac tamponade Plan: Notes indicate history of moderate pericardial effusion. Outpatient echocardiogram being done due to increasing shortness of breath and edema. Echocardiogram showed a large pericardial effusion with tamponade physiology. He he was transported to the emergency room and admitted. He underwent emergent drainage of 900 cc of bloody fluid. Pericardial drain was in place for a few days prior to removal. His anticoagulation was held. He was treated for decompensated systolic and diastolic heart failure. Echo cardiograms were followed showing much improvement in his effusion post drainage and EF 30-40% range. He was diuresed and started on Jardiance. Entresto was trialed however blood pressures were low at that time. Echocardiogram done on 01/07/2023 showing EF 20-25%, trivial pericardial effusion. Today he reports no concerning symp toms. Tells me his breathing is at his baseline normal. He does get some mild shortness of breath with exertion which he says is his usual. No PND, orthopnea, edema. Will continue on current Lasix. 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 (2) Cardiomyopathy: Code(s): I42.9 - Cardiomyopathy, unspecified Plan: Notes indicate history of cardiomyopathy. Echocardiogram done 10/05/2021 showed EF 50-55%. Echocardiogram done 11/15/2022 shows EF 30-40%. Last echo 01/07/2023 shows EF 20-25%. His heart failure appears compensated at present time. His AFib heart rate seems controlled. He does have a history of CAD with multiple coronary stents. No report of anginal sounding symptoms with the exception of some mild shortness of breath with exertion which is not new. Will check a pharmacological nuclear stress test to evaluate for ischemia. Cardiology office visit 1 month, sooner if needed (3) Coronary artery disease: Code(s): I25.10 - Atherosclerotic heart disease of [place] coronary artery without angina pectoris Plan: History of CAD. Patient denies prior [place] or cardiac surgery. He describes having 11 coronary stents and has the stent data cards for proof. Last cardiac catheterization seems to be 07/09/2017 with 1 stent placement. Location of stent not listed. Other stents placed as far back as 06/17/2006 including for in the RCA, to in the OM 1 and 2 in the OM to, 1 in the right PDA. The last 2 stents do not list locations. Denies any chest discomfort at rest or with activity. He was not on aspirin as he was on Eliquis. Currently Eliquis on hold and will be discussing further with his primary industrial gas servicer supervisor. He is on moderate dose atorvastatin, metoprolol tartrate, isosorbide. [place] [facility] shows normal sinus rhythm, left axis deviation, nonspecific T-wave abnormalities, no Q-waves present, rate 81. Obtaining nuclear stress test as above (4) Afib: Code(s): I48.91 - Unspecified atrial fibrillation Plan: History of atrial fibrillation, paroxysmal. Last EKG showing sinus rhythm. EKGs from 11/13 and 11/14 show rapid rhythm consistent with possible atrial tach. He denies any issues with heart palpitations. He is on metoprolol and digoxin for heart rate control. His Eliquis is on hold currently due to hemorrhagic pericardial effusion and hematuria. Currently no signs of active bleeding. Hospital notes do mention possible Watchman device. Will check with Dr. Schulz. Stroke risk while off anticoagulation reviewed with him. (5) Hypertension: Code(s): I10 - Essential (primary) hypertension Plan: Blood pressure elevated at this visit. Recheck done by me 172/68. Patient has been keeping a home log and home blood pressures typically running 140-160 systolic. Home meds reviewed and he reports good compliance. Will add Entresto 24/26 mg b.i.d.. Will obtain BMP at the time of his stress test. Blood pressure will also be checked at that time. (6) Hospital discharge follow-up: Code(s): Z09 - Encounter for follow-up examination after completed treatment for conditions other than malignant neoplasm Orders: Orders CA lexiscan stress w asha Today I25.10 - Atherosclerotic heart disease of [place] coronary artery without angina pectoris, I42.9 - Cardiomyopathy, unspecified, R06.00 - Dyspnea, unspecified NM cardiolite stress test Today I25.10 - Atherosclerotic heart disease of [place] coronary artery without angina pectoris, I42.9 - Cardiomyopathy, unspecified Basic Metabolic Panel Today I42.9 - Cardiomyopathy, unspecified Medications: New sacubitril-valsartan 24-26 mg (Entresto) 1 tab PO BID 60 tabs 5RF Coding Level of Care Code Est Pt Level 4 (21439) Diagnoses Pericardial effusion with cardiac tamponade I31.39; I31.4 Cardiomyopathy I42.9 Coronary artery disease I25.10 Afib I48.91 Hypertension I10 Hospital discharge follow-up Z09 Time Spent (min) 30 Comment Chart review, documentation, interview, assessment
== END 2023-01-21 10:16 | disposition home or self-care (01) ==
PROVIDERS: PCP Family Medicine; Referring Provider Family Medicine; Visit Provider Nurse Practitioner Family
DX: I31.39 Other pericardial effusion (noninflammatory) (principal); I31.4 Cardiac tamponade; I42.9 Cardiomyopathy, unspecified; I25.10 Atherosclerotic heart disease of native coronary artery without angina pectoris; I48.91 Unspecified atrial fibrillation; I10 Essential (primary) hypertension; Z09 Encounter for follow-up examination after completed treatment for conditions other than malignant neoplasm
CPT/HCPCS: 99214

== ENCOUNTER → 2023-01-21 09:25 | Outpatient (BNVA) | payer MEDICARE, OTHER, SELFPAY | PROVIDERS: PCP Family Medicine; Referring Provider Family Medicine; Visit Provider Nurse Practitioner Family | DX: Z09 Encounter for follow-up examination after completed treatment for conditions other than malignant neoplasm (principal); I31.39 Other pericardial effusion (noninflammatory); I31.4 Cardiac tamponade; I42.9 Cardiomyopathy, unspecified; I25.10 Atherosclerotic heart disease of native coronary artery without angina pectoris; I48.91 Unspecified atrial fibrillation; I10 Essential (primary) hypertension | CPT/HCPCS: 99212 ==

== ENCOUNTER → 2023-02-06 08:02 | Outpatient (REF) | payer MEDICARE, OTHER, SELFPAY ==
--- NOTE | ~2023-02-06 | NM_ITS ---
Myocardial perfusion study Indication: Cardiomyopathy to evaluate for myocardial ischemia Technique: The patient was brought in for a Lexiscan perfusion study on 02/06/2023. Patient performed low-level exercise and was injected 0.4 mg of Lexiscan intravenously. Within a minute of injection, 25 mCi of sestamibi was given intravenously. Images were obtained using the SPECT gamma camera interlaced with the gating device. Images were obtained in supine position. Resting perfusion study was performed on 02/07/2023. Patient was administered 25 mCi of sestamibi intravenously at rest. Images were then obtained in supine position. Images obtained with and without CT attenuation. Total DLP 83 mGy-cm. Images were processed with the software and compared side to side in short axis, horizontal long axis and vertical long axis views. Findings: The stress perfusion study showed non attenuated images show mildly to moderately reduced uptake in the inferior inferoseptal wall of the LV myocardium. Remainder of the LV myocardium is normally perfused. Attenuation corrected images show mildly reduced uptake in the apex of the LV myocardium. The gated study shows mildly reduced LV systolic function with calculated LVEF of 48%. LV cavity is mildly dilated size. The gated study shows normal systolic wall thickening and contraction of segments. Resting study shows no change in perfusion pattern compared to stress perfusion study. Gating at rest reveals normal systolic wall motion with ejection fraction at 48%. The findings are consistent with no reversible defect suggestive of ischemia.. NM/NM asha perf SPECT rest & str Impression: 1. Myocardial perfusion imaging study shows no ischemia 2. Gated LVEF is 48% 3. Transient ischemic dilatation not present but LV cavity is dilated EKG is nondiagnostic for ischemia
--- NOTE | 2023-02-06 08:16 | CA_ITS ---
Acquisition Time: 2023-02-06 08:13:13 Total Exercise Time: 00:02:00 Test Indications: CARDIOMYOPATHY Medications: METOPROLOL ALBUTEROL DIGOXIN ATROVASTATIN Protocol: LEXISCAN Max HR: 090 BPM 64% of Pred: 139 BPM Max BP: 180/078 mmHG Max Work Load: 1.0 METS Pharmacological stress test with Lexiscan injection while sitting and kicking his legs, without anginal symptoms, without arrhythmias, with normotensive response to injection, with nondiagnositic EKGs. Aminophylline 75mg IVP given to reverse Lexiscan. Nuiclear images pending. Test reviewed with Dr. Schulz. Referred By: Olivia Jaffe Overread By: ILDEFONSO SERRANO
== END ==
LOC: HO.CARD 08:02
PROVIDERS: Visit Provider Nurse Practitioner Family
DX: I42.9 Cardiomyopathy, unspecified (principal); I25.10 Atherosclerotic heart disease of native coronary artery without angina pectoris; R06.00 Dyspnea, unspecified
CPT/HCPCS: 78452; 93017; A9500; J0280; J2785

== ENCOUNTER → 2023-02-06 08:16 | Outpatient (BNV) | payer MEDICARE, OTHER, SELFPAY | PROVIDERS: Visit Provider Internal Medicine | DX: I42.9 Cardiomyopathy, unspecified (principal) | CPT/HCPCS: 78452; 93016; 93018 ==

== ENCOUNTER 2023-02-24 10:00 | Outpatient (AMB) | payer MEDICARE, OTHER, SELFPAY ==
[2023-02-24 10:02] VITALS: BP 162/80; PULSE 87; BMI 22.3
--- NOTE | 2023-02-24 10:02 | A.OFFVIS_ITS ---
Intake Vital Signs 02/24/23 10:02 Height 5 ft 6 in Weight 138 lb 0.15 oz BMI 22.3 BP 162/80 H Blood Pressure Location Lt brachial Position Sitting Pulse 87 Pulse Source Pulse Oximeter Intake Visit Reasons: 4-6 WEEK FUP AFTER LAZARO +LABS Intake Note: 4-week FUP After Lazaro Visual Lead Required: No Allergies No Known Allergies Allergy (Verified 02/24/23 10:04) Medication List - Last Reconciled 02/24/23 by EVELYN LorenzanaC albuterol sulfate 2.5 mg (3 mL) inhalation Q4-6H PRN 30 days apixaban (Eliquis) 5 mg PO BID atorvastatin 40 mg PO BEDTIME budesonide-formoterol 160-4.5 mcg/actuation (Symbicort) 2 puffs inhalation BID digoxin 0.125 mg PO DAILY empagliflozin (Jardiance) 10 mg PO DAILY finasteride 5 mg PO DAILY furosemide 40 mg PO DAILY isosorbide mononitrate ER 1 tab PO DAILY@1800 metoprolol tartrate 25 mg See Protocol PO BID multivitamin 1 tab PO DAILY prednisone 5 mg PO DAILY sacubitril-valsartan 24-26 mg (Entresto) 1 tab PO BID tamsulosin (Flomax) 0.4 mg PO BEDTIME HPI 4-6 WEEK FUP AFTER LAZARO +LABS HPI Details Peter is an 82-year-old male with past medical history of hypertension, hyperlipidemia, coronary artery disease with multiple coronary artery stents, systolic and diastolic heart failure, chronic atrial fibrillation, reports of chronic pericardial effusion who was admitted to [facility] in October 2022 with increasing shortness of breath and edema. He was found to have a large pericardial effusion with possible tamponade physiology. He underwent emergent drainage for 900 cc of bloody pericardial fluid. His Eliquis was stopped. During his admission he was also treated for hematuria, respiratory failure, heart failure. He was started on Jardiance, Lasix. Entresto was tried however blood pressure was low. He was continued on metoprolol. Outpatient limited echocardiogram was showing EF was further reduced. A nuclear stress test was then done showing normal perfusion. On last visit he was started on Entresto and anticoagulation restarted. Today he reports he has been doing well since his last visit a month ago. He has not had any new or concerning symptoms. He denies any chest discomfort at rest or with activity. He says his breathing is normal. No PND, orthopnea or edema. No heart palpitations, dizziness, presyncope, syncope. No bleeding issues. He has an occasional residual clot that shoots out when he urinates. He tells me he will never grieved to urinary catheter again. Taking all meds as directed. Home blood pressures ranging 120-160 systolic, mostly in the 140s. [facility] Medical History Urinary retention Decompensated heart failure BPH (benign prostatic hyperplasia) Afib Chronic combined systolic and diastolic congestive heart failure Acute pericardial effusion Cardiac tamponade Bronchiectasis Atrial fibrillation, new onset Pericardial effusion CHF (congestive heart failure) Coronary artery disease COPD (chronic obstructive pulmonary disease) Severe chronic obstructive pulmonary disease Surgical History Pericardial effusion with cardiac tamponade H/O heart artery stent Social History Household Members: Spouse Housing: House Alcohol intake: current Alcohol intake frequency: a few times a week Patient Tobacco Use Status: Former Tobacco user Advance Directives Date on File: 01/30/22 service: No Current occupational status: retired Review of Systems Const All systems reviewed & are unremarkable except as noted in HPI and below ENT Denies dizziness Card Denies chest pain, Denies chest pain at rest, Denies chest pain with activity, Denies rapid heart rate, Denies pedal edema, Denies edema, Denies leg edema, Denies lightheadedness, Denies palpitations, Denies dyspnea, Reports dyspnea on exertion and Denies orthopnea Resp Denies cough, Denies dyspnea and Reports dyspnea on exertion GI Denies hematochezia and Denies change in stool character Musc Denies abnormal gait, Denies limited range of motion, Denies muscle cramps, Denies muscle weakness, Denies numbness, Denies radiating pain into limb, Denies stiffness and Denies tingling Neuro Denies abnormal gait, Denies dizziness, Denies numbness and Denies tingling Endo Denies palpitations Physical Exam Vital Signs: BMI result Body Mass Index 22.3 Const General: cooperative, healthy appearing, comfortable and no acute distress Orientation/consciousness: patient oriented x3 Neck Neck: Yes normal visual inspection Resp Effort & Inspection: normal respiratory effort Auscultation: clear to auscultation bilaterally, no crackles, no rales, no rhonchi and no wheezes Cardio Jugular venous distension: no JVD Rate: regular rate Rhythm: regular rhythm Heart sounds: S1 normal heart sound present, S2 normal heart sound present, no murmurs and no rubs Neuro General: patient oriented x3 Extrem General: Yes normal to inspection and No no pedal edema Psych Appearance: grossly normal Mental Status: mental status grossly normal Speech and movement: Normal speech and movement present Assessment & Plan Assessment & Plan (1) Pericardial effusion with cardiac tamponade: Code(s): I31.39 - Other pericardial effusion (noninflammatory); I31.4 - Cardiac tamponade Plan: Notes indicate he had a history of moderate pericardial effusion. Outpatient echocardiogram was done last October due to increasing shortness of breath and edema. Echocardiogram showed a large pericardial effusion with tamponade physiology. From echo he was transported to the emergency room and admitted. He underwent emergent drainage of 900 cc of bloody fluid. Pericardial drain was in place for a few days prior to removal. His anticoagulation was held. He was treated for decompensated systolic and diastolic heart failure. Echocardiograms were followed showing much improvement in his effusion post drainage and EF 30- 40% range. He was diuresed and started on Jardiance. Entresto was trialed however blood pressures were low at that time. Outpatient Echocardiogram done on 01/07/2023 showing EF 20-25%, trivial pericardial effusion. On last visit his blood pressure was mildly elevated and Entresto was added. Today he reports that his breathing is back to normal. No PND, orthopnea, edema. He does not appear to have hot heart failure on examination. Blood pressure is mildly elevated again and will increase his Entresto dose. BMP in 1 week. Will continue on current Lasix. (2) Cardiomyopathy: Code(s): I42.9 - Cardiomyopathy, unspecified Qualifiers: Cardiomyopathy type: unspecified Qualified Code(s): I42.9 - Cardiomyopathy, unspecified Plan: Notes indicate history of cardiomyopathy. Echocardiogram done 10/05/2021 showed EF 50-55%. Echocardiogram done 11/15/2022 shows EF 30-40%. Last echo 01/07/2023 shows EF 20-25%. His heart failure appears compensated at present time. His AFib heart rate seems controlled. He does have a history of CAD with multiple coronary stents. No report of anginal sounding symptoms. Nuclear stress test was done on , 02/07/2023 showing no ischemia, EF 48%. Will further increase Entresto as above. Continue metoprolol, Jardiance, Lasix. Will plan for limited echo in 3 months after start of Entresto to assess for improvement in the EF. If EF remains less than 35% then ICD may be indicated. (3) Coronary artery disease: Code(s): I25.10 - Atherosclerotic heart disease of [place] coronary artery without angina pectoris Qualifiers: Coronary Disease-Associated Artery/Lesion type: [place] artery [place] vs. transplanted heart: [place] heart Associated angina: without angina Qualified Code(s): I25.10 - Atherosclerotic heart disease of [place] coronary artery without angina pectoris Plan: History of CAD. Patient denies prior [place] or cardiac surgery. He describes having 11 coronary stents and has the stent data cards for proof. Last cardiac catheterization seems to be 07/09/2017 with 1 stent placement. Location of stent not listed. Other stents placed as far back as 06/17/2006 including for in the RCA, to in the OM 1 and 2 in the OM to, 1 in the right PDA. The last 2 stents do not list locations. Denies any chest discomfort at rest or with activity. He was not on aspirin as he is on Eliquis. He is on moderate dose atorvastatin, metoprolol tartrate, isosorbide. Last E[place] done at [facility] [place] on [place]/19/2022 shows normal sinus rhythm, left axis deviation, nonspecific T-wave abnormalities, no Q-waves present, rate 81. Recent nuclear stress test showing no ischemia. (4) Afib: Code(s): I48.91 - Unspecified atrial fibrillation Qualifiers: Atrial fibrillation type: paroxysmal Qualified Code(s): I48.0 - Paroxysmal atrial fibrillation Plan: History of atrial fibrillation, paroxysmal. Last EKG showing sinus rhythm. EK Gs from 11/13 and 11/14 show rapid rhythm consistent with possible atrial tach. He denies any issues with heart palpitations. He is on metoprolol and digoxin for heart rate control. He is on Eliquis for anticoagulation. Back in October 2022 had hemorrhagic pericardial effusion and hematuria and Eliquis was temporarily held. He has had no known bleeding issues since that time. (5) Hypertension: Code(s): I10 - Essential (primary) hypertension Qualifiers: Hypertension type: primary hypertension Qualified Code(s): I10 - Essential (primary) hypertension Plan: Blood pressure elevated at this visit. Home blood pressures show better control with range 120 to 160 systolic. Will increase his Entresto dose to 49/51 mg b.i.d.. Explain to him, will need BMP in 1 week. Continue to periodically check blood pressures at home and call if systolic running greater than 140s Orders: Orders CA echo limited 2 Months I25.10 - Atherosclerotic heart disease of [place] coronary artery without angina pectoris, I42.9 - Cardiomyopathy, unspecified Medications: New sacubitril-valsartan 49-51 mg (Entresto) 1 tab PO BID 60 tabs 5RF Discontinued sacubitril-valsartan 24-26 mg (Entresto) Discontinued Reason: Doctor's Order 1 tab PO BID 60 tabs 5RF Coding Level of Care Code Est Pt Level 4 (25947) Diagnoses Pericardial effusion with cardiac tamponade I31.39; I31.4 Cardiomyopathy, unspecified type I42.9 Cardiomyopathy type: unspecified Coronary artery disease involving [place] coronary artery of [place] heart without angina pectoris I25.10 Coronary Disease-Associated Artery/Lesion type: [place] artery [place] vs. transplanted heart: [place] heart Associated angina: without angina Paroxysmal atrial fibrillation I48.0 Atrial fibrillation type: paroxysmal Primary hypertension I10 Hypertension type: primary hypertension Time Spent (min) 26
== END 2023-02-24 10:32 | disposition home or self-care (01) ==
PROVIDERS: PCP Family Medicine; Visit Provider Nurse Practitioner Family
DX: I31.39 Other pericardial effusion (noninflammatory) (principal); I31.4 Cardiac tamponade; I42.9 Cardiomyopathy, unspecified; I25.10 Atherosclerotic heart disease of native coronary artery without angina pectoris; I48.0 Paroxysmal atrial fibrillation; I10 Essential (primary) hypertension
CPT/HCPCS: 99214

== ENCOUNTER → 2023-02-24 10:00 | Outpatient (BNVA) | payer MEDICARE, OTHER, SELFPAY | PROVIDERS: PCP Family Medicine; Visit Provider Nurse Practitioner Family | DX: I31.39 Other pericardial effusion (noninflammatory) (principal); I31.4 Cardiac tamponade; I42.9 Cardiomyopathy, unspecified; I25.10 Atherosclerotic heart disease of native coronary artery without angina pectoris; I48.0 Paroxysmal atrial fibrillation; I10 Essential (primary) hypertension | CPT/HCPCS: 99212 ==

== ENCOUNTER 2023-03-26 11:16 | Outpatient (REF) | payer MEDICARE, OTHER, SELFPAY ==
[2023-03-26 13:40] LABS: MANUAL DIFF FLAG NO
[2023-03-26 13:57] LABS: Basophils Absolute Auto 0.1 X10*3/uL (0.0-0.2); Basophils Percent Auto 0.6 % (0-2); Eosinophils Absolute Auto 0.1 X10*3/uL (0.0-0.4); Eosinophils Percent Auto 0.8 % (0-4); Hematocrit 44.4 % (42.0-52.0); Hemoglobin 14.1 g/dl (14.0-18.0); Imm Gran Abs Auto 0.08 X10*3/uL (0.00-0.03); Imm Gran Pct Auto 0.8 % (0.0-0.4); Lymphocytes Absolute Auto 0.9 X10*3/uL (1.2-4.9); Lymphocytes Percent Auto 8.3 % (20-40); Mean Corpuscular HGB Conc 31.8 g/dl (31.0-36.0); Mean Corpuscular Hemoglobin 27.2 pg (27.0-33.0); Mean Corpuscular Volume 85.7 fL (80.0-98.0); Mean Platelet Volume 10.7 fL (9.4-12.4); Monocytes Absolute Auto 0.8 X10*3/uL (0.1-1.2); Monocytes Percent Auto 7.6 % (2-11); Neutrophils Absolute Auto 8.5 x10*3/uL (2.0-8.3); Neutrophils Percent Auto 81.9 % (45-73); Platelet Count 303 X10*3/uL (160-400); Red Blood Count 5.18 X10*6/uL (4.60-5.80); Red Cell Distribution Width 17.6 % (11.0-16.0); White Blood Count 10.4 X10*3/uL (4.8-10.8)
[2023-03-26 14:05] LABS: Anion Gap 14 (12-20); Blood Urea Nitrogen 17 mg/dL (9-16); Calcium 9.8 mg/dL (8.4-10.2); Carbon Dioxide 27 mmol/L (22-29); Chloride 104 mmol/L (96-108); Estimated Glomerular Filt Rate 49; Glucose Random 101 mg/dL (60-115); Potassium 4.1 mmol/L (3.3-5.1); Sodium 141 mmol/L (135-145)
[2023-03-26 14:08] LABS: Alanine Aminotransferase 16 U/L (0-40); Anion Gap 14 (12-20); Aspartate Amino Transferase 19 U/L (5-37); Blood Urea Nitrogen 17 mg/dL (9-16); Carbon Dioxide 28 mmol/L (22-29); Chloride 104 mmol/L (96-108); Estimated Glomerular Filt Rate 48; Potassium 3.9 mmol/L (3.3-5.1); Sodium 142 mmol/L (135-145)
[2023-03-26 14:30] LABS: Digoxin 0.9 ng/mL (0.8-2.0)
== END 2023-03-26 11:17 | disposition home or self-care (01) ==
LOC: HO.HMGCLDS 11:16
PROVIDERS: Absent Provider Nurse Practitioner Family; PCP Family Medicine; Visit Provider Family Medicine
DX: I42.9 Cardiomyopathy, unspecified (principal); I10 Essential (primary) hypertension; R06.02 Shortness of breath; Z79.899 Other long term (current) drug therapy
CPT/HCPCS: 36415; 80048; 80051; 80162; 82550; 82565; 84450; 84460; 84520; 85025

== ENCOUNTER → 2023-04-22 07:48 | Outpatient (REF) | payer MEDICARE, OTHER, SELFPAY ==
--- NOTE | 2023-04-22 07:51 | CA_ITS ---
Transthoracic Echocardiogram Patient (Last, First, Middle): Peter Grimes K Gender: Male Date of : 1940 Age: 83 Procedure Date: 04/22/2023 Procedure Type: Transthoracic Echocardiogram Location: OP Height: 167.64 cm Weight: 61.24 kg BSA: 1.69 m2 Heart Rate: 57 bpm BP: 118 / 60 mmHg Occupational Health Coordinator: MIRIAN Referring MD: Olivia Jaffe SECURITY SALES MANAGERNakitaC Symptoms: I42.9 - Cardiomyopathy, unspecified Study Quality: Adequate/w Definity/Limited ECG Rhythm: Bradycardia Conclusions: - The left ventricular systolic function is moderately decreased. The visually estimated ejection fraction is between 35-40%. Findings Procedure Information Contrast agent, definity, is being given per protocol without apparent complications. Left Ventricle Normal left ventricular cavity size. The left ventricular systolic function is moderately decreased. The visually estimated ejection fraction is between 35-40%. There is moderate global hypokinesis. LV peak GLS -11.9%. Venous The inferior vena cava is normal in size and collapses greater than 50% with inspiration. Prior Study Comparison Changes noted compared to prior study dated: 01/07/2023. Higher LVEF than previously reported. Measurements 2D Linear Measurements IVSd: 1.10 0.6-0.9/0.6-1.0 cm LVIDd: 4.40 3.9-5.3/4.2-5.9 cm LVIDd Index: 2.60 2.4-3.2/2.2-3.1 cm/m2 LVIDs: 3.25 2.0-3.6 cm LVPWd: 1.02 0.7-1.1 cm LV Mass: 199.66 67-162/88-224 g LV Mass Index: 118.14 43-95/49-115 g/m2 LVOT Diam: 2.50 3.0+(-)1.3 cm 2D Systolic Function EF 4C: 36.00 >55% EF 2C: 51.00 >55% EF BiP: 43.10 >55% LVOT LVOT Pk Efe: 0.60 LVOT Mn Efe: 0.42 LVOT VTI: 0.15 LVOT Pk Grad: 1.00 LVOT Mn Grad: 1.00 LVOT Diam: 2.50 LVOT Area: 4.91 Updated in Other Vendor System with Status of Final Rip Chin MD electronically signed on 04/22/2023 1:42:28 PM with status of Final
== END ==
LOC: HO.CARD 07:48
PROVIDERS: PCP Family Medicine; Visit Provider Nurse Practitioner Family
DX: I42.9 Cardiomyopathy, unspecified (principal); I25.10 Atherosclerotic heart disease of native coronary artery without angina pectoris
CPT/HCPCS: 93308; 93356; Q9957

== ENCOUNTER → 2023-04-22 07:51 | Outpatient (BNV) | payer MEDICARE, OTHER, SELFPAY | PROVIDERS: PCP Family Medicine; Visit Provider Internal Medicine | DX: I42.9 Cardiomyopathy, unspecified (principal) | CPT/HCPCS: 93308 ==

== ENCOUNTER 2023-08-27 13:27 | Outpatient (REF) | payer MEDICARE, OTHER, SELFPAY ==
[2023-08-27 16:43] LABS: Digoxin 0.9 ng/mL (0.8-2.0)
[2023-08-27 16:45] LABS: Alanine Aminotransferase 15 U/L (0-40); Anion Gap 13 (12-20); Aspartate Amino Transferase 17 U/L (5-37); Blood Urea Nitrogen 19 mg/dL (9-16); Carbon Dioxide 29 mmol/L (22-29); Chloride 104 mmol/L (96-108); Estimated Glomerular Filt Rate 55; Sodium 142 mmol/L (135-145)
== END 2023-08-27 13:28 | disposition home or self-care (01) ==
LOC: HO.HMGCLDS 13:27
PROVIDERS: PCP Family Medicine; Visit Provider Family Medicine
DX: I10 Essential (primary) hypertension (principal); D64.9 Anemia, unspecified; E78.00 Pure hypercholesterolemia, unspecified; Z79.899 Other long term (current) drug therapy
CPT/HCPCS: 36415; 80051; 80162; 82550; 82565; 84450; 84460; 84520

== ENCOUNTER 2023-09-11 08:47 | Outpatient (AMB) | payer MEDICARE, OTHER, SELFPAY ==
[2023-09-11 09:00] VITALS: BP 120/72; PULSE 63; BMI 21.7
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
== END 2023-09-11 09:25 | disposition home or self-care (01) ==
PROVIDERS: PCP Family Medicine; Visit Provider Internal Medicine Cardiovascular Disease
DX: I50.20 Unspecified systolic (congestive) heart failure (principal); I48.0 Paroxysmal atrial fibrillation; I25.10 Atherosclerotic heart disease of native coronary artery without angina pectoris
CPT/HCPCS: 99214

== ENCOUNTER → 2023-09-11 08:47 | Outpatient (BNVA) | payer MEDICARE, OTHER, SELFPAY | PROVIDERS: PCP Family Medicine; Visit Provider Internal Medicine Cardiovascular Disease | DX: I50.20 Unspecified systolic (congestive) heart failure (principal); I48.0 Paroxysmal atrial fibrillation; I25.10 Atherosclerotic heart disease of native coronary artery without angina pectoris | CPT/HCPCS: 99212 ==

== ENCOUNTER 2023-09-25 08:12 | Outpatient (REF) | payer MEDICARE, OTHER, SELFPAY ==
[2023-09-25 10:44] LABS: Anion Gap 12 (12-20); Blood Urea Nitrogen 19 mg/dL (9-16); Calcium 9.4 mg/dL (8.4-10.2); Carbon Dioxide 27 mmol/L (22-29); Chloride 108 mmol/L (96-108); Estimated Glomerular Filt Rate 51; Glucose Random 99 mg/dL (60-115); Potassium 3.9 mmol/L (3.3-5.1); Sodium 143 mmol/L (135-145)
[2023-09-25 10:51] LABS: Hematocrit 41.4 % (42.0-52.0); Hemoglobin 13.3 g/dl (14.0-18.0); Mean Corpuscular HGB Conc 32.1 g/dl (31.0-36.0); Mean Corpuscular Hemoglobin 29.7 pg (27.0-33.0); Mean Corpuscular Volume 92.4 fL (80.0-98.0); Mean Platelet Volume 9.9 fL (9.4-12.4); Platelet Count 307 X10*3/uL (160-400); Red Blood Count 4.48 X10*6/uL (4.60-5.80); Red Cell Distribution Width 15.7 % (11.0-16.0)
[2023-09-25 11:02] LABS: B Type Natriuretic Peptide 299 pg/mL (<100)
== END 2023-09-25 08:13 | disposition home or self-care (01) ==
LOC: HO.HMGCLDS 08:12
PROVIDERS: PCP Family Medicine; Visit Provider Internal Medicine Cardiovascular Disease
DX: I50.20 Unspecified systolic (congestive) heart failure (principal); I48.20 Chronic atrial fibrillation, unspecified
CPT/HCPCS: 36415; 80048; 80162; 83880; 85027

== ENCOUNTER 2023-12-02 10:55 | Outpatient (AMB) | payer MEDICARE, OTHER, SELFPAY ==
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
[2023-12-02 10:57] VITALS: BP 140/66; PULSE 73; O2SAT 94; BMI 21.7
== END 2023-12-02 11:17 | disposition home or self-care (01) ==
PROVIDERS: PCP Family Medicine; Visit Provider Internal Medicine Pulmonary Disease
DX: J44.9 Chronic obstructive pulmonary disease, unspecified (principal)
CPT/HCPCS: 99213

== ENCOUNTER → 2023-12-02 10:55 | Outpatient (BNVA) | payer MEDICARE, OTHER, SELFPAY | PROVIDERS: PCP Family Medicine; Visit Provider Internal Medicine Pulmonary Disease | DX: J44.9 Chronic obstructive pulmonary disease, unspecified (principal) | CPT/HCPCS: 99212 ==

== ENCOUNTER → 2023-12-11 09:54 | Outpatient (REF) | payer MEDICARE, OTHER, SELFPAY ==
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
== END ==
LOC: HO.CARD 09:54
PROVIDERS: PCP Family Medicine; Visit Provider Internal Medicine Cardiovascular Disease
DX: I50.20 Unspecified systolic (congestive) heart failure (principal)
CPT/HCPCS: 93306

== ENCOUNTER → 2023-12-11 09:58 | Outpatient (BNV) | payer MEDICARE, OTHER, SELFPAY | PROVIDERS: PCP Family Medicine; Visit Provider Internal Medicine Cardiovascular Disease | DX: I35.8 Other nonrheumatic aortic valve disorders (principal); I34.0 Nonrheumatic mitral (valve) insufficiency; I34.81 Nonrheumatic mitral (valve) annulus calcification | CPT/HCPCS: 93306 ==

== ENCOUNTER 2023-12-18 08:55 | Outpatient (AMB) | payer MEDICARE, OTHER, SELFPAY ==
--- NOTE | 2023-12-18 08:57 | A.OFFVIS_ITS ---
Vital Signs 12/18/23 08:58 Height 5 ft 6 in Weight 131 lb 13.383 oz BMI 21.3 BP 142/60 H Blood Pressure Location Lt brachial Position Sitting Pulse 57 Pulse Source Monitor Intake Visit Reasons: 3 mth fu after echo w ekg Risk Officer Required: No Allergies No Known Allergies Allergy (Verified 12/18/23 08:59) Medication List - Last Reconciled 12/18/23 by Olivia Jaffe DECKHAND-C albuterol sulfate 2.5 mg (3 mL) inhalation Q4-6H PRN 30 days apixaban (Eliquis) 5 mg PO BID atorvastatin 40 mg PO BEDTIME digoxin 0.125 mg PO DAILY empagliflozin (Jardiance) 10 mg PO DAILY finasteride 5 mg PO DAILY fluticasone furoate-vilanterol 200-25 mcg/dose (Breo Ellipta) 1 ea inhalation DAILY furosemide 40 mg PO DAILY gabapentin 300 mg PO DAILY isosorbide mononitrate ER 30 mg PO DAILY@1800 metoprolol tartrate 100 mg PO BID multivitamin 1 tab PO DAILY prednisone 5 mg PO Q24H 30 days sacubitril-valsartan 49-51 mg (Entresto) 1 tab PO BID tamsulosin (Flomax) 0.4 mg PO BEDTIME HPI HPI 3 mth fu after echo w ekg: Details: Peter is an 83-year-old male with past medical history of hypertension, hyperlipidemia, COPD, CAD, cardiomyopathy, paroxysmal AFib, heart failure with reduced EF who presents for follow-up after recent echo. Today he reports he has been feeling well since his last visit. Will notice some shortness of breath if he over does it, which is not new. He denies any chest discomfort at rest or with activity. No heart palpitations, lightheadedness, presyncope, syncope, falls. No PND, orthopnea or edema. No bleeding issues reported. Taking meds as directed. [facility] Medical History Afib Paroxysmal atrial fibrillation Heart failure with reduced ejection fraction Urinary retention Decompensated heart failure BPH (benign prostatic hyperplasia) Chronic combined systolic and diastolic congestive heart failure Acute pericardial effusion Cardiac tamponade Bronchiectasis Atrial fibrillation, new onset Pericardial effusion CHF (congestive heart failure) Coronary artery disease COPD (chronic obstructive pulmonary disease) Severe chronic obstructive pulmonary disease Surgical History Pericardial effusion with cardiac tamponade H/O heart artery stent Social History Household Members: Spouse Housing: House Alcohol intake: current Alcohol intake frequency: a few times a week Patient Tobacco Use Status: Former Tobacco user Advance Directives Date on File: 01/30/22 service: No Current occupational status: retired Review of Systems Const All systems reviewed & are unremarkable except as noted in HPI and below ENT Denies dizziness Card Denies chest pain, Denies chest pain at rest, Denies chest pain with activity, Denies rapid heart rate, Denies pedal edema, Denies edema, Denies leg edema, Denies lightheadedness, Denies palpitations, Denies dyspnea, Reports dyspnea on exertion (if he overdoes it) and Denies orthopnea Resp Denies cough, Denies dyspnea and Reports dyspnea on exertion (if he overdoes it) GI Denies hematochezia and Denies change in stool character Musc Denies abnormal gait, Reports limited range of motion, Reports muscle cramps, Denies muscle weakness, Denies numbness, Denies radiating pain into limb, Denies stiffness and Denies tingling Neuro Denies abnormal gait, Denies dizziness, Denies numbness and Denies tingling Endo Denies palpitations Physical Exam Vital Signs: Last Vital Signs Pulse 57 12/18/23 08:58 BP 142/60 H 12/18/23 08:58 BMI result Body Mass Index 21.3 Const General: cooperative, healthy appearing, comfortable and no acute distress Orientation/consciousness: patient oriented x3 Neck Neck: Yes normal visual inspection and Yes no JVD Resp Effort & Inspection: normal respiratory effort Auscultation: clear to auscultation bilaterally, no crackles, no rales, no rhonchi and no wheezes Cardio Jugular venous distension: no JVD Rate: regular rate Rhythm: regular rhythm Heart sounds: S1 normal heart sound present, S2 normal heart sound present, no gallops, no murmurs and no rubs Neuro General: patient oriented x3 Extrem General: Yes normal to inspection and No no pedal edema Psych Appearance: grossly normal Mental Status: mental status grossly normal Speech and movement: Normal speech and movement present Office Procedures EKG Details: Today, read by me, sinus bradycardia, first-degree AV block, right bundle branch block, rate 57, QTC 426 milliseconds [id number], Complete Assessment & Plan Assessment & Plan (1) Paroxysmal atrial fibrillation: Code(s): I48.0 - Paroxysmal atrial fibrillation Category: Medical Plan: History of atrial fibrillation, paroxysmal. No reports of recent heart palpitations. EKG done today showing sinus bradycardia with first-degree AV block, right bundle branch block, rate 57. Finding of right bundle branch block seems new. Echocardiogram had been done on 12/11/2023 showing EF 45-50%, grade 2 diastolic dysfunction, mild left atrial dilation, mild MR, no pericardial effusion. He is on metoprolol and digoxin for heart rate control. Digoxin also being used to help with systolic dysfunction. He is on Eliquis for anticoagulation. Back in October 2022 had hemorrhagic pericardial effusion and hematuria and Eliquis was temporarily held. He has had no known bleeding issues since that time. Recent labs show hematocrit 41.4. Labs 09/25/2023 showed digoxin level 1.0, which has been stable. No med changes made. (2) Heart failure with reduced ejection fraction: Code(s): I50.20 - Unspecified systolic (congestive) heart failure Category: Medical Plan: Condition stable at this time. Most recent echo showing some improvement in EF up to 45-50%. He does have grade 2 diastolic dysfunction. He is on appropriate med management for heart failure including metoprolol, Entresto, Lasix and Jardiance. On exam today he does not appear fluid overloaded. Signs and symptoms of heart failure reviewed with him. (3) Cardiomyopathy: Code(s): I42.9 - Cardiomyopathy, unspecified Category: Medical Qualifiers: Cardiomyopathy type: unspecified Qualified Code(s): I42.9 - Cardiomyopathy, unspecified Plan: History of cardiomyopathy. Echocardiogram done 10/05/2021 showed EF 50-55%. Echocardiogram done 11/15/2022 shows EF 30-40%. Echocardiogram 01/07/2023 shows EF 20-25%. Echocardiogram done 12/10/2024 showing EF 45-50%. His AFib is suppressed and heart rate heart rate is controlled. He does have a history of CAD with multiple coronary stents. No report of anginal sounding symptoms. Nuclear stress test was done on 02/07/2023 showing no ischemia, EF 48%. Blood pressure initially elevated this visit, recheck done by me 130/62. Will have him continue on metoprolol, Entresto, Jardiance for neurohormonal modulation. Continue Lasix. Labs done 08/27/2023 showed creatinine 1.26. (4) Coronary artery disease: Code(s): I25.10 - Atherosclerotic heart disease of [place] coronary artery without angina pectoris Category: Medical Qualifiers: Coronary Disease-Associated Artery/Lesion type: [place] artery [place] vs. transplanted heart: [place] heart Associated angina: without angina Qualified Code(s): I25.10 - Atherosclerotic heart disease of [place] coronary artery without angina pectoris Plan: History of CAD. Patient denies prior MO or cardiac surgery. He describes having 11 coronary stents and has the stent data cards for proof. Last cardiac catheterization seems to be 07/09/2017 with 1 stent placement. Location of stent not listed. Other stents placed as far back as 06/17/2006 including 4 in the RCA, 2 in the OM1 and 2 in the OM2 , 1 in the right PDA. The last 2 stents do not list locations. Denies any chest discomfort at rest or with activity. He was not on aspirin as he is on Eliquis. He is on moderate dose atorvastatin, metoprolol tartrate, isosorbide. EKG done today is showing new right bundle branch block, no acute ST or T-wave abnormalities, rate 57. Recent echo does not show regional wall motion abnormality. Nuclear stress test from last January shows no ischemia. Will have him continue on current medical management. (5) Pericardial effusion with cardiac tamponade: Code(s): I31.39 - Other pericardial effusion (noninflammatory); I31.4 - Cardiac tamponade Category: Surgical Plan: Last year, resolved now. Recent echo with no pericardial effusion. No other signs of bleeding reported. (6) Hypertension: Code(s): I10 - Essential (primary) hypertension Category: Medical Qualifiers: Hypertension type: primary hypertension Qualified Code(s): I10 - Essential (primary) hypertension Plan: Blood pressure elevated at this visit, improved on recheck. Continue current med management. Plan Time spent on chart review, documentation, interview and assessment. Orders: Orders Lipid Panel Today I25.10 - Atherosclerotic heart disease of [place] coronary artery without angina pectoris Coding Level of Care Code Est Pt Level 4 (02946) Diagnoses Paroxysmal atrial fibrillation I48.0 Heart failure with reduced ejection fraction I50.20 Cardiomyopathy, unspecified type I42.9 Cardiomyopathy type: unspecified Coronary artery disease involving [place] coronary artery of [place] heart without angina pectoris I25.10 Coronary Disease-Associated Artery/Lesion type: [place] artery [place] vs. transplanted heart: [place] heart Associated angina: without angina Pericardial effusion with cardiac tamponade I31.39; I31.4 Primary hypertension I10 Hypertension type: primary hypertension CPT Codes EKG - CPT: [id number], Complete ([id number]) Time Spent (min) 30
[2023-12-18 08:58] VITALS: BP 142/60; PULSE 57; BMI 21.3
== END 2023-12-18 09:42 | disposition home or self-care (01) ==
PROVIDERS: PCP Family Medicine; Visit Provider Nurse Practitioner Family
DX: I48.0 Paroxysmal atrial fibrillation (principal); I50.20 Unspecified systolic (congestive) heart failure; I42.9 Cardiomyopathy, unspecified; I25.10 Atherosclerotic heart disease of native coronary artery without angina pectoris; I31.39 Other pericardial effusion (noninflammatory); I31.4 Cardiac tamponade; I10 Essential (primary) hypertension
CPT/HCPCS: 93010; 99214

== ENCOUNTER → 2023-12-18 08:55 | Outpatient (BNVA) | payer MEDICARE, OTHER, SELFPAY | PROVIDERS: PCP Family Medicine; Visit Provider Nurse Practitioner Family | DX: I10 Essential (primary) hypertension (principal); I25.10 Atherosclerotic heart disease of native coronary artery without angina pectoris; I48.0 Paroxysmal atrial fibrillation; I50.20 Unspecified systolic (congestive) heart failure; I42.9 Cardiomyopathy, unspecified; I31.39 Other pericardial effusion (noninflammatory); I31.4 Cardiac tamponade; E78.5 Hyperlipidemia, unspecified | CPT/HCPCS: 93005; 99212 ==

== ENCOUNTER 2024-01-21 09:47 | Outpatient (REF) | payer MEDICARE, OTHER, SELFPAY ==
[2024-01-21 13:55] LABS: Alanine Aminotransferase 15 U/L (0-40); Anion Gap 13 (12-20); Aspartate Amino Transferase 17 U/L (5-37); Blood Urea Nitrogen 20 mg/dL (9-16); Carbon Dioxide 32 mmol/L (22-29); Chloride 102 mmol/L (96-108); Estimated Glomerular Filt Rate 38; Potassium 4.5 mmol/L (3.3-5.1); Sodium 142 mmol/L (135-145)
[2024-01-21 14:00] LABS: Digoxin 1.2 ng/mL (0.8-2.0)
== END 2024-01-21 09:48 | disposition home or self-care (01) ==
LOC: HO.HMGCLDS 09:47
PROVIDERS: PCP Family Medicine; Visit Provider Family Medicine
DX: Z13.89 Encounter for screening for other disorder (principal)
CPT/HCPCS: 36415; 80051; 80162; 82550; 82565; 84450; 84460; 84520

== ENCOUNTER 2024-03-09 08:22 | Outpatient (REF) | payer MEDICARE, OTHER, SELFPAY ==
[2024-03-09 10:30] LABS: Blood Urea Nitrogen 18 mg/dL (9-16); Estimated Glomerular Filt Rate 44
[2024-03-09 10:32] LABS: Cholesterol 180 mg/dL (<200); HDL Cholesterol 49 mg/dL (>40); LDL Cholesterol Calculated 73 mg/dL (<100); Triglycerides 290 mg/dL (<150)
[2024-03-09 10:54] LABS: Digoxin 1.1 ng/mL (0.8-2.0)
== END 2024-03-09 08:23 | disposition home or self-care (01) ==
LOC: HO.HMGCLDS 08:22
PROVIDERS: PCP Family Medicine; Referring Provider Nurse Practitioner Family; Visit Provider Family Medicine
DX: I25.10 Atherosclerotic heart disease of native coronary artery without angina pectoris (principal); I10 Essential (primary) hypertension; Z79.899 Other long term (current) drug therapy
CPT/HCPCS: 36415; 80061; 80162; 82565; 84520

== ENCOUNTER 2024-04-14 10:40 | Outpatient (AMB) | payer MEDICARE, OTHER, SELFPAY ==
--- NOTE | 2024-04-14 10:46 | A.OFFVIS_ITS ---
Vital Signs 04/14/24 10:47 Height 5 ft 6 in Weight 128 lb BMI 20.7 BP 138/64 Blood Pressure Location Lt brachial Position Sitting Pulse 76 Pulse Source Pulse Oximeter Intake Visit Reasons: 4m follow up Allergies No Known Allergies Allergy (Verified 12/18/23 08:59) Medication List - Last Reconciled 04/14/24 by Neo Schulz MD albuterol sulfate 2.5 mg (3 mL) inhalation Q4-6H PRN 30 days apixaban (Eliquis) 5 mg PO BID atorvastatin 80 mg PO BEDTIME digoxin 0.125 mg PO DAILY empagliflozin (Jardiance) 10 mg PO DAILY finasteride 5 mg PO DAILY fluticasone furoate-vilanterol 200-25 mcg/dose (Breo Ellipta) 1 ea inhalation DAILY furosemide 40 mg PO DAILY gabapentin 300 mg PO DAILY isosorbide mononitrate ER 30 mg PO DAILY@1800 metoprolol tartrate 100 mg PO BID multivitamin 1 tab PO DAILY prednisone 5 mg PO Q24H 30 days sacubitril-valsartan 49-51 mg (Entresto) 1 tab PO BID 90 days tamsulosin (Flomax) 0.4 mg PO BEDTIME HPI Comments Details: Peter comes for follow-up. He has been doing well from cardiac perspective. He has not had any hospitalization the last 4 months. Able to maintain activity level as tolerated. Denies any worsening shortness of breath although gets short of breath when he over exerts himself he says. NYHA class 2 symptoms. No orthopnea, PND, leg edema. Takes all his medications regularly. His kidney functions have partially improved. Denies any prolonged palpitation irregular heartbeat. No lightheadedness, syncope. [facility] Medical History Afib Paroxysmal atrial fibrillation Heart failure with reduced ejection fraction Urinary retention Decompensated heart failure BPH (benign prostatic hyperplasia) Chronic combined systolic and diastolic congestive heart failure Acute pericardial effusion Cardiac tamponade Bronchiectasis Atrial fibrillation, new onset Pericardial effusion CHF (congestive heart failure) Coronary artery disease COPD (chronic obstructive pulmonary disease) Severe chronic obstructive pulmonary disease Surgical History Pericardial effusion with cardiac tamponade H/O heart artery stent Social History Household Members: Spouse Housing: House Alcohol intake: current Alcohol intake frequency: a few times a week Patient Tobacco Use Status: Former Tobacco user Advance Directives Date on File: 01/30/22 service: No Current occupational status: retired Review of Systems Const Denies weakness ENT Denies dizziness Card Denies chest pain, Denies chest pain with activity, Denies syncope, Denies rapid heart rate, Denies pedal edema, Denies edema, Denies leg edema, Denies lightheadedness, Denies palpitations, Denies dyspnea, Denies dyspnea on exertion and Denies orthopnea Resp Denies cough, Denies dyspnea and Denies dyspnea on exertion GI Denies hematochezia and Denies change in stool character Musc Denies abnormal gait, Denies muscle cramps, Denies muscle weakness, Denies numbness, Denies radiating pain into limb and Denies tingling Neuro Denies abnormal gait, Denies dizziness, Denies syncope, Denies numbness, Denies tingling and Denies weakness Endo Denies palpitations Physical Exam Vital Signs: Last Vital Signs Pulse 76 04/14/24 10:47 BP 138/64 04/14/24 10:47 BMI result Body Mass Index 20.7 Const General: cooperative, healthy appearing, comfortable and no acute distress Nutritional Appearance: thin and other (Frail elderly man) Orientation/consciousness: patient oriented x3 Neck Neck: Yes normal visual inspection and Yes no JVD Resp Effort & Inspection: normal respiratory effort Auscultation: clear to auscultation bilaterally, no crackles, no rales, no rhonchi and no wheezes Cardio Jugular venous distension: no JVD Rate: regular rate Rhythm: regular rhythm Heart sounds: S1 normal heart sound present, S2 normal heart sound present, no gallops, no murmurs and no rubs Neuro General: patient oriented x3 Extrem General: Yes normal to inspection and No no pedal edema Psych Appearance: grossly normal Mental Status: mental status grossly normal Speech and movement: Normal speech and movement present Assessment & Plan Assessment & Plan (1) Heart failure with reduced ejection fraction: Code(s): I50.20 - Unspecified systolic (congestive) heart failure Category: Medical Plan: Heart failure with reduced ejection fraction, clinically euvolemic and well compensated with much improved symptoms. No recent hospitalization. LV ejection fraction is mildly reduced. Continue current neurohormonal modulation with Entresto, metoprolol as well as Jardiance. Continue current diuretic regimen. Daily weight monitoring avoidance of salt loading was discussed. He understands agrees. Additional diuretics as need be. Heart failure management discussed in details. Goals of therapy were discussed. Advised to maintain activity level as tolerated. (2) Paroxysmal atrial fibrillation: Code(s): I48.0 - Paroxysmal atrial fibrillation Category: Medical Plan: Paroxysmal atrial fibrillation, has remained suppressed. Has done well with rhythm control approach. Continue current therapy with metoprolol. Avoidance of stimulants was discussed also on digoxin therapy which needs to be closely monitored by every 3 month assay. If remains in sinus rhythm may consider discontinuing digoxin therapy. Continue full oral anticoagulation, currently on Eliquis, should be on 2.5 mg b.i.d.. (3) Coronary artery disease: Code(s): I25.10 - Atherosclerotic heart disease of [place] coronary artery without angina pectoris Category: Medical Qualifiers: Coronary Disease-Associated Artery/Lesion type: [place] artery [place] vs. transplanted heart: [place] heart Associated angina: without angina Qualified Code(s): I25.10 - Atherosclerotic heart disease of [place] coronary artery without angina pectoris Plan: CAD with prior stent with no recurrent symptoms of angina. Continue aggressive risk factor modification. Currently on Eliquis therapy which should be continued. No additional aspirin therapy. Continue high-intensity statin therapy. Target goal LDL closer to 60 mg/dL. Will follow up in the clinic in 6 months time after an echocardiogram. Thank you for allowing me to partake in his care Coding Level of Care Code Est Pt Level 4 (96724) Diagnoses Heart failure with reduced ejection fraction I50.20 Paroxysmal atrial fibrillation I48.0 Coronary artery disease involving [place] coronary artery of [place] heart without angina pectoris I25.10 Coronary Disease-Associated Artery/Lesion type: [place] artery [place] vs. transplanted heart: [place] heart Associated angina: without angina
[2024-04-14 10:47] VITALS: BP 138/64; PULSE 76; BMI 20.7
== END 2024-04-14 10:59 | disposition home or self-care (01) ==
PROVIDERS: PCP Family Medicine; Visit Provider Internal Medicine Cardiovascular Disease
DX: I50.20 Unspecified systolic (congestive) heart failure (principal); I48.0 Paroxysmal atrial fibrillation; I25.10 Atherosclerotic heart disease of native coronary artery without angina pectoris
CPT/HCPCS: 99214

== ENCOUNTER → 2024-04-14 10:40 | Outpatient (BNVA) | payer MEDICARE, OTHER, SELFPAY | PROVIDERS: PCP Family Medicine; Visit Provider Internal Medicine Cardiovascular Disease | DX: I48.0 Paroxysmal atrial fibrillation (principal); I25.10 Atherosclerotic heart disease of native coronary artery without angina pectoris; I11.0 Hypertensive heart disease with heart failure; I50.42 Chronic combined systolic (congestive) and diastolic (congestive) heart failure; Z95.5 Presence of coronary angioplasty implant and graft | CPT/HCPCS: 99212 ==

== ENCOUNTER 2024-05-18 06:18 | Outpatient (REF) | payer MEDICARE, OTHER, SELFPAY ==
--- NOTE | 2024-05-18 | EMG_ITS ---
Left median and ulnar motor and sensory studies were performed. Left radial sensory and median and lateral antecubital brachial sensory studies were performed, and paraspinal muscles were tested with a needle. IMPRESSION: 1. Isde-dm-jzszocdl left median neuropathy across carpal tunnel. 2. Mild left ulnar neuropathy across cubital tunnel. MD GUILLERMO De La Paz/JASBIR / [id number]
== END 2024-05-18 06:19 | disposition home or self-care (01) ==
LOC: HO.NEURO 06:18
PROVIDERS: PCP Family Medicine; Visit Provider Family Medicine
DX: G56.32 Lesion of radial nerve, left upper limb (principal)
CPT/HCPCS: 95886; 95910

== ENCOUNTER 2024-07-06 08:15 | Outpatient (AMB) | payer MEDICARE, OTHER, SELFPAY ==
--- OUTSIDE RECORDS SUMMARY | 2024-07-06 08:20 | XMS_ITS | Clinical Summary ---
Author Organization [facility] Address [address] [place] [address] Care Team Providers Care Machine Stuffer Name Role Phone Saul Sigala MD Primary Care Provider [phone] Medical History Medical History Date Comments History of heart failure DX:Hist ory of heart failure; COMMENT: with reduced ejection fraction due to an ischemic cardiomyopathy (LVEF 40-45% in November 2019) Coronary artery disease DX:[place]on [place] artery disease; COMMENT: status post BMS to the OM1 and OM2 and PDA with the development of an RCA dissection that required multiple ALEXANDRA in 06/17/2006. BMS placement and POBA to the RCA in 06/27/06 Renal arterial hypertension DX:R enal arterial hypertension Pericardial effusion DX:Pericard ial effusion Peripheral arterial disease ([facility]) DX:Peripheral arterial disease ([facility]); COMMENT: status post bilateral femoral to popliteal bypass. COPD (chronic obstructive pu lmonary disease) (CMS/HCC) DX:COPD (chronic obstructive pulmonary disease) ([facility]) Lumbar stenosis DX:Lumbar stenos is; COMMENT: using cane Social History Tobacco Use Types Packs/Day Years Used Date Smoking Tobacco: Former Smokeless Tobacco: Never Alcohol Use Standard Drinks/Week Comments Yes 2 (1 standard drink = 0.6 oz pur e alcohol) Sex and Gender Information Value Date Recorded Sex Assigned at Not on file Gender Identity Not on file Sexual Orientation Not on file Obstetrics History Last Filed Vital Signs Vital Sign Reading Time Taken Comments Blood Pressure 142/70 11/14/2021 9:55 AM EDT Sit ting L Arm Pulse 64 11/14/2021 9:55 AM EDT Temperature - - Respiratory Rate - - Oxygen Saturation - - Inhaled Oxygen Concentration - - Weight 60.8 kg (134 lb) 11/14/2021 9:55 AM EDT Height 167.6 cm (5' 6 ) 11/14/2021 9:55 AM EDT Body Mass Index 21.63 11/14/2021 9:55 AM EDT Plan of Treatment Health Maintenance Due Date Last Done Comments DTaP,Tdap,and Td Vaccines (1 - Tdap) 02/29/1960 Zoster Vaccines (1 of 2) 1991 Pneumococcal Vaccine: 65+ Ye ars (1 of 1 - PCV) 2006 RSV Immunization Patients 60 + Years Old (1 - 1-dose 75+ series) 02/29/2016 Cholesterol Screening (Lipid Panel) 05/11/2022 Depression Screening 05/11/2022 Falls Risk Assessment 05/11/2022 Hypertension/CHF/CAD Annual BMP Blood Test 05/11/2022 Social Influencers of Health Screening 05/11/2022 COVID-19 Vaccine ( - 2023-2 5 season) 2024 Influenza Vaccine (#1) 2024 HIB Vaccines Aged Out No longer eligi ble based on patient's age to complete this topic HPV Vaccines Aged Out No longer eligi ble based on patient's age to complete this topic Hepatitis A Vaccines Aged Out No long er eligible based on patient's age to complete this topic Hepatitis B Vaccines Aged Out No long er eligible based on patient's age to complete this topic IPV Vaccines Aged Out No longer eligi ble based on patient's age to complete this topic MMR Vaccines Aged Out No longer eligi ble based on patient's age to complete this topic Meningococcal ACWY Vaccine Aged Out N o longer eligible based on patient's age to complete this topic RSV Immunization Patients Un leesa 20 months Aged Out No longer eligible b ased on patient's age to complete this topic Varicella Vaccines Aged Out No longer eligible based on patient's age to complete this topic Care Teams Machine Stuffer Relationship Specialty Start Date End Date Saul Sigala MD [address] [place] [address] Dr [place], SOHAIL [id number] PCP - General 11/23/12
--- NOTE | 2024-07-06 08:26 | MHC.OFFVIS ---
Vital Signs 07/06/24 08:27 Height 5 ft 6 in Weight 128 lb BMI 20.7 Handedness Left Intake Visit Reasons: New Pt - Left CTS - EMG Done Intake Note: Peter is an 84 year old left hand dominant male who presents today as a new patient with complaints of left hand pain numbness and tingling. Patient reports he is having difficulty using his left hand due to his symptoms. He expresses he is dropping objects out of his left hand, he is unable to button his clothings, he is unable to tie his shoes without difficulty. He is woken up at night and unable to sleep from his pain and numbness. This has been progressively worsening for him. He is here today to discuss surgical treatment. EMG DONE: IMPRESSION: 1. Kgam-iz-ubhzjhak left median neuropathy across carpal tunnel. 2. Mild left ulnar neuropathy across cubital tunnel Allergies No Known Allergies Allergy (Verified 07/06/24 08:28) HPI HPI New Pt - Left CTS - EMG Done: Details: Peter is an 84 year old left hand dominant male who presents today as a new patient with complaints of left hand pain numbness and tingling. Patient reports he is having difficulty using his left hand due to his symptoms. He expresses he is dropping objects out of his left hand, he is unable to button his clothings, he is unable to tie his shoes without difficulty. He is woken up at night and unable to sleep from his pain and numbness. This has been progressively worsening for him. He is here today to discuss surgical treatment. EMG DONE: IMPRESSION: 1. Zthk-lp-[id number] left median neuropathy across carpal tunnel. 2. Mild left ulnar neuropathy across cubital tunnel COUNT INCLUDES THE [facility] Medical History Afib Paroxysmal atrial fibrillation Heart failure with reduced ejection fraction Urinary retention Decompensated heart failure BPH (benign prostatic hyperplasia) Chronic combined systolic and diastolic congestive heart failure Acute pericardial effusion Cardiac tamponade Bronchiectasis Atrial fibrillation, new onset Pericardial effusion CHF (congestive heart failure) Coronary artery disease COPD (chronic obstructive pulmonary disease) Severe chronic obstructive pulmonary disease Surgical History Pericardial effusion with cardiac tamponade H/O heart artery stent Social History Household Members: Spouse Housing: House Alcohol intake: current Alcohol intake frequency: a few times a week Patient Tobacco Use Status: Former Tobacco user Advance Directives Date on File: 01/30/22 service: No Current occupational status: retired Review of Systems Const All systems reviewed & are unremarkable except as noted in HPI and below Physical Exam Vital Signs: BMI result Body Mass Index 20.7 Extrem Other: Neuro: Decreased sensation in the median nerve distribution of the left. Normal sensation to all other digits in the left hand today. Normal sensation in the tips of all digits of the right hand today. No thenar or intrinsic wasting. Good APB muscle firing and good finger cross. Vascular: Capillary refill brisk. ROM: Patient can make a fist and extend all their digits. Skin: No lacerations or abrasions noted. General: No ecchymosis. No erythema or evidence of infection. Assessment & Plan Assessment & Plan (1) Left carpal tunnel syndrome: Code(s): G56.02 - Carpal tunnel syndrome, left upper limb Category: Medical (2) Cubital tunnel syndrome on left: Code(s): G56.22 - Lesion of ulnar nerve, left upper limb Category: Medical Plan 1. Carpal tunnel syndrome, left Constant, daily, worse at night I educated the patient about the condition. I discussed both operative and nonoperative treatment options. The patient would like to proceed with surgery. The risks and benefits of operative treatment were discussed with the patient and the patient wishes to proceed with surgery. These risks include, but are not limited to, risk of damage to blood vessels, nerves, tendons, infection, recurrence, incomplete relief of preoperative symptoms, persistent pain, possible need for further surgery, and the risks associated with regional blocks and/or anesthesia. Plan is to take the patient to the operating room at some point in the next few weeks for the following procedures: 1. Left carpal tunnel release under local All of the preoperative paperwork including the consent was discussed today. All of the patient's questions were answered in the clinic today. The patient understands that they will be in contact with our certified surgical tech/first assistant to discuss scheduling their procedure. Patient denies diabetes, asthma, lung issues, kidney issues, or current smoking. Patient on Eliquis 5 mg with significant cardiac history, however due to procedure being under local anesthesia there is no need for further clearance 1. Cubital tunnel syndrome, left Symptoms intermittent, not daily, worse at night Patient is educated on this condition Patient is educated about the typical treatment course Patient would like to hold off on any surgical intervention for the cubital tunnel, because he feels he is too old to be undergoing surgeries under general anesthesia Patient was educated on the potential effects of holding off on cubital tunnel treatment Patient states understanding of these Coding Level of Care Code New Pt Level 4 (60731) Diagnoses Left carpal tunnel syndrome G56.02 Cubital tunnel syndrome on left G56.22
[2024-07-06 08:27] VITALS: BMI 20.7
== END 2024-07-06 09:15 | disposition home or self-care (01) ==
PROVIDERS: PCP Family Medicine
DX: G56.02 Carpal tunnel syndrome, left upper limb (principal); G56.22 Lesion of ulnar nerve, left upper limb
CPT/HCPCS: 99204

== ENCOUNTER → 2024-07-06 08:15 | Outpatient (BNVA) | payer MEDICARE, OTHER, SELFPAY | PROVIDERS: PCP Family Medicine | DX: G56.02 Carpal tunnel syndrome, left upper limb (principal); G56.22 Lesion of ulnar nerve, left upper limb | CPT/HCPCS: 99202 ==

== ENCOUNTER 2024-08-09 07:34 | Day surgery (SDC) | payer MEDICARE, OTHER, SELFPAY ==
--- OUTSIDE RECORDS SUMMARY | 2024-07-27 11:36 | XMS_ITS | Clinical Summary ---
Author Organization [facility] it Address [address] [place] [address] Care Team Providers Care Automatic Corn Grinder Operator Name Role Phone Saul Sigala MD Primary Care Provider [phone] Medical History Medical History Date Comments History [...] effusion DX:Pericard ial effusion Peripheral arterial disease ([facility]) DX:Peripheral arterial disease ([facility]); COMMENT: status post bilateral femoral to popliteal bypass. COPD (chronic obstructive pu lmonary disease) (CMS/HCC) DX:COPD (chronic obstructive pulmonary disease) ([facility]) Lumbar stenosis DX:Lumbar stenos is; COMMENT: using cane Social History Tobacco Use Types Packs/Day Years Used Date Smoking Tobacco: Former Smokeless Tobacco: Never Alcohol Use Standard Drinks/Week Comments Yes 2 (1 standard drink = 0.6 oz pur e alcohol) Sex and Gender Information Value Date Recorded Sex Assigned at Not on file Legal Sex Male 9:48 PM EST Gender Identity Not on file Sexual Orientation [...] DTaP,Tdap,and Td Vaccines (1 - Tdap) 02[birth year]29/1960 Pneumococcal Vaccine: 50+ Ye ars (1 of 1 - PCV) 1991 Zoster Vaccines (1 of 2) 1991 RSV Immunization Patients 60 + Years Old [...] patient's age to complete this topic Meningococcal B Vacine Aged Out No lo nger eligible based on patient's age to complete this topic RSV Immunization Patients Un leesa 20 months Aged Out No longer eligible b ased on patient's age to complete this topic Varicella Vaccines Aged Out No longer eligible based on patient's age to complete this topic Care Teams Automatic Corn Grinder Operator Relationship Specialty Start Date End Date Saul Sigala MD [address] [place] [address] [place] [address] PCP - General 11/23/12
[2024-08-09 07:57] VITALS: BMI 20.7
[2024-08-09 07:58] VITALS: BP 158/45; PULSE 81; RESP 16; TEMP 36.6; O2SAT 95
--- NOTE | 2024-08-09 08:22 | P.OP_ITS ---
Operative Note Operative Note Date of Service: 08/09/24 Narrative: Preop diagnosis: 1. Left Carpal tunnel syndrome Postop diagnosis: same Procedure: 1. Left Carpal tunnel release Surgeon: Alejandra Bowen MD Competitive Shopper: None Anesthesia: local block using 1% lidocaine with epinephrine Findings: Thickened transverse carpal ligament. EBL: Less than 5 mL Specimens: None Complications: None Disposition: Brought to recovery room in stable condition Plan: Follow-up for 10-14 days for wound check and suture removal Indications: The patient is 84 years old, with left carpal tunnel syndrome that has been unresponsive to nonoperative management. The risks and benefits of operative treatment including but not limited to risk of damage to blood vessels, nerves, tendons, infection, persistent pain, persistent symptoms, or possible need for additional surgery were discussed with the patient and the patient wishes to proceed with surgery. Procedure: Once consent was obtained a local block was performed using a combination of 1% lidocaine with epinephrine. The patient was then brought back to the operating suite and placed on the operative table in supine position. The left upper extremity was prepped and draped in a standard surgical fashion. Once assured that we had a good block, a 2.0 cm longitudinal incision was made centered over the carpal tunnel. The incision was made through the skin to the subcutaneous tissues using a #15 blade. Dissection was made down to the level of the transverse carpal ligament with care being taken to protect the palmar cutaneous nerve. Once the transverse carpal ligament was clearly visualized, a longitudinal incision was made in the transverse carpal ligament 1st using a #15 blade, then using tenotomy scissors under direct visualization. Care was taken to look for and protect the motor branch of the median nerve when seen in this area. Once satisfied with our carpal tunnel release the wound was copiously irrigated with normal saline and hemostasis was obtained with a brief period of local pressure. The skin edges were reapproximated with some 5.0 nylon suture material and a sterile dressing was applied. The patient appears to have tolerated the procedure well and with no complicatio ns. All digits were well vascularized at the conclusion of the case.
--- NOTE | 2024-08-09 08:22 | MHC.SHP ---
Pre-Procedural Eval Section A - 24 Hr Update-Section A only Date of Service: 08/09/24 The patient is an INPATIENT: No Changes since office visit: No Cold of Flu in the past 2 weeks, No New Medical Problems, No Changes in Medication and No Patient answered all questions The patient has been examined within 24 hours of the surgical procedure. The History & Physical has been completed within 30 days and I have reviewed it.: Yes Section B - Complete if H&P > 30 days Chief Complaint: Carpal tunnel syndrome, left upper limb Allergies: Allergies Allergy/AdvReac Type Severity Reaction Status Date / Time No Known Allergies Allergy Verified 07/06/24 08:28 Plan Diagnosis/Plan: Unchanged I have reviewed the history and physical and performed a pertinent physical examination on my patient. No changes have occurred unless specified. Time Spent With Patient Time: Total time managing care of this patient today ____ minutes.
[2024-08-09 11:00] VITALS: BP 163/47; PULSE 72; RESP 18; O2SAT 95
== END 2024-08-09 11:01 | disposition home or self-care (01) ==
PROVIDERS: PCP Family Medicine; Visit Provider Orthopaedic Surgery
PROC: (CPT 64721; principal; 2024-08-09 09:10)
DX: G56.02 Carpal tunnel syndrome, left upper limb (principal); R20.0 Anesthesia of skin; R20.2 Paresthesia of skin; I48.0 Paroxysmal atrial fibrillation; I50.43 Acute on chronic combined systolic (congestive) and diastolic (congestive) heart failure; I25.10 Atherosclerotic heart disease of native coronary artery without angina pectoris; J44.89 Other specified chronic obstructive pulmonary disease; Z79.51 Long term (current) use of inhaled steroids; Z79.01 Long term (current) use of anticoagulants; Z79.84 Long term (current) use of oral hypoglycemic drugs; Z79.899 Other long term (current) drug therapy; Z87.891 Personal history of nicotine dependence
CPT/HCPCS: 64721; J0171; J2003

== ENCOUNTER → 2024-08-09 07:34 | Outpatient (BNV) | payer MEDICARE, OTHER, SELFPAY | PROVIDERS: PCP Family Medicine; Visit Provider Orthopaedic Surgery | DX: G56.02 Carpal tunnel syndrome, left upper limb (principal) | CPT/HCPCS: 64721 ==

== ENCOUNTER 2024-08-25 13:45 | Outpatient (AMB) | payer MEDICARE, OTHER, SELFPAY ==
--- NOTE | 2024-08-25 14:05 | A.OFFVIS_ITS ---
Intake Visit Reasons: PO LT CTR 08/09/24 AR Intake Note: Peter is an 84 year old left hand dominant male who presents today for a post operative visit s/p left carpal tunnel release DOS: 08/09/24 w/ Dr Alejandra Bowen. Patient states he still has numbness in the 1s, 2nd, and 3rd digits of the left hand. Suture removed and steri strips applied. Allergies No Known Allergies Allergy (Verified 08/25/24 14:24) HPI HPI PO LT CTR 08/09/24 AR: Details: Peter is an 84 year old left hand dominant male who presents today for a post operative visit s/p left carpal tunnel release DOS: 08/09/24 w/ Dr Alejandra Bowen. Patient states he still has numbness in the 1s, 2nd, and 3rd digits of the left hand. Suture removed and steri strips applied. [facility] Medical History Afib Paroxysmal atrial fibrillation Heart failure with reduced ejection fraction Urinary retention Decompensated heart failure BPH (benign prostatic hyperplasia) Chronic combined systolic and diastolic congestive heart failure Acute pericardial effusion Cardiac tamponade Bronchiectasis Atrial fibrillation, new onset Pericardial effusion CHF (congestive heart failure) Coronary artery disease COPD (chronic obstructive pulmonary disease) Severe chronic obstructive pulmonary disease Surgical History Pericardial effusion with cardiac tamponade H/O heart artery stent Social History Household Members: Spouse Housing: House Alcohol intake: current Alcohol intake frequency: a few times a week Patient Tobacco Use Status: Former Tobacco user Advance Directives Date on File: 01/30/22 service: No Current occupational status: retired Review of Systems Const All systems reviewed & are unremarkable except as noted in HPI and below Physical Exam Extrem Other: Neuro: Decreased sensation in the median nerve distribution of the left. Normal sensation to all other digits in the left hand today. Normal sensation in the tips of all digits of the right hand today. No thenar or intrinsic wasting. Good APB muscle firing and good finger cross. Vascular: Capillary refill brisk. ROM: Patient can make a fist and extend all their digits. Skin: Well approximated and well healing incision noted on the volar left wrist No lacerations or abrasions noted. General: No ecchymosis. No erythema or evidence of infection. Assessment & Plan Assessment & Plan (1) Left carpal tunnel syndrome: Code(s): G56.02 - Carpal tunnel syndrome, left upper limb Category: Medical Plan 1. Carpal tunnel syndrome, left Constant, daily, worse at night Status post carpal tunnel release DOS 08/09/2024 Patient appears to be recovering well postoperatively Patient was educated about the typical recovery course At this time, patient was informed that he will require no further acute follow- up with us, as he appears to be recovering very well Patient was amenable to this plan Patient will follow-up as needed with any acute concerns Coding Level of Care Code Global (14244) Diagnoses Left carpal tunnel syndrome G56.02
--- OUTSIDE RECORDS SUMMARY | 2024-08-25 16:26 | XMS_ITS | Clinical Summary ---
Author Organization [facility] it Address [address] [place] [address] Care Team Providers Care Incinerator Attendant Name Role Phone Saul Sigala MD Primary Care Provider [phone] Medical History Medical History Date Comments History [...] effusion DX:Pericard ial effusion Peripheral arterial disease ([facility]) DX:Peripheral arterial disease ([facility]); COMMENT: status post bilateral femoral to popliteal bypass. COPD (chronic obstructive pu lmonary disease) (CMS/HCC) DX:COPD (chronic obstructive pulmonary disease) ([facility]) Lumbar stenosis DX:Lumbar stenos is; COMMENT: [...] age to complete this topic Care Teams Incinerator Attendant Relationship Specialty Start Date End Date Saul Sigala MD [address] [place] [address] [place] [address] PCP - General 11/23/12
== END 2024-08-25 14:33 | disposition home or self-care (01) ==
LOC: HO.HOS 13:45
PROVIDERS: PCP Family Medicine
DX: G56.02 Carpal tunnel syndrome, left upper limb (principal)
CPT/HCPCS: 99024

== ENCOUNTER → 2024-08-25 13:45 | Outpatient (BNVA) | payer MEDICARE, OTHER, SELFPAY | PROVIDERS: PCP Family Medicine | DX: Z47.89 Encounter for other orthopedic aftercare (principal); Z98.890 Other specified postprocedural states | CPT/HCPCS: 99212 ==

== ENCOUNTER 2024-08-26 11:14 | Outpatient (REF) | payer MEDICARE, OTHER, SELFPAY ==
--- NOTE | ~2024-08-26 | XR_ITS ---
EXAMINATION: X-ray lumbar spine 4 views). CLINICAL INFORMATION: Sciatica. TECHNIQUE: 4 views of the lumbar spine COMPARISON: None FINDINGS: Multilevel marginal osteophyte formation and endplate sclerosis and decreased intervertebral disc height involving the lower thoracic and lumbar spine. No acute cortical disruption or gross malalignment. Osteopenia versus osteoporosis. Vascular calcifications. Mild degenerative changes in the coxofemoral joints not fully included in the [id number]. Stent overlapping the left hemisacrum. XR/XR lumbar spine 4V min IMPRESSION: Multilevel moderate to severe thoracolumbar spondylosis. Atherosclerosis disease. Electronically signed by: Dany Parker MD 08/26/2024 12:39 PM EDT
--- OUTSIDE RECORDS SUMMARY | 2024-08-26 14:56 | XMS_ITS | Clinical Summary ---
Author Organization [facility] it Address [address] [place] [address] Care Team Providers Care Key Sander Name Role Phone Saul Sigala MD Primary Care Provider [phone] Medical History Medical History Date Comments History [...] effusion DX:Pericard ial effusion Peripheral arterial disease ([facility]) DX:Peripheral arterial disease ([facility]); COMMENT: status post bilateral femoral to popliteal bypass. COPD (chronic obstructive pu lmonary disease) (CMS/HCC) DX:COPD (chronic obstructive pulmonary disease) ([facility]) Lumbar stenosis DX:Lumbar stenos is; COMMENT: using [...] age to complete this topic Care Teams Key Sander Relationship Specialty Start Date End Date Saul Sigala MD [address] [place] [address] [place] [address] PCP - General 11/23/12
== END 2024-08-26 11:15 | disposition home or self-care (01) ==
LOC: HO.XRAY 11:14
PROVIDERS: PCP Family Medicine; Visit Provider Family Medicine
DX: M54.31 Sciatica, right side (principal)
CPT/HCPCS: 72110

== ENCOUNTER → 2024-08-26 11:30 | Outpatient (BNV) | payer MEDICARE, OTHER, SELFPAY | PROVIDERS: PCP Family Medicine; Visit Provider Radiology Diagnostic Radiology | DX: M47.895 Other spondylosis, thoracolumbar region (principal) | CPT/HCPCS: 72110 ==

== ENCOUNTER → 2024-09-28 08:30 | Outpatient (REF) | payer MEDICARE, OTHER, SELFPAY ==
--- NOTE | ~2024-09-28 | NM_ITS ---
Lexiscan Myocardial perfusion study Indication: Coronary artery disease, congestive heart failure, atrial fibrillation Technique: The patient was brought in for a Lexiscan perfusion study on 09/30/2024 and was injected 0.4 mg of Lexiscan intravenously. Within a minute of this injection 25 mCi of sestamibi was given intravenously. Images were obtained using the SPECT gamma camera interlaced with the gating device. Images were obtained in supine position. Resting perfusion study was performed on 09/28/2024. Patient was administered 25 mCi of sestamibi intravenously at rest. Images were then obtained in supine position. Total DLP 72 mGy-cm. Images were processed with the software and compared side to side in short axis, horizontal long axis and vertical long axis views. Findings: Raw aquisition reviewed. Arms by the patient's side. The stress perfusion study showed decreased tracer uptake along the inferior wall, distal septum and distal anterior septum. There is improvement with CT attenuation correction suggestive of components of diaphragmatic attenuation artifact. Distals septum still has a small defect. Gating not performed because of arrhythmia. Resting study shows diminished tracer uptake in the distal part of inferior wall, adjacent septum and anterior septum. Some improvement compared to stress acquisition. There is improvement with CT attenuation correction suggestive of diaphragmatic attenuation artifact components. Gating not performed because of arrhythmia. The findings are consistent with partially reversible inferior defect. In the basal to mid inferior wall, seems somewhat reversible. Fixed defect in the distal septum and anterior septum. NM/NM cardiolite stress test Impression: 1. Myocardial perfusion imaging study shows mixed ischemia/infarct pattern in the inferior wall. Towards the proximal to mid inferior wall some ischemia, but distally more of infarct. Infarct in the distal septum and adjacent anterior septum. 2. Gating not performed because of arrhythmia. EKG component of the test reported separately. Electronically signed by: Rip Chin MD 09/30/2024 04:11 PM EDT
--- NOTE | 2024-09-28 08:32 | CA_ITS ---
Acquisition Time: 2024-09-30 09:19:37 Total Exercise Time: 00:02:00 Test Indications: CAD, HF, SOB Medications: SEE H&P Protocol: LEXISCAN Max HR: 81 BPM 59% of Pred: 137 BPM Max BP: 152/80 mmHG Max Work Load: 1.0 METS Pharmacological stress test with Lexiscan while pt marches in his chair, with reports of 6/10 constant chest tightness at baseline (attributes to cold) that got upto 8 with injection, and reports of SOB, with isolated frequent PVCs, with normotensive response to injection. Nondiagnostic EKG for ischemia. In recovery, pt treated with IVP Aminophylline 75 mg to reverse Lexiscan after which pt's breathing improved and chest tightness back to baseline at 5/10. Nuclear images pending. Test reviewed with Dr. Hunter. Referred By: Yogesh Persaud Electronically Signed By: Yogesh Persaud
--- OUTSIDE RECORDS SUMMARY | 2024-09-28 08:50 | XMS_ITS | Clinical Summary ---
Author Organization 175 [facility] Address [address] [place] [address] Phone Care Team Providers Care [employer] Back Feeder Name Role Phone Saul Sigala MD Primary Care Provider [phone] Allergies No known active allergies Medications tamsulosin (FLOMAX) 0.4 mg 24 hr capsule Take 1 capsule (0.4 mg total) by mouth at bedtime. Active predniSONE (DELTASONE) 5 mg tablet Take 1 tablet (5 mg total) by mouth 1 (one) time each day. 08/28/19 25 Active metoprolol tartrate (LOPRESSOR) 25 mg tablet Take 1 tablet (25 mg total) by mouth 2 (two) times a day. 07/04/19 25 Active isosorbide mononitrate (IMDUR) 30 mg 24 hr tablet TAKE 1 TABLET BY MOUTH EVERY DAY AT SUPPER TIME Active Breo Ellipta 200-25 mcg/dose inhaler INHALE 1 PUFF INTO LUNGS DAILY 07/01/19 25 Active gabapentin (NEURONTIN) 300 mg capsule Take 1 capsule (300 mg total) by mouth. at bedtime 07/13/19 25 Active furosemide (LASIX) 40 mg tablet Take 1 tablet (40 mg total) by mouth 1 (one) time each day in the morning. 08/16/19 25 Active Jardiance 10 mg tablet TAKE 1 TABLET BY MOUTH EVERY DAY IN THE MORNING DIRECTED 08/27/19 25 Active digoxin (LANOXIN) 125 mcg (0.125 mg) tablet TAKE 1 TABLET BY MOUTH EVERY DAY IN THE MORNING DIRECTED 08/15/19 25 Active finasteride (PROSCAR) 5 mg tablet Take 1 tablet (5 mg total) by mouth 1 (one) time each day. Active Eliquis 5 mg tablet Take 1 tablet (5 mg total) by mouth 2 (two) times a day. as directed 06/20/19 25 Active albuterol 2.5 mg /3 mL (0.083 %) nebulizer solution INHALE 1 VIAL VIA NEBULIZER EVERY 4 TO 6 HOURS NEEDED FOR SHORTNESS OF BREATH OR WHEEZING 08/30/19 25 Active atorvastatin (LIPITOR) 80 mg tablet Take 1 tablet (80 mg total) by mouth. at bedtime. 08/05/19 25 Active Entresto 49-51 mg per tablet Take 1 tablet by mouth 2 (two) times a day. 07/04/19 25 Active traMADoL (ULTRAM) 50 mg tablet Take 1 tablet (50 mg total) by mouth every 8 (eight) hours if needed. for pain 09/04/19 25 Active magnesium citrate solution Take 148 mL by mouth 1 (one) time if needed (Constipation ) for up to 2 doses. 296 mL 09/11/19 25 Active oxyCODONE (OXY-IR) 5 mg immediate release capsule 09/07/19 25 025 Discontinued meloxicam (MOBIC) 15 mg tablet TAKE 1 TABLET BY MOUTH DAILY FOR 3 WEEKS 08/31/19 25 025 Discontinued methylPREDNISol one (MEDROL DOSPAK) 4 mg tablet TAKE 6 TABLETS ON DAY 1 DIRECTED ON PACKAGE AND DECREASE BY 1 TAB EACH DAY FOR A TOTAL OF 6 DAYS 08/28/19 25 025 Discontinued polyethylene glycol (MIRALAX) 17 gram packet Take 17 g by mouth 1 (one) time each day for 3 days. 51 g 09/11/19 25 025 Active Problems Problem Noted Date Diagnosed Date Spinal stenosis, lumbar region with neurogenic c laudication 09/20/2024 Pericardial effusion 09/07/2024 Coronary artery disease 09/07/2024 Overview (09/07/2024): status post BMS to the OM1 and OM2 and PDA with the development of an RCA dissection that required multiple ALEXANDRA in 06/17/2006. BMS placement and POBA to the RCA in 06/27/06.ALEXANDRA to the mid RCA in 07/09/17, and POBA to the mid RCA in 06/01/18 due to in-stent restenosis; history of pulmonary embolism diagnosed in June 2018 (treated at [facility]) for which he completed 7 months of anticoagulation therapy with apixaban. 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 Priest describes about a month of severe right leg pain. He is status post right L4-5 and right L5-S1 minimally invasive decompression with Dr. Rivera in 2019 and did well following that procedure. He now describes pain coming from the back into the right buttock and hip before traveling down the lateral aspect of the right thigh and calf. He is neurologically intact. A non-contrasted MRI of the lumbar spine from [facility] dated 09/03/24 had significant motion degradation but did seem to lateral recess stenosis at L4-5 and foraminal stenosis at L5-S1 both of which could be responsible for his symptoms. He would like to proceed with surgery if it is an option. I told him I would review his films withDr. Rivera when she returns and then I elena let him know if she thought he was a surgical candidate. If he is, he will need cardiac and pulmonary clearance. Peripheral artery disease (CMS/HCC V24) 09/05/19 21 Ischemic cardiomyopathy 09/04/2020 Essential hypertension 09/04/2020 SOB (shortness of breath) 08/31/2020 Encounters Date Type Department Care Team Description 09/22/2024 Telephone Neurosurgery [facility] [address] [phone] Laura Wallace MA Appointment (L/Spine MRI appointment scheduled for 10/05/24 @ 10:30am at [facility]. Pt aware) 09/16/2024 Telephone Neurosurgery [address] [phone] Carlos Lew PA 09/10/2024 5:27 PM EDT - 09/10/2024 11:[address] [facility] Emergency [address] [place] [phone] Rectal bleeding (Primary Dx) Discharge Disposition: Home or Self Care 09/07/2024 2:00 PM EDT Consult Neurosurgery [facility] [address] [place] [address] Carlos Lew PA Spinal stenosis of lumbar region with radiculopathy (Primary Dx); Sciatic pain, right 09/07/2024 Telephone Neurosurgery [facility] [address] [place] [address] Alieen Shearer MA from Last 3 Months Immunizations Name Administration Dates Next Due Influenza Quadravalent, 0.5m l (Fluzone High-dose) 65yo and older 03/11/2024,03/19/2023 Influenza Quadrivalent, 0.5m l, preservative free (Fluarix; FluLaval; Fluzone) ages 6mo and older (Afluria) 3yo and older 05/29/2018 Pneumococcal polysaccharide 23 valent (Pneumovax 23) 2yo and older 05/29/2018 Surgical History Surgery Date Site/Laterality Comments OTHER SURGICAL HISTORY 01/17/2020 Right Right L4-5, Right L5-S1 minimally invasive decompressive laminectomy,mesial facetectomy. by CORONARY STENT PLACEMENT HERNIA REPAIR SPINE SURGERY Medical History Medical History Date Comments History [...] effusion DX:Pericard ial effusion Peripheral arterial disease ([facility] V24) DX:Peripheral arterial disea se ([facility]); COMMENT: status post bilateral femoral to popliteal bypass. COPD (chronic obstructive pu lmonary disease) ([facility] V24, [facility] V28) DX:COPD (chronic o bstructive pulmonary disease) ([facility]) Lumbar stenosis DX:Lumbar stenos is; COMMENT: using cane Sciatica Social History Tobacco Use Types Packs/Day Years Used Date Smoking Tobacco: Former Smokeless Tobacco: Never Tobacco Cessation:Counseling Given: Not Answered Alcohol Use Standard Drinks/Week Comments Yes 2 (1 standard drink = 0.6 oz pur e alcohol) Sex and Gender Information Value Date Recorded Sex Assigned at Not on file Legal Sex Male 9:48 PM EST Gender Identity Not on file Sexual Orientation Not on file Obstetrics History Last Filed Vital Signs Vital Sign Reading Time Taken Comments Blood Pressure 160/87 09/10/2024 8:39 PM EDT Pulse 60 09/10/2024 8:32 PM EDT Temperature 36.9 ??C (98.4 ??F) 09/10/2024 5:35 PM ED T Respiratory Rate 23 09/10/2024 8:32 PM EDT Oxygen Saturation 100% 09/10/2024 8:32 PM EDT Inhaled Oxygen Concentration - - Weight 54.4 kg (120 lb) 09/20/2024 3:00 PM EDT Height 167.6 cm (5' 6 ) 09/20/2024 3:00 PM EDT Body Mass Index 19.37 09/20/2024 3:00 PM EDT Plan of Treatment Upcoming Encounters Date Type Department Care Team (Latest Contact Info) Description 10/07/2024 9:30 AM EDT Hospital Encounter [facility] OR [address] [place] [phone] Mary Rivera MD [address] [place] [address] 10/07/2024 9:30 AM EDT - 10/07/2024 11:[address] [facility] OR [address] [place] [phone] Mary Rivera MD [address] [place] [address] LUMBAR LAMINECTOMY [72249 (CPT??) +1 more] Scheduled Procedures Name Priority Associated Diagnoses Date/Ti me LAMINECTOMY LUMBAR Spinal stenosis, lumbar region with neurogenic claudication 10/07/2024 9:30 AM EDT Health Maintenance Due Date Last Done Comments DTaP,Tdap,and Td Vaccines (1 - Tdap) 02/29/1960 Zoster Vaccines (1 of 2) 1991 RSV Immunization Adult Patients (1 - 1-dose 75+ series) 02/29/2016 Pneumococcal Vaccine: 50+ Years (2 of 2 - PCV) 05/29/2019 05/29/2018, 06/20/2006 Cholesterol Screening (Lipid Panel) 05/11/2022 Depression Screening 05/11/2022 Medicare Annual Wellness Visit 05/11/2022 Social Influencers of Health Screening 05/11/2022 COVID-19 Vaccine ( season) 2024 04/08/2024, 04/24/2021, 08/21/2020, Additional history exists Falls Risk Assessment 09/10/2025 09/10/2024 Hypertension/CHF/CAD Annual BMP Blood Test 09/10/2025 09/10/2024 Influenza Vaccine Completed 03/11/2024, , 05/29/2018 HIB Vaccines Aged Out No longer eligi [...] age to complete this topic Meningococcal B Vaccine Aged Out No l onger eligible based on patient's age to complete this topic RSV Immunization Patients Under 20 months Aged Out No longer eligible based on patient's age to complete this topic Varicella Vaccines Aged Out No longer eligible based on patient's age to complete this topic Procedures Procedure Name Priority Date/Time Associated Diagnosis Comments CT ABDOMEN PELVIS W CONTRAST STAT 09/10/2024 9:07 PM EDT CBC WITH AUTO DIFFERENTIAL STAT 09/10/2024 5:42 PM EDT COMPREHENSIVE METABOLIC PANEL STAT 09/10/2024 5:42 PM EDT CBC AND DIFFERENTIAL STAT 09/10/2024 5:42 PM EDT from Last 3 Months Results * CT Abdomen Pelvis w Contrast (09/10/2024 9:07 PM EDT) Anatomical Region Laterality Modality Body Computed Tomogra phy 09/10/2024 10:0 7 PM EDT Impressions 09/10/2024 10:07 PM EDT 1. No acute intraabdominal or pelvic pathology. 2. Right renal artery stenosis with relative cortical atrophy of the right kidney and delayed nephrogram suggesting decreased function. This document has been electronically signed by: Berenice Valladares MD on 09/10/2024 22:07:29 Narrative 09/10/2024 10:07 PM EDT INDICATION: Bowel obstruction suspected CT abdomen and pelvis with contrast Comparison: None Findings: Emphysema. Linear atelectasis and scarring in the visualized lower lobes. Hepatic steatosis. Gallbladder, spleen, pancreas, and adrenal glands are within normal limits. No hydronephrosis. Relative cortical atrophy of the right kidney with delayed nephrogram suggesting decreased function. Multiple bilateral renal cysts. Atherosclerosis at the origin of both renal arteries with high-grade stenosis on the right. Retroaortic left renal vein. Aortic atherosclerosis. No aneurysm. Stool throughout the colon. Colonic diverticulosis without acute inflammation. No bowel obstruction, pneumatosis or pneumoperitoneum. Prostatomegaly. Urinary bladder is within normal limits. Degenerative changes of the spine. Procedure Note Berenice Valladares MD - 09/10/2024 INDICATION: Bowel obstruction suspected CT abdomen and pelvis with contrast Comparison: None Findings: Emphysema. Linear atelectasis and scarring in the visualized lowerlobes. Hepatic steatosis. Gallbladder, spleen, pancreas, and adrenal glands are within normal limits. No hydronephrosis. Relative cortical atrophy of the right kidney with delayed nephrogram suggesting decreased function. Multiple bilateral renal cysts. Atherosclerosis at the origin of both renal arteries with high-grade stenosis on the right. Retroaortic left renal vein. Aortic atherosclerosis. No aneurysm. Stool throughout the colon. Colonic diverticulosis without acute inflammation. No bowel obstruction, pneumatosis or pneumoperitoneum. Prostatomegaly. Urinary bladder is within normal limits. Degenerative changes of the spine. IMPRESSION: 1. No acute intraabdominal or pelvic pathology. 2. Right renal artery stenosis with relative cortical atrophy of theright kidney and delayed nephrogram suggesting decreased function. This document has been electronically signed by: Berenice Valladares MD on 09/10/2024 22:07:[address] PROCEDURES Final R esult * (ABNORMAL) CBC auto differential (09/10/2024 5:42 PM EDT) WBC 11.2(H) 4.8 - 10.8 K/mcL LAB HEMETOLOGY METHOD 09/10/2024 6:11 PM EDT [facility] RBC 4.70 4.50 - 5.50 M/mcL LAB [facility] Hemoglobin 14.0 13.5 - 17.5 g/dL LAB HEMETOLOGY METHOD 09/10[facility]2024 6[facility] Hematocrit 43.5 42.0 - 54.0 % LAB HEMETOLOGY METHOD 09/10/2024 6:11 PM EDT [facility] MCV 92.4 79.0 - 98.0 FL LAB HEMETOLOGY METHOD [facility]10[facility]2024 6[facility] MCH 29.7 27.0 - 32.0 pcg LAB HEMETOLOGY METHOD 09/10/2024 6:[facility] MCHC 32.2 32.0 - 37.0 g/dL LAB HEMETOLOGY METHOD 09/10/2024 6:[facility] RDW 14.3 11.0 - 15.0 % LAB HEMETOLOGY METHOD 09/10/2024 6:[facility] Platelets 410(H) 130 - 400 K/mcL LAB HEMETOLOGY METHOD 09/10/2024 6:[facility] MPV 10.0 7.0 - 11.0 FL LAB HEMETOLOGY METHOD 09/10[facility]2024 6:[facility] NRBC 0.0 <1.0 % LAB HEMETOLOGY METHOD 09/10/2024 6:11 PM [facility] NRBC Absolute 0.00 <0.10 K/mcL LAB HEMETOLOGY METHOD 09/10/2024 6:11 PM [facility] Neutrophils Relative 82.0 % LAB HEMETOLOGY METHOD 09/10/2024 6:11 PM [facility] Lymphocytes Relative 5.1 % LAB HEMETOLOGY METHOD 09/10/2024 6:11 PM [facility] Monocytes Relative 10.7 % LAB HEMETOLOGY METHOD 09/10/2024 6:11 PM [facility] Eosinophils Relative 0.8 % LAB HEMETOLOGY METHOD 09/10/2024 6:11 PM [facility] Basophils Relative 0.4 % LAB HEMETOLOGY METHOD 09/10/2024 6:11 PM [facility] Immature Granulocytes Relative 1.0 % LAB HEMETOLOGY METHOD 09/10/2024 6:11 PM [facility] Neutrophils Absolute 9.21(H) 1.50 - 7.00 K/mcL LAB HEMETOLOGY METHOD 09/10/2024 6:11 PM [facility] Lymphocytes Absolute 0.57(L) 1.00 - 5.00 K/mcL LAB HEMETOLOGY METHOD 09/10/2024 6:11 PM [facility] Monocytes Absolute 1.20(H) 0.20 - 1.00 K/mcL LAB HEMETOLOGY METHOD 09/10/2024 6:11 PM [facility] Eosinophils Absolute 0.09 0.00 - 0.50 K/mcL LAB HEMETOLOGY METHOD 09/10/2024 6:11 PM EDT [facility] Basophils Absolute 0.04 0.00 - 0.20 K/mcL LAB HEMETOLOGY METHOD 09/10/2024 6:11 PM EDT [facility] Immature Granulocytes Absolute 0.11(H) 0.00 - 0.03 K/mcL LAB HEMETOLOGY METHOD 09/10/2024 6:11 PM EDT [facility] Blood Venous blood specimen / Unknown Venipuncture / Unknown 09/10/2024 5:42 PM EDT 09/10/2024 6:02 PM EDT us Jeremias Carrizales MD LAB BLOOD ORDERABLES Final Result [facility] [address] [place] [address], * (ABNORMAL) Comprehensive metabolic panel (09/10/2024 5:42 PM EDT) Sodium 139 133 - 145 mmol/L LAB CHEMISTRY METHOD 09/10/2024 6:30 PM [facility] Potassium 4.1 3.5 - 5.5 mmol/L LAB CHEMISTRY METHOD 09/10/2024 6:30 PM [facility] Chloride 105 96 - 110 mmol/L LAB CHEMISTRY METHOD 09/10/2024 6:30 PM [facility] CO2 27 21 - 32 mmol/L LAB CHEMISTRY METHOD 09/10/2024 6:30 PM [facility] Anion Gap 7 3 - 11 LAB CHEMISTRY METHOD 09/10/2024 6:30 PM [facility] Glucose 98 70 - 100 mg/dL LAB CHEMISTRY METHOD 09/10/2024 6:30 PM [facility] BUN 15 5 - 25 mg/dL LAB CHEMISTRY METHOD 09/10/2024 6:30 PM [facility] Creatinine 1.32(H) 0.70 - 1.30 mg/dL LAB CHEMISTRY METHOD 09/10/2024 6:30 PM [facility] eGFR 54(L) >=60 mL/min/1. 73m2 LAB CHEMISTRY METHOD 09/10/2024 6:30 PM [facility] Comment:Calculation based on the??Chronic Kidney Disease Epidemiology Collaboration (CKD-EPI) equation refit??without adjustment for race. BUN/Creatinine Ratio 11.4 LAB CHEMISTRY METHOD 09/10/2024 6:30 PM [facility] Calcium 9.3 8.5 - 10.5 mg/dL LAB CHEMISTRY METHOD 09/10/2024 6:30 PM [facility] AST (SGOT) 26 10 - 42 unit/L LAB CHEMISTRY METHOD 09/10/2024 6:30 PM [facility] ALT (SGPT) 23 10 - 60 unit/L LAB CHEMISTRY METHOD 09/10/2024 6:30 PM [facility] Alkaline Phosphatase 63 42 - 121 unit/L LAB CHEMISTRY METHOD 09/10/2024 6:30 PM [facility] Total Protein 7.1 6.0 - 8.0 g/dL LAB CHEMISTRY METHOD 09/10/2024 6:30 PM [facility] Albumin 3.5 3.2 - 5.0 g/dL LAB CHEMISTRY METHOD 09/10/2024 6:30 PM [facility] Total Bilirubin 0.7 0.0 - 1.4 mg/dL LAB CHEMISTRY METHOD 09/10/2024 6:30 PM [facility] Blood Venous blood specimen / Unknown Venipuncture / Unknown 09/10/2024 5:42 PM EDT 09/10/2024 6:02 PM EDT Jeremias Carrizales MD LAB BLOOD ORDERABLES Final Result [facility] [place] [facility] [address] [place] [address], [place] [phone] from Last 3 Months Insurance MEDICARE [facility] Care Teams [employer] Back Feeder Relationship Specialty Start Date End Date Saul Sigala MD [address] [place] [address] [place] [address] PCP - General 11/23/12
--- NOTE | 2024-09-28 10:25 | ECG_ITS ---
Test Reason : AFIB Blood Pressure : */* mmHG Vent. Rate : 40 BPM Atrial Rate : * BPM P-R Int : * ms QRS Dur : 148 ms QT Int : 502 ms P-R-T Axes : * 268 60 degrees QTcB Int : 409 ms Atrial fibrillation with slow ventricular response Right bundle branch block Abnormal ECG When compared with ECG of 19-Nov-2022 15:28, Atrial fibrillation has replaced Sinus rhythm Vent. rate has decreased by 41 bpm Right bundle branch block is now Present Referred By: Yogesh Persaud Electronically Signed By: Kendrick Hunter
[2024-09-28 10:47] LABS: Digoxin 1.3 ng/mL (0.8-2.0)
== END ==
LOC: HO.CARD 08:30
PROVIDERS: PCP Family Medicine; Visit Provider Internal Medicine Cardiovascular Disease
DX: I48.0 Paroxysmal atrial fibrillation (principal); I25.10 Atherosclerotic heart disease of native coronary artery without angina pectoris; I42.9 Cardiomyopathy, unspecified; I50.20 Unspecified systolic (congestive) heart failure; Z79.899 Other long term (current) drug therapy
CPT/HCPCS: 36415; 78452; 80162; 93005; 93017; A9500

== ENCOUNTER → 2024-09-28 10:25 | Outpatient (BNV) | payer MEDICARE, OTHER, SELFPAY | PROVIDERS: PCP Family Medicine; Visit Provider Internal Medicine Cardiovascular Disease | DX: I48.91 Unspecified atrial fibrillation (principal); I45.10 Unspecified right bundle-branch block | CPT/HCPCS: 78452; 93010; 93016; 93018 ==

== ENCOUNTER 2024-10-01 13:57 | Outpatient (AMB) | payer MEDICARE, OTHER, SELFPAY ==
[2024-10-01 14:14] VITALS: BP 127/66; PULSE 69; O2SAT 97; BMI 19.9
--- NOTE | 2024-10-01 14:14 | MHC.OFFVIS ---
Vital Signs 10/01/24 14:14 Height 5 ft 6 in Weight 123 lb BMI 19.9 BP 127/66 Blood Pressure Location Rt brachial Position Sitting Pulse 69 Pulse Source Doppler Pulse Oximetry (%) 97 Oxygen Delivery Method Room Air Intake Visit Reasons: Back surgery @ [facility] Allergies No Known Allergies Allergy (Verified 10/01/24 14:16) HPI HPI Back surgery @ [facility]: Details: 84-year-old gentleman, former heavy smoker approximately 50 pack years, quit 20 years prior, with underlying history of combined systolic and diastolic heart failure secondary to underlying coronary artery disease with multiple stents, remote history of subsegmental bilateral pulmonary emboli treated with 6 months of anticoagulation followed for very severe COPD. Patient is not able to tolerate LAMA secondary to urinary retention. Patient does have underlying AFib. He continues to follow-up with [facility]. He denies any recent exacerbations. His planned for sciatica decompression on 10/07/2024. COUNTS INCLUDE 234 BEDS AT THE [facility] Medical History Afib Paroxysmal atrial fibrillation Heart failure with reduced ejection fraction Urinary retention Decompensated heart failure BPH (benign prostatic hyperplasia) Chronic combined systolic and diastolic congestive heart failure Acute pericardial effusion Cardiac tamponade Bronchiectasis Atrial fibrillation, new onset Pericardial effusion CHF (congestive heart failure) Coronary artery disease COPD (chronic obstructive pulmonary disease) Severe chronic obstructive pulmonary disease Surgical History Pericardial effusion with cardiac tamponade H/O heart artery stent Social History Household Members: Spouse Housing: House Alcohol intake: current Alcohol intake frequency: a few times a week Patient Tobacco Use Status: Former Tobacco user Advance Directives Date on File: 01/30/22 service: No Current occupational status: retired Review of Systems Const Denies daytime sleepiness, Denies excessive sweating, Denies fatigue, Denies fever(s), Denies lethargy, Denies malaise, Denies night sweats, Denies snoring and Denies weight loss Eyes Denies blurry vision and Denies itchy eyes ENT Denies nasal congestion, Denies post nasal drip, Denies sinus pain, Denies sinus pressure and Denies other ( Thrush) Card Denies chest pain, Denies pedal edema, Denies dyspnea, Denies orthopnea and Denies paroxysmal nocturnal dyspnea Resp Denies cough, Denies hemoptysis, Denies excessive phlegm production, Denies dyspnea, Denies snoring and Denies wheezing GI Denies abdominal pain and Denies heartburn Musc Denies myalgias, Denies arthralgias and Denies joint swelling Skin/Breast Denies rash Neuro Denies memory loss and Denies seizure-like activity Psych Denies abnormal sleep pattern, Denies anxiety and Denies memory loss Endo Denies excessive sweating, Denies fatigue and Denies heat intolerance Meño/Lymph Denies easy bruising Aller/Immun Denies itchy eyes, Denies seasonal rhinorrhea and Denies wheezing Physical Exam Vital Signs: Last Vital Signs Pulse 69 10/01/24 14:14 BP 127/66 10/01/24 14:14 Pulse Ox 97 10/01/24 14:14 Oxygen Delivery Method Room Air 10/01/24 14:14 BMI result Body Mass Index 19.9 Const General: no acute distress and alert Nutritional Appearance: not obese Orientation/consciousness: Other orientation findings ( oriented) HEENT Head: Yes atraumatic Eyes General: appearance normal, both eyes and all related structures Sclerae: sclerae normal EOM: EOMs intact bilaterally Neck Neck: Yes supple Lymphatic: no lymphadenopathy noted Resp Effort & Inspection: normal respiratory effort and no use of accessory muscles Auscultation: clear to auscultation bilaterally Cardio Rate: regular rate Rhythm: regular rhythm Heart sounds: no gallops, no murmurs and no rubs Skin General skin exam: other ( warm) Extrem General: No clubbing, No cyanosis and No edema Assessment & Plan Assessment & Plan (1) COPD (chronic obstructive pulmonary disease): Code(s): J44.9 - Chronic obstructive pulmonary disease, unspecified Category: Medical Plan: Well controlled on current regimen of Breo and albuterol MDI/nebs. Continue current regimen. (2) Encounter for preoperative pulmonary examination: Code(s): Z01.811 - Encounter for preprocedural respiratory examination Category: Medical Plan: At this time patient is at low risk for pulmonary perioperative complications for proposed sciatica decompression. Coding Level of Care Code Est Pt Level 4 (93083) Diagnoses COPD (chronic obstructive pulmonary disease) J44.9 Encounter for preoperative pulmonary examination Z01.811
--- OUTSIDE RECORDS SUMMARY | 2024-10-01 14:15 | XMS_ITS | Clinical Summary ---
Author Organization [facility] Address [address] [place] [address] Phone Care Team Providers Care Pattern Perforating Machine Operator Name Role Phone Saul Sigala MD Primary Care Provider [phone] Allergies No known active allergies Medications tamsulosin [...] embolism diagnosed in June 2018 (treated at [facility]) for which he completed 7 months [...] non-contrasted MRI of the lumbar spine from [facility] dated 09/03/24 had significant motion degradation [...] Encounters Date Type Department Care Team Description 09/29/2024 Telephone Neurosurgery [facility] [address] [facility] [address] [place] [phone] Naomi Hare MA Advice Only 09/22/2024 Telephone Neurosurgery [facility] [address] [facility] [address] [place] [phone] Laura Wallace MA Appointment (L/Spine MRI appointment scheduled for 10/05/24 @ 10:30am at [facility]. Pt aware) 09/16/2024 Telephone Neurosurgery [address] [place] [phone] Carlos Lew PA 09/10/2024 5:27 PM EDT - 09/10/2024 11:[address] [facility] [address] [place] [phone] Rectal bleeding (Primary Dx) Discharge Disposition: Home or Self Care 09/07/2024 2:00 PM EDT Consult Neurosurgery [facility] [address] [facility] [address] [place] [address] Carlos Lew PA Spinal stenosis of lumbar region with radiculopathy (Primary Dx); Sciatic pain, right 09/07/2024 Telephone Neurosurgery [facility] [address] [facility] [address] [place] [address] Aileen Shearer MA from Last 3 Months Immunizations [...] effusion DX:Pericard ial effusion Peripheral arterial disease ([facility]/HCC V24) DX:Peripheral arterial disea se ([facility]); COMMENT: status post bilateral femoral to popliteal bypass. COPD (chronic obstructive pu lmonary disease) (CMS/HCC V24, CMS/HCC V28) DX:COPD (chronic o bstructive pulmonary disease) (HCC) Lumbar stenosis DX:Lumbar stenos is; COMMENT: using [...] 09/20/2024 3:00 PM EDT Plan of Treatment Health Maintenance Due [...] AND DIFFERENTIAL STAT 09/10/2024 5:42 PM EDT EXTERNAL MRI REPORT Routine 09/03/2024 8 :46 AM EDT from Last 3 Months Results * [...] by: Berenice Valladares MD on 09/10/2024 22:07:29 us Tima PAREDES [facility] CT PROCEDURES Final R esult * (ABNORMAL) CBC auto differential (09/10/2024 5:42 PM EDT) WBC 11.2(H) 4.8 - 10.8 K/[facility] LAB HEMETOLOGY METHOD 09/10/2024 6:11 PM EDT [facility] RBC 4.70 4.50 - 5.50 M/mcL LAB HEMETOLOGY METHOD [facility] Hemoglobin 14.0 13.5 - 17.5 g/dL LAB HEMETOLOGY METHOD 09/10/2024 6[facility] Hematocrit 43.5 42.0 - 54.0 % LAB HEMETOLOGY METHOD 09/10/2024 6:11 [facility] MCV 92.4 79.0 - 98.0 FL LAB HEMETOLOGY METHOD 09/10/2024 6:[facility] MCH 29.7 27.0 - 32.0 pcg LAB HEMETOLOGY METHOD 09/10/2024 6:[facility] MCHC 32.2 32.0 - 37.0 g/dL LAB HEMETOLOGY METHOD 09/10/2024 6:[address] [facility] RDW 14.3 11.0 - 15.0 % LAB HEMETOLOGY METHOD 09/10/2024 6:[address] [facility] Platelets 410(H) 130 - 400 K/mcL LAB HEMETOLOGY METHOD 09/10/2024 6:[address] [facility] MPV 10.0 7.0 - 11.0 FL LAB HEMETOLOGY METHOD 09/10/2024 6:[facility] NRBC 0.0 <1.0 % LAB HEMETOLOGY METHOD 09/10/2024 6:[facility] NRBC Absolute 0.00 <0.10 K/mcL LAB HEMETOLOGY METHOD 09/10/2024 6:[address] [facility] Neutrophils Relative 82.0 % LAB HEMETOLOGY METHOD 09/10/2024 6:[address] [facility] Lymphocytes Relative 5.1 % LAB HEMETOLOGY METHOD 09/10/2024 6:11 PM EDT [facility] Monocytes Relative 10.7 % LAB HEMETOLOGY METHOD 09/10/2024 6:[facility] Eosinophils Relative 0.8 % LAB HEMETOLOGY METHOD 09/10/2024 6:[address] [facility] Basophils Relative 0.4 % LAB HEMETOLOGY METHOD 09/10/2024 6:[facility] Immature Granulocytes Relative 1.0 % LAB HEMETOLOGY METHOD 09/10/2024 6:11 PM EDT [facility] Neutrophils Absolute 9.21(H) 1.50 - 7.00 K/mcL LAB HEMETOLOGY METHOD 09/10/2024 6:[address] [facility] Lymphocytes Absolute 0.57(L) 1.00 - 5.00 K/mcL LAB HEMETOLOGY METHOD 09/10/2024 6:[facility] Monocytes Absolute 1.20(H) 0.20 - 1.00 K/mcL LAB HEMETOLOGY METHOD 09/10/2024 6:[address] [facility] Eosinophils Absolute 0.09 0.00 - 0.50 K/mcL LAB HEMETOLOGY METHOD 09/10/2024 6:[address] [facility] Basophils Absolute 0.04 0.00 - 0.20 K/mcL LAB HEMETOLOGY METHOD 09/10/2024 6:[facility] Immature Granulocytes Absolute 0.11(H) 0.00 - 0.03 K/mcL LAB HEMETOLOGY METHOD 09/10/2024 6:[address] [facility] Blood Venous blood specimen / Unknown Venipuncture / Unknown 09/10/2024 5:42 PM EDT 09/10/2024 6:02 PM EDT Jeremias Carrizales MD LAB BLOOD ORDERABLES Final Result [facility] [address] [place] [address], * (ABNORMAL) Comprehensive metabolic panel (09/10/2024 5:42 PM EDT) Sodium 139 133 - 145 mmol/L LAB CHEMISTRY METHOD 09/10/2024 6:30 PM EDT [facility] Potassium 4.1 3.5 - 5.5 mmol/L LAB CHEMISTRY METHOD 09/10/2024 6:[facility] Chloride 105 96 - 110 mmol/L LAB CHEMISTRY METHOD 09/10/2024 6:[address] [facility] CO2 27 21 - 32 mmol/L LAB CHEMISTRY METHOD 09/10/2024 6:[address] [facility] Anion Gap 7 3 - 11 LAB CHEMISTRY METHOD 09/10/2024 6:[address] [facility] Glucose 98 70 - 100 mg/dL LAB CHEMISTRY METHOD 09/10/2024 6:[address] [facility] BUN 15 5 - 25 mg/dL LAB CHEMISTRY METHOD 09/10/2024 6:[address] [facility] Creatinine 1.32(H) 0.70 - 1.30 mg/dL LAB CHEMISTRY METHOD 09/10/2024 6:[facility] eGFR 54(L) >=60 mL/min/1. 73m2 LAB CHEMISTRY METHOD 09/10/2024 6:[address] [facility] Comment:Calculation based on the??Chronic Kidney Disease Epidemiology Collaboration (CKD-EPI) equation refit??without adjustment for race. BUN/Creatinine Ratio 11.4 LAB CHEMISTRY METHOD 09/10/2024 6:[address] [facility] Calcium 9.3 8.5 - 10.5 mg/dL LAB CHEMISTRY METHOD 09/10/2024 6:30 PM EDT [facility] AST (SGOT) 26 10 - 42 unit/L LAB CHEMISTRY METHOD 09/10/2024 6:30 PM EDT [facility] ALT (SGPT) 23 10 - 60 unit/L LAB CHEMISTRY METHOD 09/10/2024 6:30 PM EDT [facility] Alkaline Phosphatase 63 42 - 121 unit/L LAB CHEMISTRY METHOD 09/10/2024 6:30 PM EDT [facility] Total Protein 7.1 6.0 - 8.0 g/dL LAB CHEMISTRY METHOD 09/10/2024 6:30 PM EDT [facility] Albumin 3.5 3.2 - 5.0 g/dL LAB CHEMISTRY METHOD 09/10/2024 6:30 PM EDT [facility] Total Bilirubin 0.7 0.0 - 1.4 mg/dL LAB CHEMISTRY METHOD 09/10/2024 6:30 PM EDT [facility] Blood Venous blood specimen / Unknown Venipuncture / Unknown 09/10/2024 5:42 PM EDT 09/10/2024 6:02 PM EDT Jeremias Carrizales MD LAB BLOOD ORDERABLES Final Result [facility] [address] [place] [address], * External MRI Report (09/03/2024 8:46 AM EDT) Anatomical Region Laterality Modality Magnetic Resonan ce Historical Provider IMG MRI PROCEDURES Final Result from Last 3 Months Insurance MEDICARE [employer] Care Teams Pattern Perforating Machine Operator Relationship Specialty Start Date End Date Saul Sigala MD [address] [place] [address] [place] [id number] PCP - General 11/23/12
--- OUTSIDE RECORDS SUMMARY | 2024-10-01 14:15 | XMS_ITS | Encounter Summary ---
Author Organization [facility] Address [address] [place] [address] Care Team Providers Care Behavioral Geneticist Name Role Phone Saul Sigala MD Primary Care Provider [phone] Reason for Visit * Reason Onset Date Comments Advice Only 09/29/2024 Encounter Details Date Type Department Care Team (Late st Contact Info) Description 09/29/2024 Telephone Neurosurgery [facility] [address] [facility] [address] [place] [address] Naomi Hare MA Advice Only Social History Tobacco Use Types Packs/Day Years Used Date Smoking Tobacco: Former Smokeless Tobacco: Never Alcohol Use Standard Drinks/Week Comments Yes 2 (1 standard drink = 0.6 oz pur e alcohol) Sex and Gender Information Value Date Recorded Sex Assigned at Not on file Legal Sex Male 9:48 PM EST Gender Identity Not on file Sexual Orientation Not on file documented as of this encounter Progress Notes * REGGIE Carty - 09/30/2024 2:28 PM EDT I spoke to the patient. Feeling much much better. Please cancel his surgery for next week as well as the MRI. * Naomi Hare MA - 09/29/2024 3:50 PM EDT Pt LM message on VM. Pt stated that he is feeling 98 % better. He wondered if Dr would like to cancel the surgery scheduled October 07 and MRI?? Provided phone number [phone] Thank you. documented in this encounter Plan of Treatment Not on file documented as of this encounter Visit Diagnoses Not on filedocumented in this encounter Care Teams Behavioral Geneticist Relationship Specialty Start Date End Date Saul Sigala MD [address] [place] [address] [place] [address] PCP - General 11/23/12 documented as of this encounter
== END 2024-10-01 14:26 | disposition home or self-care (01) ==
LOC: HO.HPS 13:58
PROVIDERS: PCP Family Medicine; Visit Provider Internal Medicine Pulmonary Disease
DX: J44.9 Chronic obstructive pulmonary disease, unspecified (principal); Z01.811 Encounter for preprocedural respiratory examination
CPT/HCPCS: 99214

== ENCOUNTER → 2024-10-01 13:57 | Outpatient (BNVA) | payer MEDICARE, OTHER, SELFPAY | PROVIDERS: PCP Family Medicine; Visit Provider Internal Medicine Pulmonary Disease | DX: Z01.811 Encounter for preprocedural respiratory examination (principal); J44.9 Chronic obstructive pulmonary disease, unspecified; Z87.891 Personal history of nicotine dependence | CPT/HCPCS: 99212 ==

== ENCOUNTER 2024-10-20 08:56 | Outpatient (REF) | payer MEDICARE, OTHER, SELFPAY ==
--- OUTSIDE RECORDS SUMMARY | 2024-10-20 10:14 | XMS_ITS | Clinical Summary ---
Author Organization 175 [facility] Address [address] [place] [address] Phone Care Team Providers Care Director Supply Chain Name Role Phone Saul Sigala MD Primary Care Provider [phone] Allergies No known active allergies Medications tamsulosin (FLOMAX) 0.4 mg 24 hr capsule Take 1 capsule (0.4 mg total) by mouth at bedtime. Active predniSONE (DELTASONE) 5 mg tablet Take 1 tablet (5 mg total) by mouth 1 (one) time each day. 5 Active metoprolol tartrate (LOPRESSOR) 25 mg tablet Take 1 tablet (25 mg total) by mouth 2 (two) times a day. 5 Active isosorbide mononitrate (IMDUR) 30 mg 24 hr tablet TAKE 1 TABLET BY MOUTH EVERY DAY AT SUPPER TIME Active Breo Ellipta 200-25 mcg/dose inhaler INHALE 1 PUFF INTO LUNGS DAILY 5 Active gabapentin (NEURONTIN) 300 mg capsule Take 1 capsule (300 mg total) by mouth. at bedtime 5 Active furosemide (LASIX) 40 mg tablet Take 1 tablet (40 mg total) by mouth 1 (one) time each day in the morning. 5 Active Jardiance 10 mg tablet TAKE 1 TABLET BY MOUTH EVERY DAY IN THE MORNING DIRECTED 5 Active digoxin (LANOXIN) 125 mcg (0.125 mg) tablet TAKE 1 TABLET BY MOUTH EVERY DAY IN THE MORNING DIRECTED 5 Active finasteride (PROSCAR) 5 mg tablet Take 1 tablet (5 mg total) by mouth 1 (one) time each day. Active Eliquis 5 mg tablet Take 1 tablet (5 mg total) by mouth 2 (two) times a day. as directed 5 Active albuterol 2.5 mg /3 mL (0.083 %) nebulizer solution INHALE 1 VIAL VIA NEBULIZER EVERY 4 TO 6 HOURS NEEDED FOR SHORTNESS OF BREATH OR WHEEZING 5 Active atorvastatin (LIPITOR) 80 mg tablet Take 1 tablet (80 mg total) by mouth. at bedtime. 5 Active Entresto 49-51 mg per tablet Take 1 tablet by mouth 2 (two) times a day. 5 Active traMADoL (ULTRAM) 50 mg tablet Take 1 tablet (50 mg total) by mouth every 8 (eight) hours if needed. for pain Active magnesium citrate solution Take 148 mL by mouth 1 (one) time if needed (Constipation) for up to 2 doses. 296 mL 5 Active Active Problems Problem Noted Date Diagnosed Date [...] embolism diagnosed in June 2018 (treated at [facility]) for which he completed 7 months of [...] Department Care Team Description 09/29/2024 Telephone Neurosurgery [address] [phone] Naomi Hare MA Advice Only 09/22/[address] [phone] Laura Wallace MA Appointment (L/Spine MRI appointment scheduled for 10/05/24 @ 10:30am at [facility]. Pt aware) 09/16/[address] [phone] Carlos Lew PA 09/10/2024 5:27 PM EDT - 09/10/2024 11:31 PM EDT Emergency [facility] Emergency [address] [place] [phone] Rectal bleeding (Primary Dx) Discharge Disposition: Home or Self Care 09/07/2024 2:00 PM EDT Consult Neurosurgery [address] [phone] Carlos Lew PA Spinal stenosis of lumbar region with radiculopathy (Primary Dx); Sciatic pain, right 09/07/2024 Telephone Neurosurgery [address] [phone] Aileen Shearer MA from Last 3 Months [...] effusion DX:Pericard ial effusion Peripheral arterial disease ([facility] V24) DX:Peripheral arterial disea se ([facility]); COMMENT: status post bilateral femoral to popliteal bypass. COPD (chronic obstructive pu lmonary disease) ([facility] V24, [facility] V28) DX:COPD (chronic o bstructive pulmonary disease) ([facility]) Lumbar stenosis DX:Lumbar stenos is; COMMENT: [...] LAB HEMETOLOGY METHOD 09/10/2024 6:11 PM EDT [facility] RBC 4.70 4.50 - 5.50 M/mcL LAB HEMETOLOGY METHOD 09/10/2024 6:11 PM EDT [facility] Hemoglobin 14.0 13.5 - 17.5 g/dL LAB HEMETOLOGY METHOD 09/10/2024 6:11 PM EDT [facility] Hematocrit 43.5 42.0 - 54.0 % LAB HEMETOLOGY METHOD 09/10/2024 6:11 PM EDT [facility] MCV 92.4 79.0 - 98.0 FL LAB HEMETOLOGY METHOD 09/10/2024 6:11 PM EDT [facility] MCH 29.7 27.0 - 32.0 pcg LAB HEMETOLOGY METHOD 09/10/2024 6:11 PM EDT [facility] MCHC 32.2 32.0 - 37.0 g/dL LAB HEMETOLOGY METHOD 09/10/2024 6:11 PM [facility] RDW 14.3 11.0 - 15.0 % LAB HEMETOLOGY METHOD 09/10/2024 6:11 PM EDT [facility] Platelets 410(H) 130 - 400 K/mcL LAB HEMETOLOGY METHOD [facility] MPV 10.0 7.0 - 11.0 FL LAB HEMETOLOGY METHOD 09/10[facility]2024 [facility] NRBC 0.0 <1.0 % LAB HEMETOLOGY METHOD 09/10[facility]2024 6[facility] NRBC Absolute 0.00 <0.10 K/mcL LAB HEMETOLOGY METHOD 09/10[facility]2024 6[facility] Neutrophils Relative 82.0 % LAB HEMETOLOGY METHOD 09/10/2024 6:11 PM [facility] Lymphocytes Relative 5.1 % LAB HEMETOLOGY METHOD 09/10/2024 6:11 PM [facility] Monocytes Relative 10.7 % LAB HEMETOLOGY METHOD 09/10/2024 6:11 PM [facility] Eosinophils Relative 0.8 % LAB HEMETOLOGY METHOD 09/10/2024 6:11 PM [facility] Basophils Relative 0.4 % LAB HEMETOLOGY METHOD 09/10/2024 6:11 PM [facility] Immature Granulocytes Relative 1.0 % LAB HEMETOLOGY METHOD 09/10/2024 6:11 PM EDT [facility] Neutrophils Absolute 9.21(H) 1.50 - 7.00 K/mcL LAB HEMETOLOGY METHOD 09/10/2024 6:11 PM EDT [facility] Lymphocytes Absolute 0.57(L) 1.00 - 5.00 K/mcL LAB HEMETOLOGY METHOD 09/10/2024 6:11 PM EDT [facility] Monocytes Absolute 1.20(H) 0.20 - 1.00 K/mcL LAB HEMETOLOGY METHOD 09/10/2024 6:11 PM EDT [facility] Eosinophils Absolute 0.09 0.00 - 0.50 K/[facility] LAB HEMETOLOGY METHOD 09/10/2024 6:11 PM EDT [facility] Basophils Absolute 0.04 0.00 - 0.20 K/mcL LAB HEMETOLOGY METHOD 09/10/2024 6:11 PM EDT [facility] Immature Granulocytes Absolute 0.11(H) 0.00 - 0.03 K/mcL LAB HEMETOLOGY METHOD 09/10/2024 6:11 PM EDT [facility] Blood Venous blood specimen / Unknown Venipuncture / Unknown 09/10/2024 5:42 PM EDT 09/10/2024 6:02 PM EDT us Jeremias Carrizales MD LAB BLOOD ORDERABLES Final Result [facility] [address] [place] [address], * (ABNORMAL) Comprehensive metabolic panel (09/10/2024 5:42 PM EDT) Sodium 139 133 - 145 mmol/L LAB CHEMISTRY METHOD 09/10/2024 6:30 PM EDT [facility] Potassium 4.1 3.5 - 5.5 mmol/L LAB CHEMISTRY METHOD 09/10/2024 6:30 PM [facility] Chloride 105 96 - 110 mmol/L LAB CHEMISTRY METHOD 09/10/2024 6:30 PM [facility] CO2 27 21 - 32 mmol/L LAB CHEMISTRY METHOD 09/10/2024 6:30 PM [facility] Anion Gap 7 3 - 11 LAB CHEMISTRY METHOD 09/10/2024 6:30 PM [facility] Glucose 98 70 - 100 mg/dL LAB CHEMISTRY METHOD 09/10/2024 6:30 PM [facility] BUN 15 5 - 25 mg/dL LAB CHEMISTRY METHOD 09/10/2024 6:30 PM [facility] Creatinine 1.32(H) 0.70 - 1.30 mg/dL LAB CHEMISTRY METHOD 09/10/2024 6:30 PM [facility] eGFR 54(L) >=60 mL/min/1. 73m2 LAB CHEMISTRY METHOD 09/10/2024 6:30 PM [facility] Comment:Calculation based on the??Chronic Kidney Disease Epidemiology Collaboration (CKD-EPI) equation refit??without adjustment for race. BUN/Creatinine Ratio 11.4 LAB CHEMISTRY METHOD 09/10/2024 6:30 PM [facility] Calcium 9.3 8.5 - 10.5 mg/dL LAB CHEMISTRY METHOD 09/10/2024 6:30 PM [facility] AST (SGOT) 26 10 - 42 unit/L LAB CHEMISTRY METHOD 09/10/2024 6:30 PM [facility] ALT (SGPT) 23 10 - 60 unit/L LAB CHEMISTRY METHOD 09/10/2024 6:30 PM [facility] Alkaline Phosphatase 63 42 - 121 unit/L LAB CHEMISTRY METHOD 09/10/2024 6:30 PM [facility] Total Protein 7.1 6.0 - 8.0 g/dL LAB CHEMISTRY METHOD 09/10/2024 6:30 PM EDT [facility] Albumin 3.5 3.2 - 5.0 g/dL LAB CHEMISTRY METHOD 09/10/2024 6:30 PM EDT [facility] Total Bilirubin 0.7 0.0 - 1.4 mg/dL LAB CHEMISTRY METHOD 09/10/2024 6:30 PM EDT [facility] Blood Venous blood specimen / Unknown Venipuncture / Unknown 09/10/2024 5:42 PM EDT 09/10/2024 6:02 PM EDT Jeremias Carrizales MD LAB BLOOD ORDERABLES Final Result [facility] [address] [place] [address], * External MRI Report (09/03/2024 8:46 AM EDT) Anatomical Region Laterality Modality Magnetic Resonan ce Historical Provider IMG MRI PROCEDURES Final Result from Last [address] [place] [id number] MEDICARE [facility] Care Teams Director Supply Chain Relationship Specialty Start Date End Date Saul Sigala MD [address] [place] [address] [place] [id number] PCP - General 11/23/12
--- OUTSIDE RECORDS SUMMARY | 2024-10-20 10:14 | XMS_ITS | Encounter Summary ---
Author Organization [facility] Address [address] [place] [address] Care Team Providers Care Linemarker Name Role Phone Saul Sigala MD Primary Care Provider [phone] Reason for Visit * Reason Onset Date Comments Advice Only 09/29/2024 Encounter Details Date Type Department Care Team (Late st Contact Info) Description 09/29/2024 Telephone Neurosurgery [facility] [address] [place] [address] Naomi Hare MA Advice Only [...] October 07 and MRI?? Provided phone number [phone] Thank you. documented in this encounter Plan of Treatment Not on file documented as of this encounter Visit Diagnoses Not on filedocumented in this encounter Care Teams Linemarker Relationship Specialty Start Date End Date Saul Sigala MD [address] [place] [address] [place] [address] PCP - General 11/23/12 documented as of this encounter
[2024-10-20 11:40] LABS: Alanine Aminotransferase 19 U/L (0-40); Anion Gap 13 (12-20); Aspartate Amino Transferase 29 U/L (5-37); Carbon Dioxide 28 mmol/L (22-29); Chloride 105 mmol/L (96-108); Cholesterol 138 mg/dL (<200); Estimated Glomerular Filt Rate 56; HDL Cholesterol 52 mg/dL (>40); LDL Cholesterol Calculated 67 mg/dL (<100); Potassium 3.9 mmol/L (3.3-5.1); Sodium 142 mmol/L (135-145); Triglycerides 99 mg/dL (<150)
== END 2024-10-20 08:57 | disposition home or self-care (01) ==
LOC: HO.HMGCLDS 08:56
PROVIDERS: PCP Family Medicine; Visit Provider Family Medicine
DX: I10 Essential (primary) hypertension (principal); E78.00 Pure hypercholesterolemia, unspecified; Z79.899 Other long term (current) drug therapy
CPT/HCPCS: 36415; 80051; 80061; 82550; 82565; 84450; 84460

== ENCOUNTER 2024-10-28 12:10 | Emergency (ER) | payer MEDICARE, OTHER, SELFPAY ==
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
[2024-10-28 13:01] VITALS: BP 163/58; PULSE 59; RESP 16; TEMP 36.4; O2SAT 96; BMI 20.4
[2024-10-28 14:31] LABS: MANUAL DIFF FLAG NO
[2024-10-28 14:32] LABS: Basophils Absolute Auto 0.1 X10*3/uL (0.0-0.2); Basophils Percent Auto 0.5 % (0-2); Eosinophils Percent Auto 0.3 % (0-4); Hematocrit 39.5 % (42.0-52.0); Hemoglobin 12.7 g/dl (14.0-18.0); Imm Gran Abs Auto 0.06 X10*3/uL (0.00-0.03); Imm Gran Pct Auto 0.6 % (0.0-0.4); Lymphocytes Absolute Auto 0.6 X10*3/uL (1.2-4.9); Mean Corpuscular HGB Conc 32.2 g/dl (31.0-36.0); Mean Corpuscular Hemoglobin 29.4 pg (27.0-33.0); Mean Corpuscular Volume 91.4 fL (80.0-98.0); Mean Platelet Volume 9.7 fL (9.4-12.4); Monocytes Absolute Auto 0.7 X10*3/uL (0.1-1.2); Neutrophils Absolute Auto 8.7 x10*3/uL (2.0-8.3); Neutrophils Percent Auto 85.6 % (45-73); Platelet Count 256 X10*3/uL (160-400); Red Blood Count 4.32 X10*6/uL (4.60-5.80); Red Cell Distribution Width 15.1 % (11.0-16.0); White Blood Count 10.1 X10*3/uL (4.8-10.8)
[2024-10-28 14:52] LABS: Alanine Aminotransferase 18 U/L (0-40); Albumin Level 4.2 g/dL (3.5-5.0); Alkaline Phosphatase 42 U/L (39-117); Anion Gap 13 (12-20); Aspartate Amino Transferase 21 U/L (5-37); Bilirubin Total 0.8 mg/dL (0.0-1.0); Blood Urea Nitrogen 19 mg/dL (9-16); Calcium 9.3 mg/dL (8.4-10.2); Carbon Dioxide 30 mmol/L (22-29); Chloride 106 mmol/L (96-108); Creatinine Clr Calc Pharmacy 29.5; Estimated Glomerular Filt Rate 44; Glucose Random 122 mg/dL (60-115); Potassium 5.3 mmol/L (3.3-5.1); Sodium 144 mmol/L (135-145); Total Protein 7.1 g/dL (6.5-8.0)
--- NOTE | 2024-10-28 18:48 | PC.NURSE ---
no answer for second call at [id number]
== END 2024-10-28 18:48 | disposition left against medical advice (07) ==
LOC: HO.ED 18:45
PROVIDERS: Emergency Provider Emergency Medicine; PCP Family Medicine
DX: S39.92XA Unspecified injury of lower back, initial encounter (principal); R51.9 Headache, unspecified; V43.52XA Car driver injured in collision with other type car in traffic accident, initial encounter; Y93.9 Activity, unspecified; Y92.410 Unspecified street and highway as the place of occurrence of the external cause; Y99.8 Other external cause status; Z79.899 Other long term (current) drug therapy
CPT/HCPCS: 36415; 70450; 72100; 80053; 85025; 99281; 99284

== ENCOUNTER → 2024-10-28 13:06 | Outpatient (BNV) | payer MEDICARE, OTHER, SELFPAY | PROVIDERS: PCP Family Medicine; Visit Provider Radiology Diagnostic Radiology | DX: G93.89 Other specified disorders of brain (principal); M51.362 Other intervertebral disc degeneration, lumbar region with discogenic back pain and lower extremity pain | CPT/HCPCS: 72100 ==

== ENCOUNTER 2024-12-16 08:27 | Outpatient (AMB) | payer MEDICARE, OTHER, SELFPAY ==
--- OUTSIDE RECORDS SUMMARY | 2024-12-16 08:32 | XMS_ITS | Clinical Summary ---
Author Organization [address] [facility] Address [address] [place] [address] Phone Care Team Providers Care Asset Protection Assistant Name Role Phone Saul Sigala MD Primary Care Provider [phone] Allergies No known active allergies Medications tamsulosin [...] embolism diagnosed in June 2018 (treated at [facility]) for which he completed 7 months [...] Department Care Team Description 09/29/2024 Telephone Neurosurgery [address] [phone] Naomi Hare MA Advice Only 09/22/2024 Telephone Neurosurgery [address] [phone] Laura Wallace MA Appointment (L/Spine MRI appointment scheduled for 10/05/24 @ 10:30am at [facility]. Pt aware) 09/16/2024 Telephone Neurosurgery [address] [phone] Carlos Lew PA from Last 3 Months Immunizations Name Administration [...] effusion DX:Pericard ial effusion Peripheral arterial disease ([facility] V24) DX:Peripheral arterial disea se ([facility]); COMMENT: status post bilateral femoral to popliteal bypass. COPD (chronic obstructive pu lmonary disease) ([facility] V24, [facility] V28) DX:COPD (chronic o bstructive pulmonary disease) ([facility]) Lumbar stenosis DX:Lumbar stenos is; COMMENT: using [...] 60 09/10/2024 8:32 PM EDT Temperature 36.9 C (98.4 F) 09/10/2024 5:35 PM EDT Respiratory Rate 23 09/10/2024 8:32 PM EDT [...] 2024 04/08/2024, 04/24/2021, 08/21/2020, Additional history exists Influenza Vaccine (#1) 2025 , 03/19/2023, 05/29/2018 Falls Risk Assessment 09/10/2025 09/10/2024 Hypertension/CHF/CAD Annual BMP Blood Test 09/10/2025 09/10/2024 HIB Vaccines Aged Out No longer eligi [...] Procedure Name Priority Date/Time Associated Diagnosis Comments COMPREHENSIVE METABOLIC PANEL STAT 09/10/2024 5:42 PM EDT from Last 3 Months or Most Recently Relevant to Health Maintenance Results * (ABNORMAL) Comprehensive metabolic panel (09/10/2024 5:42 PM EDT) Sodium 139 133 - 145 mmol/L LAB CHEMISTRY METHOD 09/10/2024 6:30 PM EDT [facility] Potassium 4.1 3.5 - 5.5 mmol/L LAB CHEMISTRY METHOD 09/10/2024 6:30 PM [facility] Chloride 105 96 - 110 mmol/L LAB CHEMISTRY METHOD 09/10/2024 6:30 PM [facility] CO2 27 21 - 32 mmol/L LAB CHEMISTRY METHOD 09/10/2024 6:30 PM [facility] Anion Gap 7 3 - 11 LAB CHEMISTRY METHOD 09/10/2024 6:30 PM [facility] Glucose 98 70 - 100 mg/dL LAB CHEMISTRY METHOD 09/10/2024 6:30 PM [facility] BUN 15 5 - 25 mg/dL LAB CHEMISTRY METHOD 09/10/2024 6:30 PM [facility] Creatinine 1.32(H) 0.70 - 1.30 mg/dL LAB CHEMISTRY METHOD 09/10/2024 6:30 PM [facility] eGFR 54(L) >=60 mL/min/1. 73m2 LAB CHEMISTRY METHOD 09/10/2024 6:30 PM [facility] Comment:Calculation based on the Chronic Kidney Disease Epidemiology Collaboration (CKD-EPI) equation refit without adjustment for race. BUN/Creatinine Ratio 11.4 LAB CHEMISTRY METHOD 09/10/2024 6:30 PM [facility] Calcium 9.3 8.5 - 10.5 mg/dL LAB CHEMISTRY METHOD 09/10/2024 6:30 PM [facility] AST (SGOT) 26 10 - 42 unit/L LAB CHEMISTRY METHOD 09/10/2024 6:30 PM [facility] ALT (SGPT) 23 10 - 60 unit/L LAB CHEMISTRY METHOD 09/10/2024 6:30 PM [facility] Alkaline Phosphatase 63 42 - 121 unit/L LAB CHEMISTRY METHOD 09/10/2024 6:30 PM [facility] Total Protein 7.1 6.0 - 8.0 g/dL LAB CHEMISTRY METHOD 09/10/2024 6:30 PM EDT [facility] Albumin 3.5 3.2 - 5.0 g/dL LAB CHEMISTRY METHOD 09/10/2024 6:30 PM EDT [facility] Total Bilirubin 0.7 0.0 - 1.4 mg/dL LAB CHEMISTRY METHOD 09/10/2024 6:30 PM EDT [facility] Blood Venous blood specimen / Unknown Venipuncture / Unknown 09/10/2024 5:42 PM EDT 09/10/2024 6:02 PM EDT Jeremias Carrizales MD LAB BLOOD ORDERABLES Final Result [facility] [address] [place] [address], from Last 3 Months or Most Recently Relevant to Health Maintenance Insurance MEDICARE [facility] [place] [employer] [id number] Care Teams Asset Protection Assistant Relationship Specialty Start Date End Date Saul Sigala MD [address] [place] [address] [place] [address] PCP - General 11/23/12
--- OUTSIDE RECORDS SUMMARY | 2024-12-16 08:32 | XMS_ITS | Patient Health Record ---
Author Organization [facility] Address [address] [place] [address] Care Team Providers Care Induction Coordination Power Engineer Name Role Phone Jovon (RETIRED) Saul PALOMARES Primary Care Provider Unavailable Dev Ambriz Jr Unavailable Reason For Referral No Information Medications Medication SIG (Take, Route, Frequency, Duration) Notes Start Date End Date Status Metoprolol & Diet Manage Pro d 150mg Active Crestor 40mg Active Amlodipine & Diet Manage Pro d 10mg Active Quinapril HCl 40mg A ctive Plavix 75mg Active Aspir-81 81mg Active Cyclobenzaprine HCl 10mg Active Finasteride 5mg Acti ve Multi Vitamin/Minerals Active Tamsulosin HCl 0.4mg Active Problems Problem Type SNOMED Code ICD Code Onset Dates Problem Status W/U Status Risk Notes Problem Dysphagia (09179148) Dysphagia (787.20) Active confirmed Problem Barium swallow abnormal (773907981) Abnormal barium swallow (793.4) Active confirmed Problem Helicobacter pylori gastrointestinal tract infection (450732598) H. pylori infection (041.86) Active confirmed Plan Of Treatment Future Test Test Name Order Date UPPER GI ENDOSCOPY [place] DILATION OF ESOPH 05/21/2012 Insurance Providers Payer Name Payer Address Payer Phone Subscriber Number Group Number Insured Name Patient Relationship to Insured Coverage Start Date Coverage End Date MEDICARE OF [place] [address] [place] [address] [id number] IRISHSEBASTIÁN Acosta Self - patient is the insured [facility] [employer] [address] [place] [address] [phone] [id number] IRISHSEBASTIÁN Acosta Self - patient is the insured Medical (General) History Medical History History ICD Code coronary artery disease with history of [place] and stent placement hypertension peripheral arterial disease Surgical History Surgery Date(Month/Year) back surgery leg bypass surgery multiple cardiac stent placements
[2024-12-16 08:34] VITALS: BP 120/72; PULSE 94; BMI 20.6
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
== END 2024-12-16 09:11 | disposition home or self-care (01) ==
LOC: HO.HCS 08:28
PROVIDERS: PCP Family Medicine; Visit Provider Internal Medicine Cardiovascular Disease
DX: R55 Syncope and collapse (principal); I49.5 Sick sinus syndrome; I48.19 Other persistent atrial fibrillation; I50.20 Unspecified systolic (congestive) heart failure; I25.10 Atherosclerotic heart disease of native coronary artery without angina pectoris
CPT/HCPCS: 93010; 99215; G2211

== ENCOUNTER → 2024-12-16 08:27 | Outpatient (BNVA) | payer MEDICARE, OTHER, SELFPAY | PROVIDERS: PCP Family Medicine; Visit Provider Internal Medicine Cardiovascular Disease | DX: R55 Syncope and collapse (principal); I49.5 Sick sinus syndrome; I48.19 Other persistent atrial fibrillation; I50.20 Unspecified systolic (congestive) heart failure; I25.10 Atherosclerotic heart disease of native coronary artery without angina pectoris; I45.10 Unspecified right bundle-branch block; R94.31 Abnormal electrocardiogram [ECG] [EKG] | CPT/HCPCS: 93005; 99212 ==

== ENCOUNTER 2025-02-09 11:04 | Outpatient (AMB) | payer MEDICARE, OTHER, SELFPAY ==
--- NOTE | 2025-02-09 11:07 | A.OFFPC_ITS ---
Vital Signs 02/09/25 11:12 02/09/25 11:33 Height 5 ft 6 in Weight 60.781 kg BMI 21.6 BP 158/60 H 140/70 H Pulse 70 Pulse Source Pulse Oximeter Temp 97.2 F Temp Source Temporal Artery Scan Pulse Oximetry (%) 98 Oxygen Delivery Method Room Air Intake Visit Reasons: 4 MO F/U -FABBY PT - WILL NEED DR BELCHER Programming Development Project Manager Required: No Accompanied by: Self / Same As Patient Allergies No Known Allergies Allergy (Verified 02/09/25 11:07) Tobacco use date assessed: 02/09/25 Fall risk assessment: No Falls in past year Last assessed Fall Risk: 02/09/25 HPI HPI Comments History of Present Illness Details 84-year-old male with history of persist ent atrial fibrillation, heart failure reduced ejection fraction, hypertension, coronary artery disease, cardiomyopathy, COPD, BPH, hyperlipidemia presents to the office today for management of chronic conditions and to establish care. He was previously a patient of Dr. Sigala, last seen 09/2024. dig and metoprolol still on hold d/t tachybrady. COPD- chronic prednisone, Breo Chronic Afib/HFrEFF/CAD/CM/Tachy-Grace syndrome- follows with Dr. Schulz. Had 2 syncopal episodes in November related to tachy-grace syndrome and 2 attempts were made for pacemaker placement at [facility] per patient. He tells me he was supposed to hear back from [facility] but has not yet heard back. Advised that he should be contacting the department. Metoprolol and digoxin are on hold right now as a result of the tachy-grace syndrome. Continues on Eliquis 5 mg twice daily, Jardiance, Lasix, Isordil, Entresto. Daily weights BPH-Flomax HLD 7 Concerns: None ROS: General: No fevers, malaise, unintentional weight loss HEENT: No blurred vision, diplopia. No sore throat, nasal congestion, rhinorrhea, sinus pain, ear pain Cardiovascular: No chest pain, palpitations, or leg edema Respiratory: No shortness of breath, wheezing, cough GI: No abdominal pain, nausea, vomiting, diarrhea, constipation, melena, hematochezia : No dysuria, hematuria, increased urinary frequency, decreased urinary output MSK: No myalgia, back pain Neuro: No headaches, weakness, paresthesias Skin: No rashes or lesions EXAM: Constitutional - Awake and Alert, No apparent distress Eyes - PERRL Cardiovascular - S1S2, irregular irregular, No edema Respiratory - Normal lung expansion, Normal respiratory effort, No respiratory distress, CTA bilaterally Extremities - no calf tenderness bilaterally, no swelling Skin - Warm/Dry Neurological - Alert & oriented x3 Psychological - Appropriate affect [facility] Medical History Paroxysmal atrial fibrillation Afib Heart failure with reduced ejection fraction Urinary retention Decompensated heart failure BPH (benign prostatic hyperplasia) Chronic combined systolic and diastolic congestive heart failure Acute pericardial effusion Cardiac tamponade Bronchiectasis Atrial fibrillation, new onset Pericardial effusion CHF (congestive heart failure) Coronary artery disease COPD (chronic obstructive pulmonary disease) Severe chronic obstructive pulmonary disease Surgical History Pericardial effusion with cardiac tamponade H/O heart artery stent Social History Household Members: Spouse Housing: House Alcohol intake: current Alcohol intake frequency: a few times a week Patient Tobacco Use Status: Former Tobacco user e-Cigarette/Vaping Use: Never Used Advance Directives Date on File: 01/30/22 service: No Current occupational status: retired Cognitive needs: No Hearing needs: No Vision needs: Yes (Rx glasses) Physical exam (Primary Care) Vital Signs: Last Vital Signs Temp 97.2 F 02/09/25 11:12 Pulse 70 02/09/25 11:12 BP 140/70 H 02/09/25 11:33 Pulse Ox 98 02/09/25 11:12 Oxygen Delivery Method Room Air 02/09/25 11:12 BMI result Body Mass Index 21.6 Tobacco/Smoking Status: Tobacco use Status Tobacco use date assessed 02/09/25 02/09/25 11:14 Patient Tobacco Use Status Former Tobacco user 02/09/25 11:14 e-Cigarette/Vaping Use Never Used 02/09/25 11:14 Coding Level of Care Code New Pt Level 4 (72893) Complex EM visit Add On G2211 Diagnoses Primary hypertension I10 Hypertension type: primary hypertension Cardiomyopathy, unspecified type I42.9 Cardiomyopathy type: unspecified Coronary artery disease involving [place] coronary artery of [place] heart without angina pectoris I25.10 Associated angina: without angina Coronary Disease-Associated Artery/Lesion type: [place] artery [place] vs. transplanted heart: [place] heart Persistent atrial fibrillation I48.19 COPD (chronic obstructive pulmonary disease) J44.9 Assessment & Plan Assessment & Plan (1) Hypertension: Code(s): I10 - Essential (primary) hypertension Category: Medical Qualifiers: Hypertension type: primary hypertension Qualified Code(s): I10 - Essential (primary) hypertension Plan: Improved on recheck. Continue current therapies (2) Cardiomyopathy: Code(s): I42.9 - Cardiomyopathy, unspecified Category: Medical Qualifiers: Cardiomyopathy type: unspecified Qualified Code(s): I42.9 - Cardiomyopathy, unspecified Plan: Compensated. Continue following with cardiology. Continue current therapies (3) Coronary artery disease: Code(s): I25.10 - Atherosclerotic heart disease of [place] coronary artery without angina pectoris Category: Medical Qualifiers: Associated angina: without angina Coronary Disease-Associated Artery/Lesion type: [place] artery [place] vs. transplanted heart: [place] heart Qualified Code(s): I25.10 - Atherosclerotic heart disease of [place] coronary artery without angina pectoris Plan: Stable (4) Persistent atrial fibrillation: Code(s): I48.19 - Other persistent atrial fibrillation Category: Medical Plan: Rate controlled (5) COPD (chronic obstructive pulmonary disease): Code(s): J44.9 - Chronic obstructive pulmonary disease, unspecified Category: Medical Plan: No exacerbation. Continue therapies Plan Follow-up in the office in 3 months. Labs below Orders: Orders Basic Metabolic Panel Today D64.9 - Anemia, unspecified, I10 - Essential (primary) hypertension Complete Blood Count Auto Diff Today D64.9 - Anemia, unspecified, I10 - Essential (primary) hypertension Patient Instructions: [facility] cardiology - [phone] to schedule appointment
[2025-02-09 11:12] VITALS: BP 158/60; PULSE 70; TEMP 36.2; O2SAT 98; BMI 21.6
[2025-02-09 11:33] VITALS: BP 140/70
--- OUTSIDE RECORDS SUMMARY | 2025-02-09 14:08 | XMS_ITS | Clinical Summary ---
Author Organization [facility] Address [address] [place] [address] Phone Care Team Providers Care Adjunct Mathematics Instructor Name Role Phone Saul Sigala MD Primary Care Provider [phone] Allergies No known active allergies Medications tamsulosin [...] embolism diagnosed in June 2018 (treated at [facility]) for which he completed 7 months of [...] non-contrasted MRI of the lumbar spine from [facility] dated 09/03/24 had significant motion degradation [...] cardiac and pulmonary clearance. Peripheral artery disease ([facility] V24) 09/05/19 21 Ischemic cardiomyopathy 09/04/2020 Essential hypertension 09/04/2020 SOB (shortness of breath) 08/31/2020 Immunizations Name Administration Dates Next Due Influenza [...] effusion DX:Pericard ial effusion Peripheral arterial disease ([facility] V24) DX:Peripheral arterial disea se ([facility]); COMMENT: status post bilateral femoral to popliteal bypass. COPD (chronic obstructive pu lmonary disease) ([facility] V24, [facility] V28) [...] 05/29/2018, 06/20/2006 Cholesterol Screening (Lipid Panel) 05/11/2022 Medicare Annual Wellness Visit 05/11/2022 Social Influencers of Health Screening 05/11/2022 Depression Screening 06/02/2024 COVID-19 Vaccine ( season) 2025 04/08/2024, 04/24/2021, 08/21/2020, Additional history exists Influenza [...] [facility] Comment:Calculation based on the Chronic Kidney [...] MD LAB BLOOD ORDERABLES Final Result [facility] [address] [place] [address], from Last 3 Months or Most Recently Relevant to Health Maintenance Insurance MEDICARE [facility] Care Teams Adjunct Mathematics Instructor Relationship Specialty Start Date End Date Saul Sigala MD [address] [place] [address] [place] [address] PCP - General 11/23/12
--- OUTSIDE RECORDS SUMMARY | 2025-02-09 14:08 | XMS_ITS | Patient Health Record ---
Author Organization [facility] Address [address] [place] [address] Care Team Providers Care Lcac Operator Name Role Phone Jovon (RETIRED) Saul PALOMARES [...] Status W/U Status Risk Notes Problem Dysphagia (38152657) Dysphagia (787.20) Active confirmed Problem Barium swallow abnormal (752618509) Abnormal barium swallow (793.4) Active confirmed Problem Helicobacter pylori gastrointestinal tract infection (248042461) H. pylori infection (041.86) Active confirmed Plan Of Treatment Future Test Test Name Order Date UPPER GI ENDOSCOPY [place] DILATION OF ESOPH 05/21/2012 Insurance Providers Payer Name Payer Address Payer Phone Subscriber Number Group Number Insured Name Patient Relationship to Insured Coverage Start Date Coverage End Date MEDICARE OF [place] [address] [facility] [address] [id number] IRISHSEBASTIÁN Acosta Self - patient is the insured [facility] [employer] [address] [place] [address] [id number] IRISHSEBASTIÁN Acosta Self - patient is the insured Medical (General) History Medical History History ICD Code coronary artery disease with history of [place] and stent placement hypertension peripheral arterial disease Surgical History Surgery Date(Month/Year) back surgery leg bypass surgery multiple cardiac stent placements
== END 2025-02-09 11:38 | disposition home or self-care (01) ==
LOC: HO.HMCHD 11:05
PROVIDERS: PCP Family Medicine; Visit Provider Physician Assistant
DX: I10 Essential (primary) hypertension (principal); I42.9 Cardiomyopathy, unspecified; I48.19 Other persistent atrial fibrillation; J44.9 Chronic obstructive pulmonary disease, unspecified; I25.10 Atherosclerotic heart disease of native coronary artery without angina pectoris

== ENCOUNTER → 2025-02-09 11:04 | Outpatient (BNVA) | payer MEDICARE, OTHER, SELFPAY | PROVIDERS: PCP Family Medicine; Visit Provider Physician Assistant | DX: Z76.89 Persons encountering health services in other specified circumstances (principal); I11.0 Hypertensive heart disease with heart failure; I50.20 Unspecified systolic (congestive) heart failure; I42.9 Cardiomyopathy, unspecified; I25.10 Atherosclerotic heart disease of native coronary artery without angina pectoris; I48.19 Other persistent atrial fibrillation; J44.9 Chronic obstructive pulmonary disease, unspecified; N40.0 Benign prostatic hyperplasia without lower urinary tract symptoms; Z79.01 Long term (current) use of anticoagulants | CPT/HCPCS: 99202 ==

== ENCOUNTER 2025-02-09 11:46 | Outpatient (REF) | payer MEDICARE, OTHER, SELFPAY ==
[2025-02-09 13:08] LABS: MANUAL DIFF FLAG NO
[2025-02-09 13:15] LABS: Hematocrit 37.5 % (42.0-52.0); Hemoglobin 11.6 g/dl (14.0-18.0); Imm Gran Abs Auto 0.06 X10*3/uL (0.00-0.03); Imm Gran Pct Auto 0.5 % (0.0-0.4); Lymphocytes Absolute Auto 0.4 X10*3/uL (1.2-4.9); Mean Corpuscular HGB Conc 30.9 g/dl (31.0-36.0); Mean Corpuscular Hemoglobin 25.6 pg (27.0-33.0); Mean Corpuscular Volume 82.8 fL (80.0-98.0); NRBC Abs Auto 0.000 X10*3/uL (0.0-0.012); NRBC Pct Auto 0.0 /100WBC (0.0-0.2); Platelet Count 350 X10*3/uL (160-400); Red Blood Count 4.53 X10*6/uL (4.60-5.80); White Blood Count 12.8 X10*3/uL (4.8-10.8)
[2025-02-09 13:30] LABS: Anion Gap 15 (12-20); Blood Urea Nitrogen 25 mg/dL (9-16); Calcium 9.1 mg/dL (8.4-10.2); Carbon Dioxide 26 mmol/L (22-29); Chloride 106 mmol/L (96-108); Estimated Glomerular Filt Rate 46; Potassium 4.0 mmol/L (3.3-5.1); Sodium 143 mmol/L (135-145)
== END 2025-02-09 11:47 | disposition home or self-care (01) ==
LOC: HO.10HDL 11:46
PROVIDERS: Visit Provider Physician Assistant
DX: I10 Essential (primary) hypertension (principal); D64.9 Anemia, unspecified
CPT/HCPCS: 36415; 80048; 85025

== ENCOUNTER 2025-02-21 08:32 | Outpatient (AMB) | payer MEDICARE, OTHER, SELFPAY ==
[2025-02-21 08:34] VITALS: BP 160/70; PULSE 124; BMI 21.9
--- NOTE | 2025-02-21 08:34 | A.OFFVIS_ITS ---
Vital Signs 02/21/25 08:34 Height 5 ft 6 in Weight 135 lb 12.876 oz BMI 21.9 BP 160/70 H Blood Pressure Location Lt brachial Position Sitting Pulse 124 H Pulse Source Monitor Intake Visit Reasons: 2m follow up/ device check Intake Note: 2 Month Follow up / Device check Wet Sander Required: No Accompanied by: Self / Same As Patient Allergies No Known Allergies Allergy (Verified 02/09/25 11:07) Medication List - Last Reconciled 02/21/25 by Neo Schulz MD albuterol sulfate 2.5 mg (3 mL) inhalation Q4-6H PRN 30 days apixaban (Eliquis) 5 mg PO BID atorvastatin 80 mg PO BEDTIME empagliflozin (Jardiance) 10 mg PO DAILY finasteride 5 mg PO DAILY fluticasone furoate-vilanterol 200-25 mcg/dose (Breo Ellipta) 1 ea inhalation DAILY furosemide 40 mg PO DAILY gabapentin 300 mg PO DAILY isosorbide mononitrate ER 30 mg PO DAILY@1800 multivitamin 1 tab PO DAILY omeprazole 20 mg PO DAILY prednisone 5 mg PO DAILY sacubitril-valsartan 49-51 mg (Entresto) 1 tab PO BID 90 days tamsulosin (Flomax) 0.4 mg PO BEDTIME HPI Comments Details: Nilda comes for regular to month follow-up. He was supposed to have a transjugular leadless pacemaker placed but has never got a call from [facility]. Patient comes for follow up visit. 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 Not able to compare it to his prior anginal pain. He has had multiple stents in the past including multiple vessels. He had a myocardial perfusion imaging in August which had shown mixed ischemia/infarct pattern in the inferior wall which was being managed medically as he is not having any significant symptoms of angina. 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 He is currently taking all his medications and said took his medications this morning. Chest pain is just about resolving as per him lasting for about greater than an hour hour and 30 minutes. He is short of breath but says he is always short of breath like this because of his COPD. He also notice that his pulse rate was elevated in the 100-120 range. He however denies any palpitations. Denies any clear orthopnea, PND, leg edema. He is currently on Eliquis which she is taking religiously. [facility] Medical History Paroxysmal atrial fibrillation Afib Heart failure with reduced ejection fraction Urinary retention Decompensated heart failure BPH (benign prostatic hyperplasia) Chronic combined systolic and diastolic congestive heart failure Acute pericardial effusion Cardiac tamponade Bronchiectasis Atrial fibrillation, new onset Pericardial effusion CHF (congestive heart failure) Coronary artery disease COPD (chronic obstructive pulmonary disease) Severe chronic obstructive pulmonary disease Surgical History Pericardial effusion with cardiac tamponade H/O heart artery stent Social History Household Members: Spouse Housing: House Alcohol intake: current Alcohol intake frequency: a few times a week Patient Tobacco Use Status: Former Tobacco user e-Cigarette/Vaping Use: Never Used Advance Directives Date on File: 01/30/22 service: No Current occupational status: retired Cognitive needs: No Hearing needs: No Vision needs: Yes (Rx glasses) Review of Systems Const Denies daytime sleepiness, Denies difficulty sleeping, Denies snoring, Denies stops breathing during sleep and Denies weakness Card Reports chest pain, Denies rapid heart rate, Denies irregular heart rhythm, Denies claudication, Denies leg edema, Denies lightheadedness, Denies palpitations, Reports dyspnea, Denies dyspnea on exertion, Denies orthopnea, Denies paroxysmal nocturnal dyspnea and Denies slow heart rate Resp Denies cough, Reports dyspnea, Denies dyspnea on exertion and Denies snoring GI Reports no additional complaints, Denies hematochezia, Denies change in stool character and Denies dyspepsia Musc Denies abnormal gait, Denies muscle weakness and Denies numbness Neuro Denies abnormal gait, Denies numbness and Denies weakness Endo Denies palpitations Physical Exam Vital Signs: Last Vital Signs Pulse 124 H 02/21/25 08:34 BP 160/70 H 02/21/25 08:34 BMI result Body Mass Index 21.9 Const General: cooperative, healthy appearing, comfortable and in distress moderate and respiratory Nutritional Appearance: thin and other (Frail elderly man) Orientation/consciousness: patient oriented x3 Neck Neck: Yes normal visual inspection and Yes no JVD Resp Effort & Inspection: normal respiratory effort Auscultation: no crackles, no rales, no rhonchi, no wheezes and diminished lung sounds Cardio Jugular venous distension: no JVD Rate: tachycardic (With minimal exertional from chair to the table.) Rhythm: regular rhythm and abnormal rhythm irregularly irregular Heart sounds: S1 normal heart sound present, S2 normal heart sound present, no gallops, no murmurs and no rubs Neuro General: patient oriented x3 Extrem General: Yes normal to inspection and No no pedal edema Psych Appearance: grossly normal Mental Status: mental status grossly normal Speech and movement: Normal speech and movement present Office Procedures EKG Details: EKGs shows atrial tachycardia/atrial flutter with 2 is to 1 conduction with right bundle and left anterior fascicular block [id number], Complete Assessment & Plan Assessment & Plan (1) Unstable angina: Code(s): I20.0 - Unstable angina Category: Medical Plan: Patient presents with symptoms concerning for acute coronary syndrome/unstable angina. Given his prior significant history of coronary artery disease and symptoms that were prolonged finally resolving with tachycardia. Unstable angina could be related to tachycardia although more likely that this could be an issue with ongoing significant and progressive coronary artery disease. He had a myocardial perfusion imaging which was abnormal in August but was not having any anginal symptoms and being managed medically. He is currently on rate control therapy. I have referred him to emergency room and spoke to ED mid-level provider and gave the status of the patient. Will need to be manage for unstable angina. Would start him on nitro paste, give him metoprolol as well as draw cardiac markers. He has already taken in his Eliquis and would avoid giving him additional anticoagulation unless his markers are significantly elevated and will have to pursue that. Will give him aspirin. He will require inpatient admission (2) Heart failure with reduced ejection fraction: Code(s): I50.20 - Unspecified systolic (congestive) heart failure Category: Medical Plan: Prior history of heart failure reduced ejection fraction with last echocardiogram in his system from last year showing EF of 45-50% with grade 2 diastolic dysfunction. Patient clinically does not appear to be in overt heart failure but with angina could have pulmonary edema. Chest x-ray pending. Continue with Jardiance, Entresto therapy for now. 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 At this point time he requires rate control and will need admission with rate control with metoprolol therapy. Full disclosure cardiac telemetry. Further treatment based on his response to rate control therapy. Patient being transferred to emergency room while wheelchair for further treatment Coding Level of Care Code Est Pt Level 4 (52505) Complex EM visit Add On G2211 Diagnoses Unstable angina I20.0 Heart failure with reduced ejection fraction I50.20 Tachy-grace syndrome I49.5 CPT Codes EKG - CPT: 54114-[id number], Complete ([id number])
--- OUTSIDE RECORDS SUMMARY | 2025-02-21 09:51 | XMS_ITS | Patient Health Record ---
Author Organization [facility] Address [address] [place] [address] Care Team Providers Care Overweaver Name Role Phone Jovon (RETIRED) Saul PALOMARES [...] Status W/U Status Risk Notes Problem Dysphagia (90604718) Dysphagia (787.20) Active confirmed Problem Barium swallow abnormal (107840162) Abnormal barium swallow (793.4) Active confirmed Problem Helicobacter pylori gastrointestinal tract infection (609304305) H. pylori infection (041.86) Active confirmed Plan Of Treatment Future Test Test Name Order Date UPPER GI ENDOSCOPY [place] DILATION OF ESOPH 05/21/2012 Insurance Providers Payer Name Payer Address Payer Phone Subscriber Number Group Number Insured Name Patient Relationship to Insured Coverage Start Date Coverage End Date MEDICARE OF [place] [address] [place] [id number] [id number] IRISHSEBASTIÁN Acosta Self - patient is the insured [facility] INDEMNITY [address] [place] [address] [id number] IRISHSEBASTIÁN Acosta Self - patient is the insured Medical (General) History Medical History History ICD Code coronary artery disease with history of VA and stent placement hypertension peripheral arterial disease Surgical History Surgery Date(Month/Year) back surgery leg bypass surgery multiple cardiac stent placements
--- OUTSIDE RECORDS SUMMARY | 2025-02-21 09:51 | XMS_ITS | Clinical Summary ---
Author Organization [address] [facility] Address [address] [place] [address] Phone Care Team Providers Care Wood Casket Maker Name Role Phone Saul Sigala MD Primary Care Provider [phone] Allergies No known active allergies Medications tamsulosin [...] embolism diagnosed in June 2018 (treated at [facility]) for which he completed 7 months of anticoagulation therapy with apixaban. 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 Priest describes about a month of severe right leg pain. He is status post right L4-5 and right L5-S1 minimally invasive decompression with Dr. Rivear in 2019 and did well following that [...] cardiac and pulmonary clearance. Peripheral artery disease ([facility] V24) 09/05/19 21 Ischemic cardiomyopathy 09/04/2020 Essential [...] effusion DX:Pericard ial effusion Peripheral arterial disease ([facility] V24) DX:Peripheral arterial disea se ([facility]); COMMENT: status post bilateral femoral to popliteal bypass. COPD (chronic obstructive pu lmonary disease) ([facility] V24, [facility] V28) DX:COPD (chronic o bstructive pulmonary disease) [...] 09/10/2024 6:[address] [facility] Potassium 4.1 3.5 - 5.5 mmol/L LAB CHEMISTRY METHOD 09/10/2024 6:[address] [facility] Chloride 105 96 - 110 [...] 09/10/2024 6:[address] [facility] eGFR 54(L) >=60 mL/min/1. 73m2 LAB CHEMISTRY METHOD 09/10/2024 6:[address] [facility] Comment:Calculation based on the Chronic Kidney Disease Epidemiology Collaboration (CKD-EPI) equation refit without adjustment for race. BUN/Creatinine Ratio 11.4 LAB CHEMISTRY METHOD 09/10/2024 6:[address] [facility] Calcium 9.3 8.5 - 10.5 mg/dL LAB CHEMISTRY METHOD 09/10/2024 6:[address] [facility] AST (SGOT) 26 10 - 42 unit/L LAB CHEMISTRY METHOD 09/10/2024 6:[address] [facility] ALT (SGPT) 23 10 - 60 unit/L LAB CHEMISTRY METHOD 09/10/2024 6:[address] [facility] Alkaline Phosphatase 63 42 - 121 unit/L LAB CHEMISTRY METHOD 09/10/2024 6:[address] [facility] Total Protein 7.1 6.0 - 8.0 g/dL LAB CHEMISTRY METHOD 09/10/2024 6:[address] [facility] Albumin 3.5 3.2 - 5.0 g/dL LAB CHEMISTRY METHOD 09/10/2024 6:[address] [facility] Total Bilirubin 0.7 0.0 - 1.4 mg/dL LAB CHEMISTRY METHOD 09/10/2024 6:[address] [facility] Blood Venous blood specimen / Unknown Venipuncture / Unknown 09/10/2024 5:42 PM EDT 09/10/2024 6:02 PM EDT us Jeremias Carrizales MD LAB BLOOD ORDERABLES Final Result [facility] [address] [place] [address], from Last 3 Months or Most Recently Relevant to Health Maintenance Insurance MEDICARE [facility] Care Teams Wood Casket Maker Relationship Specialty Start Date End Date Saul Sigala MD [address] [place] [address] [place] [address] PCP - General 11/23/12
== END 2025-02-21 09:05 | disposition home or self-care (01) ==
PROVIDERS: PCP Family Medicine; Visit Provider Internal Medicine Cardiovascular Disease
DX: I20.0 Unstable angina (principal); I50.20 Unspecified systolic (congestive) heart failure; I49.5 Sick sinus syndrome
CPT/HCPCS: 93010; 99214; G2211

== ENCOUNTER → 2025-02-21 08:32 | Outpatient (BNVA) | payer MEDICARE, OTHER, SELFPAY | PROVIDERS: PCP Family Medicine; Visit Provider Internal Medicine Cardiovascular Disease | DX: I20.0 Unstable angina (principal); I50.20 Unspecified systolic (congestive) heart failure; I49.5 Sick sinus syndrome; R94.31 Abnormal electrocardiogram [ECG] [EKG]; I45.2 Bifascicular block | CPT/HCPCS: 93005; 99212 ==

== ENCOUNTER 2025-02-21 09:11 | Emergency (ER) | payer MEDICARE, OTHER, SELFPAY ==
--- NOTE | ~2025-02-21 | XR_ITS ---
EXAMINATION: XR CHEST 1 VIEW HISTORY: chest pain, SOB COMPARISON: Comparison is made with the prior examination dated 11/19/2022. FINDINGS: A single AP portable view of the chest performed at 9:22 AM is submitted. The lungs remain mildly hyperinflated. There are mild increased interstitial markings without change. No focal airspace opacity is identified. There is no pleural effusion, pneumothorax, or pulmonary vascular congestion. The heart is normal in size. There is degenerative disc disease of the spine. XR/XR chest 1V IMPRESSION: COPD. No acute cardiopulmonary abnormality. Electronically signed by: Fermin Valerio MD 02/21/2025 09:38 AM EDT
--- NOTE | 2025-02-21 09:13 | ECG_ITS ---
Test Reason : CP Blood Pressure : */* mmHG Vent. Rate : 123 BPM Atrial Rate : * BPM P-R Int : * ms QRS Dur : 138 ms QT Int : 370 ms P-R-T Axes : * 266 80 degrees QTcB Int : 529 ms Atrial flutter Right bundle branch block Abnormal ECG When compared with ECG of 28-Sep-2024 08:51, Wide QRS tachycardia has replaced Atrial fibrillation Vent. rate has increased by 83 bpm Referred By: Generic ED Physician Electronically Signed By: Kendrick Hunter
--- NOTE | 2025-02-21 09:15 | ED_ITS ---
HPI - General Adult General Chief complaint: Chest Pain Stated complaint: CP Time Seen by Provider: 02/21/25 09:15 Source: patient Mode of arrival: wheelchair Limitations: no limitations History of Present Illness ED Provider: Delphine Hill PA-C HPI narrative: Patient is a 84 year old assigned male at with a history of atrial flutter on Eliquis, anemia, tachy-grace syndrome, heart failure with reduced ejection fracture, HTN, CAD, cardiomyopathy, and COPD presenting to the emergency department today with chest pain. Patient states that he has been having intermittent chest pain for several days and went to his cardiology appointment today where they recommended he come to the ER. Patient states that he needs a pacemaker but due to his IVC filter, they have to do it a special way and he has not had it scheduled. Patient states that he is short of breath at baseline because of his COPD and he is not having any NEW shortness of breath. Patient denies any other complaints at this time. Related Data Home Medications ?Medication ?Instructions ?Recorded ?Confirmed finasteride 5 mg tablet 5 mg PO DAILY 06/13/2002/21 tamsulosin 0.4 mg capsule (Flomax) 0.4 mg PO BEDTIME 0 06/13/20 02/21/25 multivitamin 1 tab PO DAILY 01/29/2202/01 furosemide 40 mg tablet 40 mg PO DAILY 01/21/2302/01 isosorbide mononitrate 30 mg 30 mg PO DAILY@1800 09/1002/21/25 tablet,extended release 24 hr gabapentin 300 mg capsule 300 mg PO BEDTIME 12/02/23 0 02/21/25 fluticasone furoate 200 1 ea inhalation DAILY 02/21/25 mcg-vilanterol 25 mcg/dose inhalation powder (Breo Ellipta) sacubitril 49 mg-valsartan 51 mg 1 tab PO BID 02/21/25 02/21/25 tablet (Entresto) Previous Rx's ?Medication ?Instructions ?Recorded empagliflozin 10 mg tablet 10 mg PO DAILY #30 tabs (Jardiance) apixaban 5 mg tablet (Eliquis) 5 mg PO BID #60 tabs prednisone 5 mg tablet 5 mg PO DAILY #30 tabs 08/16 atorvastatin 80 mg tablet 80 mg PO BEDTIME #90 tabs albuterol sulfate 2.5 mg/3 mL 2.5 mg (3 mL) inhalation Q4-6H PRN 02/10/25 (0.083 %) solution for nebulization shortness of breat h or wheezing 30 days #270 mL metoprolol tartrate 25 mg tablet 25 mg PO DAILY #30 ta bs 02/21/25 Allergies Allergy/AdvReac Type Severity Reaction Status Date / Time No Known Allergies Allergy Verified 02/21/25 09:26 Review of Systems 2 Constitutional: Constitutional: Reports as per HPI Eyes: Eyes: Reports as per HPI ENT: Reports as per HPI Cardiovascular: Cardiovascular: Reports as per HPI Respiratory: Respiratory: Reports as per HPI Gastrointestinal: Gastrointestinal: Reports as per HPI Genitourinary: Genitourinary: Reports as per HPI Musculoskeletal: Musculoskeletal: Reports as per HPI Integumentary/Breasts: Skin/Breast: Reports as per HPI Neurologic: Reports as per HPI Psychiatric: Psychiatric: Reports as per HPI Endocrine: Endocrine: Reports as per HPI Hematologic/Lymphatic: Hematologic/Lymphatic: Reports as per HPI Allergic/Immunologic: Allergic/Immunologic: Reports as per HPI PMF Past Medical History Attestation statement: The following information was validated with the patient. Source: old records reviewed and nursing notes reviewed Medical History Paroxysmal atrial fibrillation Afib Heart failure with reduced ejection fraction Urinary retention Decompensated heart failure BPH (benign prostatic hyperplasia) Chronic combined systolic and diastolic congestive heart failure Acute pericardial effusion Cardiac tamponade Bronchiectasis Atrial fibrillation, new onset Pericardial effusion CHF (congestive heart failure) Coronary artery disease COPD (chronic obstructive pulmonary disease) Severe chronic obstructive pulmonary disease Surgical History Pericardial effusion with cardiac tamponade H/O heart artery stent Social History Social History Household Members: Spouse Housing: House Alcohol intake: current Alcohol intake frequency: 0-2 drinks per day Alcohol type: beer Patient Tobacco Use Status: Former Tobacco user e-Cigarette/Vaping Use: Never Used Advance Directives Date on File: 01/30/22 service: No Current occupational status: retired Cognitive needs: No Hearing needs: No Vision needs: Yes (Rx glasses) Physical Exam ED Vital Signs: Vital Signs - 24 hr 02/21/25 09:25 02/21/25 09:31 02/21/25 12:13 Temperature 98.2 F 98.2 F 97.9 F Pulse Rate 123 H 123 H 81 Respiratory Rate 16 16 17 Blood Pressure 156/94 H 156/94 H 139/74 Pulse Oximetry 98 98 95 Oxygen Delivery Method Room Air Room Air Room Air 02/21/25 12:50 Temperature 97.9 F Pulse Rate 81 Respiratory Rate 17 Blood Pressure 139/74 Pulse Oximetry 95 Oxygen Delivery Method Room Air BMI result Body Mass Index 21.7 Const General: cooperative, no acute distress, alert and awake Nutritional Appearance: well nourished Orientation/consciousness: patient oriented x3 HENMT Head: Yes normal to inspection and Yes atraumatic Ears: hearing grossly normal bilaterally and external ears normal General nose exam: Normal external nose present, no nasal discharge noted and no epistaxis Face and sinus: Yes normal facial exam, No abrasion and No laceration Mouth: Normal oral and palatal mucosa present, no drooling and no muffled voice Eyes General: appearance normal, both eyes and all related structures Periorbital: periorbital findings normal Eyelids: Yes eyelids normal Conjunctivae: conjunctivae normal Pupils: Equal, round and reactive pupils present EOM: EOMs intact bilaterally Neck Neck: Yes normal visual inspection and Yes full ROM Resp Effort & Inspection: normal respiratory effort and able to speak in complete sentences Cardio Rate: tachycardic Rhythm: abnormal rhythm irregularly irregular Neuro General: patient oriented x3, moves all extremities and CN's II-XI intact bilaterally Cranial nerves: Yes Equal, round and reactive pupils present Cognition (Neuro): normal cognition Extrem General: Yes normal to inspection, Yes full ROM and Yes capillary refill normal Psych Appearance: grossly normal Mental Status: mental status grossly normal Affect: normal affect Attitude: cooperative Thought process: Normal thought process present Thought content: Normal thought content present Insight: Good insight present (Psych) Medications Administered Discontinued Medications Generic Name Dose Route Start Last Admin Trade Name Freq PRN Reason Stop Dose Admin Metoprolol Tartrate 5 mg 02/21/25 09:48 02/21/25 10:13 Metoprolol Tartrate 5 Mg/5 Ml Vial IVPUSH 02/21/25 09:49 5 mg ONCE ONE Administration Protocol Medical Decision Making Medical Decision Making [facility] Narrative: Patient is a 84 year old assigned male at with a history of atrial flutter on Eliquis, anemia, tachy-grace syndrome, heart failure with reduced ejection fracture, HTN, CAD, cardiomyopathy, and COPD presenting to the emergency department today with chest pain. Patient's physical exam was as noted in the physical exam portion of this note and consistent with atrial flutter in RVR. Patient's blood work showed a WBC count of 12.8, CR of 1.48 (chronic), trop of 82.9 with 3 hour repeat of 222.8, and a pro BNP of 2074.4. Patient's initial EKG showed atrial flutter with RVR at a rate of 123bpm. Patient's chest x-ray showed COPD but nothing acute. I spoke with the router operator pin, Dr. Hunter, who recommended giving 5mg of IV Lopressor to attempt and slow his rate down. He stated if that did not fix it - he should be cardioverted. Patient was given 5mg of IV lopressor and appropriately slowed to 59bpm. Dr. Hunter spoke with the router operator pin that is going to eventually place the patient's pacemaker and he stated that the would not be able to get it completed until later this week and he did not recommend hospital admission to await that procedure. Dr. Hunter had me ambulate the patient given the elevated troponin and if he had no symptoms while ambulating, he would be able to be discharged home on 25mg of Metoprolol Tartrate. He stated this is unlikely to be acute ischemia. Patient was ambulated and had no symptoms of chest pain or shortness of breath while ambulating. I explained my physical exam findings as well as all test results to the patient. I answered all questions asked by the patient. I stressed the importance of the patient taking his medication as directed (either prescribed or as the over the counter packaging recommends). I stressed the importance of the patient following up with his primary care provider and the router operator pin. I stressed the importance of the patient returning to the emergency department immediately if his symptoms were to worsen or if he were to develop any dizziness, shortness of breath, difficulty breathing, chest pain, blurry vision, loss of vision, nausea, vomiting, abdominal pain, fever, chills, back pain, or any other complaints. Patient verbalized agreement and understanding with this treatment plan and discharge. Differential Diagnosis Differential Diagnoses: The differential diagnosis associated with the presentation includes Chest pain NSTEMI STEMI Atrial flutter with RVR Atrial flutter Admission/Observation Consideration of admission/observation: Escalation of care including admission/observation considered Patient would have been admitted to the hospital had his work up had any findings where hospital admission was appropriate and his clinical presentation warranted hospital admission. Consult Healthcare Provider Management of the patient was discussed with: Chief Internal Auditor (Spoke with Dr. Hunter from cardiology as noted in the MDM Rationale portion of this note. ) Lab Data [facility] Lab Attestation statement: I reviewed the patient's lab results. My interpretation of these results are in the MDM Rationale portion of this note. 02/21/25 10:09 02/21/25 10:09 Labs: Lab Results 02/21/25 02/21/25 02/21/25 Range/Units 10:09 10:14 13:09 WBC 12.8 H (4.8-10.8) X10*3/uL RBC 4.67 (4.60-5.80) X10*6/uL Hgb 12.2 L (14.0-18.0) g/dl Hct 37.5 L (42.0-52.0) % MCV 80.3 (80.0-98.0) fL MCH 26.1 L (27.0-33.0) pg MCHC 32.5 (31.0-36.0) g/dl RDW 17.7 H (11.0-16.0) % Plt Count 325 (160-400) X10*3/uL MPV 9.5 (9.4-12.4) fL Immature Gran % (Auto) 0.5 H (0.0-0.4) % Neut % (Auto) 86.8 H (45-73) % Lymph % (Auto) 4.8 L (20-40) % Clinch % (Auto) 6.9 (2-11) % Eos % (Auto) 0.5 (0-4) % Baso % (Auto) 0.5 (0-2) % Lymph # (Auto) 0.6 L (1.2-4.9) X10*3/uL Clinch # (Auto) 0.9 (0.1-1.2) X10*3/uL Eos # (Auto) 0.1 (0.0-0.4) X10*3/uL Baso # (Auto) 0.1 (0.0-0.2) X10*3/uL Abs Immat Gran (auto) 0.07 H (0.00-0.03) X10*3/uL Absolute Neuts (auto) 11.1 H (2.0-8.3) x10*3/uL Absolute Nucleated RBC 0.000 (0.0-0.012) X10*3/uL Nucleated RBC % (auto) 0.0 (0.0-0.2) /100WBC PT 14.3 H (10.9-12.4) SEC INR 1.2 H (0.9-1.1) VBG pH 7.39 (7.32-7.43) VBG pCO2 42 mmHg VBG pO2 47 mmHg VBG HCO3 26 (22-26) mmol/L VBG O2 Saturation 70.0 % VBG Base Excess 1.4 mmol/L Sodium 142 (135-145) mmol/L Potassium 3.9 (3.3-5.1) mmol/L Chloride 107 (96-108) mmol/L Carbon Dioxide 26 (22-29) mmol/L Anion Gap 13 (12-20) BUN 19 H (9-16) mg/dL Creatinine 1.48 H (0.5-1.4) mg/dL Estim Creat Clear Calc 32.6 Estimated GFR 45 Random Glucose 121 H (60-115) mg/dL Calcium 9.4 (8.4-10.2) mg/dL Magnesium 2.6 (1.6-2.6) mg/dL Total Bilirubin 0.7 (0.0-1.0) mg/dL AST 27 (5-37) U/L ALT 20 (0-40) U/L Alkaline Phosphatase 58 (39-117) U/L Troponin I High Sens 82.9 H D 222.8 H* D (<3.5-35.0) ng/L NT-Pro-B Natriuret Pep 2074.4 H (<300) pg/mL Total Protein 7.8 (6.5-8.0) g/dL Albumin 4.7 (3.5-5.0) g/dL Independent Interpretation I performed an independent interpretation of an: EKG and Plain X-Ray Interpretation: My interpretation is in agreement with the radiologist's impression of this imaging study. L Reason for Exam: chest pain, SOB EXAMINATION: XR CHEST 1 VIEW HISTORY: chest pain, SOB COMPARISON: Comparison is made with the prior examination dated 11/19/2022. FINDINGS: A single AP portable view of the chest performed at 9:22 AM is submitted. The lungs remain mildly hyperinflated. There are mild increased interstitial markings without change. No focal airspace opacity is identified. There is no pleural effusion, pneumothorax, or pulmonary vascular congestion. The heart is normal in size. There is degenerative disc disease of the spine. XR/XR chest 1V IMPRESSION: COPD. No acute cardiopulmonary abnormality. Electronically signed by: Fermin Valerio MD 02/21/2025 09:38 AM EDT RP Dictated By: Fermin Valerio MD Signed By: Electronically signed by Fermin Valerio MD 02/21/25 0938 I independently interpreted this EKG and am in agreement with the below findings: Vent. Rate: 123 BPM Atrial Rate: * BPM P-R Int: * ms QRS Dur: 138 ms QT Int: 370 ms P-R-T Axes * 266 80 degrees QTcB Int: 529 ms Wide QRS tachycardia Right bundle branch block When compared with ECG of 28-Sep-2024 08:51, Wide QRS tachycardia has replaced Atrial fibrillation Vent. rate has increased by 83 bpm DD/ 0917 I independently interpreted this EKG and am in agreement with the below findings: Vent. Rate: 59 BPM Atrial Rate: * BPM P-R Int: * ms QRS Dur: 146 ms QT Int: 490 ms P-R-T Axes: * 269 44 degrees QTcB Int: 485 ms Wide QRS rhythm Right bundle branch block When compared with ECG of 21-Feb-2025 09:17, Wide QRS rhythm has replaced Wide QRS tachycardia Vent. rate has decreased by 64 bpm DD/ 1038 Radiology Impression Discussion of test interpretation with radiology: I have reviewed the radiologist's reading. Critical Care Time Critical Care Time Critical Care Time: Yes Total Critical Care Time: 49 Attestation: I spent 49 minutes of Critical Care Time with this patient. This does not include time spent on separately reported billable procedures. Discharge Plan Discharge Clinical Impression: Atrial flutter with rapid ventricular response Patient Disposition: Home, Self-Care Instructions: Atrial Flutter (DC) Additional Instructions: Please take your medication as prescribed. Please follow up with the cardiology team as directed. IF you are prescribed home medications and/or you are taking over the counter medications at home - it is very important you continue to do so as prescribed / directed unless told otherwise. Follow up with your primary care provider. Return to the emergency department immediately if your symptoms worsen or if you develop any numbness, tingling, dizziness, shortness of breath, difficulty breathing, chest pain, blurry vision, loss of vision, nausea, vomiting, abdominal pain, fever, chills, back pain, or any other complaints. Please see the information below about our Patient Portal. If you are not yet enrolled in the [facility] Patient Portal, you will receive an enrollment email invitation following your visit to any [facility] setting. You may also self-enroll in the Patient Portal by visiting our website: [email or web address] The following information is required to access the Patient Portal: - Your [facility] Medical Record Number - Your personal home email address (must match what is in your electronic medical record, Registration staff can assist with this) - Name - Date of Capabilities of the Patient Portal: - Message some providers - View upcoming appointments - Access your health summary, medical history, and visit history - View current conditions and allergies - View procedure and lab results - View your medications, including guidelines, side effects, and precautions - Complete pre-appointment questionnaires requested by your provider - Ready summary reports of your office visits and procedures To access the Patient Portal Mobile [employer], follow these directions: - Search [employer] in the [employer] Store or LookIt Store - Download the Clement - Search for [facility] - Enter your login/password Prescriptions: New metoprolol tartrate 25 mg tablet 25 mg PO DAILY Qty: 30 0RF No Action Eliquis 5 mg tablet 5 mg PO BID Qty: 60 5RF prednisone 5 mg tablet 5 mg PO DAILY Qty: 30 6RF atorvastatin 80 mg tablet 80 mg PO BEDTIME Qty: 90 3RF albuterol sulfate 2.5 mg /3 mL (0.083 %) solution for nebulization 2.5 mg inhalation Q4-6H PRN (Reason: shortness of breath or wheezing) 30 Days Qty: 270 6RF multivitamin Tablet 1 tab PO DAILY isosorbide mononitrate 30 mg tablet extended release 24 hr 30 mg PO DAILY@1800 Jardiance 10 mg Tablet 10 mg PO DAILY Qty: 30 0RF fluticasone furoate-vilanterol [Breo Ellipta] 200-25 mcg/dose blister with device 1 ea inhalation DAILY sacubitril-valsartan [Entresto] 49-51 mg tablet 1 tab PO BID finasteride 5 mg tablet 5 mg PO DAILY tamsulosin [Flomax] 0.4 mg capsule 0.4 mg PO BEDTIME furosemide 40 mg tablet 40 mg PO DAILY gabapentin 300 mg capsule 300 mg PO BEDTIME Referrals: [facility] [Provider Group] Referral Note: Continue following up with cardiology. Jose Izaguirre MD [Primary Care Provider, Internal Medicine] Interventions: ED Discharge Assessment Last Done: 02/21/25 12:50 Discharge Date/Time: 02/21/25 14:28 Print Language: Azerbaijani
[2025-02-21 09:25] VITALS: BP 156/94; PULSE 123; RESP 16; TEMP 36.8; O2SAT 98; BMI 21.7
[2025-02-21 09:31] VITALS: BP 156/94; PULSE 123; RESP 16; TEMP 36.8; O2SAT 98
--- NOTE | 2025-02-21 09:34 | PC.NURSE ---
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
[2025-02-21 10:14] LABS: MANUAL DIFF FLAG NO
[2025-02-21 10:17] LABS: Hematocrit 37.5 % (42.0-52.0); Hemoglobin 12.2 g/dl (14.0-18.0); Imm Gran Abs Auto 0.07 X10*3/uL (0.00-0.03); Imm Gran Pct Auto 0.5 % (0.0-0.4); Lymphocytes Absolute Auto 0.6 X10*3/uL (1.2-4.9); Mean Corpuscular HGB Conc 32.5 g/dl (31.0-36.0); Mean Corpuscular Hemoglobin 26.1 pg (27.0-33.0); Mean Corpuscular Volume 80.3 fL (80.0-98.0); NRBC Abs Auto 0.000 X10*3/uL (0.0-0.012); NRBC Pct Auto 0.0 /100WBC (0.0-0.2); Platelet Count 325 X10*3/uL (160-400); Red Blood Count 4.67 X10*6/uL (4.60-5.80); White Blood Count 12.8 X10*3/uL (4.8-10.8)
[2025-02-21 10:18] LABS: Venous Blood Gas Refer to POC result
[2025-02-21 10:19] LABS: VBG HCO3 26 mmol/L (22-26); VBG O2 % Saturation 70.0 %
--- NOTE | 2025-02-21 10:20 | ECG_ITS ---
Test Reason : repeat Blood Pressure : */* mmHG Vent. Rate : 59 BPM Atrial Rate : * BPM P-R Int : * ms QRS Dur : 146 ms QT Int : 490 ms P-R-T Axes : * 269 44 degrees QTcB Int : 485 ms Atrial flutter Right bundle branch block Abnormal ECG When compared with ECG of 21-Feb-2025 09:17, Wide QRS rhythm has replaced Wide QRS tachycardia Vent. rate has decreased by 64 bpm Referred By: Delphine Hill Electronically Signed By: Kendrick Hunter
[2025-02-21 10:22] LABS: INTERNATIONAL NORM RATIO 1.2 (0.9-1.1); Prothrombin Time 14.3 SEC (10.9-12.4)
--- NOTE | 2025-02-21 10:27 | PM.CNCAR ---
History of Present Illness History of Present Illness Date of Service: 02/21/25 Requesting physician: Delphine Hill Chief complaint: CP, Atrial flutter Narrative: 84-year-old gentleman with known history of coronary artery disease with previous PCI and atrial fibrillation with slow ventricular response. 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 Apparently this was attempted but he had IVC filter and apparently the procedure could not be completed. He was told that he will be scheduled for an IJ approach. He has not heard anything about the procedures since then. He said he woke up today and started feeling pressure-like feeling in the left side of the chest. He also noticed his heart rate to be fast in 120s. He said he has checks his heart rate every day and he was not fast yesterday. He has chronic shortness of breath due to COPD and his breathing is at his baseline currently. He appeared short of breath and is saying that this is normal. He is also saying the chest discomfort is better currently. His EKGs showing atrial flutter in 120s. He is hypertensive. He has been taking Eliquis regularly and has not missed any dose in the last month. [facility] Past Medical History Medical History Paroxysmal atrial fibrillation Afib Heart failure with reduced ejection fraction Urinary retention Decompensated heart failure BPH (benign prostatic hyperplasia) Chronic combined systolic and diastolic congestive heart failure Acute pericardial effusion Cardiac tamponade Bronchiectasis Atrial fibrillation, new onset Pericardial effusion CHF (congestive heart failure) Coronary artery disease COPD (chronic obstructive pulmonary disease) Severe chronic obstructive pulmonary disease Surgical History Surgical History Pericardial effusion with cardiac tamponade H/O heart artery stent Social History Social History Household Members: Spouse Housing: House Alcohol intake: current Alcohol intake frequency: 0-2 drinks per day Alcohol type: beer Patient Tobacco Use Status: Former Tobacco user Smoked in Last 30 Days: No e-Cigarette/Vaping Use: Never Used Use of substances other than those prescribed or required for medical reasons: No Advance Directives: Yes Advance Directives on File: Yes Advance Directives Date on File: 01/30/22 Do you have a plan to hurt others: No Plan service: No Current occupational status: retired Cognitive needs: No Hearing needs: No Vision needs: Yes (Rx glasses) Meds Allergies Allergy/AdvReac Type Severity Reaction Status Date / Time No Known Allergies Allergy Verified 02/21/25 09:26 Home Medications ?Medication ?Instructions ?Recorded ?Confirmed ?Last Taken ?Type finasteride 5 mg tablet 5 mg PO DAILY 06/13/20 02/21/25 11/12/22 History tamsulosin 0.4 mg capsule (Flomax) 0.4 mg PO BEDTIME 06/13/20 02/21/25 11/12/22 History multivitamin 1 tab PO DAILY 01/29/22 02/21/25 11/12/22 History furosemide 40 mg tablet 40 mg PO DAILY 01/21/23 02/21/25 Unknown History isosorbide mononitrate 30 mg 30 mg PO DAILY@1800 09/11/23 02/21/25 Unknown History tablet,extended release 24 hr fluticasone furoate 200 1 ea inhalation DAILY 12/02/23 02/21/25 Unknown History mcg-vilanterol 25 mcg/dose inhalation powder (Breo Ellipta) gabapentin 300 mg capsule 300 mg PO DAILY 12/02/23 02/21/25 Unknown History omeprazole 20 mg capsule,delayed 20 mg PO DAILY 02/09/25 02/21/25 Unknown History release Physical Exam Vital Signs: Vital Signs: Last Vital Signs Temp 98.2 F 02/21/25 09:31 Pulse 123 H 02/21/25 09:31 Resp 16 02/21/25 09:31 BP 156/94 H 02/21/25 09:31 Pulse Ox 98 02/21/25 09:31 O2 Del Method Room Air 02/21/25 09:31 BMI result Body Mass Index 21.7 GENERAL APPEARANCE: in no acute distress, pleasant. NECK: no carotid bruit, no jugular venous distention. SKIN: no suspicious lesions, warm and dry. HEART: no murmurs, regular rate and rhythm. Tachycardic. LUNGS: clear to auscultation bilaterally. Diminished breath sounds. ABDOMEN: soft, nontender. EXTREMITIES: no edema. PERIPHERAL PULSES: equal. NEUROLOGIC: No gross deficits, AAO X 3 Objective Labs and Meds 02/21/25 10:09 02/21/25 10:09 Lab results: Laboratory Results - last 24 hr 02/21/25 02/21/25 10:09 10:14 WBC 12.8 H RBC 4.67 Hgb 12.2 L Hct 37.5 L MCV 80.3 MCH 26.1 L MCHC 32.5 RDW 17.7 H Plt Count 325 MPV 9.5 Immature Gran % (Auto) 0.5 H Neut % (Auto) 86.8 H Lymph % (Auto) 4.8 L Ponce % (Auto) 6.9 Eos % (Auto) 0.5 Baso % (Auto) 0.5 Lymph # (Auto) 0.6 L Ponce # (Auto) 0.9 Eos # (Auto) 0.1 Baso # (Auto) 0.1 Abs Immat Gran (auto) 0.07 H Absolute Neuts (auto) 11.1 H Absolute Nucleated RBC 0.000 Nucleated RBC % (auto) 0.0 PT 14.3 H INR 1.2 H VBG pH 7.39 VBG pCO2 42 VBG pO2 47 VBG HCO3 26 VBG O2 Saturation 70.0 VBG Base Excess 1.4 Imaging Radiologist's impression: Impressions Chest X-Ray 02/21/25 09:22 IMPRESSION: COPD. No acute cardiopulmonary abnormality. Electronically signed by: Fermin Valerio MD 02/21/2025 09:38 AM EDT Assessment and Plan (1) Cardiomyopathy: Qualifiers: Cardiomyopathy type: unspecified Qualified Code(s): I42.9 - Cardiomyopathy, unspecified Status: Acute (2) Chest pain: Status: Acute (3) Persistent atrial fibrillation: Status: Acute (4) Atrial flutter: Status: Acute Plan Pleasant 84 year gentleman who is presenting with atrial flutter and chest pain. He has known history of coronary disease with previous PCI. Presentation likely due to atrial flutter but underlying progression of coronary disease is a possibility also. Give metoprolol 5 mg IV. If heart rate starts responding then we can try oral medications. His home medications including Entresto and isosorbide mononitrate should be resumed. Due to tachy-grace syndrome he was off all AV patti blockers which will be a challenge going forward to. I will discuss the case at [facility] to see if we can transfer him to have permanent pacemaker placed so we can manage his arrhythmias safely. Thank you for allowing me to participate in the care of your patient. Please feel free to contact me if you have any questions. Procedures Date of Service Date of Service: 02/21/25
[2025-02-21 10:30] LABS: Alanine Aminotransferase 20 U/L (0-40); Albumin Level 4.7 g/dL (3.5-5.0); Alkaline Phosphatase 58 U/L (39-117); Anion Gap 13 (12-20); Aspartate Amino Transferase 27 U/L (5-37); Blood Urea Nitrogen 19 mg/dL (9-16); Calcium 9.4 mg/dL (8.4-10.2); Carbon Dioxide 26 mmol/L (22-29); Chloride 107 mmol/L (96-108); Creatinine Clr Calc Pharmacy 32.6; Estimated Glomerular Filt Rate 45; Magnesium 2.6 mg/dL (1.6-2.6); Potassium 3.9 mmol/L (3.3-5.1); Sodium 142 mmol/L (135-145); Total Protein 7.8 g/dL (6.5-8.0)
[2025-02-21 10:37] LABS: NT Pro B Type Natriuretic Pept 2074.4 pg/mL (<300); Troponin-I High Sensitivity 82.9 ng/L (<3.5-35.0)
[2025-02-21 12:13] VITALS: BP 139/74; PULSE 81; RESP 17; TEMP 36.6; O2SAT 95
--- NOTE | 2025-02-21 12:41 | PHA.MEDREC ---
Pharmacy Consult ? Medication Reconciliation Pharmacy has completed the medication reconciliation. Patient was able to confirm all of his medications. Patient is not taking Digoxin 125 mcg, Metoprolol tart 25 mg, ( he stopped in November because he was suppose to get a stent put in) and Omeprazole 20 mg. patient had all of his morning medications today.
[2025-02-21 12:50] VITALS: BP 139/74; PULSE 81; RESP 17; TEMP 36.6; O2SAT 95
[2025-02-21 13:39] LABS: Troponin-I High Sensitivity 222.8 ng/L (<3.5-35.0)
--- NOTE | 2025-02-21 13:54 | MHC.EDTECH ---
Patient was able to ambulate with stated gate.Prior to ambulation patients O2 was 96 , heart rate 82 and respirations 16. After patient was ambulated patients O2 was 89 ,heart rate 125 and respirations 18.
--- NOTE | 2025-02-21 14:27 | PC.NURSE ---
Patient passed ambulation trial Denies SOB Steady gait noted HR 107 BPM Patient up for discharge
== END 2025-02-21 14:28 | disposition home or self-care (01) ==
PROVIDERS: Physician Assistant Medical; Emergency Provider Emergency Medicine; PCP Internal Medicine
DX: I48.92 Unspecified atrial flutter (principal); I48.19 Other persistent atrial fibrillation; I49.5 Sick sinus syndrome; I11.0 Hypertensive heart disease with heart failure; I50.42 Chronic combined systolic (congestive) and diastolic (congestive) heart failure; J44.9 Chronic obstructive pulmonary disease, unspecified; D64.9 Anemia, unspecified; Z79.899 Other long term (current) drug therapy; Z79.01 Long term (current) use of anticoagulants
CPT/HCPCS: 36415; 71045; 80053; 82803; 83735; 83880; 84484; 85025; 85610; 93005; 96374; 99284; 99285; J0616

== ENCOUNTER → 2025-02-21 09:13 | Outpatient (BNV) | payer MEDICARE, OTHER, SELFPAY | PROVIDERS: PCP Internal Medicine; Visit Provider Radiology Diagnostic Radiology | DX: J44.9 Chronic obstructive pulmonary disease, unspecified (principal) | CPT/HCPCS: 71045 ==

== ENCOUNTER → 2025-02-21 09:34 | Outpatient (BNV) | payer MEDICARE, OTHER, SELFPAY | PROVIDERS: PCP Internal Medicine; Visit Provider Internal Medicine Cardiovascular Disease | DX: I42.9 Cardiomyopathy, unspecified (principal); R07.9 Chest pain, unspecified; I48.19 Other persistent atrial fibrillation; I48.92 Unspecified atrial flutter | CPT/HCPCS: 99284 ==

== ENCOUNTER 2025-03-03 11:41 | Emergency (ER) | payer MEDICARE, OTHER, SELFPAY ==
--- NOTE | ~2025-03-03 | US_ITS ---
EXAMINATION: US TRIPLEX LOWER EXTREMITY, RIGHT CLINICAL INFORMATION: Right lower extremity pain. COMPARISON: None available. TECHNIQUE: Color-flow triplex imaging with spectral analysis and compression Doppler were performed on the right lower extremity. FINDINGS: Respiratory variation, normal compression and augmented flow are noted throughout the right lower extremity. The visualized common femoral vein, superficial femoral vein, profunda femoral vein, popliteal vein and midcalf peroneal and posterior tibial venous segments show no evidence of deep venous thrombosis. There is no Singer's cyst. US/US venous duplex LE RT IMPRESSION: No evidence of deep venous thrombosis involving the right lower extremity. Electronically signed by: Thaddeus Hanks MD 03/03/2025 04:08 PM EDT
--- NOTE | ~2025-03-03 | XR_ITS ---
EXAMINATION: XR KNEE, RIGHT CLINICAL INFORMATION: pain COMPARISON: None available. TECHNIQUE: Two views of the right knee. FINDINGS: No fracture, dislocation, or suspicious bone lesion. There is normal alignment. There is minimal medial compartment joint space narrowing. Joint spaces otherwise maintained. There is no evidence of joint effusion. There are diffuse vascular calcifications in the soft tissues. There is a partially imaged vascular graft. XR/XR knee RT 2V IMPRESSION: No acute abnormalities of the right knee. Electronically signed by: Thaddeus Hanks MD 03/03/2025 02:00 PM EDT
--- NOTE | ~2025-03-03 | XR_ITS ---
EXAMINATION: XR HIP, RIGHT CLINICAL INFORMATION: hip pain COMPARISON: None available. TECHNIQUE: AP upright, AP supine, and frog-leg lateral views of the right hip. FINDINGS: Mild degenerative irregularity is noted in the lower SI joints. A stent is noted within the left common iliac artery. Surgical clips project over the right hip. Right hip: There is a density with rounded calcifications projecting over the proximal metaphysis of the right femur measuring 14 x 41 mm. It has geographic margins. There is no cortical destruction. There are marginal osteophytes involving acetabular roof. There are small foveal osteophytes. There is subtle axial joint space narrowing. XR/XR hip RT w PEL1V IMPRESSION: There is a 14 x 41 mm clustered calcific density projecting over the proximal right femur. This could be within the intramedullary space of the proximal femur, or could be in the soft tissues projecting onto the femur. It has a nonaggressive appearance. Mild degenerative changes of the right hip joint. Mild degenerative changes bilateral SI joints. Electronically signed by: Yasmani Bueno MD 03/03/2025 02:47 PM EDT
[2025-03-03 11:54] VITALS: BP 144/65; BP 172/84; PULSE 64; PULSE 65; RESP 15; O2SAT 100; O2SAT 96; BMI 21.3
--- NOTE | 2025-03-03 13:52 | ED.GENADULT ---
HPI - General Adult General Chief complaint: Extremity Problem Stated complaint: RLE PAIN X1M,GETTING WORSE PER EMS Time Seen by Provider: 03/03/25 13:38 Source: patient Mode of arrival: ambulatory Limitations: no limitations History of Present Illness ED Provider: MAKENZIE SCHROEDER PA-C HPI narrative: 85-year-old male with pmhx significant for atrial fibrillation on Eliquis, anemia, tachy Mando syndrome, heart failure with reduced ejection fraction, HTN, CAD, cardiomyopathy, and COPD presents to the ED for evaluation of right hip pain x3-4 weeks. Reports pain begins in the right hip and extends down the back of his buttock and thigh, to his right lateral knee and extends to mid calf. Pain is constant and worsening. Pain is worse with movement and palpation of the area. Trying Tylenol at home without relief. Having to walk with a cane due to painful ambulation. Reports history of sciatica, feels somewhat similar. Denies any calf pain/swelling, fever, chills, urinary symptoms. No bowel or bladder incontinence or retention, saddle anesthesia, numbness/tingling/weakness of the lower extremities. Denies chest pain, shortness of breath, hemoptysis, palpitations, cough. Related Data Home Medications ?Medication ?Instructions ?Recorded ?Confirmed finasteride 5 mg tablet 5 mg PO DAILY 06/13/20 02/21/25 multivitamin 1 tab PO DAILY 01/29/22 02/21/25 furosemide 40 mg tablet 40 mg PO DAILY 01/21/23 02/21/25 isosorbide mononitrate 30 mg 30 mg PO DAILY@1800 09/11/23 02/21/25 tablet,extended release 24 hr gabapentin 300 mg capsule 300 mg PO BEDTIME 12/02/23 02/21/25 fluticasone furoate 200 1 ea inhalation DAILY 02/21/25 02/21/25 mcg-vilanterol 25 mcg/dose inhalation powder (Breo Ellipta) sacubitril 49 mg-valsartan 51 mg 1 tab PO BID 02/21/25 02/21/25 tablet (Entresto) Previous Rx's ?Medication ?Instructions ?Recorded empagliflozin 10 mg tablet 10 mg PO DAILY #30 tabs 11/24/22 (Jardiance) apixaban 5 mg tablet (Eliquis) 5 mg PO BID #60 tabs 01/21/23 prednisone 5 mg tablet 5 mg PO DAILY #30 tabs 08/16/24 atorvastatin 80 mg tablet 80 mg PO BEDTIME #90 tabs 01/20/25 albuterol sulfate 2.5 mg/3 mL 2.5 mg (3 mL) inhalation Q4-6H PRN 02/10/25 (0.083 %) solution for nebulization shortness of breath or wheezing 30 days #270 mL metoprolol tartrate 25 mg tablet 25 mg PO DAILY #30 tabs 02/21/25 tamsulosin 0.4 mg capsule (Flomax) 0.4 mg PO BEDTIME 90 days #90 caps 02/28/25 prednisone 20 mg tablet 40 mg (2 x 20 mg) PO DAILY 4 days 03/03/25 #8 tabs Allergies Allergy/AdvReac Type Severity Reaction Status Date / Time No Known Allergies Allergy Verified 03/03/25 11:57 Review of Systems Review of Systems: Yes all other systems are reviewed and are negative [facility] Past Medical History Attestation statement: The following information was validated with the patient. Source: old records reviewed and nursing notes reviewed Medical History Paroxysmal atrial fibrillation Afib Heart failure with reduced ejection fraction Urinary retention Decompensated heart failure BPH (benign prostatic hyperplasia) Chronic combined systolic and diastolic congestive heart failure Acute pericardial effusion Cardiac tamponade Bronchiectasis Atrial fibrillation, new onset Pericardial effusion CHF (congestive heart failure) Coronary artery disease COPD (chronic obstructive pulmonary disease) Severe chronic obstructive pulmonary disease Surgical History Pericardial effusion with cardiac tamponade H/O heart artery stent Social History Social History Household Members: Spouse Housing: House Alcohol intake: current Alcohol intake frequency: 0-2 drinks per day Alcohol type: beer Patient Tobacco Use Status: Former Tobacco user e-Cigarette/Vaping Use: Never Used Advance Directives Date on File: 01/30/22 service: No Current occupational status: retired Cognitive needs: No Hearing needs: No Vision needs: Yes (Rx glasses) Physical Exam ED Vital Signs: Vital Signs - 24 hr 03/03/25 18:19 Temperature 98 F Pulse Rate 62 Respiratory Rate 17 Blood Pressure 139/62 Pulse Oximetry 99 Oxygen Delivery Method Room Air BMI result Body Mass Index 21.3 Vital signs stable, afebrile General: Well appearing, in no acute distress. Skin: Warm, dry, intact. No rashes or lesions. Head: Normocephalic, atraumatic. EENT: Hearing is intact b/l. Conjunctiva clear. Sclera is anicteric. PERRLA. EOM intact. Moist mucous membranes.? Neck: Supple without LAD. FROM. Trachea midline.? Cardiac: Chest wall symmetric. RRR. No MRG. No JVD. Lungs: Normal respiratory effort without accessory muscle use. CTA bilaterally. No rales, rhonchi, or wheezes.? Abdomen: Soft, non-tender, non-distended. No rebound tenderness or guarding. Positive BS x4. Back: No midline spinous or paraspinal tenderness. No step off deformity. Ext: +no overlying skin changes, swelling to hip, knee, ankle. Tender to palpation primarily over the L5 dermatome. Ambulating with steady gait assisted by cane. NV intact. Neuro: AOx3. Normal speech. Psych: Appropriate mood and affect. Responds appropriately to questions. Course Course Course Narrative: X-ray right knee unremarkable. X-ray right hip showing clustered calcific density projecting over proximal right femur, non aggressive in appearance. Degenerative changes of bilateral SI joints and right hip joint. No acute fracture or other pathology. Venous duplex without DVT. > treated with Tylenol in the ED today. Will send him home with a course of prednisone. Patient agreeable, anxious for discharge. Patient has remained stable throughout ED visit today. Discussed worrisome signs and symptoms and when to return to the ED. All questions answered at this time. Patient is agreeable with disposition and stable for discharge. Medications Administered Discontinued Medications Generic Name Dose Route Start Last Admin Trade Name Freq PRN Reason Stop Dose Admin Acetaminophen 975 mg 03/03/25 16:36 03/03/25 17:48 Acetaminophen 325 Mg Tablet PO 03/03/25 16:37 975 mg ONCE ONE Administration Prednisone 40 mg 03/03/25 17:50 03/03/25 17:56 Prednisone 20 Mg Tablet PO 03/03/25 17:51 40 mg ONCE ONE Administration Medical Decision Making Medical Decision Making MDM Narrative: 85-year-old male with pmhx significant for atrial fibrillation on Eliquis, anemia, tachy Mando syndrome, heart failure with reduced ejection fraction, HTN, CAD, cardiomyopathy, and COPD presents to the ED for evaluation of right hip pain x3-4 weeks. Vital signs stable. He is well-appearing in no acute distress On exam, there are no overlying skin changes, swelling to hip, knee, ankle. Tender to palpation primarily over the L5 dermatome. Ambulating with steady gait assisted by cane. NV intact. no midline spinous tenderness or step off. Differential diagnosis includes sciatica, tendonitis, bursitis, MSK sprain/strain, DVT, arthritis, lumbar radiculopathy. Less likely gout, pseudogout, septic joint, neurovascular compromise, threat to limb. X-ray of right knee ordered from triage. Will add on hip x-ray and venous duplex of the right lower extremity. Tylenol ordered for pain control. Differential Diagnosis Differential Diagnoses: The differential diagnosis associated with the presentation includes As above Admission/Observation not indicated Independent Interpretation I performed an independent interpretation of an: Plain X-Ray Radiology Impression Discussion of test interpretation with radiology: I have reviewed the radiologist's reading. Radiologist Impression: Procedure(s): US venous duplex LE RT Accession Number(s): [id number] cc: Makenzie Schroeder; Jose Izaguirre MD~ Reason for Exam: pain from knee down, ?dvt EXAMINATION: US TRIPLEX LOWER EXTREMITY, RIGHT CLINICAL INFORMATION: Right lower extremity pain. COMPARISON: None available. TECHNIQUE: Color-flow triplex imaging with spectral analysis and compression Doppler were performed on the right lower extremity. FINDINGS: Respiratory variation, normal compression and augmented flow are noted throughout the right lower extremity. The visualized common femoral vein, superficial femoral vein, profunda femoral vein, popliteal vein and midcalf peroneal and posterior tibial venous segments show no evidence of deep venous thrombosis. There is no Singer's cyst. US/US venous duplex LE RT IMPRESSION: No evidence of deep venous thrombosis involving the right lower extremity. Electronically signed by: Thaddeus Hanks MD 03/03/2025 04:08 PM EDT Procedure(s): XR hip RT w PEL1V Accession Number(s): [id number] cc: Makenzie Schroeder; Jose Izaguirre MD~ Reason for Exam: hip pain EXAMINATION: XR HIP, RIGHT CLINICAL INFORMATION: hip pain COMPARISON: None available. TECHNIQUE: AP upright, AP supine, and frog-leg lateral views of the right hip. FINDINGS: Mild degenerative irregularity is noted in the lower SI joints. A stent is noted within the left common iliac artery. Surgical clips project over the right hip. Right hip: There is a density with rounded calcifications projecting over the proximal metaphysis of the right femur measuring 14 x 41 mm. It has geographic margins. There is no cortical destruction. There are marginal osteophytes involving acetabular roof. There are small foveal osteophytes. There is subtle axial joint space narrowing. XR/XR hip RT w PEL1V IMPRESSION: There is a 14 x 41 mm clustered calcific density projecting over the proximal right femur. This could be within the intramedullary space of the proximal femur, or could be in the soft tissues projecting onto the femur. It has a nonaggressive appearance. Mild degenerative changes of the right hip joint. Mild degenerative changes bilateral SI joints. Electronically signed by: Yasmani Bueno MD 03/03/2025 02:47 PM EDT Date of Service: 03/03/25 Procedure(s): XR knee RT 2V Accession Number(s): [id number] cc: Generic ED Physician; Jose Izaguirre MD~ Reason for Exam: pain EXAMINATION: XR KNEE, RIGHT CLINICAL INFORMATION: pain COMPARISON: None available. TECHNIQUE: Two views of the right knee. FINDINGS: No fracture, dislocation, or suspicious bone lesion. There is normal alignment. There is minimal medial compartment joint space narrowing. Joint spaces otherwise maintained. There is no evidence of joint effusion. There are diffuse vascular calcifications in the soft tissues. There is a partially imaged vascular graft. XR/XR knee RT 2V IMPRESSION: No acute abnormalities of the right knee. Electronically signed by: Thaddeus Hanks MD 03/03/2025 02:00 PM EDT External Record Review External record reviewed: Inpatient record Prescription Management I considered prescription management with: Pain Medication and Other (Prednisone) Social Determinants Patient?s care significantly limited by Social Determinants of Health including: Other Social Determinant of Health Critical Care Time Critical Care Time Critical Care Time: No Discharge Plan Discharge Clinical Impression: Sciatica Patient Disposition: Home, Self-Care Instructions: Sciatica (ED), Lower Back Exercises (ED) Additional Instructions: You were evaluated in the ED today for your right leg pain. Xrays of your right hip and knee show degenerative changes, no acute fracture. Also incidental findings as noted below. Ultrasound of your right leg does not demonstrate a clot. Your symptoms are consistent with sciatica. Please take Tylenol at home as needed for pain/discomfort. Avoid NSAIDs as you are on a blood thinner. I am sending you home with a prescription for prednisone. Take your next dose tomorrow, you already received a dose in the ED today. I am also sending lidocaine patches to your pharmacy. Apply these to painful areas. Please follow up with your primary care provider. Return with any new or worsening symptoms. In the case of an emergency call 911. Prescriptions: New prednisone 20 mg tablet 40 mg PO DAILY 4 Days Qty: 8 0RF No Action Eliquis 5 mg tablet 5 mg PO BID Qty: 60 5RF prednisone 5 mg tablet 5 mg PO DAILY Qty: 30 6RF atorvastatin 80 mg tablet 80 mg PO BEDTIME Qty: 90 3RF albuterol sulfate 2.5 mg /3 mL (0.083 %) solution for nebulization 2.5 mg inhalation Q4-6H PRN (Reason: shortness of breath or wheezing) 30 Days Qty: 270 6RF tamsulosin [Flomax] 0.4 mg capsule 0.4 mg PO BEDTIME 90 Days Qty: 90 1RF multivitamin Tablet 1 tab PO DAILY isosorbide mononitrate 30 mg tablet extended release 24 hr 30 mg PO DAILY@1800 Jardiance 10 mg Tablet 10 mg PO DAILY Qty: 30 0RF fluticasone furoate-vilanterol [Breo Ellipta] 200-25 mcg/dose blister with device 1 ea inhalation DAILY sacubitril-valsartan [Entresto] 49-51 mg tablet 1 tab PO BID metoprolol tartrate 25 mg tablet 25 mg PO DAILY Qty: 30 0RF finasteride 5 mg tablet 5 mg PO DAILY furosemide 40 mg tablet 40 mg PO DAILY gabapentin 300 mg capsule 300 mg PO BEDTIME Referrals: Jose Izaguirre MD [Primary Care Provider, Internal Medicine] Interventions: ED Discharge Assessment Last Done: 03/03/25 18:19 Discharge Date/Time: 03/03/25 18:20 Print Language: Maori
[2025-03-03 14:00] VITALS: BP 140/60; PULSE 60; RESP 18; TEMP 36.6; O2SAT 98
--- OUTSIDE RECORDS SUMMARY | 2025-03-03 14:03 | XMS_ITS | Clinical Summary ---
Author Organization [address] [facility] Address [address] [place] [address] Phone Care Team Providers Care Janitorial Manager Name Role Phone Saul Sigala MD Primary Care Provider [phone] Allergies No known active allergies Medications tamsulosin [...] diagnosed in June 2018 (treated at [facility]) for which he completed 7 months [...] cardiac and pulmonary clearance. Peripheral artery disease ([facility] V24) 09/05/19 21 Ischemic cardiomyopathy 09/04/2020 Essential hypertension 09/04/2020 SOB (shortness of breath) 08/31/2020 Immunizations Immunization Administration Dates Next Due Influenza Quadravalent, 0.5m [...] effusion DX:Pericard ial effusion Peripheral arterial disease ([facility] V24) DX:Peripheral arterial disea se ([facility]); COMMENT: status post bilateral femoral to popliteal bypass. COPD (chronic obstructive pu lmonary disease) ([facility] V24, [facility] V28) DX:COPD (chronic o bstructive pulmonary disease) [...] LAB CHEMISTRY METHOD 09/10/2024 6:30 PM [facility] Potassium 4.1 3.5 - 5.5 mmol/L LAB CHEMISTRY METHOD 09/10/2024 6:30 PM [facility] Chloride 105 96 - 110 mmol/L LAB CHEMISTRY METHOD 09/10/2024 6:30 PM [facility] CO2 27 21 - 32 mmol/L LAB CHEMISTRY METHOD 09/10/2024 6:30 PM [facility] Anion Gap 7 3 - 11 LAB CHEMISTRY METHOD 09/10/2024 6:30 PM [facility] Glucose 98 70 - 100 mg/dL LAB CHEMISTRY METHOD 09/10/2024 6:30 PM [facility] BUN 15 5 - 25 mg/dL LAB CHEMISTRY METHOD 09/10/2024 6:30 PM [facility] Creatinine 1.32(H) 0.70 - 1.30 mg/dL LAB CHEMISTRY METHOD 09/10/2024 6:30 PM [facility] eGFR 54(L) >=60 mL/min/1. 73m2 LAB CHEMISTRY METHOD 09/10/2024 6:30 PM [facility] Comment:Calculation based on the Chronic Kidney Disease Epidemiology Collaboration (CKD-EPI) equation refit without adjustment for race. BUN/Creatinine Ratio 11.4 LAB CHEMISTRY METHOD 09/10/2024 6:30 PM [facility] Calcium 9.3 8.5 - 10.5 mg/dL LAB CHEMISTRY METHOD 09/10/2024 6:30 PM [facility] AST (SGOT) 26 10 - 42 unit/L LAB CHEMISTRY METHOD 09/10/2024 6:30 PM [facility] ALT (SGPT) 23 10 - 60 unit/L LAB CHEMISTRY METHOD 09/10/2024 6:30 PM [facility] Alkaline Phosphatase 63 42 - 121 unit/L LAB CHEMISTRY METHOD 09/10/2024 6:30 PM [facility] Total Protein 7.1 6.0 - 8.0 g/dL LAB CHEMISTRY METHOD 09/10/2024 6:30 PM [facility] Albumin 3.5 3.2 - 5.0 g/dL LAB CHEMISTRY METHOD 09/10/2024 6:30 PM [facility] Total Bilirubin 0.7 0.0 - 1.4 mg/dL LAB CHEMISTRY METHOD 09/10/2024 6:30 PM [facility] Blood Venous blood specimen / Unknown Venipuncture / Unknown 09/10/2024 5:42 PM EDT 09/10/2024 6:02 PM EDT us Jeremias Carrizales MD LAB BLOOD ORDERABLES Final Result [facility] [address] [place] [address], from Last 3 Months or Most Recently Relevant to Health Maintenance Insurance MEDICARE [facility] Care Teams Janitorial Manager Relationship Specialty Start Date End Date Saul Sigala MD [address] [place] [address] [place] [address] PCP - General 11/23/12
--- OUTSIDE RECORDS SUMMARY | 2025-03-03 14:03 | XMS_ITS | Patient Health Record ---
Author Organization [facility] Address [address] [place] [address] Care Team Providers Care Brewery Representative Name Role Phone Jovon (RETIRED) Saul PALOMARES [...] Status W/U Status Risk Notes Problem Dysphagia (70860961) Dysphagia (787.20) Active confirmed Problem Barium swallow abnormal (702289432) Abnormal barium swallow (793.4) Active confirmed Problem Helicobacter pylori gastrointestinal tract infection (455442647) H. pylori infection (041.86) Active confirmed Plan Of Treatment Future Test Test Name Order Date UPPER GI ENDOSCOPY [place] DILATION OF ESOPH 05/21/2012 Insurance Providers Payer Name Payer Address Payer Phone Subscriber Number Group Number Insured Name Patient Relationship to Insured Coverage Start Date Coverage End Date MEDICARE OF [place] [address] [facility] [place] [place] [address] [id number] IRISHSEBASTIÁN Acosta Self - patient is the insured [facility] INDEMNITY [address] [place] [id number] IRISHSEBASTIÁN Acosta Self - patient is the insured Medical (General) History Medical History History ICD Code coronary artery disease with history of [place] and stent placement hypertension peripheral arterial disease Surgical History Surgery Date(Month/Year) back surgery leg bypass surgery multiple cardiac stent placements
[2025-03-03 18:19] VITALS: BP 139/62; PULSE 62; RESP 17; TEMP 36.6; O2SAT 99
== END 2025-03-03 18:20 | disposition home or self-care (01) ==
PROVIDERS: Emergency Provider Emergency Medicine; PCP Internal Medicine
DX: M54.41 Lumbago with sciatica, right side (principal); I48.91 Unspecified atrial fibrillation; M25.551 Pain in right hip; R60.0 Localized edema; I25.10 Atherosclerotic heart disease of native coronary artery without angina pectoris; I10 Essential (primary) hypertension; Z79.01 Long term (current) use of anticoagulants; Z79.899 Other long term (current) drug therapy
CPT/HCPCS: 73502; 73560; 93971; 99284

== ENCOUNTER → 2025-03-03 13:54 | Outpatient (BNV) | payer MEDICARE, OTHER, SELFPAY | PROVIDERS: Emergency Provider Emergency Medicine; PCP Internal Medicine; Visit Provider Radiology Diagnostic Radiology | DX: M79.604 Pain in right leg (principal); M25.561 Pain in right knee | CPT/HCPCS: 73560; 93971 ==

== ENCOUNTER 2025-03-08 15:15 | Outpatient (AMB) | payer MEDICARE, OTHER, SELFPAY ==
--- NOTE | 2025-03-08 15:06 | MHC.PC.OV ---
Vital Signs 03/08/25 15:24 Height 5 ft 6 in Weight 57.606 kg BMI 20.5 BP 140/70 H Blood Pressure Location Lt brachial Position Sitting Respiration 18 Pulse 86 Pulse Source Pulse Oximeter Temp 97.3 F Temp Source Temporal Artery Scan Pulse Oximetry (%) 95 Oxygen Delivery Method Room Air Intake Visit Reasons: ED f/u sciatica, still in pain, finished meds Insurance Solicitor Required: No Accompanied by: Self / Same As Patient Allergies No Known Allergies Allergy (Verified 03/08/25 15:07) Medication List - Last Reconciled 03/08/25 by REGGIE Ordonez albuterol sulfate 2.5 mg (3 mL) inhalation Q4-6H PRN 30 days apixaban (Eliquis) 5 mg PO BID atorvastatin 80 mg PO BEDTIME cyclobenzaprine 5 mg PO BEDTIME PRN empagliflozin (Jardiance) 10 mg PO DAILY finasteride 5 mg PO DAILY fluticasone furoate-vilanterol 200-25 mcg/dose (Breo Ellipta) 1 ea inhalation DAILY furosemide 40 mg PO DAILY gabapentin 300 mg PO BEDTIME isosorbide mononitrate ER 30 mg PO DAILY@1800 metoprolol tartrate 25 mg PO DAILY multivitamin 1 tab PO DAILY prednisone 5 mg PO DAILY sacubitril-valsartan 49-51 mg (Entresto) 1 tab PO BID tamsulosin (Flomax) 0.4 mg PO BEDTIME 90 days tramadol 50 mg PO BID PRN Tobacco use date assessed: 02/09/25 Fall risk assessment: No Falls in past year Dental Screening Dental Screen Date: 03/08/25 Did you have a dental visit in the last 12 months?: No HPI HPI Comments History of Present Illness Details 84-year-old male with history of persistent atrial fibrillation, heart failure reduced ejection fraction, hypertension, coronary artery disease, cardiomyopathy, COPD, BPH, hyperlipidemia presents to the office today for evaluation of right sciatica ongoing for several weeks. No known injury. Reports severe pain in the midline and right paraspinal muscles into the R SI/hpi joint. There is pain radiating into the RLE with patient pointing along the anterolateral and posterolateral aspect. Describes a shooting pain with associated burning and tingling. He has difficulty putting pressure on the RLE and is ambulating with a cane as pain is also exacerbated by walking after short distances. It is also helping with his balance as he feels weakness in the right lower extremity. He is unable to sit with full pressure on the right buttock secondary to pain. He presented to the ED 5 days ago as he was unable to walk. The pain had been intermittent but significantly worsened at that time, again without inciting event. He called EMS for transport. He described the radiating pain. X-ray of the right hip showed clustered calcific densities projecting over the proximal right femur but nothing aggressive in appearance. There are also degenerative changes of the bilateral SI joints and the right hip joint noted but no acute injury. X-ray of the right knee was unremarkable. Venous duplex of the right lower extremity was negative for DVT. He was treated in the ED with Tylenol. He was discharged with a for course of 40 mg of prednisone daily for 4 days. He presents today stating that the pain has not improved at all despite the prednisone. He is anticoagulated with Eliquis and is unable to take NSAIDs but has been trying to manage pain with Tylenol without any effect. He has also been trying to perform exercises at home, but has not been able to do much secondary to his pain and the positions required for the exercises. No bowel/bladder dysfunction, saddle anesthesia. Has known history of lumbar radiculopathy with prior MRI 09/03/2024 showing significant degenerative changes with stenosis at L4-L5 and L5-S1 and has history of L4-L5 and L5-S1 invasive micro decompression with Dr. Jackman in 2019 ROS: see hpi EXAM: Constitutional - Awake and Alert, No apparent distress Eyes - PERRL Cardiovascular - S1S2, RRR, No edema Respiratory - Normal lung expansion, Normal respiratory effort, No respiratory distress, CTA bilaterally Extremities - no calf tenderness bilaterally, no swelling MSK - midline ttp at the level of about L4-S1 as well as with deep palpation of the R SI joint. Significant ttp over the left paraspinal muscles and buttock with recoil/guarding. Positioned in forward flexion for comfort, unable to extend past upright position Skin - Warm/Dry Neurological - Alert & oriented x3. Symmetric 2+ patellar reflexes, 1+ R achilles DTR, 2+ L achilles DTR, negative babinski bilaterally. 4/5 strength RLE, 5/5 strength LLE. Decreased sensation with pinprick to lateral aspect distal lower legs. Slow, antalgic gait Psychological - Appropriate affect PFSH Medical History Paroxysmal atrial fibrillation Afib Heart failure with reduced ejection fraction Urinary retention Decompensated heart failure BPH (benign prostatic hyperplasia) Chronic combined systolic and diastolic congestive heart failure Acute pericardial effusion Cardiac tamponade Bronchiectasis Atrial fibrillation, new onset Pericardial effusion CHF (congestive heart failure) Coronary artery disease COPD (chronic obstructive pulmonary disease) Severe chronic obstructive pulmonary disease Surgical History Pericardial effusion with cardiac tamponade H/O heart artery stent Social History Household Members: Spouse Housing: House Alcohol intake: current Alcohol intake frequency: 0-2 drinks per day Alcohol type: beer Patient Tobacco Use Status: Former Tobacco user e-Cigarette/Vaping Use: Never Used Advance Directives Date on File: 01/30/22 service: No Current occupational status: retired Cognitive needs: No Hearing needs: No Vision needs: Yes (Rx glasses) Questionnaire AUDIT C Alcohol Use Questionnaire (AUDIT-C) 1. How often do you have a drink containing alcohol?: Monthly or less 2. How many drinks containing alcohol do you have on a typical day when you are drinking?: 1 or 2 3. How often do you have six or more drinks on one occasion?: Never Total Score: 1 Physical exam (Primary Care) Vital Signs: Last Vital Signs Temp 97.3 F 03/08/25 15:24 Pulse 86 03/08/25 15:24 Resp 18 03/08/25 15:24 BP 140/70 H 03/08/25 15:24 Pulse Ox 95 03/08/25 15:24 Oxygen Delivery Method Room Air 03/08/25 15:24 BMI result Body Mass Index 20.5 Tobacco/Smoking Status: Tobacco use Status Tobacco use date assessed 02/09/25 03/08/25 15:09 Patient Tobacco Use Status Former Tobacco user 03/08/25 15:09 e-Cigarette/Vaping Use Never Used 03/08/25 15:09 Coding Level of Care Code Est Pt Level 4 (45241) Complex EM visit Add On G2211 Diagnoses Acute right lumbar radiculopathy M54.16 Assessment & Plan Assessment & Plan (1) Acute right lumbar radiculopathy: Code(s): M54.16 - Radiculopathy, lumbar region Category: Medical Plan: Reviewed ER notes as well as labs, imaging of the right knee, hip/pelvis, venous duplex. Patient with ongoing severe pain with persisting severe radicular symptoms significantly limiting ability to ambulate and overall quality of life. Based on deficits noted on exam coupled with severe pain and acute clinical history, would recommend repeat MRI of the lumbar spine for better assessment and imaging of the lumbar spine. He is unlikely to be a good surgical candidate given his significant cardiac history, but further imaging would be very beneficial to establish treatment plan. He is referred to physical therapy as well. Given for short course of tramadol as well as cyclobenzaprine at bedtime. Can use Tylenol. Avoid NSAIDs. Recommend ice, topical analgesics. Orders: Orders MR lumbar spine wo con Today M54.16 - Radiculopathy, lumbar region PT Evaluation and Treatment Today M54.16 - Radiculopathy, lumbar region Medications: New cyclobenzaprine 5 mg PO BEDTIME PRN 14 tabs 0RF muscle spasm tramadol 50 mg PO BID PRN 30 tabs 0RF pain
[2025-03-08 15:24] VITALS: BP 140/70; PULSE 86; RESP 18; TEMP 36.3; O2SAT 95; BMI 20.5
--- OUTSIDE RECORDS SUMMARY | 2025-03-08 18:28 | XMS_ITS | Clinical Summary ---
Author Organization 175 [facility] Address [address] [place] [address] Phone Care Team Providers Care Rn Surgical Pcu Name Role Phone Saul Sigala MD Primary Care Provider [phone] Allergies No known active allergies Medications tamsulosin [...] embolism diagnosed in June 2018 (treated at [facility]) for which he completed 7 months of [...] cardiac and pulmonary clearance. Peripheral artery disease ([facility] V24) 09/05/19 21 Ischemic cardiomyopathy 09/04/2020 [...] effusion DX:Pericard ial effusion Peripheral arterial disease ([facility] V24) DX:Peripheral arterial disea se ([facility]); COMMENT: status post bilateral femoral to popliteal bypass. COPD (chronic obstructive pu lmonary disease) ([facility] V24, [facility] V28) DX:COPD (chronic o bstructive pulmonary [...] mmol/L LAB CHEMISTRY METHOD 09/10/2024 6:30 PM [facility] Potassium 4.1 3.5 - 5.5 mmol/L LAB CHEMISTRY METHOD 09/10/2024 6:30 PM [facility] Chloride 105 96 - 110 mmol/L LAB CHEMISTRY METHOD 09/10/2024 6:30 PM [facility] CO2 27 21 - 32 mmol/L LAB CHEMISTRY METHOD 09/10/2024 6:30 PM [facility] Anion Gap 7 3 - 11 LAB CHEMISTRY METHOD 09/10/2024 6:30 PM [facility] Glucose 98 70 - 100 mg/dL LAB CHEMISTRY METHOD 09/10/2024 6:30 PM [facility] BUN 15 5 - 25 mg/dL LAB CHEMISTRY METHOD 09/10/2024 6:30 PM [facility] Creatinine 1.32(H) 0.70 - 1.30 mg/dL LAB CHEMISTRY METHOD 09/10/2024 6:30 PM [facility] eGFR 54(L) >=60 mL/min/1. 73m2 LAB CHEMISTRY METHOD 09/10/2024 6:30 PM [facility] Comment:Calculation based on the Chronic Kidney Disease Epidemiology Collaboration (CKD-EPI) equation refit without adjustment for race. BUN/Creatinine Ratio 11.4 LAB CHEMISTRY METHOD 09/10/2024 6:30 PM [facility] Calcium 9.3 8.5 - 10.5 mg/dL LAB CHEMISTRY METHOD 09/10/2024 6:30 PM [facility] AST (SGOT) 26 10 - 42 unit/L LAB CHEMISTRY METHOD 09/10/2024 6:30 PM [facility] ALT (SGPT) 23 10 - 60 unit/L LAB CHEMISTRY METHOD 09/10/2024 6:30 PM [facility] Alkaline Phosphatase 63 42 - 121 unit/L LAB CHEMISTRY METHOD 09/10/2024 6:30 PM [facility] Total Protein 7.1 6.0 - 8.0 g/dL LAB CHEMISTRY METHOD 09/10/2024 6:30 PM [facility] Albumin 3.5 3.2 - 5.0 g/dL LAB CHEMISTRY METHOD 09/10/2024 6:30 PM [facility] Total Bilirubin 0.7 0.0 - 1.4 mg/dL LAB CHEMISTRY METHOD 09/10/2024 6:30 PM [facility] Blood Venous blood specimen / Unknown Venipuncture / Unknown 09/10/2024 5:42 PM EDT 09/10/2024 6:02 PM EDT us Jeremias Carrizales MD LAB BLOOD ORDERABLES Final Result [facility] [address] [place] [address], from Last 3 Months or Most Recently Relevant to Health Maintenance Insurance MEDICARE [facility] Care Teams Rn Surgical Pcu Relationship Specialty Start Date End Date Saul Sigala MD [address] [place] [address] [place] [address] PCP - General 11/23/12
== END 2025-03-08 15:56 | disposition home or self-care (01) ==
LOC: HO.HMCHD 15:16
PROVIDERS: PCP Internal Medicine; Visit Provider Physician Assistant
DX: M54.16 Radiculopathy, lumbar region (principal)

== ENCOUNTER → 2025-03-08 15:15 | Outpatient (BNVA) | payer MEDICARE, OTHER, SELFPAY | PROVIDERS: PCP Internal Medicine; Visit Provider Physician Assistant | DX: M54.16 Radiculopathy, lumbar region (principal) | CPT/HCPCS: 99212 ==

== ENCOUNTER 2025-03-15 18:20 | Outpatient (REF) | payer MEDICARE, OTHER, SELFPAY ==
--- NOTE | ~2025-03-15 | MR_ITS ---
EXAMINATION: MR LUMBAR SPINE WITHOUT CONTRAST CLINICAL INFORMATION: Lumbar radiculopathy. COMPARISON: MRI lumbar spine 11/11/2019 TECHNIQUE: MRI of the lumbar spine was obtained using routine sequences without contrast. FINDINGS: There is maintained lumbar lordosis. The vertebral heights are normal. There is grade 1 anterolisthesis L5 over S1. Rest the vertebral alignment is normal. There is loss of T11-T12, T12-L1, L1-2, L2-3 and L3-4 disc heights with disc desiccation changes. At T11-T12 and T12-L1 disc levels there is mild diffuse bulge/osteophyte complex indenting the ventral thecal sac. Moderate narrowing of neural foramina at both disc levels as noted. There is a moderate to large left lateral epidural space fluid collection question perineural cyst versus pseudomeningocele. The size of this cyst is stable to last exam 11/11/2019. Mild mass effect on the lateral thecal sac is noted. At L1-2 disc level there is minimal bulge without spinal canal stenosis. The neural foramina are mildly narrowed bilaterally. Mild ligament flavum and facet joint hypertrophy is noted. At L2-3 disc level there is a broad-based moderate diffuse bulge with mild facet joint degenerative hypertrophy without spinal canal stenosis. There is bilateral laminectomy changes. The neural foramina are significantly narrowed bilaterally. At L3-4 disc level there is broad-based diffuse bulge and moderate right ligament flavum and facet joint and hypertrophy effacing the right posterior lateral thecal sac with mild canal stenosis. There is a left laminectomy change. At L4-5 disc level there is concentric canal stenosis from a combination of moderate diffuse bulge, bilateral facet joint and ligament flavum hypertrophy. The neural foramina are significantly narrowed bilaterally. A small synovial cyst posterior to right L4-5 facet joint is noted. It appears new. At L5-S1 disc level there is severe spinal canal stenosis secondary to moderate diffuse bulge and facet joint and the inferior hypertrophy. There is a large migrated disc fragment posterior to the right L5 vertebra severe narrowing right lateral recess, right neural foramina and impinging on the right exiting L5 nerve root. Since the last MRI of the disc herniation in the right paracentral region has migrated superiorly. Moderate narrowing of left neural foramina from facet joint arthropathy and bulge is unchanged. Conus medullaris terminates at T12-L1 disc level and appears normal in morphology. MR/MR lumbar spine wo con IMPRESSION: Multilevel degenerative disc bulges as described above with severe spinal canal stenosis L5-S1, moderate canal stenosis at L4-5 and mild canal stenosis L3-4 disc levels. Since the previous exam moderate-sized right paracentral disc herniation at the L5-S1 disc level has migrated superiorly and lies posterior to the right L5 vertebra seen in the narrowing the right neural foramina and the lateral recess and impinging right L5 nerve root. Moderate narrowing of left neural foramina is unchanged. Rest the disc levels are unchanged to previous exam. Left lateral epidural space cystic collection question perineural cyst versus pseudomeningocele at the T12-L1 disc level and posterior to L1 vertebra is stable. Grade 1 anterolisthesis L5 over S1 is stable as well. Electronically signed by: Ramez Ramirez MD 03/16/2025 07:13 AM EDT
--- OUTSIDE RECORDS SUMMARY | 2025-03-15 18:52 | XMS_ITS | Patient Health Record ---
Author Organization [facility] Address [address] [place] [address] Care Team Providers Care Payroll Coordinator Name Role Phone Jovon (RETIRED) Saul PALOMARES [...] Status W/U Status Risk Notes Problem Dysphagia (07338114) Dysphagia (787.20) Active confirmed Problem Barium swallow abnormal (358884210) Abnormal barium swallow (793.4) Active confirmed Problem Helicobacter pylori gastrointestinal tract infection (820131025) H. pylori infection (041.86) Active confirmed Plan Of Treatment Future Test Test Name Order Date UPPER GI ENDOSCOPY [place] DILATION OF ESOPH 05/21/2012 Insurance Providers Payer Name Payer Address Payer Phone Subscriber Number Group Number Insured Name Patient Relationship to Insured Coverage Start Date Coverage End Date MEDICARE OF [place] [address] [place] [address] [id number] IRISHSEBASTIÁN Acosta Self - patient is the insured [facility] INDEMNITY [address] [place] [address] [id number] IRISHSEBASTIÁN Acosta Self - patient is the insured Medical (General) History Medical History History ICD Code coronary artery disease with history of [place] and stent placement hypertension peripheral arterial disease Surgical History Surgery Date(Month/Year) back surgery leg bypass surgery multiple cardiac stent placements
== END 2025-03-15 18:21 | disposition home or self-care (01) ==
LOC: HO.MRI 18:20
PROVIDERS: PCP Internal Medicine; Visit Provider Physician Assistant
DX: M54.16 Radiculopathy, lumbar region (principal)
CPT/HCPCS: 72148

== ENCOUNTER → 2025-03-15 18:21 | Outpatient (BNV) | payer MEDICARE, OTHER, SELFPAY | PROVIDERS: PCP Internal Medicine; Visit Provider Radiology Diagnostic Radiology | DX: M54.16 Radiculopathy, lumbar region (principal); M51.369 Other intervertebral disc degeneration, lumbar region without mention of lumbar back pain or lower extremity pain; M48.061 Spinal stenosis, lumbar region without neurogenic claudication | CPT/HCPCS: 72148 ==

== ENCOUNTER → 2025-03-28 23:59 | Outpatient (BNV) | payer MEDICARE, OTHER, SELFPAY ==
--- NOTE | 2025-04-04 15:12 | MHC.OFFVIS ---
Intake Visit Reasons: remote device check- [employer] Allergies No Known Allergies Allergy (Verified 03/08/25 15:07) [facility] Medical History (Updated 04/04/25 @ 15:13 by Neo Schulz MD) Lumbar disc herniation Central stenosis of spinal canal Paroxysmal atrial fibrillation Afib Heart failure with reduced ejection fraction Urinary retention Decompensated heart failure BPH (benign prostatic hyperplasia) Chronic combined systolic and diastolic congestive heart failure Acute pericardial effusion Cardiac tamponade Bronchiectasis Atrial fibrillation, new onset Pericardial effusion CHF (congestive heart failure) Coronary artery disease COPD (chronic obstructive pulmonary disease) Severe chronic obstructive pulmonary disease Surgical History Pericardial effusion with cardiac tamponade H/O heart artery stent Social History Household Members: Spouse Housing: House Alcohol intake: current Alcohol intake frequency: 0-2 drinks per day Alcohol type: beer Patient Tobacco Use Status: Former Tobacco user e-Cigarette/Vaping Use: Never Used Advance Directives Date on File: 01/30/22 service: No Current occupational status: retired Cognitive needs: No Hearing needs: No Vision needs: Yes (Rx glasses) Office Procedures Cardiac Device Check Cardiac Device Check Details: Remote pacemaker report generated 03/28/2025. Pacemaker function is adequate. Patient ventricularly pacer dependent [id number] Cardiac Device Interrogation, pacemaker Procedure code (CPT) selection complete Assessment & Plan Assessment & Plan (1) Cardiac pacemaker in situ: Code(s): Z95.0 - Presence of cardiac pacemaker Category: Medical Plan: See above Coding Level of Care Code Procedure Only Diagnoses Cardiac pacemaker in situ Z95.0 CPT Codes Cardiac Device Check - Cardiac Device 12: [id number] Cardiac Device Interrogation, pacemaker ([id number])
== END ==
PROVIDERS: PCP Internal Medicine; Visit Provider Internal Medicine Cardiovascular Disease
DX: Z45.018 Encounter for adjustment and management of other part of cardiac pacemaker (principal)
CPT/HCPCS: 93294

== ENCOUNTER 2025-04-21 11:13 | Outpatient (AMB) | payer MEDICARE, OTHER, SELFPAY ==
--- NOTE | 2025-04-21 11:35 | A.OFFVIS_ITS ---
Vital Signs 04/21/25 11:35 04/21/25 11:37 Height 5 ft 6 in 5 ft 6 in Weight 135 lb BMI 21.8 BP 138/60 Blood Pressure Location Lt brachial Position Sitting Pulse 86 Pulse Source Pulse Oximeter Pulse Oximetry (%) 95 Oxygen Delivery Method Room Air Intake Visit Reasons: COPD Allergies No Known Allergies Allergy (Verified 04/21/25 11:41) HPI HPI COPD: Details: 85-year-old gentleman, former heavy smoker approximately 50 pack years, quit 20 years prior, with underlying history of combined systolic and diastolic heart failure secondary to underlying coronary artery disease with multiple stents, remote history of subsegmental bilateral pulmonary emboli treated with 6 months of anticoagulation followed for very severe COPD. Patient is not able to tolerate LAMA secondary to urinary retention. Patient does have underlying AFib. He continues to follow-up with [facility]. He denies any recent exacerbations. [facility] Medical History (Updated 04/04/25 @ 15:13 by Neo Schulz MD) Lumbar disc herniation Central stenosis of spinal canal Paroxysmal atrial fibrillation Afib Heart failure with reduced ejection fraction Urinary retention Decompensated heart failure BPH (benign prostatic hyperplasia) Chronic combined systolic and diastolic congestive heart failure Acute pericardial effusion Cardiac tamponade Bronchiectasis Atrial fibrillation, new onset Pericardial effusion CHF (congestive heart failure) Coronary artery disease COPD (chronic obstructive pulmonary disease) Severe chronic obstructive pulmonary disease Surgical History Pericardial effusion with cardiac tamponade H/O heart artery stent Social History Household Members: Spouse Housing: House Alcohol intake: current Alcohol intake frequency: 0-2 drinks per day Alcohol type: beer Patient Tobacco Use Status: Former Tobacco user e-Cigarette/Vaping Use: Never Used Advance Directives Date on File: 01/30/22 service: No Current occupational status: retired Cognitive needs: No Hearing needs: No Vision needs: Yes (Rx glasses) Review of Systems Const Denies daytime sleepiness, Denies excessive sweating, Denies fatigue, Denies fever(s), Denies lethargy, Denies malaise, Denies night sweats, Denies snoring and Denies weight loss Eyes Denies blurry vision and Denies itchy eyes ENT Denies nasal congestion, Denies post nasal drip, Denies sinus pain, Denies sinus pressure and Denies other ( Thrush) Card Denies chest pain, Denies pedal edema, Denies dyspnea, Denies orthopnea and Denies paroxysmal nocturnal dyspnea Resp Denies cough, Denies hemoptysis, Denies excessive phlegm production, Denies dyspnea, Denies snoring and Denies wheezing GI Denies abdominal pain and Denies heartburn Musc Denies myalgias, Denies arthralgias and Denies joint swelling Skin/Breast Denies rash Neuro Denies memory loss and Denies seizure-like activity Psych Denies abnormal sleep pattern, Denies anxiety and Denies memory loss Endo Denies excessive sweating, Denies fatigue and Denies heat intolerance Meño/Lymph Denies easy bruising Aller/Immun Denies itchy eyes, Denies seasonal rhinorrhea and Denies wheezing Physical Exam Vital Signs: Last Vital Signs Pulse 86 04/21/25 11:37 BP 138/60 04/21/25 11:37 Pulse Ox 95 04/21/25 11:37 Oxygen Delivery Method Room Air 04/21/25 11:37 BMI result Body Mass Index 21.8 Const General: no acute distress and alert Nutritional Appearance: not obese Orientation/consciousness: Other orientation findings ( oriented) HEENT Head: Yes atraumatic Eyes General: appearance normal, both eyes and all related structures Sclerae: sclerae normal EOM: EOMs intact bilaterally Neck Neck: Yes supple Lymphatic: no lymphadenopathy noted Resp Effort & Inspection: normal respiratory effort and no use of accessory muscles Auscultation: clear to auscultation bilaterally Cardio Rate: regular rate Rhythm: regular rhythm Heart sounds: no gallops, no murmurs and no rubs Skin General skin exam: other ( warm) Extrem General: No clubbing, No cyanosis and No edema Assessment & Plan Assessment & Plan (1) COPD (chronic obstructive pulmonary disease): Code(s): J44.9 - Chronic obstructive pulmonary disease, unspecified Category: Medical Plan: Well controlled on current regimen of Breo, albuterol MDI, and nebs. Continue current regimen. Coding Level of Care Code Est Pt Level 4 (91863) Diagnoses COPD (chronic obstructive pulmonary disease) J44.9
[2025-04-21 11:37] VITALS: BP 138/60; PULSE 86; O2SAT 95; BMI 21.8
--- OUTSIDE RECORDS SUMMARY | 2025-04-21 17:28 | XMS_ITS | Clinical Summary ---
Author Organization [address] [facility] Address [address] [place] [address] Phone Care Team Providers Care Change Management Name Role Phone Saul Sigala MD Primary Care Provider [phone] Allergies No known active allergies Medications tamsulosin (FLOMAX) 0.4 mg 24 hr capsule Take 1 capsule (0.4 mg total) by mouth at bedtime. Active predniSONE (DELTASONE) 5 mg tablet Take 1 tablet (5 mg total) by mouth 1 (one) time each day. 08/28/19 25 Active isosorbide mononitrate (IMDUR) 30 mg [...] 2 doses. 296 mL 09/11/19 25 Active cyclobenzaprine (FLEXERIL) 5 mg tablet take 1 tablet by mouth at bedtime as needed for for muscle spasm 03/28/20 25 Active metoprolol tartrate (LOPRESSOR) 25 mg tablet Take 1 tablet (25 mg total) by mouth 2 (two) times a day. 07/04/19 25 025 Discontinued Active Problems Problem Noted Date Diagnosed Date [...] embolism diagnosed in June 2018 (treated at [facility]) for which he completed 7 months of anticoagulation therapy with apixaban. 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 Coburn and his which describes some issues on the right at L4-5 and L5-S1 which could cause right sided leg symptoms. He is now mainly describing tingling in his great toes and increased numbness in both feet with walking. The symptoms did not sound purely right sided, the back pain is transverse and provoked by activity and no longer described as severe. He does not feel that it limits his activity and, for now, he can live with it. He is welcome to contact us if the situation changes again. Assessment & Plan (09/07/2024 5:06 PM EDT): [...] Encounters Date Type Department Care Team Description 04/07/2025 3:30 PM EST Office Visit Neurosurgery [facility] [address] [place] [address] Mary Rivera MD Spinal stenosis of lumbar region with radiculopathy (Primary Dx) from Last 3 Months Immunizations Immunization Administration Dates Next Due Influenza [...] effusion DX:Pericard ial effusion Peripheral arterial disease ([facility] V24) DX:Peripheral arterial disea se ([facility]); COMMENT: status post bilateral femoral to popliteal bypass. COPD (chronic obstructive pu lmonary disease) ([facility] V24, [facility] V28) DX:COPD (chronic o bstructive pulmonary disease) ([facility]) Lumbar stenosis DX:Lumbar stenos is; [...] exists Influenza Vaccine (#1) 2025 , 03/19/2023, 03/19/2022, Additional history exists Falls Risk Assessment 09/10/2025 [...] Procedure Name Priority Date/Time Associated Diagnosis Comments EXTERNAL MRI REPORT Routine 03/15/2025 8 :24 AM EDT COMPREHENSIVE METABOLIC PANEL STAT 09/10/2024 5:42 PM EDT from Last 3 Months or Most Recently Relevant to Health Maintenance Results * External MRI Report (03/15/2025 8:24 AM EDT) Anatomical Region Laterality Modality Magnetic Resonan ce us Historical Provider MD CALI MRI PROCEDURES Final Result * (ABNORMAL) Comprehensive metabolic panel (09/10/2024 5:42 PM EDT) Sodium 139 133 - 145 mmol/L LAB CHEMISTRY METHOD 09/10/2024 6:[address] [facility] Potassium 4.1 3.5 - 5.5 mmol/L LAB CHEMISTRY METHOD 09/10/2024 6:[address] [facility] Chloride 105 96 - 110 mmol/L LAB CHEMISTRY METHOD 09/10/2024 6:[address] [facility] CO2 27 21 - 32 mmol/L LAB CHEMISTRY METHOD 09/10/2024 6:[address] [facility] Anion Gap 7 3 - 11 LAB CHEMISTRY METHOD 09/10/2024 6:[address] [facility] Glucose 98 70 - 100 mg/dL LAB CHEMISTRY METHOD 09/10/2024 6:[address] [facility] BUN 15 5 - 25 mg/dL LAB CHEMISTRY METHOD 09/10/2024 6:[address] [facility] Creatinine 1.32(H) 0.70 - 1.30 mg/dL LAB CHEMISTRY METHOD 09/10/2024 6:[address] [facility] eGFR 54(L) >=60 mL/min/1. 73m2 LAB CHEMISTRY METHOD 09/10/2024 6:[address] [facility] Comment:Calculation based on the Chronic Kidney Disease Epidemiology Collaboration (CKD-EPI) equation refit without adjustment for race. BUN/Creatinine Ratio 11.4 LAB CHEMISTRY METHOD 09/10/2024 6:30 PM EDT [facility] Calcium 9.3 8.5 - 10.5 mg/dL LAB CHEMISTRY METHOD 09/10/2024 6:30 PM EDT [facility] AST (SGOT) 26 10 - 42 unit/L LAB CHEMISTRY METHOD 09/10/2024 6:30 PM T [facility] ALT (SGPT) 23 10 - 60 unit/L LAB CHEMISTRY METHOD 09/10/2024 6:30 PM EDT [facility] Alkaline Phosphatase 63 42 - 121 unit/L LAB CHEMISTRY METHOD 09/10/2024 6:30 PM EDT [facility] Total Protein 7.1 6.0 - 8.0 g/dL LAB CHEMISTRY METHOD 09/10/2024 6:30 PM EDT [facility] Albumin 3.5 3.2 - 5.0 g/dL LAB CHEMISTRY METHOD 09/10/2024 6:30 PM EDT [facility] Total Bilirubin 0.7 0.0 - 1.4 mg/dL LAB CHEMISTRY METHOD 09/10/2024 6:[address] [facility] Blood Venous blood specimen / Unknown Venipuncture / Unknown 09/10/2024 5:42 PM EDT 09/10/2024 6:02 PM EDT us Jeremias Carrizales MD LAB BLOOD ORDERABLES Final Result [facility] [address] [place] [address], from Last 3 Months or Most Recently Relevant to Health Maintenance [facility] Care Teams Change Management Relationship Specialty Start Date End Date Saul Sigala MD [address] [place] [address] [place] [address] PCP - General 11/23/12
--- OUTSIDE RECORDS SUMMARY | 2025-04-21 17:28 | XMS_ITS | Patient Health Record ---
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 pylori infection (041.86) Active confirmed Plan Of Treatment Future Test Test Name Order Date UPPER GI ENDOSCOPY [place] DILATION OF ESOPH 05/21/2012 Insurance Providers Payer Name Payer Address Payer Phone Subscriber Number Group Number Insured Name Patient Relationship to Insured Coverage Start Date Coverage End Date MEDICARE OF [place] [address] [facility] [address] [id number] SEBASTIÁN [place]BURN Self - patient is the insured [facility] [address] [place] [address] [id number] SEBASTIÁN COBURN Self - patient is the insured Medical (General) History Medical History History ICD Code coronary artery disease with history of IA and stent placement hypertension peripheral arterial disease Surgical History Surgery Date(Month/Year) back surgery leg bypass surgery multiple cardiac stent placements
== END 2025-04-21 11:49 | disposition home or self-care (01) ==
LOC: HO.HPS 11:14
PROVIDERS: PCP Family Medicine; Visit Provider Internal Medicine Pulmonary Disease
DX: J44.9 Chronic obstructive pulmonary disease, unspecified (principal)
CPT/HCPCS: 99214

== ENCOUNTER → 2025-04-21 11:13 | Outpatient (BNVA) | payer MEDICARE, OTHER, SELFPAY | PROVIDERS: PCP Family Medicine; Visit Provider Internal Medicine Pulmonary Disease | DX: J44.9 Chronic obstructive pulmonary disease, unspecified (principal); Z87.891 Personal history of nicotine dependence | CPT/HCPCS: 99212 ==

== ENCOUNTER 2025-05-18 09:12 | Outpatient (AMB) | payer MEDICARE, OTHER, SELFPAY ==
--- NOTE | 2025-05-18 09:16 | MHC.PC.OV ---
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: No Accompanied by: Self / Same As Patient Allergies No Known Allergies Allergy (Verified 05/18/25 09:22) Medication List - Last Reconciled 05/18/25 by REGGIE Ordonez albuterol sulfate 2.5 mg (3 mL) inhalation Q4-6H PRN 30 days apixaban (Eliquis) 5 mg PO BID atorvastatin 80 mg PO BEDTIME cyclobenzaprine 5 mg PO BEDTIME PRN empagliflozin (Jardiance) 10 mg PO DAILY finasteride 5 mg PO DAILY fluticasone furoate-vilanterol 200-25 mcg/dose (Breo Ellipta) 1 ea inhalation DAILY furosemide 40 mg PO DAILY gabapentin 300 mg PO BEDTIME isosorbide mononitrate ER 30 mg PO DAILY@1800 multivitamin 1 tab PO DAILY prednisone 5 mg PO DAILY sacubitril-valsartan 49-51 mg (Entresto) 1 tab PO BID tamsulosin (Flomax) 0.4 mg PO BEDTIME 90 days tramadol 50 mg PO BID Tobacco use date assessed: 02/09/25 Dental Screening Dental Screen Date: 03/08/25 HPI HPI Comments History of Present Illness Details 84-year-old male with history of persistent atrial fibrillation, heart failure reduced ejection fraction, hypertension, coronary artery disease, cardiomyopathy, COPD, BPH, hyperlipidemia presents to the office today for management of chronic conditions and for post ER evaluation COPD- chronic prednisone, Breo. Follows with pulmonology. 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 Had 2 syncopal episodes in November related to tachy-grace syndrome and 2 attempts were made for pacemaker placement at [facility] per patient. He tells me he was supposed to hear back from [facility] but has not yet heard back. Advised that he should be contacting the department. Metoprolol and digoxin are on hold right now as a result of the tachy-grace syndrome. Continues on Eliquis 5 mg twice daily, Jardiance, Lasix, Isordil, Entresto. Daily weights BPH-Flomax HLD- on atorvastatin 80 mg nightly Concerns: Presented to the ED on 05/06 after sustaining a mechanical fall. He was climbing down 3 stairs and on the last stair tripped striking the right side of his head/face on the cement. He did lose consciousness and is on Eliquis. On arrival to the ED at [facility], GCS 14 (E4, V4, M6), pupils equal and reactive he was hypertensive at 182/93. He was placed in C-collar. Head CT and cervical spine CT negative for any acute intracranial abnormality, osseous abnormality. CT chest negative for any acute abnormality of chest, abdomen, pelvis. Left renal cyst measuring 1.5 cm as well as scattered pulmonary nodules up to 0.4 cm. He did sustain injuries to his hands which were negative for any acute displaced fracture. X-ray of the elbow showed joint effusion with no acute displaced fracture. Given age, this could be suspicious for occult radial head fracture though he denies any pain or difficulty with range of motion. X-ray of the shoulders negative for acute displaced fracture. He did sustain a laceration to the right brow and 4 sutures were placed. He tells me that he does not recall any of the episode or hospitalization. Since then, his memory has otherwise been intact. He has been experiencing lightheadedness as if he is going to pass out and has been using a cane to ambulate. Initially there was some blurred vision but this has resolved. He does also state that he has been sleeping much more than usual. Denies any headaches, nausea, vomiting. he has had sutures removed in the office. ROS: see hpi EXAM: Constitutional - Awake and Alert, No apparent distress Eyes - PERRL Cardiovascular - S1S2, irregular irregular, No edema Respiratory - Normal lung expansion, Normal respiratory effort, No respiratory distress, CTA bilaterally Extremities - no calf tenderness bilaterally, no swelling Skin - Warm/Dry Neurological - Alert & oriented x3. Horizontal nystagmus, otherwise CN II-XII intact Psychological - Appropriate affect [facility] Medical History (Updated 05/18/25 @ 13:13 by REGGIE Ordonez) Lumbar disc herniation Central stenosis of spinal canal Paroxysmal atrial fibrillation Afib Heart failure with reduced ejection fraction Urinary retention Decompensated heart failure BPH (benign prostatic hyperplasia) Chronic combined systolic and diastolic congestive heart failure Acute pericardial effusion Cardiac tamponade Bronchiectasis Atrial fibrillation, new onset Pericardial effusion CHF (congestive heart failure) Coronary artery disease COPD (chronic obstructive pulmonary disease) Severe chronic obstructive pulmonary disease Surgical History Pericardial effusion with cardiac tamponade H/O heart artery stent Social History Household Members: Spouse Housing: House Alcohol intake: current Alcohol intake frequency: 0-2 drinks per day Alcohol type: beer Patient Tobacco Use Status: Former Tobacco user e-Cigarette/Vaping Use: Never Used Advance Directives Date on File: 01/30/22 service: No Current occupational status: retired Cognitive needs: No Hearing needs: No Vision needs: Yes (Rx glasses) Physical exam (Primary Care) Vital Signs: Last Vital Signs Temp 97.5 F 05/18/25 09:23 Pulse 83 05/18/25 09:23 BP 134/58 L 05/18/25 09:23 Pulse Ox 99 05/18/25 09:23 Oxygen Delivery Method Room Air 05/18/25 09:23 BMI result Body Mass Index 21.3 Tobacco/Smoking Status: Tobacco use Status Tobacco use date assessed 02/09/25 05/18/25 09:17 Patient Tobacco Use Status Former Tobacco user 05/18/25 09:17 e-Cigarette/Vaping Use Never Used 05/18/25 09:17 Coding Level of Care Code Est Pt Level 4 (85086) Add On Problem Visit Only Diagnoses Concussion with loss of consciousness S06.0X9A Primary hypertension I10 Hypertension type: primary hypertension Cardiomyopathy, unspecified type I42.9 Cardiomyopathy type: unspecified Coronary artery disease involving [place] coronary artery of [place] heart without angina pectoris I25.10 Associated angina: without angina Coronary Disease-Associated Artery/Lesion type: [place] artery [place] vs. transplanted heart: citizen [place] heart Persistent atrial fibrillation I48.19 COPD (chronic obstructive pulmonary disease) J44.9 Assessment & Plan Assessment & Plan (1) Concussion with loss of consciousness: Code(s): S06.0X9A - Concussion with loss of consciousness of unspecified duration, initial encounter Category: Medical Plan: Remains symptomatic with lightheadedness which has not improved. There was blurred vision. Given AC, recheck CT to evaluate for any evolving abn. Counseled to present to the ED for any worsening symptoms. Discussed that symptoms r/t concussion can persist for weeks and rarely up to one year. (2) Hypertension: Code(s): I10 - Essential (primary) hypertension Category: Medical Qualifiers: Hypertension type: primary hypertension Qualified Code(s): I10 - Essential (primary) hypertension Plan: Controlled with BP 134/58. Continue current therapies (3) Cardiomyopathy: Code(s): I42.9 - Cardiomyopathy, unspecified Category: Medical Qualifiers: Cardiomyopathy type: unspecified Qualified Code(s): I42.9 - Cardiomyopathy, unspecified Plan: Compensated. Continue following with cardiology. Continue current therapies (4) Coronary artery disease: Code(s): I25.10 - Atherosclerotic heart disease of [place] coronary artery without angina pectoris Category: Medical Qualifiers: Associated angina: without angina Coronary Disease-Associated Artery/Lesion type: [place] artery [place] vs. transplanted heart: [place] heart Qualified Code(s): I25.10 - Atherosclerotic heart disease of [place] coronary artery without angina pectoris Plan: Stable (5) Persistent atrial fibrillation: Code(s): I48.19 - Other persistent atrial fibrillation Category: Medical Plan: Rate controlled (6) COPD (chronic obstructive pulmonary disease): Code(s): J44.9 - Chronic obstructive pulmonary disease, unspecified Category: Medical Plan: No exacerbation. Continue therapies Plan Follow-up in the office in 3 months. Labs below Orders: Orders CT head/brain wo IV con 05/18/25 H55.00 - Unspecified nystagmus, R42 - Dizziness and giddiness, S06.0XAA - Concussion with loss of consciousness status unknown, initial encounter, S06.9X1A - Unspecified intracranial injury with loss of consciousness of 30 minutes or less, initial encounter, Z79.01 - longterm (current) use of anticoagulants
[2025-05-18 09:23] VITALS: BP 134/58; PULSE 83; TEMP 36.4; O2SAT 99; BMI 21.3
--- OUTSIDE RECORDS SUMMARY | 2025-05-18 10:09 | XMS_ITS | Clinical Summary ---
Author Organization [address] [facility] Address [address] [place] [address] Phone Care Team Providers Care Otter Trawler Boatswain Name Role Phone Saul Sigala MD Primary Care Provider [phone] Allergies No known active allergies Medications tamsulosin (FLOMAX) 0.4 mg 24 hr capsule Take 1 capsule (0.4 mg total) by mouth at bedtime. Active predniSONE (DELTASONE) 5 mg tablet Take 1 tablet (5 mg total) by mouth 1 (one) time each day. 5 Active isosorbide mononitrate (IMDUR) 30 [...] 8 (eight) hours if needed. for pain 5 Active magnesium citrate solution Take 148 mL by mouth 1 (one) time if needed (Constipation) for up to 2 doses. 296 mL 5 Active cyclobenzaprine (FLEXERIL) 5 mg tablet take 1 tablet by mouth at bedtime as needed for for muscle spasm 5 Active Active Problems Problem Noted Date [...] embolism diagnosed in June 2018 (treated at [facility]) for which he completed 7 months [...] cardiac and pulmonary clearance. Peripheral artery disease 09/04/2020 Ischemic cardiomyopathy 09/04/2020 Essential hypertension 09/04/2020 SOB (shortness of breath) 08/31/2020 Encounters Date Type Department Care Team Description 04/07/2025 3:30 PM EST Office Visit Neurosurgery [place] [address] [place] [address] Mary Rivera MD Spinal stenosis [...] effusion DX:Pericard ial effusion Peripheral arterial disease ([facility] V24) DX:Peripheral arterial disea se ([facility]); COMMENT: status post bilateral femoral to popliteal bypass. COPD (chronic obstructive pu lmonary disease) ([facility] V24, [facility] V28) DX:COPD (chronic o bstructive pulmonary disease) ([facility]) Lumbar stenosis DX:Lumbar stenos is; [...] on file Sexual Orientation Not on file Last Filed Vital Signs Vital Sign Reading [...] mmol/L LAB CHEMISTRY METHOD 09/10/2024 6:30 PM [facility] Potassium 4.1 3.5 - 5.5 mmol/L LAB CHEMISTRY METHOD 09/10/2024 6:30 PM [facility] Chloride 105 96 - 110 mmol/L LAB CHEMISTRY METHOD 09/10/2024 6:30 PM [facility] CO2 27 21 - 32 mmol/L LAB CHEMISTRY METHOD 09/10/2024 6:30 PM [facility] Anion Gap 7 3 - 11 LAB CHEMISTRY METHOD 09/10/2024 6:30 PM [facility] Glucose 98 70 - 100 mg/dL LAB CHEMISTRY METHOD 09/10/2024 6:30 PM [facility] BUN 15 5 - 25 mg/dL LAB CHEMISTRY METHOD 09/10/2024 6:30 PM [facility] Creatinine 1.32(H) 0.70 - 1.30 mg/dL LAB CHEMISTRY METHOD 09/10/2024 6:30 PM [facility] eGFR 54(L) >=60 mL/min/1. 73m2 LAB CHEMISTRY METHOD 09/10/2024 6:30 PM [facility] Comment:Calculation based on the Chronic Kidney Disease Epidemiology Collaboration (CKD-EPI) equation refit without adjustment for race. BUN/Creatinine Ratio 11.4 LAB CHEMISTRY METHOD 09/10/2024 6:30 PM [facility] Calcium 9.3 8.5 - 10.5 mg/dL LAB CHEMISTRY METHOD 09/10/2024 6:30 PM EDT [facility] AST (SGOT) 26 10 - 42 unit/L LAB CHEMISTRY METHOD 09/10/2024 6:30 PM EDT [facility] ALT (SGPT) 23 10 - 60 unit/L LAB CHEMISTRY METHOD 09/10/2024 6:30 PM EDT [facility] Alkaline Phosphatase 63 42 - 121 unit/L LAB CHEMISTRY METHOD 09/10/2024 6:30 PM EDT [facility] Total Protein 7.1 6.0 - 8.0 g/dL LAB CHEMISTRY METHOD 09/10/2024 6:30 PM EDT [facility] Albumin 3.5 3.2 - 5.0 g/dL LAB CHEMISTRY METHOD 09/10/2024 6:30 PM EDT [facility] Total Bilirubin 0.7 0.0 - 1.4 mg/dL LAB CHEMISTRY METHOD 09/10/2024 6:30 PM EDT [facility] Blood Venous blood specimen / Unknown Venipuncture / Unknown 09/10/2024 5:42 PM EDT 09/10/2024 6:02 PM EDT us Jeremias Carrizales MD LAB BLOOD ORDERABLES Final Result [facility] [address] [place] [address], from Last 3 Months or Most Recently Relevant to Health Maintenance Insurance MEDICARE [employer] Care Teams Otter Trawler Boatswain Relationship Specialty Start Date End Date Saul Sigala MD [address] [place] [address] [place] [address] PCP - General 11/23/12
--- OUTSIDE RECORDS SUMMARY | 2025-05-18 10:10 | XMS_ITS | Patient Health Record ---
Author Organization [facility] Address [address] [place] [address] Care Team Providers Care Durability Engineer Name Role Phone Jovon (RETIRED) Saul [...] Status W/U Status Risk Notes Problem Dysphagia (68418116) Dysphagia (787.20) Active confirmed Problem Barium swallow abnormal (104927562) Abnormal barium swallow (793.4) Active confirmed Problem Helicobacter pylori gastrointestinal tract infection (002258919) H. pylori infection (041.86) Active confirmed Plan Of Treatment Future Test Test Name Order Date UPPER GI ENDOSCOPY [place] DILATION OF ESOPH 05/21/2012 Insurance Providers Payer Name Payer Address Payer Phone Subscriber Number Group Number Insured Name Patient Relationship to Insured Coverage Start Date Coverage End Date MEDICARE OF [place] [address] [place] [address] [id number] [place] Self - patient is the insured [facility] INDEMNITY [address] [place] [address] [id number] [place] Self - patient is the insured Medical (General) History Medical History History ICD Code coronary artery disease with history of [place] and stent placement hypertension peripheral arterial disease Surgical History Surgery Date(Month/Year) back surgery leg bypass surgery multiple cardiac stent placements
== END 2025-05-18 09:44 | disposition home or self-care (01) ==
LOC: HO.HMCHD 09:13
PROVIDERS: PCP Family Medicine; Visit Provider Physician Assistant
DX: S06.0X9A Concussion with loss of consciousness of unspecified duration, initial encounter (principal); I10 Essential (primary) hypertension; I42.9 Cardiomyopathy, unspecified; I25.10 Atherosclerotic heart disease of native coronary artery without angina pectoris; I48.19 Other persistent atrial fibrillation; J44.9 Chronic obstructive pulmonary disease, unspecified

== ENCOUNTER → 2025-05-18 09:12 | Outpatient (BNVA) | payer MEDICARE, OTHER, SELFPAY | PROVIDERS: PCP Family Medicine; Visit Provider Physician Assistant | DX: I10 Essential (primary) hypertension (principal); I25.10 Atherosclerotic heart disease of native coronary artery without angina pectoris; I42.9 Cardiomyopathy, unspecified; I48.19 Other persistent atrial fibrillation; J44.9 Chronic obstructive pulmonary disease, unspecified; Z09 Encounter for follow-up examination after completed treatment for conditions other than malignant neoplasm; S06.0X9A Concussion with loss of consciousness of unspecified duration, initial encounter; Z79.01 Long term (current) use of anticoagulants | CPT/HCPCS: 99212 ==

== ENCOUNTER 2025-05-30 10:25 | Outpatient (REF) | payer MEDICARE, OTHER, SELFPAY ==
--- NOTE | ~2025-05-30 | CT_ITS ---
EXAMINATION: CT HEAD WITHOUT CONTRAST CLINICAL INFORMATION: Concussion with loss of consciousness status unknown. Initial head CT without acute intracranial abnormality, continues with symptoms of lightheadedness and nystagmus, evaluate for any developing injury. COMPARISON: 10/28/2024. TECHNIQUE: Contiguous axial imaging was performed from the skull base to vertex without intravenous administration of contrast. This CT examination was performed using dose optimization techniques as appropriate, variously including the following: *Automated exposure control *Adjustment of mA and/or kV according to patient size (this includes techniques or standardized protocols for targeted exams where dose is matched to indication/reason for exam; i.e. extremities or head) *Use of iterative reconstruction technique FINDINGS: There is no evidence of intracranial hemorrhage or extra-axial fluid collection. There is no mass effect, or edema. No CT evidence of acute territorial infarct. Ventricles, sulci, and cisterns are mildly diffusely prominent, in keeping with age-related cerebral and cerebellar volume loss. No hydrocephalus. No midline shift. Negative hyperdense MCA sign. Negative insular ribbon sign. Patchy periventricular and deep white matter hypoattenuation is consistent with mild to moderate small vessel ischemic changes. Normal pituitary. Atheromatous calcification of the bilateral carotid siphons. Globes and orbital contents demonstrate senile calcifications bilaterally. There are otherwise normal. No extracranial soft tissue abnormalities. Mild mucosal thickening seen throughout the right maxillary sinus. Remainder of the paranasal sinuses, mastoid air cells, and tympanic cavities are normally aerated. No suspicious bony abnormalities. There are no acute fractures evident. CT/CT head/brain wo IV con IMPRESSION: No acute intracranial abnormality. No significant interval change from 10/28/2024.. Electronically signed by: Thaddeus Hanks MD 05/30/2025 11:00 AM [facility]
--- OUTSIDE RECORDS SUMMARY | 2025-05-30 11:49 | XMS_ITS | Clinical Summary ---
Author Organization 175 [facility] Address [address] [place] [address] Phone Care Team Providers Care Outcomes Manager Name Role Phone Saul Sigala MD Primary Care Provider [phone] Allergies No known active allergies Medications tamsulosin [...] embolism diagnosed in June 2018 (treated at [facility]) for which he completed 7 months of [...] 04/07/2025 3:30 PM EST Office Visit Neurosurgery [place] [address] [place] [address] Mary Rivera MD Spinal stenosis [...] effusion DX:Pericard ial effusion Peripheral arterial disease ([facility] V24) DX:Peripheral arterial disea se ([facility]); COMMENT: status post bilateral femoral to popliteal bypass. COPD (chronic obstructive pu lmonary disease) ([facility] V24, [facility] V28) DX:COPD (chronic o bstructive pulmonary disease) ([facility]) Lumbar stenosis DX:Lumbar stenos is; COMMENT: using [...] 11.4 LAB CHEMISTRY METHOD 09/10/2024 6:[address] [facility] Calcium 9.3 8.5 - 10.5 [...] Final Result [facility] [address] [place] [address], from Last 3 Months or Most Recently Relevant to Health Maintenance Insurance MEDICARE [employer] Care Teams Outcomes Manager Relationship Specialty Start Date End Date Saul Sigala MD [address] [place] [address] [place] [address] PCP - General 11/23/12
--- OUTSIDE RECORDS SUMMARY | 2025-05-30 11:49 | XMS_ITS | Patient Health Record ---
Author Organization [facility] Address [address] [place] [address] Care Team Providers Care Surface Lay Out Technician Name Role Phone Jovon (RETIRED) Saul PALOMARES [...] Status W/U Status Risk Notes Problem Dysphagia (52094373) Dysphagia (787.20) Active confirmed Problem Barium swallow abnormal (200194148) Abnormal barium swallow (793.4) Active confirmed Problem Helicobacter pylori gastrointestinal tract infection (217955810) H. pylori infection (041.86) Active confirmed Plan Of Treatment Future Test Test Name Order Date UPPER GI ENDOSCOPY [place] DILATION OF ESOPH 05/21/2012 Insurance Providers Payer Name Payer Address Payer Phone Subscriber Number Group Number Insured Name Patient Relationship to Insured Coverage Start Date Coverage End Date MEDICARE OF [place] [address] [facility] [place] [address] [id number] [place] Self - patient is the insured [facility] INDEMNITY [address] [place] [address] [id number] [place] Self - patient is the insured Medical (General) History Medical History History ICD Code coronary artery disease with history of [place] and stent placement hypertension peripheral arterial disease Surgical History Surgery Date(Month/Year) back surgery leg bypass surgery multiple cardiac stent placements
== END 2025-05-30 10:26 | disposition home or self-care (01) ==
LOC: HO.CT 10:25
PROVIDERS: PCP Physician Assistant; Visit Provider Physician Assistant
DX: S06.0XAA Concussion with loss of consciousness status unknown, initial encounter (principal); H55.00 Unspecified nystagmus; R42 Dizziness and giddiness; Z79.01 Long term (current) use of anticoagulants
CPT/HCPCS: 70450

== ENCOUNTER → 2025-05-30 10:27 | Outpatient (BNV) | payer MEDICARE, OTHER, SELFPAY | PROVIDERS: PCP Physician Assistant; Visit Provider Radiology Diagnostic Radiology | DX: S06.0XAA Concussion with loss of consciousness status unknown, initial encounter (principal) | CPT/HCPCS: 70450 ==